=== PATIENT | female | born 1945 | race Caucasian/White ===

== ENCOUNTER 2019-11-16 17:36 | Inpatient (IN) | payer MEDICARE, SELFPAY ==
--- NOTE | ~2019-11-16 | CT_ITS ---
EXAMINATION: CT brain wo con DATE: 11/16/2019 19:22 INDICATION: Confusion TECHNIQUE: Computed tomography (CT) of the head was performed without intravenous contrast. The mA wa s adjusted according to patient size. Iterative reconstruction technique was employed. Exam dose: 60 5.33 mGy-cm total exam DLP. COMPARISON: None FINDINGS: Prominent bilateral vertebral and prominent carotid siphon and supraclinoid internal caroti d artery calcifications. There is nonspecific diminished attenuation of the cerebral white matter, likely due to chronic small vessel ischemic changes. Minimal bilateral basal ganglia calcification. No intracranial mass lesion or hemorrhage or cerebrovascular accident. No midline shift or mass effec t. No subdural or epidural hematoma. There is age-consistent mild to moderate cerebral and cerebellar atrophy. No fracture or bone destruction of the cranial vault. Bilateral hyperostosis frontalis interna, not l ikely of clinical significance. Mastoid air cells are normally developed and aerated. Middle and inner ear apparatus appear unremarka ble. The included paranasal sinuses appear normal. IMPRESSION: Cerebral atherosclerosis and chronic small vessel ischemic changes of the cerebral white matter No acute intracranial finding Reviewed, dictated and finalized at [facility]. Reviewed, dictated and finalized at [facility].
--- NOTE | ~2019-11-16 | XR_ITS ---
XR foot RT min 3V DATE: 11/16/2019 19:30 INDICATION: Osteomyelitis TECHNIQUE: 4 views of right foot COMPARISON: None FINDINGS: There is soft tissue swelling of the foot, particularly along the dorsum of the forefoot, w ith subcutaneous emphysema. The findings are consistent with cellulitis. No periosteal reaction or bone destruction is evident to suggest osteomyelitis. 3. Phase radionuclide bone scan would be more sensitive for detection of early osteomyelitis than julien in radiographs. There is prominent osteoarthritis at the first metatarsophalangeal joint. There is prominent plantar calcaneal and minimal posterior calcaneal enthesopathy. IMPRESSION: Soft tissue swelling and subcutaneous emphysema consistent with cellulitis Osteoarthritic change at the first metatarsophalangeal joint Calcaneal enthesopathy Reviewed, dictated and finalized at [facility]. IMPRESSION: Soft tissue swelling and subcutaneous emphysema consistent with memo lulitis Osteoarthritic change at the first metatarsophalangeal joint Calcaneal enthesopathy
--- NOTE | ~2019-11-16 | MR_ITS ---
EXAMINATION: MR foot RT wo/w con DATE: 11/17/2019 10:52 INDICATION: Osteomyelitis TECHNIQUE: Magnetic resonance imaging (MRI) of the right fore/mid foot was performed without and with 18 mL Multihance intravenous contrast. Sequences included axial T1-weighted FSE, axial T2-weighted F S FSE, coronal T1-weighted FSE, coronal T2-weighted FS FSE, sagittal T1-weighted FSE and sagittal T2- weighted FS FSE. Precontrast axial T1-weighted FS FSE and post contrast axial and coronal T1-weighted FS FSE were also obtained. COMPARISON: Radiographs dated 11/16/2019 FINDINGS: Bone alignment is normal. No fracture. Normal T1 marrow fat signal throughout with no evident osteomy elitis. Mild to moderate polyarticular osteoarthritis at the mid and forefoot most prominent at the f irst metatarsophalangeal, naviculocuneiform and second and third tarsal metatarsal joints with associ ated subarticular edema and/or cystic changes. No no other regions of abnormal marrow edema or enhanc ement although evaluation at portions of the phalanges is limited by failure of fat saturation in thi s region. There is extensive subcutaneous edema and non mass-like enhancement throughout the soft tissues the f ore and midfoot. There are few small foci of absent signal in the subcutaneous fat over the dorsum of the forefoot corresponding to subcutaneous emphysema seen on prior radiographs. There are regions of absent enhancement in the surrounding soft tissues which is concerning for necrotic/infarcted tissue . This extends around the heads of the 3rd-5th metatarsals is contiguous with an additional large reg ion of absent soft tissue enhancement plantar to the heads and distal diaphyses of the 2nd-5th metata rsals. This lies deep to a large ulceration located plantar to the heads of the fourth and fifth meta tarsals. The region of absent soft tissue enhancement at the plantar forefoot measures approximately 6 cm medial to lateral, 4 cm proximal to distal and 2 cm in thickness. The region in the dorsal soft tissues also measures 6 cm medial to lateral, 4 cm proximal to distal and proximal 1-1.5 cm in thickn ess. The flexor and extensor tendons to the toes lie along the deep margins of the regions of necrosi s and appear to remain grossly intact on the coronal T2-weighted images. Physiologic amount of fluid in the joint spaces. IMPRESSION: 1. Severe cellulitis which appears to originate at a deep ulceration plantar to the fourth and fifth metatarsals with 6 x 4 x 2 cm region of necrotic soft tissue at the plantar aspect of the forefoot an d extending around the heads of the second-fifth metatarsals into the soft tissues of the dorsum of t he forefoot and measures 6 x 4 x 1-1.5 cm with associated subcutaneous emphysema. No evidence of asso ciated osteomyelitis. 2. Mild to moderate polyarticular osteoarthritis. Reviewed, dictated and finalized at location [facility]. IMPRESSION: 1. Severe cellulitis which appears to originate at a deep ulceration plantar to the fourth and fifth metatarsals with 6 x 4 x 2 cm region of necrotic soft tis ghada at the plantar aspect of the forefoot and extending around the heads of the second-fifth metatarsals into the soft tissues of the dorsum of the forefoot a nd measures 6 x 4 x 1-1.5 cm with associated subcutaneous emphysema. No evidenc e of associated osteomyelitis. 2. Mild to moderate polyarticular osteoarthritis.
--- NOTE | ~2019-11-16 | MR_ITS ---
EXAMINATION: MR brain/brain stem wo/w con DATE: 11/17/2019 10:52 INDICATION: Confusion, possible CVA TECHNIQUE: Magnetic resonance imaging (MRI) of the brain and brainstem was performed without intraven ous contrast. Sequences included sagittal and axial T1-weighted SE, axial diffusion-weighted FS EPI A SSET, axial T2*-weighted GRE, axial T2-weighted FLAIR Propeller, and axial T2-weighted Propeller. Pos tcontrast axial and coronal T1-weighted SE was obtained. Apparent diffusion coefficient (ADC) maps we re created. COMPARISON: None CONTRAST: Multihance, 18 cc FINDINGS: There are no areas of restricted diffusion to suggest acute infarction. There is no acute h emorrhage seen on the T2*, a hemosiderin sensitive sequence. There is mild prominence of the sulci an d ventricles related to cerebral atrophy. There are no extra-axial collections. Flow voids are seen in the cerebral arteries on the T2-weighted sequences consistent with their expected patency. Visuali zed orbits and soft tissues are unremarkable. There are no areas of abnormal enhancement on the post contrast images. IMPRESSION: 1. No acute intracranial process. 2. Age related findings. Reviewed, dictated and finalized at location [facility].
--- NOTE | ~2019-11-16 | XR_ITS ---
EXAMINATION: XR lumbar spine 2-3V DATE: 11/18/2019 16:14 INDICATION: Low back pain after fall TECHNIQUE: Anteroposterior and lateral views of the lumbar spine, and cone-down lateral view of the l umbosacral junction were obtained. COMPARISON: None. FINDINGS: There is an age-indeterminate compression fracture of the L1 vertebral body with 40% loss o f anterior vertebral body height. Vertebral body alignment is normal. There is mild loss of intervert ebral disc space height at L5-S1. Small degenerative osteophytes project from the anterior endplates of multiple vertebral bodies. There is moderate lower lumbar facet osteoarthritis. IMPRESSION: 1. Age-indeterminate compression fracture of the L1 vertebral body. Reviewed, dictated and finalized at location [facility].
--- NOTE | ~2019-11-16 | US_ITS ---
EXAMINATION: US art doppler w press LE BI DATE: 11/18/2019 11:22 INDICATION: Necrotic wound at the right foot TECHNIQUE: Segmental pressures and plethysmographic and Doppler waveforms of the brachial and lower e xtremity arteries were obtained. COMPARISON: None. FINDINGS: Right and left brachial artery pressures of 172 mm Hg and 168 mm Hg, respectively, are concordant (no rmal difference <= 30 mmHg). The right and left high-thigh pressure indices are unable to be obtained due to inability to occlude the vessels at the bilateral thighs. The right ankle-brachial index (AMOS) is 0.97 (normal >= 0.9-1). The right great toe-brachial index (T BI) is unable to be obtained due to bandaging material about the right foot (normal >= 0.6-0.8). The right lower extremity segmental pressure gradients are normal (normal gradients <= 20-30 mmHg between adjacent levels on the same leg or the same levels on the two legs). Arterial waveforms are biphasic with brisk systolic upstrokes throughout. The left AMOS is 0.99. The left TBI is 0.76. The left lower extremity segmental pressure gradients are increased between the left [id number] popliteal artery and the left posterior tibial artery. Art erial waveforms are biphasic with brisk systolic upstrokes throughout. IMPRESSION: 1. Normal AMOS's bilaterally. No significant arterial occlusive disease. Reviewed, dictated and finalized at location [facility].
[2019-11-16 17:47] VITALS: BP 181/65; PULSE 84; RESP 18; TEMP 36.3; O2SAT 99
--- NOTE | 2019-11-16 17:50 | ED.AMS ---
HPI - Altered Mental Status General Chief Complaint: Altered Mental Status Stated Complaint: ams Time Seen by Provider: 11/16/19 17:49 Source: patient and family Mode of arrival: EMS Limitations: no limitations History of Present Illness HPI narrative: A 74 y/o female presents to the ED, via EMS, with c/o AMS. According to family, the patient started to have slurred speech and confusion this morning. According to the patient, she slipped and fell out of bed on 11/11/19, but was not evaluated at the hospital at that time. She reports dark urine, but denies JONES, N/V, fever, chills, back pain, CP, ABD pain, hip pain, and foot pain in the ED. The patient has a visual right foot wound with necrotic tissue and reports right foot redness and swelling. The patient and her family are poor historians and are unsure when the foot wound started. She last saw a physician 6 years ago. complaint: altered mental status Onset (ago): hour(s) (Today) Timing confirmed by: family member Consistency of symptoms: constant Associated symptoms: other (Right foot swelling, right foot redness, dark urine, slurred speech, confusion) Related Data Home Medications Medication Instructions Recorded Confirmed No Home Medications 11/16/19 11/16/19 Allergies Allergy/AdvReac Type Severity Reaction Status Date / Time No Known Allergies Allergy Verified 11/16/19 17:46 Review of Systems Review of Systems: All systems reviewed & are unremarkable except as noted in HPI and below Constitutional: Constitutional: Denies chills and Denies fever(s) Cardiovascular: Cardiovascular: Denies chest pain Gastrointestinal: Gastrointestinal: Denies abdominal pain, Denies nausea and Denies vomiting Genitourinary: Genitourinary: Reports other (Dark urine) Musculoskeletal: Musculoskeletal: Denies back pain and Denies arthralgias (Hip, foot) Integumentary/Breasts: Skin/Breast: Reports swelling (Right foot) and Reports erythema (Right foot) Neurologic: Reports confusion, Denies headache(s) and Reports other (AMS, slurred speech) [facility] Past Medical History Medical History (Updated 11/16/19 @ 22:18 by Suki Monae MD) Medical history unknown Surgical History Surgical History (Updated 11/16/19 @ 18:42 by Edith Melton) Surgical history unknown Social History Social History (Updated 11/16/19 @ 18:42 by Edith Melton) Smoking status: Unknown if ever smoked Gender identity (if verbalized by the patient): Female Exam Narrative: Exam Narrative: General appearance: Well-developed, well-nourished Skin: Normal color, right foot showed extensive erythema, dorsal ulcers, plantar open dark skin without discharge. Poor sensation Head: Normocephalic, nontraumatic Eyes: Clear conjunctiva ENT: Oropharynx normal, ears normal, nose normal Neck: Supple, nontender Chest and respiratory: Airway patent, no respiratory distress, no accessory muscle use Heart: Regular rate/rhythm Abdomen: Soft, nontender, no organomegaly, quiet bowel sounds Vascular: Normal peripheral pulses, normal capillary refill. Musculoskeletal: Normal range of motion, nontender back Neurologic: Alert and oriented ?3, [employer] is normal as tested, no gross motor deficit Course Course Emergency Course: Stable Consultations Consultation #1: Dr. [place] Date: 11/16/19 Time: 22:18 Vital Signs Vital signs: Vital Signs Temperature 36.3 C L 11/16/19 17:47 Pulse Rate 84 11/16/19 17:47 Respiratory Rate 18 11/16/19 17:47 Blood Pressure 181/65 H 11/16/19 17:47 Pulse Oximetry 99 11/16/19 17:47 Temperature 36.3 C L 11/16/19 17:47 Pulse Rate 77 11/16/19 20:30 Respiratory Rate 21 H 11/16/19 20:30 Bloo
--- NOTE | 2019-11-16 17:54 | ECG_ITS ---
Measurements Intervals [place] Rate: 78 P: 63 AL: 140 QRS: -13 QRSD: 134 T: -17 QT: 393 QTc: 449 Interpretive Statements SINUS RHYTHM RIGHT BUNDLE BRANCH BLOCK BASELINE ARTIFACT- I, III, V6 ABNORMAL ECG Electronically Signed On 11-17-2019 9:30:49 CDT by Percy Hagen D.O.
[2019-11-16] MEDS: SODIUM CHLORIDE 0.9% IV 1,000 ML 999 ML IV CONT (18:20)
[2019-11-16 18:26] LABS: Hematocrit 38.5 % (37.0-47.0); Hemoglobin 12.4 g/dL (12.0-15.0); Mean Corpuscular HGB Conc 32.2 g/dl (32-36); Mean Corpuscular Hemoglobin 27.5 pg (26-34); Mean Corpuscular Volume 85.4 fl (80-100); Mean Platelet Volume 9.8 fl (7.4-10.4); Platelet Count Result 372 k/mm3 (150-375); Red Blood Count 4.51 M/mm3 (4.2-5.4); Red Cell Distribution Width 14.3 % (11.5-14.5); White Blood Count 20.3 K/mm3 (4.5-10.0)
[2019-11-16 18:36] LABS: INR 1.1; Partial Thromboplastin Time 29.5 SECONDS (22.3-36.8); Prothrombin Time 13.9 Seconds (11.1-14.7)
[2019-11-16 18:40] LABS: Lactic Acid Reflex 1.4 mmol/L (0.7-2.1)
[2019-11-16 18:50] LABS: Add Urine Microscopic? YES; Appearance Urine Cloudy (Clear); Bacteria Urine 2+ /hpf; Bilirubin Urine Negative (Negative); Blood Urine 1+ (Negative); Color Urine Yellow (Yellow); Glucose Urine UA 3+ mg/dL (Negative); Ketones Urine Trace mg/dL (Negative); Leukocyte Esterase Ur 3+ LEU/UL (Negative); Nitrate Urine Positive (Negative); Protein Urine 2+ mg/dL (Negative); RBC Urine 21-50 /hpf (0-2); Specific Grav Ur 1.023 (1.001-1.035); Squamous Epithelial Cell Urine Rare /hpf (Few); Urobilinogen Urine Negative mg/dL (<2.0); WBC Urine >75 /hpf
[2019-11-16 18:54] LABS: Alanine Aminotransferase 22 U/L (4-35); Alkaline Phosphatase 194 U/L (38-126); Aspartate Amino Transferase 18 U/L (14-36); Band Neutrophils Percent 11 % (0-6); Bilirubin,Total 0.6 mg/dL (0.2-1.3); Blood Urea Nitrogen 41 mg/dL (7-17); Calcium 9.4 mg/dL (8.4-10.2); Carbon Dioxide 29 mmol/L (22-30); Chloride 97 mmol/L (98-107); Eosinophils Percent Manual 2 % (0-4); Estimated Glomerular Filt Rate > 60; Glucose 320 mg/dL (65-105); Lymphocytes Absolute Manual 2.23 K/mm3 (1.1-4.5); Monocytes Absolute Manual 1.21 K/mm3 (0.1-0.90); Monocytes Percent Manual 6 % (3-9); Neutrophils Absolute Manual 16.44 K/mm3 (1.7-7.2); Neutrophils Percent Manual 70 % (46-73); Platelet Estimate Adequate (Adequate); Potassium 4.6 mmol/L (3.4-5.0); Sodium 133 mmol/L (137-145); Total Cells Counted 100
[2019-11-16 19:02] LABS: CRP 25.8 mg/dL (<1.0)
--- NOTE | 2019-11-16 19:21 | PC.NURSE ---
pt down to ct
[2019-11-16 20:30] VITALS: BP 191/71; PULSE 77; RESP 21; O2SAT 98
[2019-11-16 22:08] VITALS: TEMP 36.4
[2019-11-16 22:20] VITALS: BP 197/90; PULSE 85; RESP 18; O2SAT 100
--- NOTE | 2019-11-16 22:36 | PM.IMHP ---
H&P: HPI History of Present Illness Chief complaint: ams Narrative: This is a 74-year-old female who presented to the hospital today with acute confusion and altered mental status. The patient is known to live with her son who brought her to the hospital today concerned that she is more confused than normal. He reports that she suffered a fall this past Monday and was found on the ground face first. At that time he wanted to bring her to the hospital although she refused. He also reports that she has not regularly seen any healthcare providers in about 6 years. He notice that she has become more confused over the past day and half. She has been complaining of right foot pain and has been taking Aleve 3 or 4 times a day for the past week. Her son believes he she may have injured her foot when she fell this past Monday. The patient also complains of painful urination. She denies any fever, chills, chest pain, palpitations, abdominal pain, nausea, vomiting, diarrhea, or rectal bleeding. Patient was evaluated emergency room this evening and found to have elevated blood glucose of 320 mg/dL. The patient is not known to be diabetic but she also does not follow-up with any healthcare providers. Urinalysis was abnormal with positive nitrate, +3 leukocyte esterase, greater than 75 white blood cells, and 21-50 red blood cells. X-ray of her right foot did not demonstrate any osteomyelitis. General surgery has been consulted to evaluate the patient's right diabetic foot for possible debridement. Significant complaints at this time. Review of Systems Review of Systems: All systems reviewed & are unremarkable except as noted in HPI and below PMFSH Past Medical History Medical History Medical history unknown Surgical History Surgical History History of section, classical Surgical history unknown Family History Family History Mother Diabetes mellitus Cerebrovascular accident Father Congestive heart failure (CHF) Father No problems noted. Son Hypertension Social History Social History Smoking status: Never smoker Alcohol intake: never Substance use: never Substance use type: does not use Gender identity (if verbalized by the patient): Female Spiritual care concerns: No Agree to blood products: Yes Meds Home Medications and Allergies Home Medications Medication Instructions Recorded Confirmed Type No Home Medications 11/16/19 11/16/19 History Allergies Allergy/AdvReac Type Severity Reaction Status Date / Time No Known Allergies Allergy Verified 11/16/19 17:46 Vital Signs Vital Signs - 24 hr 11/16/19 17:47 11/16/19 20:30 11/16/19 22:08 Temperature 36.3 C L 36.4 C L Pulse Rate 84 77 Respiratory Rate 18 21 H Blood Pressure 181/65 H 191/71 H Pulse Oximetry 99 98 Exam Const: General: cooperative, no acute distress, alert, awake and ill appearing chronically Nutritional Appearance: obese morbidly obese Orientation/consciousness: oriented to person and confusion HENMT: Head: normal to inspection General nose exam: Normal external nose present Face and sinus: normal facial exam Mouth: Yes Normal oral and palatal mucosa present and Yes oropharynx normal Eyes: Pupils: Equal, round and reactive pupils present EOM: EOMs intact bilaterally Neck: Neck: supple and no JVD Thyroid: thyroid normal Lymphatic: lymphadenopathy not noted Resp: Effort & Inspection: normal respiratory effort Auscultation: clear to auscultation bilaterally Cardio: Rate: regular rate Rhythm: regular rhythm Heart sounds: no murmurs GI: Inspection: normal to inspection Auscultation: normal bowel sounds Skin: Other: Cellulitis of right foot with edema, purplish discoloration,
[2019-11-16] MEDS: ASPIRIN 325 MG TABLET PO (22:41)
[2019-11-16 23:00] VITALS: BP 198/65; PULSE 78; RESP 19; TEMP 36.4; O2SAT 99
[2019-11-16 23:23] VITALS: BMI 39.3
[2019-11-16 23:24] VITALS: BP 144/88; PULSE 79; RESP 20; TEMP 36.1; O2SAT 96
[2019-11-16] MEDS: SODIUM CHLORIDE 0.9% IV 1,000 ML 150 ML IV CONT (23:26)
[2019-11-17] VITALS (10 sets, daily range): BP systolic 142–152; BP diastolic 45–88; PULSE 64–80; RESP 18–20; TEMP 36–36.6; O2SAT 96–100
[2019-11-17 01:16] LABS: Glucose Point of Care 321 (65-105)
[2019-11-17] MEDS: ACETAMINOPHEN 325 MG TABLET 650 MG PO ×2 (01:42→10:56)
[2019-11-17] MEDS: TOLNAFTATE 1% POWDER 45 GM BTL 1 APPLIC TOPICAL ×3 (01:46→21:37)
[2019-11-17 05:31] LABS: Basophils Percent Auto 0.1 % (0.2-1.2); Eosinophils Absolute Auto 0.2 K/mm3 (0-0.3); Eosinophils Percent Auto 0.9 % (0-4.4); Hematocrit 35.4 % (37.0-47.0); Hemoglobin 11.3 g/dL (12.0-15.0); Immature Granulocyte Absolute 0.86 K/mm3 (0.00-0.031); Immature Granulocyte Percent A 5.2 % (0-0.5); Lymphocytes Absolute Auto 1.13 K/mm3 (0.9-3.2); Lymphocytes Percent Auto 6.8 % (18.3-44.2); Mean Corpuscular HGB Conc 31.9 g/dl (32-36); Mean Corpuscular Hemoglobin 27.3 pg (26-34); Mean Corpuscular Volume 85.5 fl (80-100); Mean Platelet Volume 10.1 fl (7.4-10.4); Monocytes Absolute Auto 0.6 K/mm3 (0.1-0.6); Monocytes Percent Auto 3.5 % (2.6-8.5); Neutrophils Absolute Auto 13.9 K/mm3 (1.3-6.7); Neutrophils Percent Auto 83.5 % (45.5-73.1); Platelet Count Result 315 k/mm3 (150-375); Red Blood Count 4.14 M/mm3 (4.2-5.4); Red Cell Distribution Width 14.3 % (11.5-14.5); White Blood Count 16.6 K/mm3 (4.5-10.0)
[2019-11-17 05:42] LABS: Blood Urea Nitrogen 35 mg/dL (7-17); Calcium 8.2 mg/dL (8.4-10.2); Carbon Dioxide 20 mmol/L (22-30); Chloride 103 mmol/L (98-107); Estimated CRCL calculation 68 ml/min; Estimated Glomerular Filt Rate > 60; Glucose 295 mg/dL (65-105); Potassium 4.3 mmol/L (3.4-5.0); Sodium 130 mmol/L (137-145)
[2019-11-17 05:51] LABS: Hemoglobin A1C 12.5 % (<5.7)
[2019-11-17] MEDS: SODIUM CHLORIDE 0.9% IV 1,000 ML 150 ML IV CONT ×2 (06:30→16:16)
[2019-11-17] MEDS: INSULIN ASPART (*BKC) 100 UNITS/ML SUB-Q ×3 (07:29→17:19)
[2019-11-17] MEDS: ENOXAPARIN 40 MG/0.4 ML SYRINGE SUB-Q (07:31)
[2019-11-17] MEDS: ASPIRIN 81 MG CHEWABLE TABLET PO (07:31)
--- NOTE | 2019-11-17 08:33 | PM.IMPN ---
Progress Note: A&P Assessment and Plan (1) Acute encephalopathy: Code(s): G93.40 - Encephalopathy, unspecified Status: Acute Assessment and Plan: Probably on the basis of metabolic encephalopathy with the septic picture and dehydration. Cultures have been obtained and she is on antibiotics (2) Uncontrolled hypertension: Code(s): I10 - Essential (primary) hypertension Status: Acute Assessment and Plan: With diabetes will institute FORREST-inhibitor with lisinopril 10 daily (3) New onset type 2 diabetes mellitus: Code(s): E11.9 - Type 2 diabetes mellitus without complications Status: Acute Assessment and Plan: A1c is 12.5. Will start Lantus 20 daily and continue sliding scale for now (4) Sepsis: Code(s): A41.9 - Sepsis, unspecified organism Status: Acute Assessment and Plan: As evidence by tachypnea and leukocytosis. Cultured and placed on antibiotics foot and urine likely source is (5) Diabetic foot: Code(s): E11.8 - Type 2 diabetes mellitus with unspecified complications Status: Acute Assessment and Plan: Wound care and surgery to evaluate. Good distal pulse and foot is warm. Will check MRI to make sure there is no osteo Continue vancomycin and Zosyn (6) Urinary tract infection: Qualifiers: Hematuria presence: without hematuria Urinary tract infection type: site unspecified Qualified Code(s): N39.0 - Urinary tract infection, site not specified Code(s): N39.0 - Urinary tract infection, site not specified Status: Acute Assessment and Plan: Cultures have been obtained and placed on Zosyn (7) Dehydration: Code(s): E86.0 - Dehydration Status: Acute Assessment and Plan: Poor p.o. intake last few days with pre renal azotemia. Monitor electrolytes and continue hydration (8) DVT prophylaxis: Code(s): Z29.9 - Encounter for prophylactic measures, unspecified Status: Acute Assessment and Plan: Lovenox Subjective Date/time seen: 11/17/19 08:33 Interval history: Date of visit 11/16Lena gabriel is a 74-year-old with newly diagnosed type 2 diabetes and hypertension who presented to the emergency room with altered mental status infected right foot in UTI. She is slightly dehydrated and has received IV fluids and antibiotics and is feeling much better this a.m.. Slept better and has no specific complaints. As per history of present illness she has not sought medical attention probably for upwards of 6 years. Exam Narrative: Exam Narrative: Blood pressure is 142/54 pulse 64 saturating 97% on room air afebrile Pupils equal reactive to light sclera anicteric Lungs clear CV regular rate rhythm Abdomen is soft nontender no masses obese Extremities without edema dorsalis pedis 2+ left ,1 to 2+ right, right foot there is abrasion on the dorsum and area of necrosis on the plantar surface laterally about 2-3 cm in diameter and some dark discoloration last 2 toes which may be all hematoma. Some erythema around that area also Neuro at this point she is alert she is oriented there is x3 in no focal deficit Integument no other rashes or skin breakdown other than the foot Objective Data Vital Signs Vital Signs: Vital Signs - 24 hr 11/16/19 17:47 11/16/19 20:30 11/16/19 22:08 Temperature 36.3 C L 36.4 C L Pulse Rate 84 77 Respiratory Rate 18 21 H Blood Pressure 181/65 H 191/71 H Pulse Oximetry 99 98 11/16/19 22:20 11/16/19 23:00 11/16/19 23:24 Temperature 36.4 C L 36.1 C L Pulse Rate 85 78 79 Respiratory Rate 18 19 20 Blood Pressure 197/90 H 198/65 H 144/88 H Pulse Oximetry 100 99 96 11/17/19 00:00 11/17/19 04:00 Temperature 36.1 C L 36.4 C Pulse Rate 80 64 Respiratory Rate 20 20 Blood Pressure 144/88 H 142/54 H Pulse Oximetry 96 97 Intake/Output Intake/Output: Intake & Output 11/14/19 11/15/19 11/16/19 11/17/19 23:59 23:59 23:59 23:59 Intake
[2019-11-17 08:48] LABS: Vitamin B12 > 1000.0 pg/mL (239-931)
[2019-11-17 08:49] LABS: Folic Acid 7.4 ng/mL (2.76->20)
--- NOTE | 2019-11-17 08:51 | PC.NURSE ---
Patient to MRI per stretcher. IV saline locked.
[2019-11-17 10:06] LABS: Glucose Point of Care 269 (65-105)
[2019-11-17] MEDS: INSULIN GLARGINE (*BKC) 100 UNITS/ML 20 UNITS SUB-Q (10:57)
[2019-11-17 11:28] LABS: Glucose Point of Care 253 (65-105)
[2019-11-17] MEDS: lisinopriL 10 MG TABLET PO (12:15)
[2019-11-17 12:38] LABS: Glucose Point of Care 258 (65-105)
[2019-11-17 17:34] LABS: Glucose Point of Care 275 (65-105)
--- NOTE | 2019-11-17 18:25 | CONS_ITS ---
DATE OF CONSULTATION: 11/16/2019 HISTORY OF PRESENT ILLNESS: A 74 years old right-handed female who has been admitted to [facility] through the emergency room for the complaints of change in the mental status with confusion. The patient reportedly lives with her son who brought her to the hospital as the patient appeared somewhat more confused. She suffered a fall last Monday and was found to be on the ground face first. At that time, he wanted to bring her to the hospital, although patient refused. She has not seen any physician regularly for the last 6 years. She became more confused over the past [id number]-half and has also complained of pain in the right foot, has been taking Aleve 3 or 4 times a day for the last 1 week. In addition, she complained of difficulties in urination. She was found to have a blood sugar of 320 in the emergency room, though she is not known to be diabetic. UA was abnormal with 3+ leukocyte, positive nitrate, greater than 75 white blood cells and 21-50 red blood cells. On x-ray of the right foot, she was found to have no fracture, no osteomyelitis. In the past, she has undergone significant . Her mother used to be diabetic, had stroke. Father used to have congestive heart failure. She herself is not a smoker, not a drinker. Home medications were recorded as none. ALLERGIES: NONE. PHYSICAL EXAMINATION: GENERAL: Revealed her to be awake, alert, cooperative, somewhat chronically ill appearing, morbidly obese. HEENT: Head normocephalic with no cranial bruit. Ear, nose, throat examination normal. NECK: Supple with no cervical bruit. No thyromegaly. No lymphadenopathy. HEART: Regular. LUNGS: Clear. ABDOMEN: Soft. NEUROLOGICAL: She is awake, alert. Pupils round, regular. Lim of vision full. Extraocular full. Face symmetrical. Tongue midline. Motor examination revealed her to have no focal motor deficit. Reflexes sluggish. Plantars downgoing. DIAGNOSTIC STUDIES: Evaluation up until now revealed CBC with leukocytosis, WBC 20.3, hemoglobin 12.4, platelet count 378, normal basic metabolic panel except sodium borderline that is 133 and BUN of 41. In addition, glucose of 320. Hepatic enzymes normal. Alkaline phos of 194 with albumin 3.0. UA with 2+ protein, 3+ glucose. Initial CT scan of the head revealed only small-vessel ischemic changes. X-ray of the right ankle revealed soft tissue swelling and subcutaneous emphysema consistent with cellulitis. No evidence of broken bone, though she was noted to have calcaneal enthesopathy. PLAN: Plan at this stage is to obtain the MRI of the brain as well. In addition, ultrasound of the carotid and further recommendations will be made accordingly. At this particular time, she is receiving no medication. We will start her on 1 baby aspirin for the time being until everything is obtained. BERTA BARROS M.D. ENTRY LEVEL AUTOMOTIVE TECHNICIAN ENTRY LEVEL AUTOMOTIVE TECHNICIAN D I MT: [place]
--- NOTE | 2019-11-17 19:05 | PM.CNGS ---
Assessment and Plan Assessment and plan (1) Diabetic foot: Onset Date: Unknown Code(s): E11.8 - Type 2 diabetes mellitus with unspecified complications Status: Acute Assessment and Plan: This appears to have been present for some time. Patient has a black eschar proximally 4 x 2 cm in size underneath her 4th metatarsal area right foot. (Plantar surface) I debrided a soft area on the top of her right foot overlying the 3rd 4th and 5th metatarsals. She has definite diabetic neuropathy because she did not complain at all during debridement of significant tissue. Will order noninvasive vascular arterial studies to check the inflow to her right leg. I suspect that she may have significantly compromised blood flow to this right foot. Will ask wound care nurses to begin seen the patient on Monday. Most likely will also need to ask Orthopedics to see the patient as I suspect that the MR will identify possible osteomyelitis in the area of the 3rd 4th or 5th digits Right foot. (2) Uncontrolled hypertension: Onset Date: Unknown Code(s): I10 - Essential (primary) hypertension Status: Acute Assessment and Plan: Started on medication for this however has not seen a physician for over 6 years therefore much of the damage may have been done. (3) New onset type 2 diabetes mellitus: Onset Date: Unknown Code(s): E11.9 - Type 2 diabetes mellitus without complications Status: Acute Assessment and Plan: Insulin started and education of the patient started. She has not seen a physician for more than 6 years. (4) Sepsis: Onset Date: Unknown Code(s): A41.9 - Sepsis, unspecified organism Status: Acute Assessment and Plan: Most likely secondary to diabetic foot infection on the right. Culture taken at the time of debridement should be the most accurate this was done in evening of 11/17/2019. (5) Urinary tract infection: Onset Date: Unknown Qualifiers: Hematuria presence: without hematuria Urinary tract infection type: site unspecified Qualified Code(s): N39.0 - Urinary tract infection, site not specified Code(s): N39.0 - Urinary tract infection, site not specified Status: Acute Assessment and Plan: cultures pending at this time. History of Present Illness Consult details Consult date: 11/17/19 Reason for consult: other ( diabetic right foot infection) Requesting physician: Charles Gracia MD Narrative: This is a 74-year-old female who presented to the hospital yesterday with acute confusion and altered mental status. The patient is known to live with her son who brought her to the hospital concerned that she was more confused than normal. He reports that she suffered a fall this past Monday and was found on the ground face first. At that time he wanted to bring her to the hospital but she refused. He also reports that she has not regularly seen any healthcare providers in about 6 years. He noticed that she has become more confused over the past day and half. She has been complaining of right foot pain and has been taking Aleve 3 or 4 times a day for the past week. Her son believes he she may have injured her foot when she fell this past Monday. The patient also complains of painful urination. She denies any fever, chills, chest pain, palpitations, or abdominal pain. Patient was evaluated emergency room last evening and found to have elevated blood glucose of 320 mg/dL. The patient is not known to be diabetic but she also does not follow-up with any healthcare providers. Urinalysis was abnormal with positive nitrate, +3 leukocyte esterase, greater than 75 white blood cells, and 21-50 red blood cells. X-ray of her right foot did not demonstrate any osteomyelitis, however there were changes in the soft tissue suggestive of a celullitis. Review of Systems Constitutional: Constitutional: Reports no add
[2019-11-17] MEDS: TRAMADOL HCL 50 MG TABLET PO (19:22)
--- NOTE | 2019-11-17 21:34 | PM.PROC ---
Procedure Note - Detailed Date of procedure: 11/17/19 Pre-op diagnosis: ams Diabetic right infection Post-op diagnosis: same Procedure performed: Excisional debridement of necrotic skin and soft tissue dorsum right foot Description of procedure: After obtaining verbal consent carefully prepped the top of the patient's right foot with Betadine. The 4 x 3 cm area overlying her 3rd 4th 5th metatarsal was carefully incised. On incising the leathery white skin there was immediate flow of yellowish cloudy fluid. Culture swab was taken and sent for Gram stain and C&S. Following this leathery skin and underlying soft tissue including subcutaneous fat down to tendon was excised. Patient did not complain of any pain whatsoever. There was minimal bleeding along the edges. This was stopped with pressure. Patient tolerated the procedure well. Dressing was applied with unfolded 4 x 4 gauze placed in the wound between the spaces of the 4th and 5th 3rd 4th and 2nd 3rd toes. This was then wrapped with a Kerlix gauze. Anesthesia: none Surgeon: Jabari Multani MD Radiology Transcriptionist: Floor nurse Mirna Estimated blood loss (mL): 2 Drains: No Packing: No Pathology: none sent Complications: No immediate complications Condition: stable Disposition: floor Findings: Necrotic skin with underlying whitish necrotic tissue extending down between apparent tendons. Minimal bleeding for the dissection done.
[2019-11-17 21:50] LABS: Glucose Point of Care 263 (65-105)
[2019-11-18] VITALS (11 sets, daily range): BP systolic 118–158; BP diastolic 40–72; PULSE 53–82; RESP 16–22; TEMP 36.1–36.6; O2SAT 93–98; BMI 39.3
--- NOTE | 2019-11-18 | ECHO_ITS ---
Patient Info Name: Tana Hutchins Age: 74 years : 1945 Gender: Female Ht: 60 in Wt: 201 lbs BSA: 2.02 m2 HR: 77 bpm BP: 149 / 752 mmHg Heart Rhythm: Sinus Rhythm Technical Quality: Good Exam Date: 11/18/2019 3:06 PM Exam Location: [facility] Pulmonary Patient Status: Inpatient Admit Date: 11/16/2019 Staff Ordering Physician: Yuri Gant MD Casting Tester: Jesus Dave, RASHID, RT Attending Provider: Charles Gracia MD Referring Physician: Alfreda CARUSO; Exam Type: CA echo dop color flow w con Study Info Indications I10 - Essential (primary) hypertension Complete two-dimensional, color flow and Doppler transthoracic echocardiogram is performed with contrast to opacify the left ventrical and to improve the deliniation of the left ventrical endocarial boarders. Summary 1. There is mild concentric increased left ventricular wall thickness. 2. Left ventricular systolic function is normal, estimated at 60-65%. 3. The left ventricular diastolic function is grade I diastolic dysfunction. 4. Left atrial chamber dimension is moderately enlarged. 5. No significant valvular disease. Left Ventricle Left ventricular chamber dimension is normal. Left ventricular systolic function is normal, estimated at 60-65%. There is mild concentric increased left ventricular wall thickness. The left ventricular diastolic function is grade I diastolic dysfunction. Right Ventricle Right ventricular chamber dimension is normal. Left Atria Left atrial chamber dimension is moderately enlarged. Right Atria Right atrial chamber dimension is normal. Aortic Valve The aortic valve is normal. Pulmonic Valve The pulmonic valve is not well visualized. Mitral Valve The mitral valve has normal leaflets. Tricuspid Valve The tricuspid valve leaflets are normal. There is trace tricuspid valve regurgitation. Pericardium/Pleural The pericardium appears normal. Aorta The aortic root size at the sinus of Valsalva is normal. Left Ventricular Outflow Tract Name Value Normal LVOT 2D LVOT Diameter 2.01 cm LVOT Doppler LVOT Peak Gradient 5 mmHg LVOT Mean Gradient 2 mmHg LVOT VTI 23.80 cm LVOT VTI/AV VTI Ratio 0.78 LVOT Stroke Volume 75.76 ml LVOT CO 6.15 l/min LVOT CI 3.05 L/min/m2 Pulmonic Valve Name Value Normal PV Doppler PV Peak Gradient 4 mmHg Mitral Valve Name Value Normal MV Doppler MV Dece
[2019-11-18] MEDS: SODIUM CHLORIDE 0.9% IV 1,000 ML 150 ML IV CONT ×3 (02:13→20:27)
[2019-11-18 05:29] LABS: Basophils Percent Auto 0.2 % (0.2-1.2); Eosinophils Absolute Auto 0.3 K/mm3 (0-0.3); Eosinophils Percent Auto 1.7 % (0-4.4); Hematocrit 36.1 % (37.0-47.0); Hemoglobin 11.6 g/dL (12.0-15.0); Immature Granulocyte Absolute 1.19 K/mm3 (0.00-0.031); Immature Granulocyte Percent A 7.6 % (0-0.5); Lymphocytes Absolute Auto 1.43 K/mm3 (0.9-3.2); Lymphocytes Percent Auto 9.2 % (18.3-44.2); Mean Corpuscular HGB Conc 32.1 g/dl (32-36); Mean Corpuscular Hemoglobin 27.4 pg (26-34); Mean Corpuscular Volume 85.1 fl (80-100); Mean Platelet Volume 9.5 fl (7.4-10.4); Monocytes Absolute Auto 0.6 K/mm3 (0.1-0.6); Monocytes Percent Auto 3.7 % (2.6-8.5); Neutrophils Absolute Auto 12.1 K/mm3 (1.3-6.7); Neutrophils Percent Auto 77.6 % (45.5-73.1); Platelet Count Result 362 k/mm3 (150-375); Red Blood Count 4.24 M/mm3 (4.2-5.4); Red Cell Distribution Width 14.4 % (11.5-14.5); White Blood Count 15.6 K/mm3 (4.5-10.0)
[2019-11-18 05:31] LABS: Blood Urea Nitrogen 32 mg/dL (7-17); Calcium 7.9 mg/dL (8.4-10.2); Carbon Dioxide 26 mmol/L (22-30); Chloride 104 mmol/L (98-107); Estimated CRCL calculation 53 ml/min; Estimated Glomerular Filt Rate > 60; Glucose 215 mg/dL (65-105); Sodium 132 mmol/L (137-145)
[2019-11-18] MEDS: TRAMADOL HCL 50 MG TABLET PO ×2 (06:38→16:35)
[2019-11-18] MEDS: TOLNAFTATE 1% POWDER 45 GM BTL 1 APPLIC TOPICAL ×2 (09:36→20:27)
[2019-11-18] MEDS: ENOXAPARIN 40 MG/0.4 ML SYRINGE SUB-Q (09:36)
[2019-11-18] MEDS: lisinopriL 10 MG TABLET PO (09:36)
[2019-11-18] MEDS: ASPIRIN 81 MG CHEWABLE TABLET PO (09:36)
[2019-11-18] MEDS: INSULIN GLARGINE (*BKC) 100 UNITS/ML 30 UNITS SUB-Q (09:40)
[2019-11-18 09:58] LABS: Glucose Point of Care 192 (65-105)
--- NOTE | 2019-11-18 11:37 | PC.NURSE ---
Voicemail left with inclusion special educator in regards to order for consult. Patient newly diagnosed Type 2 diabetic with A1C of 12.5.
[2019-11-18] MEDS: SOD HYPOCHLORITE 1/4 STRENGTH 473 ML 1 APPLIC TOPICAL ×2 (13:50→20:27)
[2019-11-18 14:02] LABS: Glucose Point of Care 197 (65-105)
--- NOTE | 2019-11-18 14:36 | PM.IMPN ---
Progress Note: A&P Assessment and Plan (1) Acute encephalopathy: Code(s): G93.40 - Encephalopathy, unspecified Status: Acute Assessment and Plan: Probably on the basis of metabolic encephalopathy with the septic picture and dehydration. Cultures have been obtained and she is on antibiotics Resolved (2) Uncontrolled hypertension: Onset Date: Unknown Code(s): I10 - Essential (primary) hypertension Status: Acute Assessment and Plan: With diabetes instituted FORREST-inhibitor with lisinopril 10 daily and bp much better today (3) New onset type 2 diabetes mellitus: Onset Date: Unknown Code(s): E11.9 - Type 2 diabetes mellitus without complications Status: Acute Assessment and Plan: A1c is 12.5. Will start Lantus 20 daily and increased to 30 today with fbs still > 200 ,and continue sliding scale for now (4) Sepsis: Onset Date: Unknown Code(s): A41.9 - Sepsis, unspecified organism Status: Acute Assessment and Plan: As evidence by tachypnea and leukocytosis. Cultured and placed on antibiotics for foot and urine likely source cultures still pending, WBC down to 15K (5) Diabetic foot: Onset Date: Unknown Code(s): E11.8 - Type 2 diabetes mellitus with unspecified complications Status: Acute Assessment and Plan: Wound care and surgery have evaluated and debrided. Good distal pulse and foot is warm and arteriolar dopplars today are normal MRI no osteo seen Continue vancomycin and Zosyn (6) Urinary tract infection: Onset Date: Unknown Qualifiers: Hematuria presence: without hematuria Urinary tract infection type: site unspecified Qualified Code(s): N39.0 - Urinary tract infection, site not specified Code(s): N39.0 - Urinary tract infection, site not specified Status: Acute Assessment and Plan: Cultures have been obtained and placed on Zosyn (7) Dehydration: Code(s): E86.0 - Dehydration Status: Acute Assessment and Plan: Poor p.o. intake last few days with pre renal azotemia. Monitor electrolytes and continue hydration, bun slowly falling (8) DVT prophylaxis: Code(s): Z29.9 - Encounter for prophylactic measures, unspecified Status: Acute Assessment and Plan: Lovenox (9) Back pain: Code(s): M54.9 - Dorsalgia, unspecified Status: Acute Assessment and Plan: check LS spine xray with her hx of fall Subjective Date/time seen: 11/18/19 14:36 Interval history: Date of visit 11/17. Tana Hutchins is a 74-year-old with newly diagnosed type 2 diabetes and hypertension who presented to the emergency room with altered mental status infected right foot and UTI. She was slightly dehydrated and received IV fluids and antibiotics and is feeling much better again this a.m.. Slept better and has no specific complaints other than back pain since she fell. As per history of present illness she has not sought medical attention probably for upwards of 6 years. Surgery debrided her foot 11/16 and removed necrotic tissue downt to tendons Exam Narrative: Exam Narrative: Blood pressure is 138/40 pulse 66 saturating 97% on room air afebrile Pupils equal reactive to light sclera anicteric Lungs clear CV regular rate rhythm Abdomen is soft nontender no masses obese Extremities without edema dorsalis pedis 2+ left ,1 to 2+ right, Bandaged per wound care and surgery and not removed today. Neuro at this point she is alert she is oriented there is x3 in no focal deficit Integument no other rashes or skin breakdown other than the foot Objective Data Vital Signs Vital Signs: Vital Signs - 24 hr 11/17/19 16:00 11/17/19 18:00 11/17/19 20:00 Temperature 36.6 C Pulse Rate 67 73 68 Respiratory Rate 18 Blood Pressure 145/47 H Pulse Oximetry 97 11/17/19 21:41 11/18/19 00:00 11/18/19 02:00 Temperature 36.0 C L 36.1 C L Pulse Rat
[2019-11-18] MEDS: INSULIN ASPART (*BKC) 100 UNITS/ML SUB-Q (17:54)
[2019-11-18 17:55] LABS: Glucose Point of Care 229 (65-105)
--- NOTE | 2019-11-18 18:50 | PM.PNGS ---
Progress Note: A&P Assessment and Plan (1) Diabetic foot: Onset Date: Unknown Code(s): E11.8 - Type 2 diabetes mellitus with unspecified complications Status: Acute Assessment and Plan: Necrotic diabetic right foot ulcer. S/p excisional debridement by Dr. Multani on 11/17/19 with wound cultures. AMOS's and MRI ordered for today. MRI showed severe cellulitis which appears to originate at a deep ulceration plantar to the fourth and fifth metatarsals with 6 x 4 x 2 cm region of necrotic soft tissue at the plantar aspect of the forefoot and extending around the heads of the second-fifth metatarsals into the soft tissues of the dorsum of the forefoot and measures 6 x 4 x 1-1.5 cm with associated subcutaneous emphysema. No evidence of associated osteomyelitis. AMOS's were normal. Wound care nurses evaluated the patient today. Continue local wound care with Dakin's solution dressing changes. Discussed plan of care with Dr. Multani and will consult Orthopedics to evaluate the patient for more extensive surgical intervetion. (2) Uncontrolled hypertension: Onset Date: Unknown Code(s): I10 - Essential (primary) hypertension Status: Acute (3) New onset type 2 diabetes mellitus: Onset Date: Unknown Code(s): E11.9 - Type 2 diabetes mellitus without complications Status: Acute Assessment and Plan: Hgb A1C 12.5. Hospitalist managing and patient now on Lantus. Blood glucose improving but still in the 200's today. (4) Sepsis: Onset Date: Unknown Code(s): A41.9 - Sepsis, unspecified organism Status: Acute Assessment and Plan: Criteria met on admission. Most likely secondary to diabetic foot infection on the right. Other possible source is urine. Blood cultures pending. Continue IV antibiotics - Zosyn/Vanc. WBC trending down. Culture taken at the time of debridement. Awaiting results. (5) Urinary tract infection: Onset Date: Unknown Qualifiers: Hematuria presence: without hematuria Urinary tract infection type: site unspecified Qualified Code(s): N39.0 - Urinary tract infection, site not specified Code(s): N39.0 - Urinary tract infection, site not specified Status: Acute Additional Plan Discussed patient's case and plan of care with Dr. Multani. Subjective Subjective Date/Time Seen: 11/18/19 14:50 Patient reports: no new complaints Interval history: Patient reports no new complaints today. Denies pain in her right leg/foot. Review of Systems Review of Systems: All systems reviewed & are unremarkable except as noted in HPI and below Exam Const: General: no acute distress, alert and awake Orientation/consciousness: oriented to person, oriented to place and oriented to time Skin: Wounds: wounds noted (Planter surface of Rt. foot (black dry eschar beneath Rt. 4th metatarsal) Neuro: General: no focal motor deficits Extrem: Other: Right foot: Ulcer on the plantar aspect of the right foot extending from the 3rd to 5th metatarsal that appears to be a black dry eschar with surrounding skin changes extending past the ulcer that appear dark purple. There is also a small intact vesicle with surrounding erythema medial to the ulcer that overlies about the 2nd metatarsal. 3rd, 4th, and 5th toes have ischemic changes and appear dark purple with the superficial skin peeling - minimal decreased dull sensation in these toes. On the dorsum aspect of the right foot there is another ulcer of the midfoot extending from the 3rd to 5th metatarsal with a yellow necrotic moist wound bed that seems to extend with tunneling laterally and medially. When compressing the foot on each side of this ulcer, there is purulent drainage that is visibly expressible. surrounding skin of the midfoot does appear erythematous and edematous. No pain or sensation when assessing the ulcer on either the plantar or dorsal aspect. No significant crepitus noted. Strong DP pulse a
[2019-11-18 20:42] LABS: Glucose Point of Care 176 (65-105)
[2019-11-19] VITALS (8 sets, daily range): BP systolic 133–173; BP diastolic 53–70; PULSE 64–78; RESP 16–20; TEMP 36.1–36.8; O2SAT 94–97
[2019-11-19] MEDS: SODIUM CHLORIDE 0.9% IV 1,000 ML 150 ML IV CONT (03:19)
[2019-11-19] MEDS: TRAMADOL HCL 50 MG TABLET PO ×3 (05:06→18:08)
[2019-11-19 05:09] LABS: Hematocrit 37.7 % (37.0-47.0); Hemoglobin 11.9 g/dL (12.0-15.0); Mean Corpuscular HGB Conc 31.6 g/dl (32-36); Mean Corpuscular Hemoglobin 27.2 pg (26-34); Mean Corpuscular Volume 86.1 fl (80-100); Mean Platelet Volume 9.4 fl (7.4-10.4); Platelet Count Result 347 k/mm3 (150-375); Red Blood Count 4.38 M/mm3 (4.2-5.4); Red Cell Distribution Width 14.6 % (11.5-14.5); White Blood Count 17.1 K/mm3 (4.5-10.0)
[2019-11-19 05:24] LABS: Blood Urea Nitrogen 25 mg/dL (7-17); Carbon Dioxide 25 mmol/L (22-30); Chloride 107 mmol/L (98-107); Estimated CRCL calculation 53 ml/min; Estimated Glomerular Filt Rate > 60; Glucose 103 mg/dL (65-105); Potassium 3.8 mmol/L (3.4-5.0); Sodium 133 mmol/L (137-145)
[2019-11-19 06:08] LABS: Vancomycin Trough 14.2 ug/mL (10.0-20.0)
[2019-11-19 06:57] LABS: Band Neutrophils Percent 8 % (0-6); Eosinophils Absolute Manual 0.51 K/mm3 (0.02-0.5); Eosinophils Percent Manual 3 % (0-4); Lymphocytes Absolute Manual 2.39 K/mm3 (1.1-4.5); Monocytes Absolute Manual 0.51 K/mm3 (0.1-0.90); Monocytes Percent Manual 3 % (3-9); Neutrophils Absolute Manual 13.68 K/mm3 (1.7-7.2); Neutrophils Percent Manual 72 % (46-73); Platelet Estimate Adequate (Adequate); Total Cells Counted 100
[2019-11-19] MEDS: lisinopriL 10 MG TABLET PO (08:35)
[2019-11-19] MEDS: ASPIRIN 81 MG CHEWABLE TABLET PO (08:35)
[2019-11-19] MEDS: ENOXAPARIN 40 MG/0.4 ML SYRINGE SUB-Q (08:35)
[2019-11-19] MEDS: TOLNAFTATE 1% POWDER 45 GM BTL 1 APPLIC TOPICAL ×2 (08:36→20:15)
[2019-11-19] MEDS: SOD HYPOCHLORITE 1/4 STRENGTH 473 ML 1 APPLIC TOPICAL ×2 (08:36→20:15)
--- NOTE | 2019-11-19 09:08 | WPDNEUROPN ---
Progress Note: A&P Assessment and Plan (1) Back pain: Code(s): M54.9 - Dorsalgia, unspecified Status: Acute (2) Dehydration: Code(s): E86.0 - Dehydration Status: Acute (3) DVT prophylaxis: Code(s): Z29.9 - Encounter for prophylactic measures, unspecified Status: Acute (4) Acute encephalopathy: Code(s): G93.40 - Encephalopathy, unspecified Status: Acute (5) Uncontrolled hypertension: Onset Date: Unknown Code(s): I10 - Essential (primary) hypertension Status: Acute (6) New onset type 2 diabetes mellitus: Onset Date: Unknown Code(s): E11.9 - Type 2 diabetes mellitus without complications Status: Acute (7) Sepsis: Onset Date: Unknown Code(s): A41.9 - Sepsis, unspecified organism Status: Acute (8) Acute CVA (cerebrovascular accident): Code(s): I63.9 - Cerebral infarction, unspecified Status: Acute (9) Diabetic foot: Onset Date: Unknown Code(s): E11.8 - Type 2 diabetes mellitus with unspecified complications Status: Acute (10) Leukocytosis: Qualifiers: Leukocytosis type: unspecified Qualified Code(s): D72.829 - Elevated white blood cell count, unspecified Code(s): D72.829 - Elevated white blood cell count, unspecified Status: Acute (11) Urinary tract infection: Onset Date: Unknown Qualifiers: Hematuria presence: without hematuria Urinary tract infection type: site unspecified Qualified Code(s): N39.0 - Urinary tract infection, site not specified Code(s): N39.0 - Urinary tract infection, site not specified Status: Acute Additional Plan c/o LBP with compressio fracture of L1 will need LB support Review of Systems Review of Systems: All systems reviewed & are unremarkable except as noted in HPI and below Exam Const: General: cooperative, no acute distress, alert and awake Nutritional Appearance: average body habitus Eyes: General: appearance normal, both eyes and all related structures Alignment and Position: alignment normal Eyelids: eyelids normal Conjunctivae: conjunctivae normal Sclera: sclerae normal Cornea: corneas normal Pupils: Equal, round and reactive pupils present Neck: Neck: full ROM Resp: Effort & Inspection: normal respiratory effort and able to speak in complete sentences Auscultation: clear to auscultation bilaterally Cardio: Rate: regular rate Rhythm: regular rhythm GI: Auscultation: normal bowel sounds Skin: General skin exam: no rashes or lesions noted Neuro: General: patient oriented x3, moves all extremities and CN's II-XI intact bilaterally Cognition (Neuro): normal cognition Speech: normal speech Motor exam (neuro): 5/5 motor strength present throughout Deep tendon reflexes (DTR's): Right triceps reflex intensity grade: 1+, Left triceps reflex intensity grade: 1+, Rt Biceps (C5, C6): 1+, Left biceps reflex intensity grade: 1+, Right brachioradialis reflex intensity grade: 1+, Left brachioradialis reflex intensity grade: 1+, Right patellar reflex intensity grade: 1+, Left patellar reflex intensity grade: 1+, Right ankle reflex intensity grade: 0 and Left ankle reflex intensity grade: 0 Psych: Appearance: grossly normal Objective Data Vital Signs Vital Signs: Vital Signs - 24 hr 11/18/19 10:00 11/18/19 12:00 11/18/19 14:00 Temperature 36.1 C L 36.6 C Pulse Rate 66 71 65 Respiratory Rate 16 16 Blood Pressure 138/40 L 149/72 H Pulse Oximetry 94 97 11/18/19 16:00 11/18/19 18:00 11/18/19 20:00 Temperature 36.1 C L 36.1 C L Pulse Rate 82 72 67 Respiratory Rate 16 22 H Blood Pressure 118/42 L 156/60 H Pulse Oximetry 93 98 11/18/19 20:49 11/19/19 00:00 11/19/19 04:00 Temperature 36.1 C L 36.2 C L Pulse Rate 67 64 77 Respiratory Rate 22 H 20 20 Blood Pressure 133/70 167/57 H Pulse Oximetry 98 97 96 Intake/Output Intake/Output: Intake & Output
[2019-11-19] MEDS: INSULIN GLARGINE (*BKC) 100 UNITS/ML 30 UNITS SUB-Q (09:14)
[2019-11-19 09:41] LABS: Glucose Point of Care 129 (65-105)
--- NOTE | 2019-11-19 10:56 | PCOTNOTE ---
OT Evaluation attempted this AM. Pt had just finished physical therapy and gotten back in bed. patient requesting OT come back at later time.
--- NOTE | 2019-11-19 11:19 | PM.IMPN ---
Progress Note: A&P Assessment and Plan (1) Acute encephalopathy: Code(s): G93.40 - Encephalopathy, unspecified Status: Acute Assessment and Plan: Probable metabolic encephalopathy due to UTI, sepsis, and dehydration. Resolved (2) Uncontrolled hypertension: Onset Date: Unknown Code(s): I10 - Essential (primary) hypertension Status: Acute Assessment and Plan: Lisinopril 10mg daily 11/18 BP 152/53 (3) New onset type 2 diabetes mellitus: Onset Date: Unknown Code(s): E11.9 - Type 2 diabetes mellitus without complications Status: Acute Assessment and Plan: A1c is 12.5. Lantus 30 daily with SSI 11/18 FBS 129 11/18 added metformin (4) Sepsis: Onset Date: Unknown Code(s): A41.9 - Sepsis, unspecified organism Status: Acute Assessment and Plan: Supported by tachypnea and leukocytosis and source of infection (uti) (5) Diabetic foot: Onset Date: Unknown Code(s): E11.8 - Type 2 diabetes mellitus with unspecified complications Status: Acute Assessment and Plan: Wound care and surgery have evaluated and debrided. Good distal pulse and foot is warm and arteriolar dopplars today are normal MRI no osteo seen Continue vancomycin and Zosyn (6) Urinary tract infection: Onset Date: Unknown Qualifiers: Hematuria presence: without hematuria Urinary tract infection type: site unspecified Qualified Code(s): N39.0 - Urinary tract infection, site not specified Code(s): N39.0 - Urinary tract infection, site not specified Status: Acute Assessment and Plan: Continue Zosyn, pending c/s (7) Dehydration: Code(s): E86.0 - Dehydration Status: Acute Assessment and Plan: Poor p.o. intake last few days with pre renal azotemia. Monitor electrolytes and continue hydration, bun slowly falling (8) DVT prophylaxis: Code(s): Z29.9 - Encounter for prophylactic measures, unspecified Status: Acute Assessment and Plan: Lovenox (9) Back pain: Code(s): M54.9 - Dorsalgia, unspecified Status: Acute Assessment and Plan: L1 compression fx of indeterminate age PT/OT Analgesics prn DEXA screening recommended as outpatient Subjective Date/time seen: 11/19/19 11:19 Interval history: Tana Hutchins is a 74-year-old with newly diagnosed type 2 diabetes and hypertension who presented to the emergency room with altered mental status infected right foot and UTI. She was slightly dehydrated and received IV fluids and antibiotics. Surgery debrided her foot 11/16 and removed necrotic tissue down to tendons Review of Systems Review of Systems: All systems reviewed & are unremarkable except as noted in HPI and below Exam Narrative: Exam Narrative: Pupils equal reactive to light, sclerea nonicteric Neck no JVD Lungs clear CV regular rate rhythm Abdomen is soft nontender no masses obese Extremities without edema dorsalis pedis 2+ left ,1 to 2+ right, Bandaged per wound care and surgery and not removed today. Neuro at this point she is alert she is oriented there is x3 in no focal deficit Objective Data Vital Signs Vital Signs: Vital Signs - 24 hr 11/18/19 12:00 11/18/19 14:00 11/18/19 16:00 Temperature 97.9 F Pulse Rate 71 65 82 Respiratory Rate 16 Blood Pressure 149/72 H Pulse Oximetry 97 11/18/19 18:00 11/18/19 20:00 11/18/19 20:49 Temperature 97.0 F L 97 F L Pulse Rate 72 67 67 Respiratory Rate 16 22 H 22 H Blood Pressure 118/42 L 156/60 H Pulse Oximetry 93 98 98 11/19/19 00:00 11/19/19 04:00 11/19/19 08:00 Temperature 97 F L 97.2 F L Pulse Rate 64 77 67 Respiratory Rate 20 20 Blood Pressure 133/70 167/57 H Pulse Oximetry 97 96 11/19/19 10:00 Temperature 97.9 F Pulse Rate 69 Respiratory Rate 18 Blood Pressure 152/53 H Pulse Oximetry 97 Intake/Output Intake/Output: Intake & Output 11/02
[2019-11-19] MEDS: metFORMIN HCL XR 500 MG TAB.SR.24H PO (12:05)
[2019-11-19 12:34] LABS: Glucose Point of Care 103 (65-105)
--- NOTE | 2019-11-19 13:56 | PM.CNOR ---
Assessment and Plan Assessment and plan (1) Gangrene of toe of right foot: Code(s): I96 - Gangrene, not elsewhere classified Status: Acute Assessment and Plan: 74-year-old woman with newly diagnosed diabetes which is uncontrolled with right foot abscess leading to dorsal eschar of the forefoot as well as necrosis of the 3rd, 4, 5 toes. Bruising and softening of the soft tissue plantar forefoot with a through and through soft tissue infection. Unable to salvage the lesser toes which are gangrene. Unable to salvage the hallux and 2nd toe due to the wound extent on the dorsal and plantar foot. High likelihood of needing foot amputation. Discussed with patient. She is going to discuss with her family, at this point requires transmetatarsal amputation to try and control infection and stabilize the foot. Would then need treatment to try and effect wound closure. Patient has declined a transtibial amputation at this time but understands risk that this may be needed in the future. Plan to proceed with urgent to the operating room for open transmetatarsal amputation right foot with debridement. Discussed nonoperative and operative treatment options with the patient. Risks and benefits of each as well as alternatives were reviewed. All of the patient's questions were answered. The risks of surgery reviewed including but not limited to: Neurovascular damage, wound complication, infection, blood clot, pulmonary embolus, stroke, myocardial infarction, and anesthetic risks up to and including . Continued pain and possible dysfunction were explained. Specific risks of the procedure including later recurrence of deformity. No guarantees were offered. If complications occur, the patient understands the need for further treatment, possible further surgery. Patient verbalizes understanding and wishes to proceed. PLAN: Right foot transmetatarsal amputation (2) Diabetic ulcer of foot associated with diabetes mellitus due to underlying condition, with necrosis of muscle: Code(s): E08.621 - Diabetes mellitus due to underlying condition with foot ulcer; L97.503 - Non-pressure chronic ulcer of other part of unspecified foot with necrosis of muscle Status: Acute (3) Foot abscess, right: Code(s): L02.611 - Cutaneous abscess of right foot Status: Acute History of Present Illness HPI Consult date: 11/19/19 Requesting physician: Jabari Multani MD Consult reason: other ( right foot infection) Chief complaint: ams Review of Systems Review of Systems: Narrative: 74-year-old woman with newly diagnosed uncontrolled diabetes, poor historian, states that at some point she fell at home injuring her back and her right foot. Four days ago noticed increased swelling and an eschar over the top of the right foot. Presented to the emergency room and was admitted with a right foot infection as well as lumbar compression fracture of indeterminate age. Debridement done at the bedside of the right foot. Has had increasing necrosis of the lesser toes. I have been consulted to evaluate the right foot. Patient has decreased feeling in both feet. She has not had any recent medical treatment but was found to have elevated blood sugars and hemoglobin A1c of 12.5. Constitutional: Constitutional: Reports chills and Reports weakness ( Bilateral lower extremities) Eyes: Eyes: Denies blurry vision ENT: Denies nasal discharge Cardiovascular: Cardiovascular: Denies chest pain, Reports leg edema and Denies lightheadedness Respiratory: Respiratory: Denies cough and Reports dyspnea on exertion Gastrointestinal: Gastrointestinal: Denies abdominal pain Genitourinary: Genitourinary: Reports nocturia ( pain with urination) Musculoskeletal: Musculoskeletal: Reports as per HPI and Reports back pain ( low back) Integumentary/Breasts: Skin/Breast: Denies unusual bruising Neurologic: Reports numbness ( both feet) Psychiatric: Psychiatr
[2019-11-19] MEDS: SODIUM CHLORIDE 0.9% IV 1,000 ML 90 ML IV CONT (16:35)
[2019-11-19 16:47] LABS: Glucose Point of Care 75 (65-105)
[2019-11-19] MEDS: DEXTROSE 5%/0.9% SOD CHL 1,000 ML 90 ML IV CONT (17:18)
[2019-11-19 18:06] LABS: Glucose Point of Care 74 (65-105)
--- NOTE | 2019-11-19 19:52 | PM.PNGS ---
Progress Note: A&P Assessment and Plan (1) Diabetic foot: Onset Date: Unknown Code(s): E11.8 - Type 2 diabetes mellitus with unspecified complications Status: Acute Assessment and Plan: Necrotic diabetic right foot ulcer with necrotic 3rd, 4th, and 5th toes. S/p excisional debridement by Dr. Multani on 11/17/19 with wound cultures (preliminary results showing growth of Group B streptococcus). MRI showed severe cellulitis which appears to originate at a deep ulceration plantar to the fourth and fifth metatarsals with 6 x 4 x 2 cm region of necrotic soft tissue at the plantar aspect of the forefoot and extending around the heads of the second-fifth metatarsals into the soft tissues of the dorsum of the forefoot and measures 6 x 4 x 1-1.5 cm with associated subcutaneous emphysema. No evidence of associated osteomyelitis. AMOS's were normal. Currently doing Dakin's dressing changes for local wound care. Orthopedic consultation noted and appreciated. Planning for patient to proceed with open transmetatarsal amputation and debridement of the right foot. (2) Uncontrolled hypertension: Onset Date: Unknown Code(s): I10 - Essential (primary) hypertension Status: Acute (3) New onset type 2 diabetes mellitus: Onset Date: Unknown Code(s): E11.9 - Type 2 diabetes mellitus without complications Status: Acute Assessment and Plan: Hgb A1C 12.5. Hospitalist managing and patient now on Lantus. (4) Sepsis: Onset Date: Unknown Code(s): A41.9 - Sepsis, unspecified organism Status: Acute Assessment and Plan: Criteria met on admission. Most likely secondary to diabetic foot infection on the right. Other possible source is urine. Blood cultures NGTD. Continue IV antibiotics - Zosyn/Vanc. WBC 17,000 today. (5) Urinary tract infection: Onset Date: Unknown Qualifiers: Hematuria presence: without hematuria Urinary tract infection type: site unspecified Qualified Code(s): N39.0 - Urinary tract infection, site not specified Code(s): N39.0 - Urinary tract infection, site not specified Status: Acute Additional Plan Discussed patient's case and plan of care with Dr. Multani. Subjective Subjective Date/Time Seen: 11/19/19 14:27 Patient reports: no new complaints Interval history: Patient seen and examined with no family at the bedside. No specific complaints today. Review of Systems Review of Systems: All systems reviewed & are unremarkable except as noted in HPI and below Exam Const: General: cooperative, no acute distress, alert and awake Extrem: Other: Right foot: Dressing in place, clean/dry/intact, and changed just before my evaluation. Able to visualize the toes with the 3rd, 4th, and 5th toes still appearing black/necrotic with superficial skin peeling. No sensation of the toes. Eschar with surrounding bruising and softening of skin on the plantar aspect of the foot appears unchanged. Strong DP pulse and weak but palpable PT pulse. Able to wiggle toes. Psych: Mental Status: mental status grossly normal Speech and movement: Normal speech and movement present Attitude: cooperative Insight: Good insight present (Psych) Objective Data Vital Signs Vital Signs: Vital Signs - 24 hr 11/18/19 20:00 11/18/19 20:49 11/19/19 00:00 Temperature 36.1 C L 36.1 C L Pulse Rate 67 67 64 Respiratory Rate 22 H 22 H 20 Blood Pressure 156/60 H 133/70 Pulse Oximetry 98 98 97 11/19/19 04:00 11/19/19 08:00 11/19/19 10:00 Temperature 36.2 C L 36.6 C Pulse Rate 77 67 69 Respiratory Rate 20 18 Blood Pressure 167/57 H 152/53 H Pulse Oximetry 96 97 11/19/19 14:00 11/19/19 18:00 Temperature 36.3 C L 36.8 C Pulse Rate 69 77 Respiratory Rate 16 18 Blood Pressure 173/62 H 154/61 H Pulse Oximetry 97 97 Intake/Output Intake/Output: Intake & Output 11/16/19 11/17/19 11/18/19 11/19/19 23:59 23:59 23:59 23:59 Intake Total 1050
[2019-11-19 20:08] LABS: Glucose Point of Care 101 (65-105)
[2019-11-20] VITALS (14 sets, daily range): BP systolic 124–166; BP diastolic 54–91; PULSE 71–91; RESP 16–22; TEMP 36.1–37.4; O2SAT 93–99
[2019-11-20 06:05] LABS: Glucose Point of Care 86 (65-105)
--- NOTE | 2019-11-20 07:15 | PM.IMPN ---
Progress Note: A&P Assessment and Plan (1) Diabetic foot: Onset Date: Unknown Code(s): E11.8 - Type 2 diabetes mellitus with unspecified complications Status: Acute Assessment and Plan: Wound care and surgery have evaluated and debrided. Wound culture with Gp B strep 11/19 continue vancomycin and Zosyn preop. (2) Uncontrolled hypertension: Onset Date: Unknown Code(s): I10 - Essential (primary) hypertension Status: Acute Assessment and Plan: Lisinopril 10mg daily 11/18 BP 152/53, 11/19 154/73 (3) New onset type 2 diabetes mellitus: Onset Date: Unknown Code(s): E11.9 - Type 2 diabetes mellitus without complications Status: Acute Assessment and Plan: A1c is 12.5. Lantus 30 daily with SSI 11/18 FBS 129 11/19 Metformin and Lantus on hold (4) Urinary tract infection: Onset Date: Unknown Qualifiers: Hematuria presence: without hematuria Urinary tract infection type: site unspecified Qualified Code(s): N39.0 - Urinary tract infection, site not specified Code(s): N39.0 - Urinary tract infection, site not specified Status: Acute Assessment and Plan: Culture NEGATIVE, so no UTI. (5) Dehydration: Code(s): E86.0 - Dehydration Status: Acute Assessment and Plan: Poor p.o. intake last few days with pre renal azotemia. Monitor electrolytes and continue hydration. (6) Back pain: Qualifiers: Back pain location: low back pain Chronicity: chronic Back pain laterality: unspecified Sciatica presence: unspecified whether sciatica present Qualified Code(s): M54.5 - Low back pain; G89.29 - Other chronic pain Code(s): M54.9 - Dorsalgia, unspecified Status: Acute Assessment and Plan: L1 compression fx of indeterminate age PT/OT Analgesics prn DEXA screening recommended as outpatient (7) Sepsis: Onset Date: Unknown Qualifiers: Sepsis type: sepsis due to unspecified organism Sepsis acute organ dysfunction status: with acute organ dysfunction Severe sepsis acute organ dysfunction type: encephalopathy Severe sepsis shock status: without septic shock Qualified Code(s): A41.9 - Sepsis, unspecified organism; R65.20 - Severe sepsis without septic shock; G93.40 - Encephalopathy, unspecified Code(s): A41.9 - Sepsis, unspecified organism Status: Acute Assessment and Plan: Supported by tachypnea and leukocytosis and source infection (foot) Resolved (8) Acute encephalopathy: Code(s): G93.40 - Encephalopathy, unspecified Status: Acute Assessment and Plan: Probable metabolic encephalopathy due to UTI, sepsis, and dehydration. Resolved Subjective Date/time seen: 11/20/19 07:15 Interval history: Tana Hutchins is a 74-year-old with newly diagnosed type 2 diabetes and hypertension who presented to the emergency room with altered mental status infected right foot and UTI. She was slightly dehydrated and received IV fluids and antibiotics. Surgery debrided her foot 11/16 and removed necrotic tissue down to tendons. She has agreed to transmetatarsal amputation. Review of Systems Review of Systems: All systems reviewed & are unremarkable except as noted in HPI and below Exam Narrative: Exam Narrative: Pupils equal reactive to light, sclerea nonicteric Neck no JVD Lungs clear CV regular rate rhythm Abdomen is soft nontender no masses obese Extremities without edema dorsalis pedis 2+ left ,1 to 2+ right, Bandaged per wound care and surgery and not removed today. Neuro at this point she is alert she is oriented there is x3 in no focal deficit Objective Data Vital Signs Vital Signs: Vital Signs - 24 hr 11/19/19 08:00 11/19/19 10:00 11/19/19 14:00 Temperature 97.9 F 97.4 F L Pulse Rate 67 69 69 Respiratory Rate 18 16 Blood Pressure 152/53 H 173/62 H Pulse Oximetry 97 97 11/19/19 18:00 11/19/19 20:00
[2019-11-20] MEDS: DEXTROSE 5%/0.9% SOD CHL 1,000 ML 90 ML IV CONT (09:18)
[2019-11-20] MEDS: TOLNAFTATE 1% POWDER 45 GM BTL 1 APPLIC TOPICAL ×2 (09:19→21:59)
[2019-11-20] MEDS: SOD HYPOCHLORITE 1/4 STRENGTH 473 ML 1 APPLIC TOPICAL (09:19)
[2019-11-20] MEDS: lisinopriL 10 MG TABLET PO (09:36)
--- NOTE | 2019-11-20 09:43 | PCPTNOTE ---
Patient refused treatment this session due to anticipated surgery at noon.
--- NOTE | 2019-11-20 11:38 | PC.NURSE ---
Patient to OR via bed with IV saline locked and consent signed on chart.
--- NOTE | 2019-11-20 11:39 | WPDHPUPDATE1 ---
History and Physical Update Update Date/Time: 11/20/19 11:39 History and Physical has been reviewed, including an updated exam of the patient. There are NO changes in the patient's condition. Risks, benefits, and alternatives have been discussed with the patient and family and questions answered. Patient agrees to proceed with procedure. Lengthy discussion once again this morning with the patient and her family present. Discussed the necrotic gangrene condition of the right forefoot and toes. Discussed the poor prognosis and risk of loss of life and limb without surgical treatment. Their questions were answered. Patient like to proceed with the planned treatment of right foot transmetatarsal amputation. They understand the need for further treatment and surgery to affect healing and for limb salvage.
--- NOTE | 2019-11-20 11:52 | PCOTNOTE ---
Attempted to see patient this am, however patient going off floor for surgery. Pt not seen for this reason.
[2019-11-20] MEDS: LACTATED RINGERS 1,000 ML 30 ML IV CONT (11:55)
--- NOTE | 2019-11-20 11:57 | WPDANESEPPF ---
Anes - Initial Pre Proc Eval Procedure: Operation Date: 11/20/19 12:00 Proposed Procedures p Right Foot Transmetatarsal Amputation - Rajinder Martinez MD Date/Time: 11/20/19 11:57 Surgeon: Charles Gracia MD Pre Op Diagnosis: ams Patient Data Age: 74 Gender: F Height: 5 ft Weight: 91.4 kg Last Vital Signs Temp 36.6 C 11/20/19 10:03 Pulse 71 11/20/19 10:03 Resp 18 11/20/19 10:03 BP 150/90 H 11/20/19 10:03 Pulse Ox 94 11/20/19 10:03 Allergies Allergy/AdvReac Type Severity Reaction Status Date / Time No Known Allergies Allergy Verified 11/16/19 17:46 Home Medications Medication Instructions Recorded Confirmed Type No Home Medications 11/16/19 11/16/19 History Laboratory Tests 11/19/19 11/19/19 11/19/19 12:31 16:39 17:56 POC Capillary Glucose 103 mg/dl mg/dl 75 mg/dl mg/dl 74 mg/dl mg/dl (65-105) (65-105) (65-105) 11/19/19 11/20/19 20:05 06:02 POC Capillary Glucose 101 mg/dl mg/dl 86 mg/dl mg/dl (65-105) (65-105) Patient hx anesthesia problems: none Family hx anesthesia problems: none PMFSH Past Medical History Medical History Diabetic ulcer of foot associated with diabetes mellitus due to underlying condition, with necrosis of muscle Foot abscess, right Gangrene of toe of right foot Medical history unknown Surgical History Surgical History History of section, classical Surgical history unknown Family History Family History Mother Diabetes mellitus Cerebrovascular accident Father Congestive heart failure (CHF) Father No problems noted. Son Hypertension Social History Social History Smoking status: Never smoker Alcohol intake: never Substance use: never Substance use type: does not use Gender identity (if verbalized by the patient): Female Spiritual care concerns: No Agree to blood products: Yes Anes - Eval Final PreProcedure Day of Procedure 11/20/19 11:57 Patient weight: super morbidly obese Heart: regular rate and rhythm Lungs: clear to auscultation Airway: Mallampati scale class II Neurological: alert and oriented Last oral intake: >/= 8 hours ASA classification: IV Emergent: no Anesthetic plan: proceed Anesthesia type and monitoring: general LMA and standard monitoring Informed Consent: The patient's anesthetic plan and its attendant risks and benefits were discussed with the patient/family/POA. Questions were solicited and answers provided to the satisfaction of the patient/family/POA.
[2019-11-20 12:03] LABS: Glucose Point of Care 97 (65-105)
--- NOTE | 2019-11-20 13:28 | SUR.OPER ---
EBL:[id number]
[2019-11-20 14:05] LABS: Glucose Point of Care 99 (65-105)
--- NOTE | 2019-11-20 14:30 | P.OP_ITS ---
Procedure Note - Detailed Date of procedure: 11/20/19 Pre-op diagnosis: ams Right foot gangrene, abscess Post-op diagnosis: same Procedure performed: right transmetatarsal amputation Description of procedure: Indications: 74-year-old woman with untreated diabetes developed a right foot abscess and gangrene of the lateral forefoot 3rd, 4th and 5th toes. Gangrene has progressed on the plantar and lateral aspect of the foot. There is a large open wound on the dorsum of the forefoot which is obviously infected. She presents for debridement and transmetatarsal amputation as an attempt at salvage. What was done: Patient identified in the preoperative holding. Informed consent given. Operative extremity marked. Patient received intravenous antibiotics. Patient brought to the operating room where underwent general anesthetic by anesthesia team. Positioned supine on operating room table. Time-out performed confirming the patient, site of the surgery and the plan. Right lower extremity prepped and draped usual sterile surgical fashion using a Betadine prep solution. The foot had a approximately 10 cm diameter wound over the dorsum of the 3rd 4th and 5th metatarsals with exposed tendons and infection of the fascial tissue. The 3rd 4th and 5th toes were necrotic and the plantar soft tissue from the base of these toes extending approximately 5 cm was necrotic. On elliptical incision was marked out proximal to the dorsal wound and the plantar necrosis. Skin was incised with a 10 blade knife and subcutaneous tissue was dissected with electrocautery. Bleeding points were coagulated. Base of the metatarsals were then exposed and retractors were placed. Sagittal saw used to transect the 1st through 5th metatarsals. Metatarsals brought out of the wound and infected and necrotic soft tissue dissected in left with the metatarsals until the entire forefoot with all 5 toes was removed. This was passed off as specimen. Any necrotic or purulent material was sharply removed with 15 blade knife and rongeur. Tendon ends were removed sharply. Wound was then thoroughly irrigated With antibiotic solution. The medial skin flap which was left for possible later closure was loosely appr oximated with 2 O Vicryl interrupted suture. The wound was packed with Betadine soaked gauze followed by sterile gauze. Patient was then awoke from anesthesia, extubated and taken to the recovery room in stable condition. All sponge needle and instrument counts correct at the end of the case. Anesthesia: GETA Surgeon: Rajinder Martinez MD Neon Glass Blower: assistant front end manager Estimated blood loss (mL): 50 Drains: No Packing: Yes ( Betadine-soaked gauze) Pathology: yes ( transmetatarsal amputation specimen) Complications: No immediate complications Condition: stable Disposition: PACU
--- NOTE | 2019-11-20 14:49 | PC.NURSE ---
Returned from OR per bed.
[2019-11-20] MEDS: TRAMADOL HCL 50 MG TABLET PO (15:00)
[2019-11-20] MEDS: DOCUSATE SODIUM 100 MG CAPSULE PO (16:21)
[2019-11-20 18:25] LABS: Glucose Point of Care 126 (65-105)
[2019-11-21] VITALS (7 sets, daily range): BP systolic 117–157; BP diastolic 41–64; PULSE 72–81; RESP 18–20; TEMP 36.1–37.7; O2SAT 97–99; BMI 39.3
[2019-11-21 00:50] LABS: Glucose Point of Care 182 (65-105)
[2019-11-21 05:58] LABS: Estimated CRCL calculation 47 ml/min; Estimated Glomerular Filt Rate > 60
[2019-11-21 07:38] LABS: Hematocrit 34.3 % (37.0-47.0); Hemoglobin 10.8 g/dL (12.0-15.0); Mean Corpuscular HGB Conc 31.5 g/dl (32-36); Mean Corpuscular Hemoglobin 27.3 pg (26-34); Mean Corpuscular Volume 86.8 fl (80-100); Mean Platelet Volume 9.5 fl (7.4-10.4); Platelet Count Result 273 k/mm3 (150-375); Red Blood Count 3.95 M/mm3 (4.2-5.4); Red Cell Distribution Width 14.5 % (11.5-14.5); White Blood Count 14.7 K/mm3 (4.5-10.0)
[2019-11-21 07:42] LABS: Blood Urea Nitrogen 16 mg/dL (7-17); Calcium 7.6 mg/dL (8.4-10.2); Carbon Dioxide 24 mmol/L (22-30); Chloride 104 mmol/L (98-107); Estimated CRCL calculation 53 ml/min; Estimated Glomerular Filt Rate > 60; Glucose 200 mg/dL (65-105); Potassium 3.7 mmol/L (3.4-5.0); Sodium 130 mmol/L (137-145)
--- NOTE | 2019-11-21 08:39 | PM.IMPN ---
Progress Note: A&P Assessment and Plan (1) Diabetic foot: Onset Date: Unknown Code(s): E11.8 - Type 2 diabetes mellitus with unspecified complications Status: Acute Assessment and Plan: Wound care and surgery have evaluated and debrided. Wound culture with Gp B strep 11/20 continue vancomycin and Zosyn post op day 1, antibioitc day 5 (2) Uncontrolled hypertension: Onset Date: Unknown Code(s): I10 - Essential (primary) hypertension Status: Acute Assessment and Plan: Lisinopril 10mg daily 11/18 BP 152/53, 11/19 154/73, 11/20 142/50 (3) New onset type 2 diabetes mellitus: Onset Date: Unknown Code(s): E11.9 - Type 2 diabetes mellitus without complications Status: Acute Assessment and Plan: A1c is 12.5. Lantus 30 daily with SSI 11/18 FBS 129 11/19 Metformin and Lantus on hold 11/20 FBS 200, resumed metformin (4) Urinary tract infection: Onset Date: Unknown Qualifiers: Hematuria presence: without hematuria Urinary tract infection type: site unspecified Qualified Code(s): N39.0 - Urinary tract infection, site not specified Code(s): N39.0 - Urinary tract infection, site not specified Status: Acute Assessment and Plan: Culture NEGATIVE, so no UTI. (5) Dehydration: Code(s): E86.0 - Dehydration Status: Acute Assessment and Plan: Appetite improved. Continue ivf (6) Back pain: Qualifiers: Back pain location: low back pain Chronicity: chronic Back pain laterality: unspecified Sciatica presence: unspecified whether sciatica present Qualified Code(s): M54.5 - Low back pain; G89.29 - Other chronic pain Code(s): M54.9 - Dorsalgia, unspecified Status: Acute Assessment and Plan: L1 compression fx of indeterminate age PT/OT Analgesics prn DEXA screening recommended as outpatient (7) Sepsis: Onset Date: Unknown Qualifiers: Sepsis type: sepsis due to unspecified organism Sepsis acute organ dysfunction status: with acute organ dysfunction Severe sepsis acute organ dysfunction type: encephalopathy Severe sepsis shock status: without septic shock Qualified Code(s): A41.9 - Sepsis, unspecified organism; R65.20 - Severe sepsis without septic shock; G93.40 - Encephalopathy, unspecified Code(s): A41.9 - Sepsis, unspecified organism Status: Acute Assessment and Plan: Supported by tachypnea and leukocytosis and source infection (foot) Resolved (8) Acute encephalopathy: Code(s): G93.40 - Encephalopathy, unspecified Status: Acute Assessment and Plan: Probable metabolic encephalopathy due to UTI, sepsis, and dehydration. Resolved Subjective Date/time seen: 11/21/19 08:39 Interval history: Tolerating diet. Better spirits. Only mild post op pain RLE. Review of Systems Review of Systems: All systems reviewed & are unremarkable except as noted in HPI and below Exam Narrative: Exam Narrative: Pupils equal reactive to light, sclerea nonicteric Neck no JVD Lungs clear CV regular rate rhythm Abdomen is soft nontender no masses obese Extremities without edema. right foot stump bandaged Neuro at this point she is alert she is oriented there is x3 in no focal deficit Objective Data Vital Signs Vital Signs: Vital Signs - 24 hr 11/20/19 10:03 11/20/19 11:47 11/20/19 13:38 Temperature 97.9 F 99.3 F 97.8 F Pulse Rate 71 72 91 Respiratory Rate 18 20 22 H Blood Pressure 150/90 H 154/73 H 150/61 H Pulse Oximetry 94 97 98 11/20/19 13:50 11/20/19 14:05 11/20/19 14:20 Temperature Pulse Rate 89 90 87 Respiratory Rate 19 20 20 Blood Pressure 124/68 161/81 H 161/91 H Pulse Oximetry 99 94 94 11/20/19 14:35 11/20/19 14:55 11/20/19 15:10 Temperature 97.5 F L 96.9 F L Pulse Rate 89 84 83 Respiratory Rate 20 18 16 Blood Pressure 166/80 H 141/61 H 158/74 H Pulse Oximetry 95 95 93 11/20/19 15:40
[2019-11-21 09:04] LABS: Glucose Point of Care 186 (65-105)
[2019-11-21] MEDS: DOCUSATE SODIUM 100 MG CAPSULE PO ×2 (09:06→17:11)
[2019-11-21] MEDS: lisinopriL 10 MG TABLET PO (09:08)
[2019-11-21] MEDS: ASPIRIN 81 MG CHEWABLE TABLET PO (09:09)
[2019-11-21] MEDS: TOLNAFTATE 1% POWDER 45 GM BTL 1 APPLIC TOPICAL ×2 (09:09→20:08)
[2019-11-21] MEDS: metFORMIN HCL XR 500 MG TAB.SR.24H PO ×2 (09:46→17:11)
[2019-11-21] MEDS: ENOXAPARIN 40 MG/0.4 ML SYRINGE SUB-Q (09:46)
--- NOTE | 2019-11-21 09:54 | WPDANESPN ---
Anes - Prog Note Post-Op Date/Time: 11/21/19 09:54 Cardiovascular status: normal Respiratory status: normal Airway patency: baseline Mental status: baseline Post-Op hydration status: normal Vital Signs: Last Vital Signs Temp 36.1 C L 11/21/19 05:00 Pulse 73 11/21/19 05:00 Resp 20 11/21/19 05:00 BP 155/61 H 11/21/19 05:00 Pulse Ox 99 11/21/19 05:00 I/O: Intake & Output 11/20/19 11/21/19 11/21/19 23:59 07:59 15:59 Intake Total 1476 874 50 Balance 1476 874 50 Laboratory Tests 11/21/19 05:32 11/21/19 05:32 11/20/19 11/20/19 11/20/19 12:01 14:03 17:47 WBC RBC Hgb Hct MCV MCH MCHC RDW Plt Count MPV Sodium Potassium Chloride Carbon Dioxide BUN Creatinine Estim Creat Clear Calc Estimated GFR Glucose POC Capillary Glucose 97 99 126 H Calcium 11/21/19 11/21/19 11/21/19 00:46 05:30 05:32 WBC RBC Hgb Hct MCV MCH MCHC RDW Plt Count MPV Sodium 130 L Potassium 3.7 Chloride 104 Carbon Dioxide 24 BUN 16 Creatinine 0.80 0.90 Estim Creat Clear Calc 53 47 Estimated GFR > 60 > 60 Glucose 200 H POC Capillary Glucose 182 H Calcium 7.6 L 11/21/19 11/21/19 05:32 09:01 WBC 14.7 H RBC 3.95 L Hgb 10.8 L Hct 34.3 L MCV 86.8 MCH 27.3 MCHC 31.5 L RDW 14.5 Plt Count 273 MPV 9.5 Sodium Potassium Chloride Carbon Dioxide BUN Creatinine Estim Creat Clear Calc Estimated GFR Glucose POC Capillary Glucose 186 H Calcium Microbiology 11/17/19 17:47 Foot Right Wound Culture - Final Group B Streptococcus isolated Post-procedural complaints: none Patient Feedback: Patient satisfied with anesthetic care.
--- NOTE | 2019-11-21 10:57 | PM.PNORT ---
Progress Note: A&P Assessment and Plan (1) Gangrene of toe of right foot: Code(s): I96 - Gangrene, not elsewhere classified Status: Acute Assessment and Plan: postoperative day 1. Right transmetatarsal amputation. Dressing changed today. Wound appears clean and viable. Start in still wound VAC for open wound management with hopeful plan of salvage of the foot and closure of the open wound. Discussed with family chance for continued problems and need for below-knee amputation. They verbalized understanding. Continue with IV antibiotics. Plan for wound VAC to the right foot for the next week. Subjective Subjective Date/Time Seen: 11/21/19 10:57 Patient awake and alert. Pain controlled. Reviewed operative findings from yesterday. Exam Const: General: No confusion Orientation/consciousness: patient oriented x3 and No confusion HENMT: Head: normal to inspection, normocephalic and atraumatic Eyes: Conjunctivae: conjunctivae normal Sclera: sclerae normal Neck: Neck: supple and nontender Chest: Chest palpation & inspection: normal inspection of the chest Resp: Effort & Inspection: normal respiratory effort and no audible wheezes Cardio: Rate: regular rate Rhythm: regular rhythm : General: Yes deferred Skin: Rashes: other ( Excoriation over the abdomen and bilateral groin) Neuro: General: patient oriented x3 and No confusion Extrem: General: capillary refill normal Right upper extremity: normal to inspection Left upper extremity: normal to inspection Right lower extremity: hip/thigh, knee, ankle and foot Left lower extremity: normal to inspection, hip/thigh, knee, ankle and foot Other: Right lower extremity: hip/thigh Details: no tenderness, knee Details: normal ROM; no tenderness and no swelling, ankle Details: swelling ( moderate) Details: laterally and medially and abnormal ROM ( ankle dorsiflexion -10 degrees, plantar flexion 30?, inversion 15?, eversion 5?) Details: pain with active ROM; no tenderness and no ecchymosis and foot Details: abnormal to inspection- Transmetatarsal amputation wound clean and. Medial skin flap appears viable. No active drainage. Left lower extremity: normal to inspection, hip/thigh Details: normal to inspection, knee Details: normal to inspection, ankle Details: normal to inspection and normal ROM ( Active flexion and extension intact); no tenderness and no swelling and foot Details: vascular exam Details: dorsalis pedis pulse present and normal capillary refill, tendon exam active flexion normal and active flexion abnormal, motor-sensory exam light-touch abnormal in all toes and pin-prick abnormal in all toes and other ( absent [place] [facility] monofilament sensation midfoot distal); no tenderness Psych: Affect: normal affect Objective Data Vital Signs Vital Signs: Vital Signs - 24 hr 11/20/19 11:47 11/20/19 13:38 11/20/19 13:50 Temperature 99.3 F 97.8 F Pulse Rate 72 91 89 Respiratory Rate 20 22 H 19 Blood Pressure 154/73 H 150/61 H 124/68 Pulse Oximetry 97 98 99 11/20/19 14:05 11/20/19 14:20 11/20/19 14:35 Temperature Pulse Rate 90 87 89 Respiratory Rate 20 20 20 Blood Pressure 161/81 H 161/91 H 166/80 H Pulse Oximetry 94 94 95 11/20/19 14:55 11/20/19 15:10 11/20/19 15:40 Temperature 97.5 F L 96.9 F L 97.4 F L Pulse Rate 84 83 82 Respiratory Rate 18 16 18 Blood Pressure 141/61 H 158/74 H 150/75 H Pulse Oximetry 95 93 95 11/20/19 17:00 11/20/19 21:00 11/21/19 01:00 Temperature 97.3 F L 97 F L 97 F L Pulse Rate 76 77 72 Respiratory Rate 18 20 20 Blood Pressure 153/64 H 146/73 H 136/58 L Pulse Oximetry 93 98 98 11/21/19 05:00 Temperature 97 F L Pulse Rate 73 Respiratory Rate 20 Blood Pressure 155/61 H Pulse Oximetry 99 Intake/Output Intake/Output: Intake & Output 11/18/19 11/19/19 11/20/19 11/21/19 23:59 23:59 23:59 23:59 Intake Total 3880 3630 3176 924 Output Total 1150 200 Balance 2730 3430 3176 923
--- NOTE | 2019-11-21 11:22 | PCOTNOTE ---
Pt getting wound vac placed. Unable to see patient today for OT evaluation per wound nurses and family. Will start OT services tomorrow.
--- NOTE | 2019-11-21 11:26 | PCPTNOTE ---
Attempted PT reeval. Son refused therapy, states Dr Martinez wants therapy to start tomorrow due to wound Vac. Rubina five piece expansion maker hand placing wound Vac and agreed w/ son. Will try again tomorrow.
[2019-11-21 13:19] LABS: Glucose Point of Care 197 (65-105)
--- NOTE | 2019-11-21 15:15 | PCDIET ---
Nutrition Follow-Up Complete: Food and Nutrition Knowledge Deficit as related to new dx of DM as evidenced by no prior diet education. Adequate Intake of at least 75% of meals/supplement Goal:Goal not met. Continue with current goal. Pt current nutrition is DBCC + Ensure (pt family prefers over glucerna). Nutrition recommendation: Agree at this time due to limited PO intake Last recorded weight is 91.4 kg (need new wt) Bowel Motility: 11/19 BM Labs Reviewed:A1c 12.5, Glucose 197 Meds Noted:Lantus, metformin, tramadol Additional Notes: Seeing pt tody for f/u and DBCC edu. Pt average intake over last five meals is 20%. Pt appetite seems to be improving today and she got biscuits and gravy this morning. Drinking an Enlive today, which she prefers over Glucerna. Ensure Enlive provides 350kcal, 20g of protein, and 26 essential vitamins and minerals per serving. Agree with Enlive until pt intake improves to 50% or greater of meals. Edu on DBCC diet provided today. Pt lives with son and she does cooking and shopping still. She likes pasta but cannot chew a lot of meat. She does like eggs, cheese, peanut butter, tuna. I encouraged protein at all meals with veggies. She likes carrots, lettuce, green beans, tomatoes. She states other veggies bother GERD. Veggies encouraged at all meals. We reviewed where carbs come from and how when eat alone or in abundance, how they spike blood sugar. Pt encouraged to limit to 45g or 3 fist sizes at one sitting. Pt used to drink real soda. I encouraged diet soda, crystal light, or water. She does not like tea. Handouts and contact info provided. Pt encouraged to f/u at [facility] center when home and feeling better. RD will monitor every 5 days.
[2019-11-21] MEDS: INSULIN ASPART (*BKC) 100 UNITS/ML SUB-Q (18:09)
[2019-11-21 18:17] LABS: Glucose Point of Care 239 (65-105)
[2019-11-21 21:27] LABS: Glucose Point of Care 192 (65-105)
[2019-11-22 02:00] VITALS: BP 150/54; PULSE 78; RESP 18; TEMP 36.6; O2SAT 97
[2019-11-22 05:45] VITALS: BP 160/58; PULSE 84; RESP 18; TEMP 36.5; O2SAT 96
[2019-11-22 05:53] LABS: Vancomycin Trough 23.7 ug/mL (10.0-20.0)
[2019-11-22] MEDS: lisinopriL 10 MG TABLET PO (08:25)
[2019-11-22] MEDS: metFORMIN HCL XR 500 MG TAB.SR.24H PO ×2 (08:25→16:21)
[2019-11-22] MEDS: ASPIRIN 81 MG CHEWABLE TABLET PO (08:25)
[2019-11-22] MEDS: DOCUSATE SODIUM 100 MG CAPSULE PO ×2 (08:26→16:21)
[2019-11-22] MEDS: ENOXAPARIN 40 MG/0.4 ML SYRINGE SUB-Q (08:28)
--- NOTE | 2019-11-22 09:11 | PM.IMPN ---
Progress Note: A&P Assessment and Plan (1) Diabetic foot: Onset Date: Unknown Code(s): E11.8 - Type 2 diabetes mellitus with unspecified complications Status: Acute Assessment and Plan: Wound care and surgery have evaluated and debrided. Wound culture with Gp B strep 11/21 continue vancomycin and Zosyn post op day 2, antibioitc day 6 (2) Uncontrolled hypertension: Onset Date: Unknown Code(s): I10 - Essential (primary) hypertension Status: Acute Assessment and Plan: Lisinopril 10mg daily 11/18 BP 152/53, 11/19 154/73, 11/20 142/50, 11/21 140/60 (3) New onset type 2 diabetes mellitus: Onset Date: Unknown Code(s): E11.9 - Type 2 diabetes mellitus without complications Status: Acute Assessment and Plan: A1c is 12.5. Lantus 30 daily with SSI 11/18 FBS 129 11/19 Metformin and Lantus on hold 11/20 FBS 200, resumed metformin 11/21 FBS 117 (4) Urinary tract infection: Onset Date: Unknown Qualifiers: Hematuria presence: without hematuria Urinary tract infection type: site unspecified Qualified Code(s): N39.0 - Urinary tract infection, site not specified Code(s): N39.0 - Urinary tract infection, site not specified Status: Acute Assessment and Plan: Culture NEGATIVE, so no UTI. (5) Dehydration: Code(s): E86.0 - Dehydration Status: Acute Assessment and Plan: Appetite improved. Continue ivf (6) Back pain: Qualifiers: Back pain location: low back pain Chronicity: chronic Back pain laterality: unspecified Sciatica presence: unspecified whether sciatica present Qualified Code(s): M54.5 - Low back pain; G89.29 - Other chronic pain Code(s): M54.9 - Dorsalgia, unspecified Status: Acute Assessment and Plan: L1 compression fx of indeterminate age PT/OT Analgesics prn DEXA screening recommended as outpatient (7) Sepsis: Onset Date: Unknown Qualifiers: Sepsis type: sepsis due to unspecified organism Sepsis acute organ dysfunction status: with acute organ dysfunction Severe sepsis acute organ dysfunction type: encephalopathy Severe sepsis shock status: without septic shock Qualified Code(s): A41.9 - Sepsis, unspecified organism; R65.20 - Severe sepsis without septic shock; G93.40 - Encephalopathy, unspecified Code(s): A41.9 - Sepsis, unspecified organism Status: Acute Assessment and Plan: Supported by tachypnea and leukocytosis and source infection (foot) Resolved (8) Acute encephalopathy: Code(s): G93.40 - Encephalopathy, unspecified Status: Acute Assessment and Plan: Probable metabolic encephalopathy due to UTI, sepsis, and dehydration. Resolved Subjective Date/time seen: 11/22/19 09:11 Interval history: Tolerating diet and activity. Mild RLE pain. Wound vac in place Review of Systems Review of Systems: All systems reviewed & are unremarkable except as noted in HPI and below Exam Narrative: Exam Narrative: Pupils equal reactive to light, sclerea nonicteric Neck no JVD Lungs clear CV regular rate rhythm Abdomen is soft nontender no masses obese Extremities without edema. right foot stump bandaged Neuro at this point she is alert she is oriented there is x3 in no focal deficit Objective Data Vital Signs Vital Signs: Vital Signs - 24 hr 11/21/19 10:00 11/21/19 14:00 11/21/19 18:00 Temperature 97.1 F L 97.5 F L 97.1 F L Pulse Rate 81 81 76 Respiratory Rate 18 20 18 Blood Pressure 142/50 H 154/64 H 157/52 H Pulse Oximetry 98 98 97 11/21/19 20:00 11/21/19 22:00 11/22/19 02:00 Temperature 99.9 F H 97.8 F Pulse Rate 76 76 78 Respiratory Rate 18 20 18 Blood Pressure 117/41 L 150/54 H Pulse Oximetry 97 99 97 11/22/19 05:45 Temperature 97.7 F Pulse Rate 84 Respiratory Rate 18 Blood Pressure 160/58 H Pulse Oximetry 96 Intake/Output Intake/Output: Intake & Output 03
[2019-11-22 09:36] LABS: Glucose Point of Care 117 (65-105)
[2019-11-22 10:00] VITALS: BP 140/60; PULSE 81; RESP 12; TEMP 36.4; O2SAT 99
--- NOTE | 2019-11-22 10:07 | PM.PNORT ---
Progress Note: A&P Assessment and Plan (1) Gangrene of toe of right foot: Code(s): I96 - Gangrene, not elsewhere classified Status: Acute Assessment and Plan: Postoperative day 2. Status post right transmetatarsal amputation. Wound VAC in place. White count improved. Continue nonweightbearing right foot. Plan for wound VAC with dressing change on November 24. Subjective Subjective Date/Time Seen: 11/22/19 10:07 patient up in chair. Complains of pain everywhere. No increase in pain right foot. Exam Const: General: No confusion Orientation/consciousness: patient oriented x3 and No confusion HENMT: Head: normal to inspection, normocephalic and atraumatic Eyes: Conjunctivae: conjunctivae normal Sclera: sclerae normal Neck: Neck: supple and nontender Chest: Chest palpation & inspection: normal inspection of the chest Resp: Effort & Inspection: normal respiratory effort and no audible wheezes Cardio: Rate: regular rate Rhythm: regular rhythm : General: Yes deferred Skin: Rashes: other ( Excoriation over the abdomen and bilateral groin) Neuro: General: patient oriented x3 and No confusion Extrem: General: capillary refill normal Right upper extremity: normal to inspection Left upper extremity: normal to inspection Right lower extremity: hip/thigh, knee, ankle and foot Left lower extremity: normal to inspection, hip/thigh, knee, ankle and foot Other: Right lower extremity: hip/thigh Details: no tenderness, knee Details: normal ROM; no tenderness and no swelling, ankle Details: swelling ( moderate) Details: laterally and medially and abnormal ROM ( ankle dorsiflexion -10 degrees, plantar flexion 30?, inversion 15?, eversion 5?) Details: pain with active ROM; no tenderness and no ecchymosis and foot Details: abnormal to inspection- Transmetatarsal amputation wound clean. Medial skin flap appears viable. Wound VAC dressing in place with good seal. Mild swelling through the foot. Psych: Affect: normal affect Objective Data Vital Signs Vital Signs: Vital Signs - 24 hr 11/21/19 14:00 11/21/19 18:00 11/21/19 20:00 Temperature 97.5 F L 97.1 F L Pulse Rate 81 76 76 Respiratory Rate 20 18 18 Blood Pressure 154/64 H 157/52 H Pulse Oximetry 98 97 97 11/21/19 22:00 11/22/19 02:00 11/22/19 05:45 Temperature 99.9 F H 97.8 F 97.7 F Pulse Rate 76 78 84 Respiratory Rate 20 18 18 Blood Pressure 117/41 L 150/54 H 160/58 H Pulse Oximetry 99 97 96 Intake/Output Intake/Output: Intake & Output 11/19/19 11/20/19 11/21/19 11/22/19 23:59 23:59 23:59 23:59 Intake Total 3630 3176 2023 350 Output Total 200 100 Balance 3430 3176 1924 350 Meds/Results Medications: Active Medications Generic Name Dose Route Start Last Admin Trade Name Freq PRN Reason Stop Dose Admin Acetaminophen 650 mg 11/16/19 22:49 11/17/19 10:56 Tylenol Tablet PO 650 mg Q4H PRN Administration Mild Pain (1-3) or Fever Aspirin 81 mg 11/17/19 08:00 11/22/19 08:25 Aspirin Chewable PO 81 mg DAILY@0800 YISSEL Administration Dextrose 12.5 gm 11/16/19 22:49 Dextrose 50% Syringe IV PUSH PRN PRN Hypoglycemia Protocol Docusate Sodium 100 mg 11/20/19 17:00 11/22/19 08:26 Colace Capsule PO 100 mg BID YISSEL Administration Enoxaparin Sodium 40 mg 11/17/19 09:00 11/22/19 08:28 Lovenox SUB-Q 40 mg DAILY YISSEL Administration Glucagon 1 mg 11/16/19 22:49 Glucagon For Inj IM PRN PRN Hypoglycemia Protocol Glucose 15 gm 11/16/19 22:49 Glutose 15 PO PRN PRN Hypoglycemia Protocol Piperacillin/Tazobactam/Dextrose 3.375 gm in 50 mls @ 100 mls/hr 11/17/19 04:00 11/22/19 03:45 Zosyn 3.375 Gm/D5w 50ml Pm IVPB Infused Q6H YISSEL Infusion Dextrose 1,000 mls @ 100 mls/hr 11/16/19 22:49 Dextrose 5% 1,000 Ml IVPB PRN PRN Hypoglycemia Protocol Vancomycin HCl 1,500 mg in 500 mls @ 333.333 mls/h
[2019-11-22 13:52] LABS: Glucose Point of Care 160 (65-105)
[2019-11-22 14:00] VITALS: BP 150/59; PULSE 81; RESP 16; TEMP 36.4; O2SAT 97
[2019-11-22] MEDS: TOLNAFTATE 1% POWDER 45 GM BTL 1 APPLIC TOPICAL ×2 (16:19→21:42)
--- NOTE | 2019-11-22 16:28 | PCCDE ---
f/up: met with pt and son (lives with a different son). Pt continues on 500mg Metformin OD (last dose of Lantus was 11/18) and BG today is 117-160mg/dl. Reviewed sx of hypo and hyperglycemia. Discussed low risk of hypo on Metformin only but encouraged to not skip meals, eat 3 meals/day spaced no more than 4-5 hours apart. Reviewed when and what to snack on; referred to snack list in DM book. Advised Metformin is available on $[address] [facility] since pt does not have rx plan. Reviewed SMBG with pt's meter (provided yesterday); pt continued to have problems today getting sticking finger and inserting test strip. This appears to be r/t weakness, swollen fingers and not having her glasses on. Son assures pt that he and brother will help prn. Reviewed coverage and how to get test strips. Explained A1c results and importance of medical f/up and finding PCP. Pt and son v/u. Will follow
[2019-11-22 18:00] VITALS: BP 154/65; PULSE 76; RESP 16; TEMP 36.7; O2SAT 98
[2019-11-22 18:15] LABS: Glucose Point of Care 167 (65-105)
[2019-11-22 22:00] VITALS: BP 128/85; PULSE 76; RESP 26; TEMP 36.2; O2SAT 100
[2019-11-22 22:07] LABS: Glucose Point of Care 161 (65-105)
[2019-11-23] VITALS (7 sets, daily range): BP systolic 146–178; BP diastolic 50–70; PULSE 71–97; RESP 16–22; TEMP 36–36.4; O2SAT 94–100
[2019-11-23] MEDS: lisinopriL 10 MG TABLET PO (08:42)
[2019-11-23] MEDS: ENOXAPARIN 40 MG/0.4 ML SYRINGE SUB-Q (08:42)
[2019-11-23] MEDS: ASPIRIN 81 MG CHEWABLE TABLET PO (08:42)
[2019-11-23] MEDS: DOCUSATE SODIUM 100 MG CAPSULE PO ×2 (08:42→17:39)
[2019-11-23] MEDS: TOLNAFTATE 1% POWDER 45 GM BTL 1 APPLIC TOPICAL ×2 (08:43→20:30)
[2019-11-23 09:04] LABS: Hematocrit 34.6 % (37.0-47.0); Hemoglobin 10.8 g/dL (12.0-15.0); Mean Corpuscular HGB Conc 31.2 g/dl (32-36); Mean Corpuscular Hemoglobin 27.1 pg (26-34); Mean Corpuscular Volume 86.9 fl (80-100); Mean Platelet Volume 9.6 fl (7.4-10.4); Platelet Count Result 267 k/mm3 (150-375); Red Blood Count 3.98 M/mm3 (4.2-5.4); Red Cell Distribution Width 14.6 % (11.5-14.5); White Blood Count 13.8 K/mm3 (4.5-10.0)
[2019-11-23 09:08] LABS: Blood Urea Nitrogen 24 mg/dL (7-17); Calcium 8.2 mg/dL (8.4-10.2); Carbon Dioxide 27 mmol/L (22-30); Chloride 104 mmol/L (98-107); Estimated CRCL calculation 31 ml/min; Estimated Glomerular Filt Rate 37; Glucose 130 mg/dL (65-105); Sodium 131 mmol/L (137-145)
[2019-11-23] MEDS: metFORMIN HCL XR 500 MG TAB.SR.24H PO (09:37)
[2019-11-23 09:46] LABS: Glucose Point of Care 115 (65-105)
[2019-11-23 09:46] LABS: Glucose Point of Care 126 (65-105)
[2019-11-23 09:49] LABS: CRP 13.8 mg/dL (<1.0)
--- NOTE | 2019-11-23 10:08 | PC.NURSE ---
patient refuses to apply gel pads to foot
[2019-11-23] MEDS: SODIUM CHLORIDE 0.9% IV 500 ML 100 ML IV CONT (11:05)
[2019-11-23 12:27] LABS: Glucose Point of Care 163 (65-105)
--- NOTE | 2019-11-23 12:30 | PM.IMPN ---
Progress Note: A&P Assessment and Plan (1) Diabetic foot: Onset Date: Unknown Code(s): E11.8 - Type 2 diabetes mellitus with unspecified complications Status: Acute Assessment and Plan: Wound care and surgery have evaluated and debrided. Wound culture with Gp B strep 11/22 continue vancomycin and Zosyn post op day 3, antibioitc day 7 Plan to continue IV antibiotics at 7 days, then discharge on PO Augmentin for additional 2 weeks (low suspicion for MRSA or resistant gm neg) (2) Uncontrolled hypertension: Onset Date: Unknown Code(s): I10 - Essential (primary) hypertension Status: Acute Assessment and Plan: Lisinopril 10mg daily 11/18 BP 152/53, 11/19 154/73, 11/20 142/50, 11/21 140/60, 11/22 153/65 (3) New onset type 2 diabetes mellitus: Onset Date: Unknown Code(s): E11.9 - Type 2 diabetes mellitus without complications Status: Acute Assessment and Plan: A1c is 12.5. Lantus 30 daily with SSI 11/18 FBS 129 11/19 Metformin and Lantus on hold 11/20 FBS 200, resumed metformin 11/21 FBS 117 11/22 FBS 115, but with creatinine increased held metformin. IV saline. Repeat creatinine 11/22 PM. (Reduced PO intake vs drug vs both). (4) Urinary tract infection: Onset Date: Unknown Qualifiers: Hematuria presence: without hematuria Urinary tract infection type: site unspecified Qualified Code(s): N39.0 - Urinary tract infection, site not specified Code(s): N39.0 - Urinary tract infection, site not specified Status: Acute Assessment and Plan: Culture NEGATIVE, so no UTI. (5) Dehydration: Code(s): E86.0 - Dehydration Status: Acute Assessment and Plan: Appetite improved. Continue ivf (6) Back pain: Qualifiers: Back pain location: low back pain Chronicity: chronic Back pain laterality: unspecified Sciatica presence: unspecified whether sciatica present Qualified Code(s): M54.5 - Low back pain; G89.29 - Other chronic pain Code(s): M54.9 - Dorsalgia, unspecified Status: Acute Assessment and Plan: L1 compression fx of indeterminate age PT/OT Analgesics prn DEXA screening recommended as outpatient (7) Sepsis: Onset Date: Unknown Qualifiers: Sepsis type: sepsis due to unspecified organism Sepsis acute organ dysfunction status: with acute organ dysfunction Severe sepsis acute organ dysfunction type: encephalopathy Severe sepsis shock status: without septic shock Qualified Code(s): A41.9 - Sepsis, unspecified organism; R65.20 - Severe sepsis without septic shock; G93.40 - Encephalopathy, unspecified Code(s): A41.9 - Sepsis, unspecified organism Status: Acute Assessment and Plan: Supported by tachypnea and leukocytosis and source infection (foot) Resolved (8) Acute encephalopathy: Code(s): G93.40 - Encephalopathy, unspecified Status: Acute Assessment and Plan: Probable metabolic encephalopathy due to UTI, sepsis, and dehydration. Resolved (9) PATRIC (acute kidney injury): Code(s): N17.9 - Acute kidney failure, unspecified Status: Acute Assessment and Plan: Poor intake vs drug vs both 11/22 Hold metformin and hold lisinopril if not improving 11/22 PM IV saline F/u creatinine 11/22 PM Consider D/c vancomycin as this is day 7. Subjective Date/time seen: 11/23/19 12:30 Interval history: Tolerating diet and activity. Mild RLE pain. Wound vac in place 11/22 eating better. Review of Systems Review of Systems: All systems reviewed & are unremarkable except as noted in HPI and below Exam Narrative: Exam Narrative: Pupils equal reactive to light, sclerea nonicteric Neck no JVD Lungs clear CV regular rate rhythm Abdomen is soft nontender no masses obese Extremities without edema. right foot stump with fading erythema proximal to surgical wound Neuro at this point she is alert she is oriented there
[2019-11-23 16:54] LABS: Blood Urea Nitrogen 27 mg/dL (7-17); Carbon Dioxide 24 mmol/L (22-30); Chloride 102 mmol/L (98-107); Estimated CRCL calculation 33 ml/min; Estimated Glomerular Filt Rate 40; Glucose 151 mg/dL (65-105); Potassium 4.2 mmol/L (3.4-5.0); Sodium 131 mmol/L (137-145)
[2019-11-23 18:09] LABS: Glucose Point of Care 135 (65-105)
[2019-11-23] MEDS: AMLODIPINE BESYLATE 5 MG TABLET PO (20:29)
[2019-11-23 20:44] LABS: Glucose Point of Care 151 (65-105)
[2019-11-24 02:00] VITALS: BP 151/57; PULSE 72; RESP 20; TEMP 36.2; O2SAT 96
[2019-11-24 05:32] LABS: Hematocrit 32.1 % (37.0-47.0); Hemoglobin 10.1 g/dL (12.0-15.0); Mean Corpuscular HGB Conc 31.5 g/dl (32-36); Mean Corpuscular Hemoglobin 27.4 pg (26-34); Mean Platelet Volume 9.5 fl (7.4-10.4); Platelet Count Result 263 k/mm3 (150-375); Red Blood Count 3.69 M/mm3 (4.2-5.4); Red Cell Distribution Width 14.6 % (11.5-14.5); White Blood Count 12.9 K/mm3 (4.5-10.0)
[2019-11-24 05:55] VITALS: BP 147/55; PULSE 73; RESP 18; TEMP 35.7; O2SAT 96
[2019-11-24 06:23] LABS: Alanine Aminotransferase 11 U/L (4-35); Albumin Level 2.3 g/dL (3.5-5.1); Bilirubin,Total 0.2 mg/dL (0.2-1.3); Blood Urea Nitrogen 25 mg/dL (7-17); Carbon Dioxide 25 mmol/L (22-30); Chloride 104 mmol/L (98-107); Estimated CRCL calculation 33 ml/min; Estimated Glomerular Filt Rate 40; Potassium 4.3 mmol/L (3.4-5.0)
[2019-11-24 07:49] LABS: Alkaline Phosphatase 146 U/L (38-126); Aspartate Amino Transferase 18 U/L (14-36); Glucose 103 mg/dL (65-105)
[2019-11-24 08:01] LABS: Sodium 131 mmol/L (137-145)
[2019-11-24] MEDS: ASPIRIN 81 MG CHEWABLE TABLET PO (08:41)
[2019-11-24] MEDS: DOCUSATE SODIUM 100 MG CAPSULE PO (08:41)
[2019-11-24] MEDS: ENOXAPARIN 40 MG/0.4 ML SYRINGE SUB-Q (08:41)
[2019-11-24] MEDS: TOLNAFTATE 1% POWDER 45 GM BTL 1 APPLIC TOPICAL ×2 (08:43→21:20)
[2019-11-24 09:39] LABS: CRP 11.8 mg/dL (<1.0)
[2019-11-24 09:59] LABS: Glucose Point of Care 86 (65-105)
[2019-11-24 10:00] VITALS: BP 163/70; PULSE 73; RESP 16; TEMP 36.6; O2SAT 98
--- NOTE | 2019-11-24 11:14 | PM.IMPN ---
Progress Note: A&P Assessment and Plan (1) Diabetic foot: Onset Date: Unknown Code(s): E11.8 - Type 2 diabetes mellitus with unspecified complications Status: Acute Assessment and Plan: Wound care and surgery have evaluated and debrided. Wound culture with Gp B strep 11/23 continue vancomycin and Zosyn post op day 3, antibioitc day 7 Plan to continue IV antibiotics at least 7 days, then discharge on PO Augmentin + Septra for an additional 2 weeks (though low suspicion for MRSA or resistant gm neg) (2) Uncontrolled hypertension: Onset Date: Unknown Code(s): I10 - Essential (primary) hypertension Status: Acute Assessment and Plan: Lisinopril 10mg daily 11/18 BP 152/53, 11/19 154/73, 11/20 142/50, 11/21 140/60, 11/22 153/65, 11/23 147/55 (3) New onset type 2 diabetes mellitus: Onset Date: Unknown Code(s): E11.9 - Type 2 diabetes mellitus without complications Status: Acute Assessment and Plan: A1c is 12.5. Lantus 30 daily with SSI 11/18 FBS 129 11/19 Metformin and Lantus on hold 11/20 FBS 200, resumed metformin 11/21 FBS 117 11/22 FBS 115, but with creatinine increased held metformin. IV saline. Repeat creatinine 11/22 PM. (Reduced PO intake vs drug vs both). 11/23 FBS 86, Continue SSI (4) Dehydration: Code(s): E86.0 - Dehydration Status: Acute Assessment and Plan: Appetite improved. Resolved (5) Back pain: Qualifiers: Back pain location: low back pain Chronicity: chronic Back pain laterality: unspecified Sciatica presence: unspecified whether sciatica present Qualified Code(s): M54.5 - Low back pain; G89.29 - Other chronic pain Code(s): M54.9 - Dorsalgia, unspecified Status: Acute Assessment and Plan: L1 compression fx of indeterminate age PT/OT Analgesics prn DEXA screening recommended as outpatient (6) Sepsis: Onset Date: Unknown Qualifiers: Sepsis type: sepsis due to unspecified organism Sepsis acute organ dysfunction status: with acute organ dysfunction Severe sepsis acute organ dysfunction type: encephalopathy Severe sepsis shock status: without septic shock Qualified Code(s): A41.9 - Sepsis, unspecified organism; R65.20 - Severe sepsis without septic shock; G93.40 - Encephalopathy, unspecified Code(s): A41.9 - Sepsis, unspecified organism Status: Acute Assessment and Plan: Supported by tachypnea and leukocytosis and source infection (foot) Resolved (7) Acute encephalopathy: Code(s): G93.40 - Encephalopathy, unspecified Status: Acute Assessment and Plan: Probable metabolic encephalopathy due to UTI, sepsis, and dehydration. Resolved (8) PATRIC (acute kidney injury): Code(s): N17.9 - Acute kidney failure, unspecified Status: Acute Assessment and Plan: Poor intake vs drug vs both 11/22 Hold metformin and hold lisinopril if not improving 11/22 PM IV saline 11/22 11/22 Vancomycin stopped at day 7 11/23 creatinine 1.3 Continue to monitor. Subjective Date/time seen: 11/24/19 11:14 Interval history: Tolerating diet and activity. Mild RLE pain. Wound vac in place 11/23 c/o increased pain left foot after transferring to chair. Toelrating diet. Denied cp, sob, edema, gi/gu issues, bleeding. Review of Systems Review of Systems: All systems reviewed & are unremarkable except as noted in HPI and below Exam Narrative: Exam Narrative: Pupils equal reactive to light, sclerea nonicteric Neck no JVD Lungs clear CV regular rate rhythm Abdomen is soft nontender no masses obese Extremities without edema. right foot stump with fading erythema proximal to surgical wound Neuro at this point she is alert she is oriented there is x3 in no focal deficit Objective Data Vital Signs Vital Signs: Vital Signs - 24 hr 11/23/19 12:18 11/23/19 14:00 11/23/19 18:00 Temperature 97.3 F L 97.0 F L Pulse Rate 76 76 Respiratory
[2019-11-24 13:00] LABS: Glucose Point of Care 145 (65-105)
[2019-11-24 14:00] VITALS: BP 130/63; PULSE 70; RESP 16; TEMP 36.7; O2SAT 98
[2019-11-24] MEDS: AMLODIPINE BESYLATE 5 MG TABLET PO (17:41)
[2019-11-24 18:00] VITALS: BP 148/50; PULSE 75; RESP 16; TEMP 36.5; O2SAT 99
[2019-11-24 22:00] VITALS: BP 183/62; PULSE 71; RESP 20; TEMP 36.3; O2SAT 97
[2019-11-25 02:00] VITALS: BP 153/81; PULSE 75; RESP 16; TEMP 36.6; O2SAT 96
[2019-11-25 03:48] LABS: Glucose Point of Care 160 (65-105)
[2019-11-25 03:48] LABS: Glucose Point of Care 140 (65-105)
[2019-11-25 06:00] VITALS: BP 168/88; PULSE 73; RESP 20; TEMP 36.6; O2SAT 97
[2019-11-25 07:06] LABS: Hematocrit 34.7 % (37.0-47.0); Hemoglobin 11.2 g/dL (12.0-15.0); Mean Corpuscular HGB Conc 32.3 g/dl (32-36); Mean Corpuscular Hemoglobin 27.7 pg (26-34); Mean Corpuscular Volume 85.9 fl (80-100); Mean Platelet Volume 8.9 fl (7.4-10.4); Platelet Count Result 307 k/mm3 (150-375); Red Blood Count 4.04 M/mm3 (4.2-5.4); Red Cell Distribution Width 14.6 % (11.5-14.5); White Blood Count 10.2 K/mm3 (4.5-10.0)
[2019-11-25 07:18] LABS: Alanine Aminotransferase 12 U/L (4-35); Albumin Level 2.5 g/dL (3.5-5.1); Alkaline Phosphatase 159 U/L (38-126); Aspartate Amino Transferase 20 U/L (14-36); Bilirubin,Total 0.3 mg/dL (0.2-1.3); Blood Urea Nitrogen 22 mg/dL (7-17); CRP 8.1 mg/dL (<1.0); Calcium 8.2 mg/dL (8.4-10.2); Carbon Dioxide 27 mmol/L (22-30); Chloride 103 mmol/L (98-107); Estimated CRCL calculation 36 ml/min; Estimated Glomerular Filt Rate 44; Glucose 107 mg/dL (65-105); Potassium 4.6 mmol/L (3.4-5.0); Sodium 133 mmol/L (137-145)
[2019-11-25 07:52] VITALS: PULSE 73; RESP 20; O2SAT 97
[2019-11-25 08:31] LABS: Glucose Point of Care 98 (65-105)
[2019-11-25] MEDS: ENOXAPARIN 40 MG/0.4 ML SYRINGE SUB-Q (09:07)
[2019-11-25] MEDS: TOLNAFTATE 1% POWDER 45 GM BTL 1 APPLIC TOPICAL ×2 (09:07→21:22)
[2019-11-25] MEDS: ASPIRIN 81 MG CHEWABLE TABLET PO (09:07)
[2019-11-25 10:00] VITALS: BP 148/51; PULSE 76; RESP 16; TEMP 36.4; O2SAT 99
--- NOTE | 2019-11-25 10:48 | PM.PNORT ---
Progress Note: A&P Assessment and Plan (1) Gangrene of toe of right foot: Code(s): I96 - Gangrene, not elsewhere classified Status: Acute Assessment and Plan: Postoperative day 5. Right open transmetatarsal amputation. Wound VAC with instill solution removed today. Wound appears clean and dry and is starting to granulate. Plan to switch to regular wound VAC today. Continue to follow for granulation. Plan for return to the operating room in 2 days for debridement and possible closure. Discussed with patient. Continue PT/ OT in the interim. Subjective Subjective Date/Time Seen: 11/25/19 10:48 Patient states overall feels a little bit better. Up in chair, alert and oriented Exam Const: General: No confusion Orientation/consciousness: patient oriented x3 and No confusion HENMT: Head: normal to inspection, normocephalic and atraumatic Eyes: Conjunctivae: conjunctivae normal Sclera: sclerae normal Neck: Neck: supple and nontender Chest: Chest palpation & inspection: normal inspection of the chest Resp: Effort & Inspection: normal respiratory effort and no audible wheezes Cardio: Rate: regular rate Rhythm: regular rhythm : General: Yes deferred Skin: Rashes: other ( Excoriation over the abdomen and bilateral groin) Neuro: General: patient oriented x3 and No confusion Extrem: General: capillary refill normal Right upper extremity: normal to inspection Left upper extremity: normal to inspection Right lower extremity: hip/thigh, knee, ankle and foot Left lower extremity: normal to inspection, hip/thigh, knee, ankle and foot Other: Right lower extremity: hip/thigh Details: no tenderness, knee Details: normal ROM; no tenderness and no swelling, ankle Details: swelling ( moderate) Details: laterally and medially and abnormal ROM ( ankle dorsiflexion -10 degrees, plantar flexion 30?, inversion 15?, eversion 5?) Details: pain with active ROM; no tenderness and no ecchymosis and foot Details: abnormal to inspection- Transmetatarsal amputation wound clean. Medial skin flap appears viable. Wound VAC dressing removed. Mild swelling through the foot. Wound granulating well. No drainage or purulence. Erythema over the foot much improved. Psych: Affect: normal affect Objective Data Vital Signs Vital Signs: Vital Signs - 24 hr 11/24/19 14:00 11/24/19 18:00 11/24/19 22:00 Temperature 98.1 F 97.7 F 97.4 F L Pulse Rate 70 75 71 Respiratory Rate 16 16 20 Blood Pressure 130/63 148/50 H 183/62 H Pulse Oximetry 98 99 97 11/25/19 02:00 11/25/19 06:00 11/25/19 07:52 Temperature 97.8 F 97.8 F Pulse Rate 75 73 73 Respiratory Rate 16 20 20 Blood Pressure 153/81 H 168/88 H Pulse Oximetry 96 97 97 11/25/19 10:00 Temperature 97.5 F L Pulse Rate 76 Respiratory Rate 16 Blood Pressure 148/51 H Pulse Oximetry 99 Intake/Output Intake/Output: Intake & Output 11/22/19 11/23/19 11/24/19 11/25/19 23:59 23:59 23:59 23:59 Intake Total 1330 2230 1160 270 Output Total 75 Balance 1255 2230 1160 270 Meds/Results Medications: Active Medications Generic Name Dose Route Start Last Admin Trade Name Freq PRN Reason Stop Dose Admin Acetaminophen 650 mg 11/16/19 22:49 11/17/19 10:56 Tylenol Tablet PO 650 mg Q4H PRN Administration Mild Pain (1-3) or Fever Amlodipine Besylate 5 mg 11/23/19 18:30 11/24/19 17:41 Norvasc PO 5 mg QPM YISSEL Administration Aspirin 81 mg 11/17/19 08:00 11/25/19 09:07 Aspirin Chewable PO 81 mg DAILY@0800 YISSEL Administration Dextrose 12.5 gm 11/16/19 22:49 Dextrose 50% Syringe IV PUSH PRN PRN Hypoglycemia Protocol Enoxaparin Sodium 40 mg 11/17/19 09:00 11/25/19 09:07 Lovenox SUB-Q 40 mg DAILY YISSEL Administration Glucagon 1 mg 11/16/19 22:49 Glucagon For Inj IM PRN PRN Hypoglycemia Protocol Glucose 15 gm 11/16/19 22:49 Glutose 15 PO PRN PRN Hypoglycemia
[2019-11-25 12:55] LABS: Glucose Point of Care 129 (65-105)
[2019-11-25 14:00] VITALS: BP 115/43; PULSE 73; RESP 16; TEMP 36.4; O2SAT 97
--- NOTE | 2019-11-25 15:42 | PM.IMPN ---
Progress Note: A&P Assessment and Plan (1) Diabetic foot: Onset Date: Unknown Code(s): E11.8 - Type 2 diabetes mellitus with unspecified complications Status: Acute Assessment and Plan: Wound care and surgery have evaluated and debrided. Wound culture with Gp B strep 11/24 continue vancomycin and Zosyn post op day 4 (transmetatarsal amputation), antibioitc day 8. Plan to continue IV antibiotics while inpatient, then discharge on PO Augmentin + Septra for an additional 2 weeks (though low suspicion for MRSA or resistantant gm neg) 11/24 WBC 10.2 and CRP 8.1 (down from 25.8) (2) PATRIC (acute kidney injury): Code(s): N17.9 - Acute kidney failure, unspecified Status: Acute Assessment and Plan: Poor intake vs drug vs both 11/22 Hold metformin and hold lisinopril if not improving 11/22 PM IV saline 11/22 11/22 Vancomycin stopped at day 7 11/23 creatinine 1.3 11/24 creatinine 1.2 Continue to monitor. (3) Uncontrolled hypertension: Onset Date: Unknown Code(s): I10 - Essential (primary) hypertension Status: Acute Assessment and Plan: Lisinopril 10mg daily 11/18 BP 152/53, 11/19 154/73, 11/20 142/50, 11/21 140/60, 11/22 153/65, 11/23 147/55, 11/24 115/43 (4) New onset type 2 diabetes mellitus: Onset Date: Unknown Code(s): E11.9 - Type 2 diabetes mellitus without complications Status: Acute Assessment and Plan: A1c is 12.5. Lantus 30 daily with SSI 11/18 FBS 129 11/19 Metformin and Lantus on hold 11/20 FBS 200, resumed metformin 11/21 FBS 117 11/22 FBS 115, but with creatinine increased held metformin. IV saline. Repeat creatinine 11/22 PM. (Reduced PO intake vs drug vs both). 11/23 FBS 86, Continue SSI 11/24 FBS 98, continue SSI (5) Dehydration: Code(s): E86.0 - Dehydration Status: Acute Assessment and Plan: Appetite improved. Resolved (6) Back pain: Qualifiers: Back pain location: low back pain Chronicity: chronic Back pain laterality: unspecified Sciatica presence: unspecified whether sciatica present Qualified Code(s): M54.5 - Low back pain; G89.29 - Other chronic pain Code(s): M54.9 - Dorsalgia, unspecified Status: Acute Assessment and Plan: L1 compression fx of indeterminate age PT/OT Analgesics prn DEXA screening recommended as outpatient (7) Sepsis: Onset Date: Unknown Qualifiers: Sepsis type: sepsis due to unspecified organism Sepsis acute organ dysfunction status: with acute organ dysfunction Severe sepsis acute organ dysfunction type: encephalopathy Severe sepsis shock status: without septic shock Qualified Code(s): A41.9 - Sepsis, unspecified organism; R65.20 - Severe sepsis without septic shock; G93.40 - Encephalopathy, unspecified Code(s): A41.9 - Sepsis, unspecified organism Status: Acute Assessment and Plan: Supported by tachypnea and leukocytosis and source infection (foot) Resolved (8) Acute encephalopathy: Code(s): G93.40 - Encephalopathy, unspecified Status: Acute Assessment and Plan: Probable metabolic encephalopathy due to UTI, sepsis, and dehydration. Resolved Subjective Date/time seen: 11/25/19 15:42 Interval history: Tolerating diet and activity. Mild RLE pain. Wound vac in place 11/24 Tolerating diet. Pain adequately controlled. Denied cp, sob, edema, gi/gu issues, bleeding. Review of Systems Review of Systems: All systems reviewed & are unremarkable except as noted in HPI and below Exam Narrative: Exam Narrative: Pupils equal reactive to light, sclerea nonicteric Neck no JVD Lungs clear CV regular rate rhythm Abdomen is soft nontender no masses obese Extremities without edema. right foot stump with fading erythema proximal to surgical wound Neuro at this point she is alert she is oriented there is x3 in no focal deficit Objective Data Vital Signs Vital Signs: Vital Signs - 24 hr 0
[2019-11-25] MEDS: AMLODIPINE BESYLATE 5 MG TABLET PO (16:31)
[2019-11-25 16:33] LABS: Glucose Point of Care 127 (65-105)
[2019-11-25 22:00] VITALS: BP 145/69; PULSE 77; RESP 16; TEMP 36.1; O2SAT 96
[2019-11-26 04:06] LABS: Glucose Point of Care 213 (65-105)
[2019-11-26 05:34] LABS: Hematocrit 31.9 % (37.0-47.0); Hemoglobin 10.2 g/dL (12.0-15.0); Mean Corpuscular Hemoglobin 27.6 pg (26-34); Mean Corpuscular Volume 86.2 fl (80-100); Mean Platelet Volume 9.1 fl (7.4-10.4); Platelet Count Result 342 k/mm3 (150-375); Red Cell Distribution Width 14.6 % (11.5-14.5); White Blood Count 9.7 K/mm3 (4.5-10.0)
[2019-11-26 05:37] LABS: Alanine Aminotransferase 13 U/L (4-35); Albumin Level 2.4 g/dL (3.5-5.1); Alkaline Phosphatase 157 U/L (38-126); Aspartate Amino Transferase 20 U/L (14-36); Bilirubin,Total 0.2 mg/dL (0.2-1.3); Blood Urea Nitrogen 22 mg/dL (7-17); Calcium 8.3 mg/dL (8.4-10.2); Carbon Dioxide 26 mmol/L (22-30); Chloride 103 mmol/L (98-107); Estimated CRCL calculation 36 ml/min; Estimated Glomerular Filt Rate 44; Glucose 134 mg/dL (65-105); Potassium 4.3 mmol/L (3.4-5.0); Sodium 132 mmol/L (137-145)
[2019-11-26 06:00] VITALS: BP 156/62; PULSE 73; RESP 16; TEMP 36.1; O2SAT 97
[2019-11-26] MEDS: ENOXAPARIN 40 MG/0.4 ML SYRINGE SUB-Q (08:15)
[2019-11-26] MEDS: ASPIRIN 81 MG CHEWABLE TABLET PO (08:15)
[2019-11-26] MEDS: TOLNAFTATE 1% POWDER 45 GM BTL 1 APPLIC TOPICAL ×2 (08:18→20:43)
[2019-11-26 08:49] LABS: Glucose Point of Care 121 (65-105)
--- NOTE | 2019-11-26 11:31 | PM.IMPN ---
Progress Note: A&P Assessment and Plan (1) Diabetic foot: Onset Date: Unknown Code(s): E11.8 - Type 2 diabetes mellitus with unspecified complications Status: Acute Assessment and Plan: Wound care and surgery have evaluated and debrided. Wound culture with Gp B strep 11/24 continue vancomycin and Zosyn post op day 5 (transmetatarsal amputation), antibioitc day 9. Plan to continue IV antibiotics while inpatient, then discharge on PO for an additional 2 weeks (though low suspicion for MRSA or resistantant gm neg) repeat wbc am 11/26 (2) PATRIC (acute kidney injury): Code(s): N17.9 - Acute kidney failure, unspecified Status: Acute Assessment and Plan: Poor intake vs drug vs both 11/22 hold lisinopril if not improving 11/22 PM IV saline 11/22 11/22 Vancomycin stopped at day 7 11/23 creatinine 1.3 11/24 creatinine 1.2 and again today 11/25 Continue to monitor. (3) Uncontrolled hypertension: Onset Date: Unknown Code(s): I10 - Essential (primary) hypertension Status: Acute Assessment and Plan: Lisinopril 10mg dailyon hold and getting amlodipine 5 qd 11/18 BP 152/53, 11/19 154/73, 11/20 142/50, 11/21 140/60, 11/22 153/65, 11/23 147/55, 11/24 115/43 11/25 as above 152/62 (4) New onset type 2 diabetes mellitus: Onset Date: Unknown Code(s): E11.9 - Type 2 diabetes mellitus without complications Status: Acute Assessment and Plan: A1c is 12.5. Lantus 30 daily with SSI 11/18 FBS 129 11/19 Metformin and Lantus on hold 11/20 FBS 200, resumed metformin 11/21 FBS 117 11/22 FBS 115, but with creatinine increased held metformin. IV saline. Repeat creatinine 11/22 PM. (Reduced PO intake vs drug vs both). 11/23 FBS 86, Continue SSI 11/24 FBS 98, continue SSI 11/25 BS still good with FBS 139. restart metformin with SS , of lantus now (5) Dehydration: Code(s): E86.0 - Dehydration Status: Acute Assessment and Plan: Appetite improved. Resolved (6) Back pain: Qualifiers: Back pain location: low back pain Chronicity: chronic Back pain laterality: unspecified Sciatica presence: unspecified whether sciatica present Qualified Code(s): M54.5 - Low back pain; G89.29 - Other chronic pain Code(s): M54.9 - Dorsalgia, unspecified Status: Acute Assessment and Plan: L1 compression fx of indeterminate age PT/OT Analgesics prn DEXA screening recommended as outpatient (7) Sepsis: Onset Date: Unknown Qualifiers: Sepsis type: sepsis due to unspecified organism Sepsis acute organ dysfunction status: with acute organ dysfunction Severe sepsis acute organ dysfunction type: encephalopathy Severe sepsis shock status: without septic shock Qualified Code(s): A41.9 - Sepsis, unspecified organism; R65.20 - Severe sepsis without septic shock; G93.40 - Encephalopathy, unspecified Code(s): A41.9 - Sepsis, unspecified organism Status: Acute Assessment and Plan: Supported by tachypnea and leukocytosis and source infection (foot) Resolved (8) Acute encephalopathy: Code(s): G93.40 - Encephalopathy, unspecified Status: Acute Assessment and Plan: Probable metabolic encephalopathy due to, sepsis, and dehydration. Resolved Subjective Date/time seen: 11/26/19 11:31 Interval history: Date of visit 11/25. Tana Hutchins is a 74-year-old with newly diagnosed type 2 diabetes and hypertension who presented to the emergency room with altered mental status infected right foot and UTI. She was slightly dehydrated and received IV fluids . doing better Strep B cultured from wound , Transmetaral amp 11/19 and wound vac 11/24 Exam Narrative: Exam Narrative: Pupils equal reactive to light, sclerea nonicteric Neck no JVD Lungs clear CV regular rate rhythm Abdomen is soft nontender no masses obese Extremities without edema. right foot stump with fading erythema proximal to surgical wound Neuro
--- NOTE | 2019-11-26 11:54 | PM.PNORT ---
Progress Note: A&P Assessment and Plan (1) Gangrene of toe of right foot: Code(s): I96 - Gangrene, not elsewhere classified Status: Acute Assessment and Plan: postoperative day 6. Right foot transmetatarsal amputation. Wound appears to be granulating and healing well. Discussed operative and non operative treatment options with the patient. Recommend proceed with debridement of amputation stump and possible closure. Patient in agreement. Discussed nonoperative and operative treatment options with the patient. Risks and benefits of each as well as alternatives were reviewed. All of the patient's questions were answered. The risks of surgery reviewed including but not limited to: Neurovascular damage, wound complication, infection, blood clot, pulmonary embolus, stroke, myocardial infarction, and anesthetic risks up to and including . Continued pain and possible dysfunction were explained. Specific risks of the procedure including later recurrence of deformity. No guarantees were offered. If complications occur, the patient understands the need for further treatment, possible further surgery. Patient verbalizes understanding and wishes to proceed. PLAN: Right foot debridement and possible closure (2) Diabetic ulcer of foot associated with diabetes mellitus due to underlying condition, with necrosis of muscle: Code(s): E08.621 - Diabetes mellitus due to underlying condition with foot ulcer; L97.503 - Non-pressure chronic ulcer of other part of unspecified foot with necrosis of muscle Status: Acute Subjective Subjective Date/Time Seen: 11/26/19 11:54 Patient with no new complaints. Wound VAC changed yesterday. Exam Const: General: No confusion Orientation/consciousness: patient oriented x3 and No confusion HENMT: Head: normal to inspection, normocephalic and atraumatic Eyes: Conjunctivae: conjunctivae normal Sclera: sclerae normal Neck: Neck: supple and nontender Chest: Chest palpation & inspection: normal inspection of the chest Resp: Effort & Inspection: normal respiratory effort and no audible wheezes Cardio: Rate: regular rate Rhythm: regular rhythm : General: Yes deferred Skin: Rashes: other ( Excoriation over the abdomen and bilateral groin) Neuro: General: patient oriented x3 and No confusion Extrem: General: capillary refill normal Right upper extremity: normal to inspection Left upper extremity: normal to inspection Right lower extremity: hip/thigh, knee, ankle and foot Left lower extremity: normal to inspection, hip/thigh, knee, ankle and foot Other: Right lower extremity: hip/thigh Details: no tenderness, knee Details: normal ROM; no tenderness and no swelling, ankle Details: swelling ( moderate) Details: laterally and medially and abnormal ROM ( ankle dorsiflexion -10 degrees, plantar flexion 30?, inversion 15?, eversion 5?) Details: pain with active ROM; no tenderness and no ecchymosis and foot Details: abnormal to inspection- Transmetatarsal amputation wound clean. Medial skin flap appears viable. Wound VAC dressing In place. Mild swelling through the foot. Wound granulating well. No drainage or purulence. Erythema over the foot much improved. Psych: Affect: normal affect Objective Data Vital Signs Vital Signs: Vital Signs - 24 hr 11/25/19 14:00 11/25/19 22:00 11/26/19 06:00 Temperature 97.6 F 96.9 F L 97.0 F L Pulse Rate 73 77 73 Respiratory Rate 16 16 16 Blood Pressure 115/43 L 145/69 H 156/62 H Pulse Oximetry 97 96 97 Intake/Output Intake/Output: Intake & Output 11/23/19 11/24/19 11/25/19 11/26/19 23:59 23:59 23:59 23:59 Intake Total 2230 1160 1130 440 Balance 2230 1160 1130 440 Meds/Results Medications: Active Medications Generic Name Dose Route Start Last Admin Trade Name Freq PRN Reason Stop Dose Admin Acetaminophen 650 mg 11/16/19 22:49 11/17/19 10:56 Tylenol Tablet PO 650 mg Q4H PRN Administration
[2019-11-26 13:18] LABS: Glucose Point of Care 127 (65-105)
--- NOTE | 2019-11-26 13:25 | PCNFU ---
Nutrition Follow-Up Complete: Food and Nutrition Knowledge Deficit as related to new dx of DM as evidenced by no prior diet education. Adequate Intake of at least 75% of meals/supplement Goal:Progressing towards goal. Pt current nutrition is Diabetic Consistent carb. Nutrition recommendation: Agree Last recorded weight is 91.4 kg. Bowel Motility:+BM 11/25 Labs Reviewed: Glu 125,BUN 22,Cr 1.2,Na 132 Meds Noted: Lovonox,Ultram Additional Notes: Patient was waiting for lunch tray. She states to eating fair about 50-75% of meals. She is also receiving Ensure Enlive providing an additional 350 kcals and 20 gms protein, encouraged diet supplements due to right foot transmetatarsal amputation. Plans for Right foot debridement and closure tomorrow. Monitoring: RD will monitor every 5 days.
[2019-11-26 14:00] VITALS: BP 128/52; PULSE 69; RESP 20; TEMP 36.1; O2SAT 97
--- NOTE | 2019-11-26 17:35 | PC.NURSE ---
Called pharmacy and requested 1700 metformin be sent to floor for administration.
[2019-11-26] MEDS: AMLODIPINE BESYLATE 5 MG TABLET PO (17:39)
[2019-11-26] MEDS: metFORMIN HCL XR 500 MG TAB.SR.24H PO (18:04)
[2019-11-26 18:20] LABS: Glucose Point of Care 138 (65-105)
[2019-11-26 20:19] LABS: Glucose Point of Care 175 (65-105)
[2019-11-26 22:00] VITALS: BP 156/58; PULSE 72; RESP 20; TEMP 35.9; O2SAT 100
[2019-11-27] VITALS (14 sets, daily range): BP systolic 105–163; BP diastolic 50–70; PULSE 71–93; RESP 14–20; TEMP 36.2–36.6; O2SAT 91–100
[2019-11-27 06:16] LABS: Blood Urea Nitrogen 25 mg/dL (7-17); Calcium 8.3 mg/dL (8.4-10.2); Carbon Dioxide 27 mmol/L (22-30); Chloride 103 mmol/L (98-107); Estimated CRCL calculation 39 ml/min; Estimated Glomerular Filt Rate 48; Glucose 126 mg/dL (65-105); Potassium 4.6 mmol/L (3.4-5.0); Sodium 134 mmol/L (137-145)
[2019-11-27 09:07] LABS: Glucose Point of Care 103 (65-105)
--- NOTE | 2019-11-27 09:30 | PC.NURSE ---
To OR per bed, IV intact.
--- NOTE | 2019-11-27 09:41 | WPDANESEPPF ---
Anes - Initial Pre Proc Eval Procedure: Operation Date: 11/20/19 12:00 Proposed Procedures p Right Foot Transmetatarsal Amputation - Rajinder Martinez MD Operation Date: 11/27/19 10:30 Proposed Procedures p Right Foot Debridement, Possible Closure - Rajinder Martinez MD Date/Time: 11/27/19 09:41 Surgeon: Charles Gracia MD Pre Op Diagnosis: ams Patient Data Age: 74 Gender: F Height: 5 ft Weight: 91.4 kg Last Vital Signs Temp 36.2 C L 11/27/19 05:55 Pulse 79 11/27/19 05:55 Resp 20 11/27/19 05:55 BP 163/62 H 11/27/19 05:55 Pulse Ox 98 11/27/19 05:55 Allergies Allergy/AdvReac Type Severity Reaction Status Date / Time No Known Allergies Allergy Verified 11/16/19 17:46 Home Medications Medication Instructions Recorded Confirmed Type No Home Medications 11/16/19 11/16/19 History Laboratory Tests 11/26/19 11/26/19 11/26/19 13:06 18:15 20:16 Sodium Potassium Chloride Carbon Dioxide BUN Creatinine Estim Creat Clear Calc Estimated GFR Glucose POC Capillary Glucose 127 mg/dl H mg/dl 138 mg/dl H mg/dl 175 mg/dl H mg/dl (65-105) (65-105) (65-105) Calcium 11/27/19 11/27/19 05:18 09:04 Sodium 134 mmol/L L mmol/L (137-145) Potassium 4.6 mmol/L mmol/L (3.4-5.0) Chloride 103 mmol/L mmol/L (98-107) Carbon Dioxide 27 mmol/L mmol/L (22-30) BUN 25 mg/dL H mg/dL (7-17) Creatinine 1.10 mg/dL H mg/dL (0.7-1.0) Estim Creat Clear Calc 39 ml/min ml/min Estimated GFR 48 L (59 - ) Glucose 126 mg/dL H mg/dL (65-105) POC Capillary Glucose 103 mg/dl mg/dl (65-105) Calcium 8.3 mg/dL L mg/dL (8.4-10.2) Patient hx anesthesia problems: none Family hx anesthesia problems: none [facility] Past Medical History Medical History Diabetic ulcer of foot associated with diabetes mellitus due to underlying condition, with necrosis of muscle Foot abscess, right Gangrene of toe of right foot Medical history unknown Surgical History Surgical History History of section, classical Surgical history unknown Family History Family History Mother Diabetes mellitus Cerebrovascular accident Father Congestive heart failure (CHF) Father No problems noted. Son Hypertension Social History Social History Smoking status: Never smoker Alcohol intake: never Substance use: never Substance use type: does not use Gender identity (if verbalized by the patient): Female Spiritual care concerns: No Agree to blood products: Yes Anes - Eval Final PreProcedure Day of Procedure 11/27/19 09:41 Patient weight: morbidly obese Heart: regular rate and rhythm Lungs: decreased breath sounds Airway: Mallampati scale class II Neurological: other (alert) Last oral intake: >/= 8 hours ASA classification: IV Emergent: no Anesthetic plan: proceed Anesthesia type and monitoring: general LMA and standard monitoring Informed Consent: The patient's anesthetic plan and its attendant risks and benefits were discussed with the patient/family/POA. Questions were solicited and answers provided to the satisfaction of the patient/family/POA.
[2019-11-27] MEDS: LACTATED RINGERS 1,000 ML 30 ML IV CONT (09:45)
--- NOTE | 2019-11-27 10:05 | PM.IMPN ---
Progress Note: A&P Assessment and Plan (1) Diabetic foot: Onset Date: Unknown Code(s): E11.8 - Type 2 diabetes mellitus with unspecified complications Status: Acute Assessment and Plan: Wound care and surgery have evaluated and debrided. Wound culture with Gp B strep post op day 6 (transmetatarsal amputation), antibioitc day 10. Vanc stopped 11/22 after 7 days when creatinine started to rise Plan to continue IV antibiotics while inpatient, then discharge on PO for an additional 2 weeks (though low suspicion for MRSA or resistantant gm neg) repeat wbc today 11/26 normal 9.7 (2) PATRIC (acute kidney injury): Code(s): N17.9 - Acute kidney failure, unspecified Status: Acute Assessment and Plan: Poor intake vs drug vs both 11/22 held lisinopril and restarted today 11/26 IV saline 11/22 11/22 Vancomycin stopped at day 7 11/23 creatinine 1.3 11/24 creatinine 1.2 and again today 11/25 11/26 1.1 (3) Uncontrolled hypertension: Onset Date: Unknown Code(s): I10 - Essential (primary) hypertension Status: Acute Assessment and Plan: Lisinopril 10mg daily restarted today and getting amlodipine 5 qd 11/18 BP 152/53, 11/19 154/73, 11/20 142/50, 11/21 140/60, 11/22 153/65, 11/23 147/55, 11/24 115/43 11/25 as above 152/62 11/26 146/78 (4) New onset type 2 diabetes mellitus: Onset Date: Unknown Code(s): E11.9 - Type 2 diabetes mellitus without complications Status: Acute Assessment and Plan: A1c is 12.5. Lantus 30 daily with SSI 11/18 FBS 129 11/19 Metformin and Lantus on hold 11/20 FBS 200, resumed metformin 11/21 FBS 117 11/22 FBS 115, but with creatinine increased held metformin. IV saline. Repeat creatinine 11/22 PM. (Reduced PO intake vs drug vs both). 11/23 FBS 86, Continue SSI 11/24 FBS 98, continue SSI 11/25 BS still good with FBS 139. restart metformin with SS , off lantus now 11/26 /FBS 126 (5) Dehydration: Code(s): E86.0 - Dehydration Status: Acute Assessment and Plan: Appetite improved. Resolved (6) Back pain: Qualifiers: Back pain location: low back pain Chronicity: chronic Back pain laterality: unspecified Sciatica presence: unspecified whether sciatica present Qualified Code(s): M54.5 - Low back pain; G89.29 - Other chronic pain Code(s): M54.9 - Dorsalgia, unspecified Status: Acute Assessment and Plan: L1 compression fx of indeterminate age PT/OT Analgesics prn DEXA screening recommended as outpatient check vit D (7) Sepsis: Onset Date: Unknown Qualifiers: Sepsis type: sepsis due to unspecified organism Sepsis acute organ dysfunction status: with acute organ dysfunction Severe sepsis acute organ dysfunction type: encephalopathy Severe sepsis shock status: without septic shock Qualified Code(s): A41.9 - Sepsis, unspecified organism; R65.20 - Severe sepsis without septic shock; G93.40 - Encephalopathy, unspecified Code(s): A41.9 - Sepsis, unspecified organism Status: Acute Assessment and Plan: Supported by tachypnea and leukocytosis and source infection (foot) Resolved (8) Acute encephalopathy: Code(s): G93.40 - Encephalopathy, unspecified Status: Acute Assessment and Plan: Probable metabolic encephalopathy due to, sepsis, and dehydration. Resolved Subjective Date/time seen: 11/27/19 10:05 Interval history: Date of visit 11/26. Tana Hutchins is a 74-year-old with newly diagnosed type 2 diabetes and hypertension who presented to the emergency room with altered mental status infected right foot and UTI. She was slightly dehydrated and received IV fluids . doing better. Strep B cultured from wound , Transmetaral amp 11/19 and wound vac 11/24, to OR today for debridement and probable closure Exam Narrative: Exam Narrative: Blood pressure 146/68 pulse 72 afebrile Pupils equal reactive to light, sclerea nonicteric Neck no JVD Denise
--- NOTE | 2019-11-27 10:30 | WPDHPUPDATE1 ---
History and Physical Update Update Date/Time: 11/27/19 10:30 History and Physical has been reviewed, including an updated exam of the patient. There are NO changes in the patient's condition. Risks, benefits, and alternatives have been discussed and questions answered. Patient agrees to proceed with procedure.
[2019-11-27 12:21] LABS: Glucose Point of Care 105 (65-105)
--- NOTE | 2019-11-27 13:40 | PC.NURSE ---
Returned from OR per bed.
[2019-11-27] MEDS: TOLNAFTATE 1% POWDER 45 GM BTL 1 APPLIC TOPICAL ×2 (14:19→21:00)
[2019-11-27] MEDS: ENOXAPARIN 40 MG/0.4 ML SYRINGE SUB-Q (14:19)
[2019-11-27] MEDS: ASPIRIN 81 MG CHEWABLE TABLET PO (14:19)
--- NOTE | 2019-11-27 14:22 | P.OP_ITS ---
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 Description of procedure: Indications: Patient is a 74-year-old woman who presented with right foot gangrene and infected abscess. She underwent open transmetatarsal amputation of the right foot 1 week ago. She has been treated in the interim with intravenous antibiotics and wound VAC. She presents now for further debridement and possible closure. What was done: Patient identified in the preoperative holding. Informed consent given. Operative extremity marked. Patient received intravenous antibiotics. Patient brought to the operating room where underwent general anesthetic by anesthesia team. Positioned supine on operating room table. Time-out performed confirming the patient, site of the surgery and the plan. Right foot prepped and draped usual sterile surgical fashion using a Betadine prep solution. The open amputation site was approximately 10 cm in length. There was some mild infected appearing tissue and devitalized tissue over the dorsal medial and lateral aspects as well as the portion of the wound. There is also some exposed portion of metatarsal bone. Fifteen blade knife and rongeur were used to sharply debride the nonviable tissue which was excised and passed off. The exposed bone ends were removed with a rongeur. Good healthy viable tissue was left in place. Wound was thoroughly irrigated with antibiotic solution. Intermediate closure in layers was then performed of the distal aspect using 2 Vicryl interrupted suture for deep tissue and 2 0 nylon interrupted suture for the skin edge. Incisional length was approximately 10 cm. Sterile dressing then applied. Patient awoke from anesthesia, extubated and taken to the recovery room in stable condition. All sponge, needle and instrument counts correct at the end of the case. Implants: None Anesthesia: GETA Surgeon: Rajinder Martinez MD Batch Or Continuous Still Operator: 1st fitter's assistant Estimated blood loss (mL): 10 Tourniquet time (min): 0 Drains: No Packing: No Pathology: none sent Complications: No immediate complications Condition: stable Disposition: PACU
[2019-11-27 17:09] LABS: Glucose Point of Care 144 (65-105)
[2019-11-27] MEDS: metFORMIN HCL XR 500 MG TAB.SR.24H PO (17:12)
[2019-11-27] MEDS: AMLODIPINE BESYLATE 5 MG TABLET PO (17:12)
[2019-11-27 21:49] LABS: Glucose Point of Care 184 (65-105)
[2019-11-28 05:15] VITALS: BP 144/49; PULSE 90; RESP 16; TEMP 36.6; O2SAT 92
[2019-11-28 06:02] LABS: Blood Urea Nitrogen 19 mg/dL (7-17); Carbon Dioxide 27 mmol/L (22-30); Chloride 103 mmol/L (98-107); Estimated CRCL calculation 47 ml/min; Estimated Glomerular Filt Rate > 60; Glucose 116 mg/dL (65-105); Potassium 4.4 mmol/L (3.4-5.0); Sodium 133 mmol/L (137-145)
[2019-11-28 06:43] LABS: Vitamin D 25 Hydroxy < 12.8 ng/mL
[2019-11-28 08:00] LABS: Glucose Point of Care 104 (65-105)
[2019-11-28] MEDS: metFORMIN HCL XR 500 MG TAB.SR.24H PO ×2 (09:31→17:41)
[2019-11-28] MEDS: lisinopriL 10 MG TABLET PO (09:31)
[2019-11-28] MEDS: ENOXAPARIN 40 MG/0.4 ML SYRINGE SUB-Q (09:31)
[2019-11-28] MEDS: ASPIRIN 81 MG CHEWABLE TABLET PO (09:31)
[2019-11-28] MEDS: TOLNAFTATE 1% POWDER 45 GM BTL 1 APPLIC TOPICAL ×2 (09:33→20:27)
--- NOTE | 2019-11-28 09:47 | PM.IMPN ---
Progress Note: A&P Assessment and Plan (1) Diabetic foot: Onset Date: Unknown Code(s): E11.8 - Type 2 diabetes mellitus with unspecified complications Status: Acute Assessment and Plan: Wound care and surgery have evaluated and debrided. Wound culture with Gp B strep post op day 7 (transmetatarsal amputation) POD#1 (debridement and closure), antibioitc day 11. Vanc stopped 11/22 after 7 days when creatinine started to rise Plan to continue IV antibiotics while inpatient, then discharge on PO for an additional 2 weeks (though low suspicion for MRSA or resistantant gm neg) repeat wbc today 11/26 normal 9.7 (2) PATRIC (acute kidney injury): Code(s): N17.9 - Acute kidney failure, unspecified Status: Acute Assessment and Plan: Poor intake vs drug vs both 11/22 held lisinopril and restarted today 11/26 IV saline 11/22 11/22 Vancomycin stopped at day 7 11/23 creatinine 1.3 11/24 creatinine 1.2 and again today 11/25 11/27 0.9 (3) Uncontrolled hypertension: Onset Date: Unknown Code(s): I10 - Essential (primary) hypertension Status: Acute Assessment and Plan: Lisinopril 10mg daily restarted 11/26 and getting amlodipine 5 qd 11/18 BP 152/53, 11/19 154/73, 11/20 142/50, 11/21 140/60, 11/22 153/65, 11/23 147/55, 11/24 115/43 11/25 as above 152/62 11/27 144/50 (4) New onset type 2 diabetes mellitus: Onset Date: Unknown Code(s): E11.9 - Type 2 diabetes mellitus without complications Status: Acute Assessment and Plan: A1c is 12.5. Lantus 30 daily with SSI 11/18 FBS 129 11/19 Metformin and Lantus on hold 11/20 FBS 200, resumed metformin 11/21 FBS 117 11/22 FBS 115, but with creatinine increased held metformin. IV saline. Repeat creatinine 11/22 PM. (Reduced PO intake vs drug vs both). 11/23 FBS 86, Continue SSI 11/24 FBS 98, continue SSI 11/25 BS still good with FBS 139. restart metformin with SS ,( off lantus now) 11/27 /FBS 116 (5) Dehydration: Code(s): E86.0 - Dehydration Status: Acute Assessment and Plan: Appetite improved. Resolved (6) Back pain: Qualifiers: Back pain location: low back pain Chronicity: chronic Back pain laterality: unspecified Sciatica presence: unspecified whether sciatica present Qualified Code(s): M54.5 - Low back pain; G89.29 - Other chronic pain Code(s): M54.9 - Dorsalgia, unspecified Status: Acute Assessment and Plan: L1 compression fx of indeterminate age PT/OT Analgesics prn DEXA screening recommended as outpatient vit D low at 12.5 so supplement (7) Sepsis: Onset Date: Unknown Qualifiers: Sepsis type: sepsis due to unspecified organism Sepsis acute organ dysfunction status: with acute organ dysfunction Severe sepsis acute organ dysfunction type: encephalopathy Severe sepsis shock status: without septic shock Qualified Code(s): A41.9 - Sepsis, unspecified organism; R65.20 - Severe sepsis without septic shock; G93.40 - Encephalopathy, unspecified Code(s): A41.9 - Sepsis, unspecified organism Status: Acute Assessment and Plan: Supported by tachypnea and leukocytosis and source infection (foot) Resolved (8) Acute encephalopathy: Code(s): G93.40 - Encephalopathy, unspecified Status: Acute Assessment and Plan: Probable metabolic encephalopathy due to, sepsis, and dehydration. Resolved Subjective Date/time seen: 11/28/19 09:47 Interval history: Date of visit 11/27. Tana Hutchins is a 74-year-old with newly diagnosed type 2 diabetes and hypertension who presented to the emergency room with altered mental status infected right foot and UTI. She was slightly dehydrated and received IV fluids . doing better. Strep B cultured from wound , Transmetaral amp 11/19 and wound vac 11/24, to OR 11/26 for debridement and closure Exam Narrative: Exam Narrative: Blood pressure 144/50 pulse 90 afebrile Pupils equal reactive
[2019-11-28 11:36] LABS: Glucose Point of Care 178 (65-105)
[2019-11-28] MEDS: ERGOCALCIFEROL 50,000 UNIT CAPSULE 50000 UNITS PO (11:36)
[2019-11-28 14:00] VITALS: BP 146/72; PULSE 74; RESP 16; TEMP 36.8; O2SAT 97
--- NOTE | 2019-11-28 14:33 | PCOTNOTE ---
OT Re-assess attempted this date, however patient refusing at this time due to fatigue and having just gotten back in bed. Patient agreeable to OT at later time.
--- NOTE | 2019-11-28 14:43 | PCPTNOTE ---
PT Re-evaluation attempted this date, however, patient refusing at this time stating she just got back into bed and is fatigued. Pt agreeable to therapy at a later date.
[2019-11-28 16:20] LABS: Glucose Point of Care 198 (65-105)
[2019-11-28] MEDS: AMLODIPINE BESYLATE 5 MG TABLET PO (17:41)
[2019-11-28] MEDS: TRAMADOL HCL 50 MG TABLET PO (17:41)
[2019-11-28 20:00] VITALS: PULSE 81; RESP 20; O2SAT 94
[2019-11-28 20:57] LABS: Glucose Point of Care 193 (65-105)
[2019-11-28 21:11] VITALS: BP 157/77; PULSE 81; RESP 20; TEMP 36.3; O2SAT 94
[2019-11-29 02:00] VITALS: BP 178/61; PULSE 83; RESP 16; TEMP 36.2; O2SAT 94
[2019-11-29] MEDS: TRAMADOL HCL 50 MG TABLET PO (02:32)
[2019-11-29 05:40] VITALS: BP 145/53; PULSE 74; RESP 16; TEMP 36.1; O2SAT 98
[2019-11-29 07:43] LABS: Glucose Point of Care 129 (65-105)
[2019-11-29] MEDS: ENOXAPARIN 40 MG/0.4 ML SYRINGE SUB-Q (08:45)
[2019-11-29] MEDS: lisinopriL 10 MG TABLET PO (08:45)
[2019-11-29] MEDS: ASPIRIN 81 MG CHEWABLE TABLET PO (08:45)
[2019-11-29] MEDS: metFORMIN HCL XR 500 MG TAB.SR.24H PO (08:45)
[2019-11-29] MEDS: TOLNAFTATE 1% POWDER 45 GM BTL 1 APPLIC TOPICAL (08:52)
--- NOTE | 2019-11-29 09:59 | PM.PNORT ---
Progress Note: A&P Assessment and Plan (1) Gangrene of toe of right foot: Code(s): I96 - Gangrene, not elsewhere classified Status: Acute Assessment and Plan: Postoperative day 2. Right transmetatarsal amputation wound closure. Wound VAC in place. Continue nonweightbearing. Continue IV antibiotics. Plan for wound VAC for 7 to 10 days. Subjective Subjective Date/Time Seen: 11/29/19 09:59 Patient states feels little bit tired but otherwise doing well. Exam Const: General: No confusion Orientation/consciousness: patient oriented x3 and No confusion HENMT: Head: normal to inspection, normocephalic and atraumatic Eyes: Conjunctivae: conjunctivae normal Sclera: sclerae normal Neck: Neck: supple and nontender Chest: Chest palpation & inspection: normal inspection of the chest Resp: Effort & Inspection: normal respiratory effort and no audible wheezes Cardio: Rate: regular rate Rhythm: regular rhythm : General: Yes deferred Skin: Rashes: other ( Excoriation over the abdomen and bilateral groin) Neuro: General: patient oriented x3 and No confusion Extrem: General: capillary refill normal Right upper extremity: normal to inspection Left upper extremity: normal to inspection Right lower extremity: hip/thigh, knee, ankle and foot Left lower extremity: normal to inspection, hip/thigh, knee, ankle and foot Other: Right lower extremity: hip/thigh Details: no tenderness, knee Details: normal ROM; no tenderness and no swelling, ankle Details: swelling ( moderate) Details: laterally and medially and abnormal ROM ( ankle dorsiflexion -10 degrees, plantar flexion 30?, inversion 15?, eversion 5?) Details: pain with active ROM; no tenderness and no ecchymosis and foot Details: abnormal to inspection- Transmetatarsal amputation wound clean. Medial skin flap appears viable. Wound VAC dressing In place. Mild swelling through the foot improved. Erythema over the foot much improved. Psych: Affect: normal affect Objective Data Vital Signs Vital Signs: Vital Signs - 24 hr 11/28/19 14:00 11/28/19 20:00 11/28/19 21:11 Temperature 98.3 F 97.3 F L Pulse Rate 74 81 81 Respiratory Rate 16 20 20 Blood Pressure 146/72 H 157/77 H Pulse Oximetry 97 94 94 11/29/19 02:00 11/29/19 05:40 Temperature 97.2 F L 97.0 F L Pulse Rate 83 74 Respiratory Rate 16 16 Blood Pressure 178/61 H 145/53 H Pulse Oximetry 94 98 Intake/Output Intake/Output: Intake & Output 11/26/19 11/27/19 11/28/19 11/29/19 23:59 23:59 23:59 23:59 Intake Total 304 346 4186 100 Output Total 850 1250 550 Balance 900 -30 1067 -450 Meds/Results Medications: Active Medications Generic Name Dose Route Start Last Admin Trade Name Freq PRN Reason Stop Dose Admin Acetaminophen 650 mg 11/16/19 22:49 11/17/19 10:56 Tylenol Tablet PO 650 mg Q4H PRN Administration Mild Pain (1-3) or Fever Amlodipine Besylate 5 mg 11/23/19 18:30 11/28/19 17:41 Norvasc PO 5 mg QPM YISSEL Administration Aspirin 81 mg 11/17/19 08:00 11/29/19 08:45 Aspirin Chewable PO 81 mg DAILY@0800 YISSEL Administration Dextrose 12.5 gm 11/16/19 22:49 Dextrose 50% Syringe IV PUSH PRN PRN Hypoglycemia Protocol Enoxaparin Sodium 40 mg 11/17/19 09:00 11/29/19 08:45 Lovenox SUB-Q 40 mg DAILY YISSEL Administration Glucagon 1 mg 11/16/19 22:49 Glucagon For Inj IM PRN PRN Hypoglycemia Protocol Glucose 15 gm 11/16/19 22:49 Glutose 15 PO PRN PRN Hypoglycemia Protocol Dextrose 1,000 mls @ 100 mls/hr 11/16/19 22:49 Dextrose 5% 1,000 Ml IVPB PRN PRN Hypoglycemia Protocol Insulin Aspart 3 - 6 units 11/17/19 08:00 11/29/19 07:39 Novolog SUB-Q Not Given TIDWM YISSEL Protocol Lisinopril 10 mg 11/17/19 09:00 11/29/19 08:45 Prinivil PO 10 mg DAILY YISSEL Administration Magnesium Hydroxide 30 ml 11/20/19 14:41 Milk Of M
[2019-11-29 10:00] VITALS: BP 130/48; PULSE 80; RESP 15; TEMP 36; O2SAT 94
[2019-11-29 10:40] VITALS: TEMP 37.6
--- NOTE | 2019-11-29 11:33 | PCNFU ---
Nutrition Follow-Up Complete: Food and Nutrition Knowledge Deficit as related to new dx of DM as evidenced by no prior diet education. Adequate Intake of at least 75% of meals/supplement Goal:progressing towards goal. Pt current nutrition is DBCC. Nutrition recommendation: Agree Last recorded weight is 91.4 kg. Bowel Motility:+BM 11/27 Labs Reviewed:Na 133,BUN 19,Glu 116 Meds Noted:Ultram,Lovenox Additional Notes: Patient to have wound vac on right foot for 7-10 days. Patient is eating greater than 75% of meals current diabetic diet. She has been educated on current diet order. Monitoring: RD will monitor every 5 days.
[2019-11-29] MEDS: INSULIN ASPART (*BKC) 100 UNITS/ML SUB-Q (11:46)
[2019-11-29 14:00] VITALS: BP 131/42; PULSE 84; RESP 18; TEMP 36.6; O2SAT 94
[2019-11-29 20:38] LABS: Glucose Point of Care 204 (65-105)
--- NOTE | 2019-11-30 13:48 | PM.DS ---
DS: Diagnosis Admitting Diagnosis Admitting Diagnosis: Encephalopathy, unspecified Discharge Diagnosis (1) Diabetic foot: Onset Date: Unknown Code(s): E11.8 - Type 2 diabetes mellitus with unspecified complications Status: Acute Assessment and Plan: Wound care and surgery have evaluated and debrided. Wound culture with Gp B strep post op day 8 (transmetatarsal amputation) POD#2 (debridement and closure), antibioitc day 11., Vanc stopped 11/22 after 7 days when creatinine started to rise Plan to continue IV antibiotics zosyn for full 14 days, then discharge on PO Augmentin for an additional 2 weeks wbc normal and follow on TRC (2) PATRIC (acute kidney injury): Code(s): N17.9 - Acute kidney failure, unspecified Status: Acute Assessment and Plan: Poor intake vs drug vs both 11/22 held lisinopril and restarted today 11/26 IV saline 11/22 11/22 Vancomycin stopped at day 7 11/23 creatinine 1.3 11/24 creatinine 1.2 and again today 11/25 11/27 0.9 11/28 1.0 the day of discharge (3) Uncontrolled hypertension: Onset Date: Unknown Code(s): I10 - Essential (primary) hypertension Status: Acute Assessment and Plan: Lisinopril 10mg daily restarted 11/26 and getting amlodipine 5 qd 11/18 BP 152/53, 11/19 154/73, 11/20 142/50, 11/21 140/60, 11/22 153/65, 11/23 147/55, 11/24 115/43 11/25 as above 152/62 11/27 144/50 11/28 130/42 the day of discharge (4) New onset type 2 diabetes mellitus: Onset Date: Unknown Code(s): E11.9 - Type 2 diabetes mellitus without complications Status: Acute Assessment and Plan: A1c is 12.5. Lantus 30 daily with SSI 11/18 FBS 129 11/19 Metformin and Lantus on hold 11/20 FBS 200, resumed metformin 11/21 FBS 117 11/22 FBS 115, but with creatinine increased held metformin. IV saline. Repeat creatinine 11/22 PM. (Reduced PO intake vs drug vs both). 11/23 FBS 86, Continue SSI 11/24 FBS 98, continue SSI 11/25 BS still good with FBS 139. restart metformin with SS ,( off lantus now) 11/27 /FBS 116 11/28 FBS 126 day of d/c with metformin and SS (5) Dehydration: Code(s): E86.0 - Dehydration Status: Acute Assessment and Plan: Appetite improved. Resolved (6) Back pain: Qualifiers: Back pain location: low back pain Chronicity: chronic Back pain laterality: unspecified Sciatica presence: unspecified whether sciatica present Qualified Code(s): M54.5 - Low back pain; G89.29 - Other chronic pain Code(s): M54.9 - Dorsalgia, unspecified Status: Acute Assessment and Plan: L1 compression fx of indeterminate age PT/OT Analgesics prn DEXA screening recommended as outpatient vit D low at 12.5 so supplement (7) Sepsis: Onset Date: Unknown Qualifiers: Sepsis type: sepsis due to unspecified organism Sepsis acute organ dysfunction status: with acute organ dysfunction Severe sepsis acute organ dysfunction type: encephalopathy Severe sepsis shock status: without septic shock Qualified Code(s): A41.9 - Sepsis, unspecified organism; R65.20 - Severe sepsis without septic shock; G93.40 - Encephalopathy, unspecified Code(s): A41.9 - Sepsis, unspecified organism Status: Acute Assessment and Plan: Supported by tachypnea and leukocytosis and source infection (foot) Resolved (8) Acute encephalopathy: Code(s): G93.40 - Encephalopathy, unspecified Status: Acute Assessment and Plan: Probable metabolic encephalopathy due to, sepsis, and dehydration. Resolved DS: Summary Hospital Course Hospital Course: 74-year-old white female admitted with altered mental status, sepsis, new onset diabetes and hypertension. Found to have an infected foot and eventually underwent trans metatarsal amputation. Wound grew strep b. she persists will receive full 2 weeks course of IV Zosyn followed by 2 weeks of oral Augmentin. A1c was 12.5 but with control of infection, proper
== END 2019-11-29 16:35 | DRG 853 ==
LOC: ANHED 22:23 → ANH2MED 11-17 15:08
PROVIDERS: Internal Medicine; Orthopaedic Surgery; Admitting Provider Family Medicine; Emergency Provider Emergency Medicine; Visit Provider Internal Medicine
PROC: 0Y6M0Z9 Detachment at Right Foot, Partial 1st Ray, Open Approach (ICD-10-PCS; CPT 28805; principal; 2019-11-20 12:00)
PROC: 0QBN0ZZ Excision of Right Metatarsal, Open Approach (ICD-10-PCS; principal; 2019-11-27 10:30)
DX: A41.9 Sepsis, unspecified organism (principal); G93.41 Metabolic encephalopathy; I96 Gangrene, not elsewhere classified; L02.611 Cutaneous abscess of right foot; L03.115 Cellulitis of right lower limb; N17.9 Acute kidney failure, unspecified; R65.20 Severe sepsis without septic shock; E11.621 Type 2 diabetes mellitus with foot ulcer; L97.503 Non-pressure chronic ulcer of other part of unspecified foot with necrosis of muscle; G89.29 Other chronic pain; M54.5 Low back pain; I10 Essential (primary) hypertension; E11.42 Type 2 diabetes mellitus with diabetic polyneuropathy; E86.0 Dehydration; D72.829 Elevated white blood cell count, unspecified; E66.01 Morbid (severe) obesity due to excess calories; Z68.39 Body mass index [BMI] 39.0-39.9, adult; B95.1 Streptococcus, group B, as the cause of diseases classified elsewhere
CPT/HCPCS: 36415; 51701; 70450; 70553; 72100; 73630; 73720; 80048; 80053; 80202; 81001; 82306; 82565; 82607; 82746; 83036; 83605; 84443; 85025; 85027; 85610; 85730; 86140; 87040; 87070; 87077; 87086; 87088; 87205; 88305; 88307; 88311; 93005; 93923; 96361; 96365; 97110; 97116; 97161; 97165; 97168; 97530; 97535; 99285; A9270; A9577; C8929; J1650; J1815; J2405; J2543; J2704; J3010; J3370; J7030; J7040; J7042; J7120; Q9957

== ENCOUNTER 2019-11-29 16:31 | IRF | payer MEDICARE, SELFPAY ==
[2019-11-29 16:30] VITALS: BP 149/56; PULSE 84; RESP 20; TEMP 37.2; O2SAT 97; BMI 42.5
--- NOTE | 2019-11-29 16:58 | ADMGEN ---
This patient, Tana Hutchins, was admitted to [facility] Room 226-02. Patient/family oriented to hospital policies and general routines including ID bracelet, bed and alarms, visiting hours, pain management, procedures, bathroom and other care routines, personal items, smoking policy, room service/diet, and visiting hours. Valuables list has been completed. Information on how to activate the Rapid Response Team has been discussed. Patient/Family are encouraged to report perceived risks to care and to ask questions if they do not understand what they are told or what they should do.
[2019-11-29 17:43] LABS: Glucose Point of Care 238 (65-105)
[2019-11-29] MEDS: AMLODIPINE BESYLATE 5 MG TABLET PO (18:30)
[2019-11-29 20:24] LABS: Glucose Point of Care 286 (65-105)
[2019-11-29] MEDS: TOLNAFTATE 1% POWDER 45 GM BTL 1 APPLIC TOPICAL (20:29)
[2019-11-29 22:00] VITALS: BP 144/54; PULSE 85; RESP 18; TEMP 37.2; O2SAT 94
[2019-11-30 05:50] LABS: Blood Urea Nitrogen 23 mg/dL (7-17); Calcium 8.4 mg/dL (8.4-10.2); Carbon Dioxide 31 mmol/L (22-30); Chloride 101 mmol/L (98-107); Estimated CRCL calculation 45 ml/min; Estimated Glomerular Filt Rate 54; Glucose 170 mg/dL (65-105); Potassium 4.8 mmol/L (3.4-5.0); Sodium 133 mmol/L (137-145)
[2019-11-30 05:51] LABS: Basophils Percent Auto 0.4 % (0.2-1.2); Eosinophils Absolute Auto 0.2 K/mm3 (0-0.3); Eosinophils Percent Auto 2.1 % (0-4.4); Hematocrit 31.1 % (37.0-47.0); Hemoglobin 9.8 g/dL (12.0-15.0); Immature Granulocyte Absolute 0.07 K/mm3 (0.00-0.031); Immature Granulocyte Percent A 0.7 % (0-0.5); Lymphocytes Absolute Auto 1.51 K/mm3 (0.9-3.2); Lymphocytes Percent Auto 14.7 % (18.3-44.2); Mean Corpuscular HGB Conc 31.5 g/dl (32-36); Mean Corpuscular Hemoglobin 27.2 pg (26-34); Mean Corpuscular Volume 86.4 fl (80-100); Mean Platelet Volume 8.8 fl (7.4-10.4); Monocytes Absolute Auto 0.6 K/mm3 (0.1-0.6); Monocytes Percent Auto 5.7 % (2.6-8.5); Neutrophils Absolute Auto 7.8 K/mm3 (1.3-6.7); Neutrophils Percent Auto 76.4 % (45.5-73.1); Platelet Count Result 440 k/mm3 (150-375); Red Cell Distribution Width 15.1 % (11.5-14.5); White Blood Count 10.3 K/mm3 (4.5-10.0)
[2019-11-30 06:00] VITALS: BP 162/81; PULSE 95; RESP 18; TEMP 37.3; O2SAT 94
[2019-11-30 07:00] LABS: Glucose Point of Care 180 (65-105)
[2019-11-30] MEDS: metFORMIN HCL 500 MG TABLET PO ×2 (08:31→17:19)
[2019-11-30] MEDS: ENOXAPARIN 40 MG/0.4 ML SYRINGE SUB-Q (08:31)
[2019-11-30] MEDS: ASPIRIN 81 MG CHEWABLE TABLET PO (08:31)
[2019-11-30] MEDS: TOLNAFTATE 1% POWDER 45 GM BTL 1 APPLIC TOPICAL ×2 (08:32→22:09)
[2019-11-30] MEDS: lisinopriL 10 MG TABLET PO (08:32)
[2019-11-30 11:47] LABS: Glucose Point of Care 303 (65-105)
[2019-11-30] MEDS: LOPERAMIDE HCL 2 MG CAPSULE PO (12:01)
[2019-11-30] MEDS: INSULIN ASPART (*BKC) 100 UNITS/ML SUB-Q ×2 (12:02→17:20)
[2019-11-30 14:00] VITALS: BP 153/65; PULSE 84; RESP 18; TEMP 37; O2SAT 98
--- NOTE | 2019-11-30 16:49 | REHAB_ITS ---
DATE OF SERVICE: 11/29/2019 A 74-year-old right-handed female has been admitted to [facility] Rehab floor with the primary rehab impairment category of amputation/other and an etiological diagnosis of gangrene of the right foot for which she has undergone right transmetatarsal amputation. The patient was seen [id number] at 12 on 11/30/2019. HISTORY OF THE PRESENT ILLNESS: A 74-year-old right-handed female presented to [facility] on 11/16/2019 with acute confusion and change in the mental status. As per the son who lives with her, she was found on the floor after a fall on 11/11/2019. She refused to go to the hospital subsequent to fall, has not been seen by the health care provider for almost 6 years. Her son reported that she has been complaining of right foot pain since her fall on Monday and has been taking Aleve 3 or 4 times a day. She also complained of painful urination in the emergency room. Her blood glucose was 320, though she was not known to be diabetic. UA was positive for the nitrite with 3+ leukocyte esterase and greater than 75 wbc's and 21 to 50 red blood cells. It was noted that the patient was also dehydrated. X-rays of her right foot did not demonstrate any osteomyelitis; however, it reveals soft tissue swelling and subcutaneous emphysema consistent with cellulitis and calcaneal enthesopathy. The patient was placed on IV antibiotics in the emergency room for cellulitis. She was treated for the urinary tract infection. Neurology Team was consulted. She had CT and MRI, which were both negative. She was placed on daily aspirin. General Surgery was consulted and Dr. Multani performed an excisional debridement of necrotic skin and soft tissue dorsum of the right foot on 11/17/2019 to try to control infection and stabilize the foot. Preliminary results revealed growth of group B Streptococcus isolation. Orthopedic Surgical Service was consulted and Dr. Martinez reported that the gangrene had progressed on the plantar and lateral aspect of the right foot, and there was a large open wound on the dorsum of the forefoot, which was infected. On 11/20/2019, Dr. Martinez performed open transmetatarsal amputation and debridement of right foot in an attempt at salvaging the right lower extremity. Wound VAC was placed to the right foot. She was again taken to OR on 11/27/[address] Martinez performed further debridement and wound closure. She was currently postop #7 day for the transmetatarsal amputation, postop day #2 for the debridement and closure. She does have a wound VAC in place, plan for approximately 7 to 10 days. She completed a 7-day course of IV vancomycin on 11/23/2019. Plan was to discharge her to [facility] on IV Zosyn for additional 7 days and then transition to oral antibiotic, but she will require close management of multiple new medications for newly diagnosed type 2 diabetes and hypertension. She continued to have lower back pain for which x-rays were done, which revealed indeterminate compression fracture of L1 vertebral body. She will require the lumbar brace for support. She was discharged to [facility] on aspirin and Lovenox for DVT prophylaxis and DEXA screening was recommended as an outpatient. The patient has not traveled outside the [place] or had contact with someone who was ill that has traveled outside the [place] in the past 21 days. She has not traveled to an area of [place] that is experiencing known transmission of the coronavirus and has not had any close personal contact with someone who has. The patient does not have a fever. The patient is not experiencing lower respiratory illness symptoms. Therapy was initiated at the Acute Care Facility. The patient was transferred to the rehab on 11/29/2019. SURGERY OR FALLS: The patient has had major surgery as mentioned above in the last 100 days pr
[2019-11-30 16:55] LABS: Glucose Point of Care 258 (65-105)
[2019-11-30] MEDS: AMLODIPINE BESYLATE 5 MG TABLET PO (18:01)
[2019-11-30 22:00] VITALS: BP 146/58; PULSE 85; RESP 18; TEMP 37.2; O2SAT 96
[2019-11-30 22:27] LABS: Glucose Point of Care 284 (65-105)
[2019-12-01 06:00] VITALS: BP 147/61; PULSE 74; RESP 18; TEMP 36.9; O2SAT 96
[2019-12-01 07:05] LABS: Glucose Point of Care 175 (65-105)
[2019-12-01 08:00] VITALS: PULSE 74; RESP 18; O2SAT 96
[2019-12-01] MEDS: metFORMIN HCL 500 MG TABLET PO ×2 (08:32→17:42)
[2019-12-01] MEDS: ASPIRIN 81 MG CHEWABLE TABLET PO (08:32)
[2019-12-01] MEDS: ENOXAPARIN 40 MG/0.4 ML SYRINGE SUB-Q (08:32)
[2019-12-01] MEDS: lisinopriL 10 MG TABLET PO (08:33)
[2019-12-01] MEDS: TOLNAFTATE 1% POWDER 45 GM BTL 1 APPLIC TOPICAL ×2 (08:33→21:00)
[2019-12-01] MEDS: LOPERAMIDE HCL 2 MG CAPSULE PO (08:45)
[2019-12-01 11:49] LABS: Glucose Point of Care 280 (65-105)
[2019-12-01] MEDS: INSULIN ASPART (*BKC) 100 UNITS/ML SUB-Q ×2 (12:34→17:43)
[2019-12-01 14:00] VITALS: BP 144/62; PULSE 80; RESP 16; TEMP 36.9; O2SAT 96
[2019-12-01 17:07] LABS: Glucose Point of Care 267 (65-105)
[2019-12-01] MEDS: AMLODIPINE BESYLATE 5 MG TABLET PO (17:41)
--- NOTE | 2019-12-01 18:49 | PC.NURSE ---
wound vac intact to right foot. patient tolerating well.
[2019-12-01 20:49] LABS: Glucose Point of Care 287 (65-105)
[2019-12-01 22:00] VITALS: BP 142/58; PULSE 82; RESP 19; TEMP 36.6; O2SAT 93
[2019-12-02 05:49] LABS: Glucose Point of Care 237 (65-105)
[2019-12-02 06:00] VITALS: BP 147/64; PULSE 77; RESP 18; TEMP 36.4; O2SAT 95
[2019-12-02] MEDS: INSULIN ASPART (*BKC) 100 UNITS/ML SUB-Q ×3 (07:24→17:41)
[2019-12-02] MEDS: ENOXAPARIN 40 MG/0.4 ML SYRINGE SUB-Q (08:56)
[2019-12-02] MEDS: metFORMIN HCL 500 MG TABLET PO ×2 (08:56→17:42)
[2019-12-02] MEDS: ASPIRIN 81 MG CHEWABLE TABLET PO (08:57)
[2019-12-02] MEDS: lisinopriL 10 MG TABLET PO (08:57)
[2019-12-02] MEDS: TOLNAFTATE 1% POWDER 45 GM BTL 1 APPLIC TOPICAL ×2 (08:57→20:54)
--- NOTE | 2019-12-02 09:39 | WPDNEURORHBP ---
Subjective Date/time seen: S/P right transmetatarsal amputation for [id number]/20 with chronic back pain secondary toL1 compression Fracture 09:39 Review of Systems Review of Systems: All systems reviewed & are unremarkable except as noted in HPI and below Functional Status Transfers Ability Ability to Transfer In/Out of Chair: Moderate Assistance X 2 Exam Const: General: cooperative, comfortable, no acute distress, alert and awake Nutritional Appearance: average body habitus Orientation/consciousness: oriented to person and patient oriented x3 HENMT: Head: normal to inspection and normocephalic Ears: hearing grossly normal bilaterally General nose exam: Normal external nose present and No nasal discharge present Face and sinus: normal facial exam Mouth: Yes Normal oral and palatal mucosa present and Yes tongue normal Throat: uvula midline Eyes: General: appearance normal, both eyes and all related structures Visual [place]: normal visual [place] by confrontation Alignment and Position: alignment normal Periorbital: periorbital findings normal Eyelids: eyelids normal Conjunctivae: conjunctivae normal Sclera: sclerae normal Cornea: corneas normal Pupils: Equal, round and reactive pupils present EOM: EOMs intact bilaterally Direct Ophthalmoscopy: normal light reflex Neck: Neck: normal visual inspection, full ROM and no lymphadenopathy Carotids: normal carotid upstroke Lymphatic: no lymphadenopathy noted Resp: Effort & Inspection: normal respiratory effort and able to speak in complete sentences Auscultation: clear to auscultation bilaterally Cardio: Rate: regular rate GI: Auscultation: normal bowel sounds Skin: General skin exam: no rashes or lesions noted (right foot clean) Neuro: General: patient oriented x3, moves all extremities and CN's II-XI intact bilaterally Cranial nerves: Yes Equal, round and reactive pupils present, Yes Bilaterally intact EOM present, Yes Nystagmus not present, Yes Normal facial strength present, Yes Midline tongue present, Yes Symmetric palate elevation present, Yes Ability to bilaterally rotate head present and Yes Ability to bilaterally elevate shoulders present Cognition (Neuro): normal cognition Speech: normal speech Gait exam (Neuro): Unable to assess gait Motor exam (neuro): Normal motor muscle tone present throughout Sensory Exam: Sensory deficit (Neuro) Deep tendon reflexes (DTR's): Right triceps reflex intensity grade: 1+, Left triceps reflex intensity grade: 1+, Rt Biceps (C5, C6): 1+, Left biceps reflex intensity grade: 1+, Right brachioradialis reflex intensity grade: 1+, Left brachioradialis reflex intensity grade: 1+, Right patellar reflex intensity grade: 1+, Left patellar reflex intensity grade: 1+, Right ankle reflex intensity grade: 0 and Left ankle reflex intensity grade: 0 Plantar Reflex Responses: downgoing: left Coordination: [id number] test normal Psych: Appearance: grossly normal Objective Data Vital Signs Vital Signs: Vital Signs - 24 hr 12/01/19 14:00 12/01/19 22:00 12/02/19 06:00 Temperature 36.9 C 36.6 C 36.4 C Pulse Rate 80 82 77 Respiratory Rate 16 19 18 Blood Pressure 144/62 H 142/58 H 147/64 H Pulse Oximetry 96 93 95 Intake/Output Intake/Output: Intake & Output 11/29/19 11/30/19 12/01/19 12/02/19 23:59 23:59 23:59 23:59 Intake Total 290 1020 1030 520 Balance 290 1020 1030 520 Meds/Results Medications: Active Medications Generic Name Dose Route Start Last Admin Trade Name Freq PRN Reason Stop Dose Admin Acetaminophen 650 mg 11/29/19 17:11 Tylenol Tablet PO Q4H PRN Mild Pain (1-3) Or Fever Amlodipine Besylate 5 mg 11/29/19 18:00 12/01/19 17:41 Norvasc PO 5 mg QPM YISSEL Administration Amoxicillin/Clavulanate Potassium 1 tablet 12/04/19 09:00 Augmentin 875-125 Mg Tab PO 12/17/19 21:01 Q12H YISSEL Aspirin 81 mg 11/30/19 08:00 12/02/19 08:57 Aspirin Chewable PO 81 mg DAILY@0800
[2019-12-02 11:48] LABS: Glucose Point of Care 288 (65-105)
[2019-12-02] MEDS: LOPERAMIDE HCL 2 MG CAPSULE PO (11:57)
[2019-12-02 13:20] VITALS: BMI 42.5
[2019-12-02 14:00] VITALS: BP 164/57; PULSE 76; RESP 20; TEMP 37.2; O2SAT 100
--- NOTE | 2019-12-02 14:27 | RPD ---
INDIVIDUALIZED PLAN OF CARE FOR Tana Hutchins Brief Synthesis of Pre-Admission Screen, Post-Admission Evaluation and Therapy Evaluations: The patient presents to rehab with gangrene right foot s/p right transmetatarsal amputation. Comorbidities include acute kidney injury, back pain, uncontrolled hypertension, sepsis, new onset diabetes mellitus with diabetic neuropathy, leukocytosis, UTI with hematuria, acute encephalopathy, right LE cellulitis, age-indeterminate compression fracture of the L1 vertebral body, grade I diastolic dysfunction.The patient requires physician services for medical oversight, management of post-op complications in the setting of present comorbidities, management of new diabetes mellitus diagnosis, and pain management. Post-op complications have included post-op pain, hyperglycemia, acute kidney injury, hypertension, hypotensive episodes, hypernatremia, leukocytosis, and cognitive delay. The patient requires nursing services for anticoagulation therapy, diabetes training, DVT prophylactics, IV administration, infection protection, medication management and education, pressure relief, and wound care. Deficits include:ADLs, Balance, Endurance, Mobility, Pain Management, ROM, Safety, Strength,Transfers Process Eng/Case Management for: Discharge Planning and Patient/Family Counseling Physical Therapy: 5 days per week for 90 minutes. Treatments may include: Therapeutic Exercise, Gait Training, Neuromuscular Re-education, Transfer Training, Community Reintegration, Bed Mobility, Patient/Family Education, Wheelchair Mobility Group Therapy/Concurrent Therapy Rationales: -Improve attention span during functional activities in a distracted environment. -Enhance problem solving and/or adequate judgment skills during functional activities in a distracted environment. -Promote increased safety awareness in a distracted environment to reduce fall risk with functional tasks, transfers, and ambulation to allow a more safe, self-sufficient return to the home environment. -Improve dynamic balance skills to promote safety and independence with functional activities in a distracted environment for maximum gain. Occupational Therapy: 5 days per week for 90 minutes. Treatments may include: Therapeutic Exercise, Therapeutic Activity, Cognitive Training, Self-Care Transfer Training, Community Reintegration, Home Management, Patient/Family Education, Wheelchair Mobility Training, Energy Conservation Training Group Therapy/Concurrent Therapy Rationales: -Allow therapist to observe and teach generalization and carry-over of skills learned in individual therapy. -Enhance problem solving and sequencing skills during therapeutic activities in a distracted environment. -Promote increased safety awareness in a realistic setting to reduce fall risk with functional tasks due to visual and verbal distractions. -Increase functional level with ADLs, ADL transfers and use of adaptive equipment through therapeutic activities with others while promoting safety to allow a more safe, self-sufficient return home. Medical Prognosis: Good Anticipated Length of Stay: 12 days Rehab Goals: Eating Goal: 06-Independent Oral Hygiene Goal: 06-Independent Toileting Hygiene Goal: 05-Setup or Clean Up Assistance Shower/Bathe Self Goal: 05-Setup or Clean Up Assistance Upper Body Dressing Goal: 06-Independent Lower Body Dressing Goal: 05-Setup or Clean Up Assistance Putting On/Taking Off Footwear Goal: 05-Setup or Clean Up Assistance Rolling Left and Right Goal: 06-Independent Sit to Lying Goal: 06-Independent Lying to Sitting on Side of Bed Goal: 06-Independent Sit to Stand Goal: 05-Setup or Clean Up Assistance Chair/Aaf-nw-Gknca Transfer Goal: 05-Setup or Clean Up Assistance Toilet Transfer Goal: 05-Setup or Clean Up Assistance Car Transfer Goal: 04-Supervision or Touching Assistance Walk 10' Goal: 06-Independent Walk 50' with Two Turns Goal: 04-Supervision or Touching As
[2019-12-02 16:59] LABS: Glucose Point of Care 213 (65-105)
[2019-12-02] MEDS: AMLODIPINE BESYLATE 5 MG TABLET PO (17:42)
[2019-12-02 21:23] LABS: Glucose Point of Care 267 (65-105)
[2019-12-02 22:00] VITALS: BP 150/74; PULSE 85; RESP 22; TEMP 36.1; O2SAT 95
[2019-12-03 06:00] VITALS: BP 165/74; PULSE 82; RESP 20; TEMP 36.4; O2SAT 92
[2019-12-03 06:56] LABS: Glucose Point of Care 150 (65-105)
[2019-12-03] MEDS: ENOXAPARIN 40 MG/0.4 ML SYRINGE SUB-Q (08:18)
[2019-12-03] MEDS: GLIMEPIRIDE 1 MG TABLET PO (08:19)
[2019-12-03] MEDS: metFORMIN HCL 500 MG TABLET PO ×2 (08:19→17:02)
[2019-12-03] MEDS: ASPIRIN 81 MG CHEWABLE TABLET PO (08:19)
[2019-12-03] MEDS: lisinopriL 10 MG TABLET PO (08:19)
[2019-12-03] MEDS: TOLNAFTATE 1% POWDER 45 GM BTL 1 APPLIC TOPICAL ×2 (08:30→20:15)
[2019-12-03 11:57] LABS: Glucose Point of Care 130 (65-105)
--- NOTE | 2019-12-03 12:05 | WPDNEURORHBP ---
Subjective Date/time seen: 12/03/19 12:05 Interval history: this 74-year-old woman who has been really sedentary at home on came to the acute care hospitalization when she was found gangrene of the right for which trans metatarsal amputation was performed now she has a wound VAC. The therapist in the nursing mentioned that the patient is feeling weak all or particularly the lower extremities more so than the upper extremities and more over he has been having stool incontinence and has overall buttock area for which the wound care nurse has seen the patient has recommended using the Diflucan to protect and prevent fungal skin infection The patient denies any headache nausea vomiting chest pain shortness of breath fever chills sore throat Review of Systems Review of Systems: All systems reviewed & are unremarkable except as noted in HPI and below Functional Status Transfers Ability Ability to Transfer In/Out of Chair: Moderate Assistance X 1 Exam Const: General: comfortable and no acute distress HENMT: General nose exam: Normal nares present Mouth: Yes moist mucous membranes Eyes: General: appearance normal, both eyes and all related structures Neck: Neck: supple and no JVD Resp: Effort & Inspection: normal respiratory effort Auscultation: clear to auscultation bilaterally Cardio: Rate: regular rate Rhythm: regular rhythm GI: GI Palp: Yes Soft to palpation Auscultation: normal bowel sounds Skin: General skin exam: normal color and no rashes or lesions noted Other: patient has macerated skin at the buttock area and possibility of the fungal infection superimposed for which she is being given anti focal powder and I will add oral Diflucan Neuro: Other: patient is awake alert will oriented times place present speech language function normal cranial option are all Gorad examination is limited because of generalized weakness lower extremities more so than the upper extremities with decreased sensation in the lower extremities more so than the upper extremities which is roughly about the same as it was couple of days ago Extrem: General: normal to inspection Psych: Mental Status: mental status grossly normal Objective Data Vital Signs Vital Signs: Vital Signs - 24 hr 12/02/19 14:00 12/02/19 22:00 12/03/19 06:00 Temperature 37.2 C 36.1 C L 36.4 C Pulse Rate 76 85 82 Respiratory Rate 20 22 H 20 Blood Pressure 164/57 H 150/74 H 165/74 H Pulse Oximetry 100 95 92 Intake/Output Intake/Output: Intake & Output 11/30/19 12/01/19 12/02/19 12/03/19 23:59 23:59 23:59 23:59 Intake Total 1020 1030 1810 340 Balance 1020 1030 1810 340 Meds/Results Medications: Active Medications Generic Name Dose Route Start Last Admin Trade Name Freq PRN Reason Stop Dose Admin Acetaminophen 650 mg 11/29/19 17:11 Tylenol Tablet PO Q4H PRN Mild Pain (1-3) Or Fever Amlodipine Besylate 5 mg 11/29/19 18:00 12/02/19 17:42 Norvasc PO 5 mg QPM YISSEL Administration Amoxicillin/Clavulanate Potassium 1 tablet 12/04/19 09:00 Augmentin 875-125 Mg Tab PO 12/17/19 21:01 Q12H [facility] Aspirin 81 mg 11/30/19 08:00 12/03/19 08:19 Aspirin Chewable PO 81 mg DAILY@0800 [facility] Administration Dextrose 12.5 gm 11/29/19 17:11 Dextrose 50% Syringe IV PUSH PRN PRN Hypoglycemia Diphenoxylate HCl/Atropine 1 tablet 12/03/19 08:17 12/03/19 08:30 Lomotil Tab 2.5 Mg PO 1 tablet PRN PRN Administration Diarrhea Enoxaparin Sodium 40 mg 11/30/19 09:00 12/03/19 08:18 Lovenox SUB-Q 40 mg DAILY YISSEL Administration Fluconazole 100 mg 12/03/19 09:00 Diflucan Tablet PO QAM [facility] Glimepiride 1 mg 12/03/19 08:00 12/03/19 08:19 Amaryl PO 1 mg DAILY@0800 [facility] Administration Glucagon 1 mg 11/29/19 17:11 Glucagon For Inj IM PRN PRN Hypoglycemia Glucose 15 gm 11/29/19 17:11 Glutose 15 PO PRN PRN Hypoglycemia Piperacillin/Tazob
[2019-12-03] MEDS: FLUCONAZOLE 100 MG TABLET PO (12:26)
[2019-12-03 13:30] VITALS: BMI 10.0
[2019-12-03 14:00] VITALS: BP 153/69; PULSE 77; RESP 20; TEMP 36.3; O2SAT 97
[2019-12-03 16:44] LABS: Glucose Point of Care 174 (65-105)
[2019-12-03] MEDS: AMLODIPINE BESYLATE 5 MG TABLET PO (17:02)
[2019-12-03 20:53] LABS: Glucose Point of Care 216 (65-105)
[2019-12-03 22:00] VITALS: BP 144/96; PULSE 82; RESP 18; TEMP 36.7; O2SAT 95
[2019-12-04 06:00] VITALS: BP 147/59; PULSE 80; RESP 18; TEMP 36.8; O2SAT 96
[2019-12-04 07:06] LABS: Glucose Point of Care 120 (65-105)
[2019-12-04 08:00] VITALS: PULSE 80; RESP 18; O2SAT 96
[2019-12-04] MEDS: GLIMEPIRIDE 1 MG TABLET PO (08:55)
[2019-12-04] MEDS: metFORMIN HCL 500 MG TABLET PO ×2 (08:55→17:29)
[2019-12-04] MEDS: AMOXICILLIN/CLAVULANATE K 875-125 MG TAB 1 TABLET PO ×2 (08:55→20:46)
[2019-12-04] MEDS: FLUCONAZOLE 100 MG TABLET PO (08:55)
[2019-12-04] MEDS: ENOXAPARIN 40 MG/0.4 ML SYRINGE SUB-Q (08:55)
[2019-12-04] MEDS: lisinopriL 10 MG TABLET PO (08:56)
[2019-12-04] MEDS: ASPIRIN 81 MG CHEWABLE TABLET PO (08:56)
[2019-12-04] MEDS: TOLNAFTATE 1% POWDER 45 GM BTL 1 APPLIC TOPICAL (08:56)
[2019-12-04 11:51] LABS: Glucose Point of Care 116 (65-105)
--- NOTE | 2019-12-04 13:08 | PM.PNORT ---
Progress Note: A&P Assessment and Plan (1) Gangrene of toe of right foot: Code(s): I96 - Gangrene, not elsewhere classified Status: Acute Assessment and Plan: Postoperative day 7. Right transmetatarsal amputation wound closure. Wound VAC in place. Continue with wound VAC due to central opening of incision as well as undermining. Continue nonweightbearing. Continue IV antibiotics. Plan for wound VAC for next 7 to 10 days. Subjective Subjective Date/Time Seen: 12/04/19 13:08 Patient seen and examined in [facility]. No new complaints from patient. Exam Const: General: No confusion Orientation/consciousness: patient oriented x3 and No confusion HENMT: Head: normal to inspection, normocephalic and atraumatic Eyes: Conjunctivae: conjunctivae normal Sclera: sclerae normal Neck: Neck: supple and nontender Chest: Chest palpation & inspection: normal inspection of the chest Resp: Effort & Inspection: normal respiratory effort and no audible wheezes Cardio: Rate: regular rate Rhythm: regular rhythm : General: Yes deferred Skin: Rashes: other ( Excoriation over the abdomen and bilateral groin) Neuro: General: patient oriented x3 and No confusion Extrem: General: capillary refill normal Right upper extremity: normal to inspection Left upper extremity: normal to inspection Right lower extremity: hip/thigh, knee, ankle and foot Left lower extremity: normal to inspection, hip/thigh, knee, ankle and foot Other: Right lower extremity: hip/thigh Details: no tenderness, knee Details: normal ROM; no tenderness and no swelling, ankle Details: swelling ( moderate) Details: laterally and medially and abnormal ROM ( ankle dorsiflexion -10 degrees, plantar flexion 30?, inversion 15?, eversion 5?) Details: pain with active ROM; no tenderness and no ecchymosis and foot Details: abnormal to inspection- Transmetatarsal amputation wound clean. Medial skin flap appears viable. Wound VAC dressing changed. medial and lateral aspects of incision intact and healing well. Central portion with approximately 2 cm opening which probes toward the medial aspect approximately 3 cm. Mild serous drainage. Mild swelling through the foot improved. Erythema over the foot much improved. Psych: Affect: normal affect Objective Data Vital Signs Vital Signs: Vital Signs - 24 hr 12/03/19 14:00 12/03/19 22:00 12/04/19 06:00 Temperature 97.3 F L 98.0 F 98.2 F Pulse Rate 77 82 80 Respiratory Rate 20 18 18 Blood Pressure 153/69 H 144/96 H 147/59 H Pulse Oximetry 97 95 96 12/04/19 08:00 Temperature Pulse Rate 80 Respiratory Rate 18 Blood Pressure Pulse Oximetry 96 Intake/Output Intake/Output: Intake & Output 12/01/19 12/02/19 12/03/19 12/04/19 23:59 23:59 23:59 23:59 Intake Total 1030 1810 920 480 Balance 1030 1810 920 480 Meds/Results Medications: Active Medications Generic Name Dose Route Start Last Admin Trade Name Freq PRN Reason Stop Dose Admin Acetaminophen 650 mg 11/29/19 17:11 Tylenol Tablet PO Q4H PRN Mild Pain (1-3) Or Fever Amlodipine Besylate 5 mg 11/29/19 18:00 12/03/19 17:02 Norvasc PO 5 mg QPM YISSEL Administration Amoxicillin/Clavulanate Potassium 1 tablet 12/04/19 09:00 12/04/19 08:55 Augmentin 875-125 Mg Tab PO 12/17/19 21:01 1 tablet Q12H [facility] Administration Aspirin 81 mg 11/30/19 08:00 12/04/19 08:56 Aspirin Chewable PO 81 mg DAILY@0800 [facility] Administration Dextrose 12.5 gm 11/29/19 17:11 Dextrose 50% Syringe IV PUSH PRN PRN Hypoglycemia Diphenoxylate HCl/Atropine 1 tablet 12/03/19 08:17 12/03/19 12:27 Lomotil Tab 2.5 Mg PO 1 tablet PRN PRN Administration Diarrhea Enoxaparin Sodium 40 mg 11/30/19 09:00 12/04/19 08:55 Lovenox SUB-Q 40 mg DAILY YISSEL Administration Fluconazole 100 mg 12/03/19 09:00 12/04/19 08:55 Diflucan Tablet PO 100 mg QAM [facility]ISSEL Administration Glimepiride 1 mg 0
[2019-12-04 14:00] VITALS: BP 130/52; PULSE 76; RESP 18; TEMP 36.8; O2SAT 97
--- NOTE | 2019-12-04 14:44 | WPDNEURORHBP ---
Subjective Date/time seen: 12/04/19 14:44 Interval history: this 74-year-old woman is here post trans metatarsal amputation for which she is being followed by the orthopedic physician who performed the surgery she has a wound VAC and functioning well she probably will need the wound VAC for the next 7 to 10 days of per his note patient denies any fever chills headache nausea vomiting sore throat she is tolerating the antibiotics quite well and tolerating the therapy as well however she is not moving much and she needs to be motivated and counseled on repeated a question by this examiner Review of Systems Review of Systems: All systems reviewed & are unremarkable except as noted in HPI and below Functional Status Transfers Ability Ability to Transfer In/Out of Chair: Moderate Assistance X 1 Exam Const: General: comfortable and no acute distress HENMT: General nose exam: Normal nares present Mouth: Yes moist mucous membranes Eyes: General: appearance normal, both eyes and all related structures Neck: Neck: supple and no JVD Resp: Effort & Inspection: normal respiratory effort Auscultation: clear to auscultation bilaterally Cardio: Rate: regular rate Rhythm: regular rhythm GI: GI Palp: Yes Soft to palpation Auscultation: normal bowel sounds Skin: General skin exam: normal color and no rashes or lesions noted Neuro: Other: patient is awake alert and well oriented time place and person has normal speech insurance and normal cranial examination generalized weakness of both upper lower extremities lower extremities more so than the upper extremities complicated by the transmetatarsal amputation nonweightbearing interested status and also wound VAC Extrem: Other: wound VAC is in place at the metatarsal/ transmitter sulcal abduction site the wound has been examined by the orthopedic physician and well- documented Psych: Mental Status: mental status grossly normal Objective Data Vital Signs Vital Signs: Vital Signs - 24 hr 12/03/19 22:00 12/04/19 06:00 12/04/19 08:00 Temperature 36.7 C 36.8 C Pulse Rate 82 80 80 Respiratory Rate 18 18 18 Blood Pressure 144/96 H 147/59 H Pulse Oximetry 95 96 96 12/04/19 14:00 Temperature 36.8 C Pulse Rate 76 Respiratory Rate 18 Blood Pressure 130/52 L Pulse Oximetry 97 Intake/Output Intake/Output: Intake & Output 12/01/19 12/02/19 12/03/19 12/04/19 23:59 23:59 23:59 23:59 Intake Total 1030 1810 920 720 Balance 1030 1810 920 720 Meds/Results Medications: Active Medications Generic Name Dose Route Start Last Admin Trade Name Freq PRN Reason Stop Dose Admin Acetaminophen 650 mg 11/29/19 17:11 Tylenol Tablet PO Q4H PRN Mild Pain (1-3) Or Fever Amlodipine Besylate 5 mg 11/29/19 18:00 12/03/19 17:02 Norvasc PO 5 mg QPM YISSEL Administration Amoxicillin/Clavulanate Potassium 1 tablet 12/04/19 09:00 12/04/19 08:55 Augmentin 875-125 Mg Tab PO 12/17/19 21:01 1 tablet Q12H [facility] Administration Aspirin 81 mg 11/30/19 08:00 12/04/19 08:56 Aspirin Chewable PO 81 mg DAILY@0800 [facility] Administration Dextrose 12.5 gm 11/29/19 17:11 Dextrose 50% Syringe IV PUSH PRN PRN Hypoglycemia Diphenoxylate HCl/Atropine 1 tablet 12/03/19 08:17 12/03/19 12:27 Lomotil Tab 2.5 Mg PO 1 tablet PRN PRN Administration Diarrhea Enoxaparin Sodium 40 mg 11/30/19 09:00 12/04/19 08:55 Lovenox SUB-Q 40 mg DAILY YISSEL Administration Fluconazole 100 mg 12/03/19 09:00 12/04/19 08:55 Diflucan Tablet PO 100 mg QAM [facility]SEL Administration Glimepiride 1 mg 12/03/19 08:00 12/04/19 08:55 Amaryl PO 1 mg DAILY@0800 [facility] Administration Glucagon 1 mg 11/29/19 17:11 Glucagon For Inj IM PRN PRN Hypoglycemia Glucose 15 gm 11/29/19 17:11 Glutose 15 PO PRN PRN Hypoglycemia Insulin Aspart 3 - 6 units 11/30/19 08:00 12/04/19 08:56 Novolog SUB-Q Not Given TIDWM
[2019-12-04 16:53] LABS: Glucose Point of Care 79 (65-105)
[2019-12-04] MEDS: AMLODIPINE BESYLATE 5 MG TABLET PO (17:28)
[2019-12-04 21:58] LABS: Glucose Point of Care 100 (65-105)
[2019-12-04 22:00] VITALS: BP 132/72; PULSE 77; RESP 20; TEMP 36.7; O2SAT 95
[2019-12-05] MEDS: TOLNAFTATE 1% POWDER 45 GM BTL 1 APPLIC TOPICAL ×3 (00:57→20:37)
[2019-12-05 06:00] VITALS: BP 155/57; PULSE 73; RESP 20; TEMP 36.6; O2SAT 96
[2019-12-05 07:23] LABS: Glucose Point of Care 68 (65-105)
[2019-12-05] MEDS: ENOXAPARIN 40 MG/0.4 ML SYRINGE SUB-Q (09:03)
[2019-12-05] MEDS: metFORMIN HCL 500 MG TABLET PO ×2 (09:04→17:17)
[2019-12-05] MEDS: lisinopriL 10 MG TABLET PO (09:04)
[2019-12-05] MEDS: AMOXICILLIN/CLAVULANATE K 875-125 MG TAB 1 TABLET PO ×2 (09:05→20:37)
[2019-12-05] MEDS: FLUCONAZOLE 100 MG TABLET PO (09:05)
[2019-12-05] MEDS: GLIMEPIRIDE 1 MG TABLET PO (09:05)
[2019-12-05] MEDS: ASPIRIN 81 MG CHEWABLE TABLET PO (09:05)
[2019-12-05] MEDS: ACETAMINOPHEN 325 MG TABLET 650 MG PO (11:48)
[2019-12-05 12:02] LABS: Glucose Point of Care 77 (65-105)
[2019-12-05 14:00] VITALS: BP 136/50; PULSE 78; RESP 18; TEMP 36.7; O2SAT 97
--- NOTE | 2019-12-05 15:45 | WPDNEURORHBP ---
Subjective Date/time seen: 12/05/19 15:45 Interval history: this 74-year-old woman is here after having had a transmetatarsal amputation of her right foot has a wound VAC which is functioning well she denies any fever chills sore throat nausea vomiting she has been sedentary at home and has difficult time ambulating here not only because of the weight-bearing status which is nonweightbearing of the right lower extremity med also generalized deconditioning and weakness otherwise in the bed she is able to move her legs up and down and does fairly well likewise the distal musculature also seems to be fairly decent and intact Review of Systems Review of Systems: All systems reviewed & are unremarkable except as noted in HPI and below Functional Status Transfers Ability Ability to Transfer In/Out of Chair: Moderate Assistance X 1 Exam Const: General: comfortable and no acute distress HENMT: General nose exam: Normal nares present Mouth: Yes moist mucous membranes Eyes: General: appearance normal, both eyes and all related structures Neck: Neck: supple and no JVD Resp: Effort & Inspection: normal respiratory effort Auscultation: clear to auscultation bilaterally Cardio: Rate: regular rate Rhythm: regular rhythm GI: GI Palp: Yes Soft to palpation Auscultation: normal bowel sounds Skin: General skin exam: normal color and no rashes or lesions noted Neuro: Other: patient's mental status is normal cranial examination normal upper extremity strength is 4.5/5 lower extremity strength is 4- over 5 she is clearly because she shunt and needs lot of encouragement to do better which she seems like receptive to it Extrem: Other: the wound VAC is functioning well after having had the transmetatarsal amputation of the right foot Psych: Mental Status: mental status grossly normal Objective Data Vital Signs Vital Signs: Vital Signs - 24 hr 12/04/19 22:00 12/05/19 06:00 12/05/19 14:00 Temperature 36.7 C 36.6 C 36.7 C Pulse Rate 77 73 78 Respiratory Rate 20 20 18 Blood Pressure 132/72 155/57 H 136/50 L Pulse Oximetry 95 96 97 Intake/Output Intake/Output: Intake & Output 12/02/19 12/03/19 12/04/19 12/05/19 23:59 23:59 23:59 23:59 Intake Total 1810 920 840 720 Balance 1810 920 840 720 Meds/Results Medications: Active Medications Generic Name Dose Route Start Last Admin Trade Name Freq PRN Reason Stop Dose Admin Acetaminophen 650 mg 11/29/19 17:11 12/05/19 11:48 Tylenol Tablet PO 650 mg Q4H PRN Administration Mild Pain (1-3) Or Fever Amlodipine Besylate 5 mg 11/29/19 18:00 12/04/19 17:28 Norvasc PO 5 mg QPM YISSEL Administration Amoxicillin/Clavulanate Potassium 1 tablet 12/04/19 09:00 12/05/19 09:05 Augmentin 875-125 Mg Tab PO 12/17/19 21:01 1 tablet Q12H [facility] Administration Aspirin 81 mg 11/30/19 08:00 12/05/19 09:05 Aspirin Chewable PO 81 mg DAILY@0800 [facility] Administration Dextrose 12.5 gm 11/29/19 17:11 Dextrose 50% Syringe IV PUSH PRN PRN Hypoglycemia Diphenoxylate HCl/Atropine 1 tablet 12/03/19 08:17 12/05/19 02:41 Lomotil Tab 2.5 Mg PO 1 tablet PRN PRN Administration Diarrhea Enoxaparin Sodium 40 mg 11/30/19 09:00 12/05/19 09:03 Lovenox SUB-Q 40 mg DAILY [facility] Administration Fluconazole 100 mg 12/03/19 09:00 12/05/19 09:05 Diflucan Tablet PO 100 mg QAM YISSEL Administration Glimepiride 1 mg 12/03/19 08:00 12/05/19 09:05 Amaryl PO 1 mg DAILY@0800 [facility] Administration Glucagon 1 mg 11/29/19 17:11 Glucagon For Inj IM PRN PRN Hypoglycemia Glucose 15 gm 11/29/19 17:11 Glutose 15 PO PRN PRN Hypoglycemia Insulin Aspart 3 - 6 units 11/30/19 08:00 12/05/19 12:01 Novolog SUB-Q Not Given TIDWM [facility] Protocol Lisinopril 10 mg 11/30/19 09:00 12/05/19 09:04 Prinivil PO 10 mg DAILY YISSEL Administration Loperamide HCl 2 mg 11/30/19 09:09 12/01
[2019-12-05 16:43] LABS: Glucose Point of Care 63 (65-105)
[2019-12-05 17:11] VITALS: PULSE 78; RESP 18
[2019-12-05] MEDS: AMLODIPINE BESYLATE 5 MG TABLET PO (17:16)
[2019-12-05 21:07] LABS: Glucose Point of Care 65 (65-105)
[2019-12-05 22:00] VITALS: BP 140/51; PULSE 77; RESP 18; TEMP 37.1; O2SAT 96
[2019-12-06 05:48] LABS: Glucose Point of Care 67 (65-105)
[2019-12-06 06:00] VITALS: BP 148/61; PULSE 77; RESP 18; TEMP 36.7; O2SAT 95
[2019-12-06] MEDS: metFORMIN HCL 500 MG TABLET PO ×2 (08:47→16:40)
[2019-12-06] MEDS: FLUCONAZOLE 100 MG TABLET PO (08:47)
[2019-12-06] MEDS: ENOXAPARIN 40 MG/0.4 ML SYRINGE SUB-Q (08:47)
[2019-12-06] MEDS: AMOXICILLIN/CLAVULANATE K 875-125 MG TAB 1 TABLET PO ×2 (08:47→20:19)
[2019-12-06] MEDS: lisinopriL 10 MG TABLET PO (08:47)
[2019-12-06] MEDS: ASPIRIN 81 MG CHEWABLE TABLET PO (08:47)
[2019-12-06] MEDS: TOLNAFTATE 1% POWDER 45 GM BTL 1 APPLIC TOPICAL ×2 (08:48→20:19)
--- NOTE | 2019-12-06 10:09 | PC.NURSE ---
pt am glypizide held due to decreased glucose. pt did not want to take metformin and glypizide as well. updated.
--- NOTE | 2019-12-06 10:33 | PM.PNORT ---
Progress Note: A&P Assessment and Plan (1) Gangrene of toe of right foot: Code(s): I96 - Gangrene, not elsewhere classified Status: Acute Assessment and Plan: Postoperative day 9 Right transmetatarsal amputation wound closure. Wound VAC in place. Dressing changed today. Continue with wound VAC due to central opening of incision as well as undermining. Continue nonweightbearing. Continue IV antibiotics. Nutritional supplement for improved wound healing. Plan for wound VAC Change on December 08. May consider discontinuing if no drainage. Subjective Subjective Date/Time Seen: 12/06/19 10:33 patient tired from therapy but otherwise no new complaints. Exam Const: General: No confusion Orientation/consciousness: patient oriented x3 and No confusion HENMT: Head: normal to inspection, normocephalic and atraumatic Eyes: Conjunctivae: conjunctivae normal Sclera: sclerae normal Neck: Neck: supple and nontender Chest: Chest palpation & inspection: normal inspection of the chest Resp: Effort & Inspection: normal respiratory effort and no audible wheezes Cardio: Rate: regular rate Rhythm: regular rhythm : General: Yes deferred Skin: Rashes: other ( Excoriation over the abdomen and bilateral groin) Neuro: General: patient oriented x3 and No confusion Extrem: General: capillary refill normal Right upper extremity: normal to inspection Left upper extremity: normal to inspection Right lower extremity: hip/thigh, knee, ankle and foot Left lower extremity: normal to inspection, hip/thigh, knee, ankle and foot Other: Right lower extremity: hip/thigh Details: no tenderness, knee Details: normal ROM; no tenderness and no swelling, ankle Details: swelling ( moderate) Details: laterally and medially and abnormal ROM ( ankle dorsiflexion -10 degrees, plantar flexion 30?, inversion 15?, eversion 5?) Details: pain with active ROM; no tenderness and no ecchymosis and foot Details: abnormal to inspection- Transmetatarsal amputation wound clean. Medial skin flap appears viable. Wound VAC dressing changed. medial and lateral aspects of incision intact and healing well. Central portion with approximately 1.5cm X 5mm opening which probes toward the medial aspect approximately 4.5 cm. Surgical incision measures 11.5 cm in length. NO drainage. Mild swelling through the foot improved. Erythema over the foot much improved. Psych: Affect: normal affect Objective Data Vital Signs Vital Signs: Vital Signs - 24 hr 12/05/19 14:00 12/05/19 17:11 12/05/19 22:00 Temperature 98.1 F 98.7 F Pulse Rate 78 78 77 Respiratory Rate 18 18 18 Blood Pressure 136/50 L 140/51 L Pulse Oximetry 97 96 12/06/19 06:00 Temperature 98.1 F Pulse Rate 77 Respiratory Rate 18 Blood Pressure 148/61 H Pulse Oximetry 95 Intake/Output Intake/Output: Intake & Output 12/03/19 12/04/19 12/05/19 12/06/19 23:59 23:59 23:59 23:59 Intake Total 920 840 960 600 Balance 920 840 960 600 Meds/Results Medications: Active Medications Generic Name Dose Route Start Last Admin Trade Name Freq PRN Reason Stop Dose Admin Acetaminophen 650 mg 11/29/19 17:11 12/05/19 11:48 Tylenol Tablet PO 650 mg Q4H PRN Administration Mild Pain (1-3) Or Fever Amlodipine Besylate 5 mg 11/29/19 18:00 12/05/19 17:16 Norvasc PO 5 mg QPM [facility]IS[facility] Administration Amoxicillin/Clavulanate Potassium 1 tablet 12/04/19 09:00 12/06/19 08:47 Augmentin 875-125 Mg Tab PO 12/17/19 21:01 1 tablet Q12H [facility]IS[facility] Administration Aspirin 81 mg 11/30/19 08:00 12/06/19 08:47 Aspirin Chewable PO 81 mg DAILY@0800 [facility] Administration Dextrose 12.5 gm 11/29/19 17:11 Dextrose 50% Syringe IV PUSH PRN PRN Hypoglycemia Diphenoxylate HCl/Atropine 1 tablet 12/03/19 08:17 12/06/19 07:20 Lomotil Tab 2.5 Mg PO 1 tablet PRN PRN Administration Diarrhea Enoxaparin Sodium 40 mg 11/30/19 09:00 12/06/19 08:47
[2019-12-06 11:53] LABS: Glucose Point of Care 71 (65-105)
--- NOTE | 2019-12-06 12:23 | PCDIET ---
Nutrition Follow-Up Complete: Nutrition Diagnosis: Increased protein needs related to wound healing as evidenced by right transmetatarsal amputation. Nutrition Goal: Patient to consume 75% of meals/supplements. Goal in progress. Patient only consumed ~50% of recorded meals since last review, but does take Glucerna Shake and Adrian BID. Last recorded weight is 98.9 kg. Recommend obtaining new weight. Bowel Motility: +BM on 12/05/19. Labs Reviewed: Glu (67) Meds Noted: Augmentin, Amaryl, Novolog, Glucophage Additional Notes: Right foot with wound vac. Wound nurse following. Recommend continuing present diet/supplements. Will continue to monitor with same goal. Nutrition Monitoring and Evaluation: Follow up in 5 days.
--- NOTE | 2019-12-06 12:50 | WPDNEURORHBP ---
Subjective Date/time seen: 12/06/19 12:50 Interval history: this 74-year-old woman is here after having had trans metatarsal amputation of the right foot has a wound VAC and which is functioning well she is afebrile seeing antibiotic and doing relatively better in the therapy she is nonweightbearing in the right lower extremity which hampers her to do much of course being overweight also does not help but she slowly improving denies any fever chills sore throat chest pain shortness of breath abdominal pain nausea vomiting Review of Systems Review of Systems: All systems reviewed & are unremarkable except as noted in HPI and below Functional Status Transfers Ability Ability to Transfer In/Out of Chair: Moderate Assistance X 1 Exam Const: General: comfortable and no acute distress HENMT: General nose exam: Normal nares present Mouth: Yes moist mucous membranes Eyes: General: appearance normal, both eyes and all related structures Neck: Neck: supple and no JVD Resp: Effort & Inspection: normal respiratory effort Auscultation: clear to auscultation bilaterally Cardio: Rate: regular rate Rhythm: regular rhythm GI: GI Palp: Yes Soft to palpation Auscultation: normal bowel sounds Skin: General skin exam: normal color and no rashes or lesions noted Neuro: Other: patient's mental status examination is normal cranial exam shows normal upper extremity strength is 4.45 lower extremity strength is 4- over 5 she is doing better in the therapy however limited because of the nonweightbearing status of the right lower extremity Extrem: Other: the site after having had trans metatarsal amputation has a wound VAC and is functioning well Psych: Mental Status: mental status grossly normal Objective Data Vital Signs Vital Signs: Vital Signs - 24 hr 12/05/19 14:00 12/05/19 17:11 12/05/19 22:00 Temperature 36.7 C 37.1 C Pulse Rate 78 78 77 Respiratory Rate 18 18 18 Blood Pressure 136/50 L 140/51 L Pulse Oximetry 97 96 12/06/19 06:00 Temperature 36.7 C Pulse Rate 77 Respiratory Rate 18 Blood Pressure 148/61 H Pulse Oximetry 95 Intake/Output Intake/Output: Intake & Output 12/03/19 12/04/19 12/05/19 12/06/19 23:59 23:59 23:59 23:59 Intake Total 920 840 960 600 Balance 920 840 960 600 Meds/Results Medications: Active Medications Generic Name Dose Route Start Last Admin Trade Name Freq PRN Reason Stop Dose Admin Acetaminophen 650 mg 11/29/19 17:11 12/05/19 11:48 Tylenol Tablet PO 650 mg Q4H PRN Administration Mild Pain (1-3) Or Fever Amlodipine Besylate 5 mg 11/29/19 18:00 12/05/19 17:16 Norvasc PO 5 mg QPM YISSEL Administration Amoxicillin/Clavulanate Potassium 1 tablet 12/04/19 09:00 12/06/19 08:47 Augmentin 875-125 Mg Tab PO 12/17/19 21:01 1 tablet Q12H [facility]SISEL Administration Aspirin 81 mg 11/30/19 08:00 12/06/19 08:47 Aspirin Chewable PO 81 mg DAILY@0800 [facility] Administration Dextrose 12.5 gm 11/29/19 17:11 Dextrose 50% Syringe IV PUSH PRN PRN Hypoglycemia Diphenoxylate HCl/Atropine 1 tablet 12/03/19 08:17 12/06/19 07:20 Lomotil Tab 2.5 Mg PO 1 tablet PRN PRN Administration Diarrhea Enoxaparin Sodium 40 mg 11/30/19 09:00 12/06/19 08:47 Lovenox SUB-Q 40 mg DAILY [facility] Administration Fluconazole 100 mg 12/03/19 09:00 12/06/19 08:47 Diflucan Tablet PO 100 mg QAM [facility] Administration Glimepiride 0.5 mg 12/07/19 08:00 Amaryl PO DAILY@0800 [facility] Glucagon 1 mg 11/29/19 17:11 Glucagon For Inj IM PRN PRN Hypoglycemia Glucose 15 gm 11/29/19 17:11 Glutose 15 PO PRN PRN Hypoglycemia Insulin Aspart 3 - 6 units 11/30/19 08:00 12/06/19 11:45 Novolog SUB-Q Not Given TIDWM [facility] Protocol Lisinopril 10 mg 11/30/19 09:00 12/06/19 08:47 Prinivil PO 10 mg DAILY [facility] Administration Loperamide HCl 2 mg 11/30/19 09:09 12/02/19 11:57 Loperamide
[2019-12-06 14:00] VITALS: BP 119/52; PULSE 76; RESP 18; TEMP 36.3; O2SAT 99
[2019-12-06 16:56] LABS: Glucose Point of Care 80 (65-105)
[2019-12-06] MEDS: AMLODIPINE BESYLATE 5 MG TABLET PO (17:04)
[2019-12-06 20:30] LABS: Glucose Point of Care 103 (65-105)
[2019-12-06 22:00] VITALS: BP 149/54; PULSE 84; RESP 20; TEMP 37.1; O2SAT 97
[2019-12-07] MEDS: PSYLLIUM SUGAR FREE POWDER PACKET 1 PACKET PO (00:42)
[2019-12-07 04:41] LABS: Basophils Absolute Auto 0.1 K/mm3 (0.0-0.1); Eosinophils Absolute Auto 0.5 K/mm3 (0-0.3); Eosinophils Percent Auto 7.8 % (0-4.4); Hematocrit 30.4 % (37.0-47.0); Hemoglobin 9.3 g/dL (12.0-15.0); Immature Granulocyte Absolute 0.06 K/mm3 (0.00-0.031); Lymphocytes Absolute Auto 1.48 K/mm3 (0.9-3.2); Lymphocytes Percent Auto 24.4 % (18.3-44.2); Mean Corpuscular HGB Conc 30.6 g/dl (32-36); Mean Corpuscular Volume 88.4 fl (80-100); Mean Platelet Volume 8.6 fl (7.4-10.4); Monocytes Absolute Auto 0.5 K/mm3 (0.1-0.6); Monocytes Percent Auto 7.4 % (2.6-8.5); Neutrophils Absolute Auto 3.5 K/mm3 (1.3-6.7); Neutrophils Percent Auto 58.4 % (45.5-73.1); Platelet Count Result 445 k/mm3 (150-375); Red Blood Count 3.44 M/mm3 (4.2-5.4); Red Cell Distribution Width 15.5 % (11.5-14.5); White Blood Count 6.1 K/mm3 (4.5-10.0)
[2019-12-07 05:34] LABS: Blood Urea Nitrogen 39 mg/dL (7-17); Calcium 8.7 mg/dL (8.4-10.2); Carbon Dioxide 28 mmol/L (22-30); Chloride 104 mmol/L (98-107); Estimated CRCL calculation 41 ml/min; Estimated Glomerular Filt Rate 48; Glucose 83 mg/dL (65-105); Potassium 4.2 mmol/L (3.4-5.0); Sodium 135 mmol/L (137-145)
[2019-12-07 05:52] LABS: Glucose Point of Care 74 (65-105)
[2019-12-07 06:00] VITALS: BP 149/66; PULSE 80; RESP 18; TEMP 36.5; O2SAT 94
[2019-12-07] MEDS: metFORMIN HCL 500 MG TABLET PO ×2 (09:15→17:00)
[2019-12-07] MEDS: lisinopriL 10 MG TABLET PO (09:15)
[2019-12-07] MEDS: AMOXICILLIN/CLAVULANATE K 875-125 MG TAB 1 TABLET PO ×2 (09:16→20:28)
[2019-12-07] MEDS: FLUCONAZOLE 100 MG TABLET PO (09:16)
[2019-12-07] MEDS: ASPIRIN 81 MG CHEWABLE TABLET PO (09:16)
[2019-12-07] MEDS: ENOXAPARIN 40 MG/0.4 ML SYRINGE SUB-Q (09:17)
[2019-12-07] MEDS: TOLNAFTATE 1% POWDER 45 GM BTL 1 APPLIC TOPICAL ×2 (10:02→20:28)
[2019-12-07 12:11] LABS: Glucose Point of Care 77 (65-105)
[2019-12-07 13:00] VITALS: PULSE 80; RESP 18; O2SAT 94
[2019-12-07 14:42] VITALS: BP 131/54; PULSE 70; RESP 16; TEMP 37.1; O2SAT 95
[2019-12-07 16:56] LABS: Glucose Point of Care 78 (65-105)
[2019-12-07] MEDS: AMLODIPINE BESYLATE 5 MG TABLET PO (17:01)
[2019-12-07 22:00] VITALS: BP 147/56; PULSE 79; RESP 19; TEMP 36.6; O2SAT 96
[2019-12-07 22:09] LABS: Glucose Point of Care 89 (65-105)
[2019-12-08 06:00] VITALS: BP 148/56; PULSE 75; RESP 19; TEMP 36.2; O2SAT 94
[2019-12-08 06:34] LABS: Glucose Point of Care 64 (65-105)
[2019-12-08] MEDS: lisinopriL 10 MG TABLET PO (08:33)
[2019-12-08] MEDS: metFORMIN HCL 500 MG TABLET PO ×2 (08:33→16:38)
[2019-12-08] MEDS: ENOXAPARIN 40 MG/0.4 ML SYRINGE SUB-Q (08:33)
[2019-12-08] MEDS: AMOXICILLIN/CLAVULANATE K 875-125 MG TAB 1 TABLET PO ×2 (08:34→20:36)
[2019-12-08] MEDS: FLUCONAZOLE 100 MG TABLET PO (08:34)
[2019-12-08] MEDS: ASPIRIN 81 MG CHEWABLE TABLET PO (08:34)
[2019-12-08] MEDS: TOLNAFTATE 1% POWDER 45 GM BTL 1 APPLIC TOPICAL ×2 (08:37→20:37)
[2019-12-08 09:00] VITALS: PULSE 76; RESP 18; O2SAT 94
[2019-12-08 11:51] LABS: Glucose Point of Care 63 (65-105)
[2019-12-08 14:00] VITALS: BP 138/50; PULSE 70; RESP 20; TEMP 35.9; O2SAT 100
[2019-12-08] MEDS: ACETAMINOPHEN 325 MG TABLET 650 MG PO (14:37)
--- NOTE | 2019-12-08 16:47 | WPDNEURORHBP ---
Subjective Date/time seen: 12/08/19 16:47 Interval history: this 74-year-old woman is on the rehab after having had trans metatarsal limitation of the right foot she is doing better in therapy denies any clinical symptoms of infection particular no fever chills sore throat cough abdominal pain diarrhea vomiting is she is improving in therapy the wound VAC is intact and functioning well Review of Systems Review of Systems: All systems reviewed & are unremarkable except as noted in HPI and below Functional Status Transfers Ability Ability to Transfer In/Out of Chair: Moderate Assistance X 1 Exam Const: General: comfortable and no acute distress HENMT: General nose exam: Normal nares present Mouth: Yes moist mucous membranes Eyes: General: appearance normal, both eyes and all related structures Neck: Neck: supple and no JVD Resp: Effort & Inspection: normal respiratory effort Auscultation: clear to auscultation bilaterally Cardio: Rate: regular rate Rhythm: regular rhythm GI: GI Palp: Yes Soft to palpation Auscultation: normal bowel sounds Skin: General skin exam: normal color and no rashes or lesions noted Neuro: Other: patient's mental status examination is normal cranial exam shows normal strength in the lower extremities more so than the upper extremities slowly improving she can't engage in therapy and doing better Extrem: Other: the patient's right foot is in wound VAC and also she is nonweightbearing on that for Psych: Mental Status: mental status grossly normal Objective Data Vital Signs Vital Signs: Vital Signs - 24 hr 12/07/19 22:00 12/08/19 06:00 12/08/19 09:00 Temperature 36.6 C 36.2 C L Pulse Rate 79 75 76 Respiratory Rate 19 19 18 Blood Pressure 147/56 H 148/56 H Pulse Oximetry 96 94 94 12/08/19 14:00 Temperature 35.9 C L Pulse Rate 70 Respiratory Rate 20 Blood Pressure 138/50 L Pulse Oximetry 100 Intake/Output Intake/Output: Intake & Output 12/05/19 12/06/19 12/07/19 12/08/19 23:59 23:59 23:59 23:59 Intake Total 960 1440 720 960 Balance 960 1440 720 960 Meds/Results Medications: Active Medications Generic Name Dose Route Start Last Admin Trade Name Freq PRN Reason Stop Dose Admin Acetaminophen 650 mg 11/29/19 17:11 12/08/19 14:37 Tylenol Tablet PO 650 mg Q4H PRN Administration Mild Pain (1-3) Or Fever Amlodipine Besylate 5 mg 11/29/19 18:00 12/07/19 17:01 Norvasc PO 5 mg QPM [facility]IS[facility] Administration Amoxicillin/Clavulanate Potassium 1 tablet 12/04/19 09:00 12/08/19 08:34 Augmentin 875-125 Mg Tab PO 12/17/19 21:01 1 tablet Q12H [facility] Administration Aspirin 81 mg 11/30/19 08:00 12/08/19 08:34 Aspirin Chewable PO 81 mg DAILY@0800 [facility] Administration Dextrose 12.5 gm 11/29/19 17:11 Dextrose 50% Syringe IV PUSH PRN PRN Hypoglycemia Diphenoxylate HCl/Atropine 1 tablet 12/03/19 08:17 12/08/19 10:08 Lomotil Tab 2.5 Mg PO 1 tablet PRN PRN Administration Diarrhea Enoxaparin Sodium 40 mg 11/30/19 09:00 12/08/19 08:33 Lovenox SUB-Q 40 mg DAILY [facility] Administration Fluconazole 100 mg 12/03/19 09:00 12/08/19 08:34 Diflucan Tablet PO 100 mg QAM [facility] Administration Glimepiride 0.5 mg 12/07/19 08:00 12/08/19 08:34 Amaryl PO 0.5 mg DAILY@0800 [facility] Administration Glucagon 1 mg 11/29/19 17:11 Glucagon For Inj IM PRN PRN Hypoglycemia Glucose 15 gm 11/29/19 17:11 Glutose 15 PO PRN PRN Hypoglycemia Insulin Aspart 3 - 6 units 11/30/19 08:00 12/08/19 16:39 Novolog SUB-Q Not Given TIDWM [facility] Protocol Lisinopril 10 mg 11/30/19 09:00 12/08/19 08:33 Prinivil PO 10 mg DAILY [facility] Administration Loperamide HCl 2 mg 11/30/19 09:09 12/02/19 11:57 Loperamide Hcl PO 2 mg PRN PRN Administration Diarrhea Magnesium Hydroxide 30 ml 11/29/19 17:11 Milk Of Magnesia PO BID PRN Constipation Me
[2019-12-08 16:49] LABS: Glucose Point of Care 71 (65-105)
[2019-12-08 17:44] VITALS: TEMP 35.9
[2019-12-08] MEDS: AMLODIPINE BESYLATE 5 MG TABLET PO (17:56)
[2019-12-08 20:29] LABS: Glucose Point of Care 73 (65-105)
--- NOTE | 2019-12-08 20:43 | PC.NURSE ---
blood glucose 73 at hs-snack given shon crackers, milk and pudding. patient ate all of snack.
[2019-12-08 21:18] VITALS: BP 151/56; PULSE 77; RESP 22; TEMP 36.1; O2SAT 97
[2019-12-09 05:52] LABS: Glucose Point of Care 54 (65-105)
[2019-12-09 05:53] LABS: Glucose Point of Care 64 (65-105)
--- NOTE | 2019-12-09 05:56 | PC.NURSE ---
blood sugar this am -patient wanted shon crackers and milk.
[2019-12-09 06:00] VITALS: BP 135/59; PULSE 75; RESP 16; TEMP 36.1; O2SAT 97
[2019-12-09 06:34] LABS: Glucose Point of Care 98 (65-105)
[2019-12-09] MEDS: ENOXAPARIN 40 MG/0.4 ML SYRINGE SUB-Q (08:35)
[2019-12-09] MEDS: ASPIRIN 81 MG CHEWABLE TABLET PO (08:36)
[2019-12-09] MEDS: ACETAMINOPHEN 325 MG TABLET 650 MG PO ×3 (08:36→17:21)
[2019-12-09] MEDS: AMOXICILLIN/CLAVULANATE K 875-125 MG TAB 1 TABLET PO ×2 (08:36→20:50)
[2019-12-09] MEDS: FLUCONAZOLE 100 MG TABLET PO (08:36)
[2019-12-09] MEDS: lisinopriL 10 MG TABLET PO (08:36)
[2019-12-09] MEDS: metFORMIN HCL 500 MG TABLET PO (08:36)
[2019-12-09] MEDS: TOLNAFTATE 1% POWDER 45 GM BTL 1 APPLIC TOPICAL ×2 (08:37→20:50)
--- NOTE | 2019-12-09 11:52 | PC.NURSE ---
spoke with Dr Nath regarding patient having a constant stream of urine. wound care looked at patient's buttock area which is improving . pt has been having low blood sugars. glypizide was discontinued at this time as well as sliding scale insulin. will continue to monitor.
--- NOTE | 2019-12-09 12:05 | WPDNEURORHBP ---
Subjective Date/time seen: 12/09/19 12:05 Interval history: this 74-year-old woman is here after having had transmetatarsal amputation of the right foot has been nonweightbearing and has been difficult for her to adjust to it along with relatively some low sugars for which the glipizide has been discontinued however although she has been asymptomatic otherwise without any fever chills sore throat or headache nausea abdominal vomiting but she has been incontinent periodically and have consulted the urologist who will be probably seeing her on December 10, 2019 Review of Systems Review of Systems: All systems reviewed & are unremarkable except as noted in HPI and below Functional Status Transfers Ability Ability to Transfer In/Out of Chair: Moderate Assistance X 1 Exam Const: General: comfortable and no acute distress HENMT: General nose exam: Normal nares present Mouth: Yes moist mucous membranes Eyes: General: appearance normal, both eyes and all related structures Neck: Neck: supple and no JVD Resp: Effort & Inspection: normal respiratory effort Auscultation: clear to auscultation bilaterally Cardio: Rate: regular rate Rhythm: regular rhythm GI: GI Palp: Yes Soft to palpation Auscultation: normal bowel sounds Urinary Catheter: Urinary Catheter: patent and draining Skin: General skin exam: normal color and no rashes or lesions noted Other: patient does have some maceration around the buttock because of the most likely urinary incontinence for which we have put a Rueda catheter in and is draining fairly well Neuro: Other: patient's mental status is normal cranial exam is normal upper extremity strength is 4.45 lower extremity strength is 4- over 5 her reflexes are diminished in the lower extremities I have reviewed the notes of the orthopedic physician there following Extrem: Other: the site of the metatarsal amputation is relatively clean is being dressed regularly no significant drainage is noted she is on p.o. antibiotics Psych: Mental Status: mental status grossly normal Objective Data Vital Signs Vital Signs: Vital Signs - 24 hr 12/09/19 14:00 12/09/19 22:00 12/10/19 06:00 Temperature 36.7 C 36.4 C 36.2 C L Pulse Rate 76 81 72 Respiratory Rate 18 19 19 Blood Pressure 142/56 H 120/96 H 144/61 H Pulse Oximetry 98 97 95 Intake/Output Intake/Output: Intake & Output 12/07/19 12/08/19 12/09/19 12/10/19 23:59 23:59 23:59 23:59 Intake Total 720 1200 840 720 Output Total 1400 1200 Balance 720 0202 -936 -727 Meds/Results Medications: Active Medications Generic Name Dose Route Start Last Admin Trade Name Freq PRN Reason Stop Dose Admin Acetaminophen 650 mg 11/29/19 17:11 12/10/19 08:13 Tylenol Tablet PO 650 mg Q4H PRN Administration Mild Pain (1-3) Or Fever Amlodipine Besylate 5 mg 11/29/19 18:00 12/09/19 17:22 Norvasc PO 5 mg QPM [facility] Administration Amoxicillin/Clavulanate Potassium 1 tablet 12/04/19 09:00 12/10/19 08:13 Augmentin 875-125 Mg Tab PO 12/17/19 21:01 1 tablet Q12H [facility] Administration Aspirin 81 mg 11/30/19 08:00 12/10/19 08:13 Aspirin Chewable PO 81 mg DAILY@0800 [facility] Administration Dextrose 12.5 gm 11/29/19 17:11 Dextrose 50% Syringe IV PUSH PRN PRN Hypoglycemia Diphenoxylate HCl/Atropine 1 tablet 12/03/19 08:17 12/10/19 04:22 Lomotil Tab 2.5 Mg PO 1 tablet PRN PRN Administration Diarrhea Enoxaparin Sodium 40 mg 11/30/19 09:00 12/10/19 08:13 Lovenox SUB-Q 40 mg DAILY [facility] Administration Fluconazole 100 mg 12/03/19 09:00 12/10/19 08:13 Diflucan Tablet PO 100 mg QAM [facility] Administration Glucagon 1 mg 11/29/19 17:11 Glucagon For Inj IM PRN PRN Hypoglycemia Glucose 15 gm 11/29/19 17:11 Glutose 15 PO PRN PRN Hypoglycemia Lisinopril 10 mg 11/30/19 09:00 12/10/19 08:13 Prinivil PO 10 mg DAILY [facility] Administration Loperamide HCl 2
[2019-12-09 14:00] VITALS: BP 142/56; PULSE 76; RESP 18; TEMP 36.7; O2SAT 98
--- NOTE | 2019-12-09 14:06 | PM.PNORT ---
Progress Note: A&P Assessment and Plan (1) Gangrene of toe of right foot: Code(s): I96 - Gangrene, not elsewhere classified Status: Acute Assessment and Plan: Postoperative day 12 Right transmetatarsal amputation wound closure. Postoperative day 19 right transmetatarsal amputation. Wound VAC in place. Dressing changed today. discontinue wound VAC and start daily gauze dressing changes with silver rope. Continue nonweightbearing. Continue IV antibiotics. Nutritional supplement for improved wound healing. Subjective Subjective Date/Time Seen: 12/09/19 14:06 Patient more alert. States feeling better. Exam Const: General: No confusion Orientation/consciousness: patient oriented x3 and No confusion HENMT: Head: normal to inspection, normocephalic and atraumatic Eyes: Conjunctivae: conjunctivae normal Sclera: sclerae normal Neck: Neck: supple and nontender Chest: Chest palpation & inspection: normal inspection of the chest Resp: Effort & Inspection: normal respiratory effort and no audible wheezes Cardio: Rate: regular rate Rhythm: regular rhythm : General: Yes deferred Skin: Rashes: other ( Excoriation over the abdomen and bilateral groin) Neuro: General: patient oriented x3 and No confusion Extrem: General: capillary refill normal Right upper extremity: normal to inspection Left upper extremity: normal to inspection Right lower extremity: hip/thigh, knee, ankle and foot Left lower extremity: normal to inspection, hip/thigh, knee, ankle and foot Other: Right foot transmetatarsal amputation with wound VAC dressing. Dressing removed. Incision clean and dry. Medial 40% of the incision well-healed. Central opening with wound VAC foam in place 1.5 cm by 3 mm with 4 cm tunneling. More lateral aspect with 2 cm tunneling. No active drainage. No erythema. Psych: Affect: normal affect Objective Data Vital Signs Vital Signs: Vital Signs - 24 hr 12/08/19 17:44 12/08/19 21:18 12/09/19 06:00 Temperature 96.6 F L 96.9 F L 97 F L Pulse Rate 77 75 Respiratory Rate 22 H 16 Blood Pressure 151/56 H 135/59 L Pulse Oximetry 97 97 Intake/Output Intake/Output: Intake & Output 12/06/19 12/07/19 12/08/19 12/09/19 23:59 23:59 23:59 23:59 Intake Total 6323 044 0442 840 Balance 8761 924 1130 840 Meds/Results Medications: Active Medications Generic Name Dose Route Start Last Admin Trade Name Taras PRN Reason Stop Dose Admin Acetaminophen 650 mg 11/29/19 17:11 12/09/19 13:37 Tylenol Tablet PO 650 mg Q4H PRN Administration Mild Pain (1-3) Or Fever Amlodipine Besylate 5 mg 11/29/19 18:00 12/08/19 17:56 Norvasc PO 5 mg QPM [facility] Administration Amoxicillin/Clavulanate Potassium 1 tablet 12/04/19 09:00 12/09/19 08:36 Augmentin 875-125 Mg Tab PO 12/17/19 21:01 1 tablet Q12H [facility] Administration Aspirin 81 mg 11/30/19 08:00 12/09/19 08:36 Aspirin Chewable PO 81 mg DAILY@0800 [facility] Administration Dextrose 12.5 gm 11/29/19 17:11 Dextrose 50% Syringe IV PUSH PRN PRN Hypoglycemia Diphenoxylate HCl/Atropine 1 tablet 12/03/19 08:17 12/08/19 20:34 Lomotil Tab 2.5 Mg PO 1 tablet PRN PRN Administration Diarrhea Enoxaparin Sodium 40 mg 11/30/19 09:00 12/09/19 08:35 Lovenox SUB-Q 40 mg DAILY [facility] Administration Fluconazole 100 mg 12/03/19 09:00 12/09/19 08:36 Diflucan Tablet PO 100 mg QAM [facility] Administration Glucagon 1 mg 11/29/19 17:11 Glucagon For Inj IM PRN PRN Hypoglycemia Glucose 15 gm 11/29/19 17:11 Glutose 15 PO PRN PRN Hypoglycemia Lisinopril 10 mg 11/30/19 09:00 12/09/19 08:36 Prinivil PO 10 mg DAILY [facility] Administration Loperamide HCl 2 mg 11/30/19 09:09 12/02/19 11:57 Loperamide Hcl PO 2 mg PRN PRN Administration Diarrhea Magnesium Hydroxide 30 ml 11/29/19 17:11 Milk Of Magnesia PO BID PRN Cons
[2019-12-09 16:29] LABS: Glucose Point of Care 86 (65-105)
--- NOTE | 2019-12-09 17:00 | PC.NURSE ---
pt blood glucose 86. pt did not want to take metformin and stated she wasn't hungry. she stated she was not going to eat. md updated. will continue to monitor.
--- NOTE | 2019-12-09 17:10 | PC.NURSE ---
Updated Dr Nath regarding patient's urine return of 1400 mL s/p mendez catheter placement. Dr Nath requested urology consult for urinary retention. will continue to monitor.
[2019-12-09] MEDS: AMLODIPINE BESYLATE 5 MG TABLET PO (17:22)
[2019-12-09 20:50] LABS: Glucose Point of Care 126 (65-105)
[2019-12-09 22:00] VITALS: BP 120/96; PULSE 81; RESP 19; TEMP 36.4; O2SAT 97
[2019-12-10] MEDS: ACETAMINOPHEN 325 MG TABLET 650 MG PO ×4 (04:19→16:59)
[2019-12-10 06:00] VITALS: BP 144/61; PULSE 72; RESP 19; TEMP 36.2; O2SAT 95
[2019-12-10 06:08] LABS: Glucose Point of Care 70 (65-105)
[2019-12-10] MEDS: metFORMIN HCL 500 MG TABLET PO (08:12)
[2019-12-10] MEDS: AMOXICILLIN/CLAVULANATE K 875-125 MG TAB 1 TABLET PO ×2 (08:13→20:00)
[2019-12-10] MEDS: lisinopriL 10 MG TABLET PO (08:13)
[2019-12-10] MEDS: ASPIRIN 81 MG CHEWABLE TABLET PO (08:13)
[2019-12-10] MEDS: TOLNAFTATE 1% POWDER 45 GM BTL 1 APPLIC TOPICAL ×2 (08:13→21:56)
[2019-12-10] MEDS: FLUCONAZOLE 100 MG TABLET PO (08:13)
[2019-12-10] MEDS: ENOXAPARIN 40 MG/0.4 ML SYRINGE SUB-Q (08:13)
--- NOTE | 2019-12-10 08:14 | PC.NURSE ---
pt refused metamucil. states she doesn't want that. md aware.
[2019-12-10] MEDS: SACCHAROMYCES BOULARDII 250 MG CAPSULE PO ×3 (10:14→17:00)
--- NOTE | 2019-12-10 10:50 | WPDURCON ---
Assessment and Plan Assessment and plan (1) Urinary retention: Code(s): R33.9 - Retention of urine, unspecified Status: Acute Assessment and Plan: urinary retention. Etiology unclear but maybe multifactorial with her immobility as well as atonic bladder. Continue with Rueda for 1 week's time. May remove Rueda in 1 week and check postvoid residual. If unable to void residual greater than 350 cc would require either learning intermittent catheterization versus indwelling Rueda. She would then require an outpatient visit and scheduling of urodynamics. Urology Consult Note HPI Date Seen: 12/10/19 Time Seen: 10:50 Requesting Physician: Mckay Arzola MD Primary Care Provider: UNKNOWN,DOCTOR Consult Narrative Reason for consult: Urinary retention Narrative: Tana Hutchins is a 74 year old female with history of hypertension hypercholesterolemia type 2 diabetes who was admitted to the rehab facility after having a transmetatarsal wound closure after amputation approximately 12 days ago. I was notified by the nurse that she was not incontinent of urine. A Rueda catheter was placed in approximately 1400 cc were obtained. I was told that the patient was not uncomfortable prior to placement of the Rueda. Patient states that she had nocturia times 3-4 prior to this as well as frequency every 2-3 hours. She did have some mild incontinence. Review of Systems Review of Systems: All systems reviewed & are unremarkable except as noted in HPI and below Constitutional: Constitutional: Reports weakness PMFSH Past Medical History Medical History Diabetic ulcer of foot associated with diabetes mellitus due to underlying condition, with necrosis of muscle Foot abscess, right Gangrene of toe of right foot Medical history unknown Surgical History Surgical History History of section, classical Surgical history unknown Family History Family History Mother Diabetes mellitus Cerebrovascular accident Father Congestive heart failure (CHF) Father No problems noted. Son Hypertension Social History Social History Smoking status: Never smoker Second hand tobacco smoke exposure: No Alcohol intake: never Substance use: never Substance use type: does not use Gender identity (if verbalized by the patient): Female Spiritual care concerns: No Agree to blood products: Yes Meds Home Medications and Allergies Home Medications Medication Instructions Recorded Confirmed Type acetaminophen [Mapap 650 mg PO Q4H PRN #30 tablet 11/29/19 11/29/19 Rx (acetaminophen)] amlodipine [Norvasc] 5 mg PO QPM #30 tablet 11/29/19 11/29/19 Rx amoxicillin-pot clavulanate 1 tablet PO Q12H #28 tablet 11/29/19 11/29/19 Rx [Augmentin] aspirin [Children's Aspirin] 81 mg PO DAILY@0800 #30 tablet 11/29/19 11/29/19 Rx dextrose 50 % in water (D50W) 12.5 g IVPUSH PRN PRN 30 Days ml 11/29/19 11/29/19 Rx dextrose [Glutose-15] 15 g PO PRN PRN 30 Days gm 11/29/19 11/29/19 Rx enoxaparin [Lovenox] 40 mg SUBCUT DAILY #30 ml 11/29/19 11/29/19 Rx glucagon (human recombinant) 1 mg IM PRN PRN 30 Days each 11/29/19 11/29/19 Rx [GlucaGen Diagnostic Kit] insulin aspart U-100 [Novolog 3 - 6 units SUBCUT TIDWM 30 Days 11/29/19 11/29/19 Rx U-100 Insulin aspart] ml lisinopril 10 mg PO DAILY #30 tablet 11/29/19 11/29/19 Rx magnesium hydroxide [Milk of 30 ml PO BID PRN 30 Days ml 11/29/19 11/29/19 Rx Magnesia] metformin [Glucophage XR] 500 mg PO BID 30 Days #60 tablet 11/29/19 11/29/19 Rx ondansetron HCl (PF) 4 mg IVPUSH Q4H PRN 30 Days ml 11/29/19 11/29/19 Rx oxycodone-acetaminophen 2 tablet PO Q4H PRN 10 Days tablet 11/29/19 11/29/19 Rx icpmrxzcfblw-[id number]-onekku 3.375 g
--- NOTE | 2019-12-10 11:32 | PM.PNORT ---
Progress Note: A&P Assessment and Plan (1) Gangrene of toe of right foot: Code(s): I96 - Gangrene, not elsewhere classified Status: Acute Assessment and Plan: Postoperative day 13 Right transmetatarsal amputation wound closure. Postoperative day 20 right transmetatarsal amputation. Dressing in place. daily gauze dressing changes with silver rope. Continue PO antibiotics. Nutritional supplement for improved wound healing. discussed with physical therapy. Patient unable to continue with nonweightbearing due to upper extremity weakness and deconditioning. Discussed problems with weight-bearing and wound healing for the right foot. Difficult situation with no clear solution. Will attempt partial weight-bearing on the right heel only with use of fracture boot for protective weight-bearing. Therapy to attempt with restrictions. If not able to adhere to partial weight only will return to nonweightbearing. Subjective Subjective Date/Time Seen: 12/10/19 11:32 Exam Const: General: No confusion Orientation/consciousness: patient oriented x3 and No confusion HENMT: Head: normal to inspection, normocephalic and atraumatic Eyes: Conjunctivae: conjunctivae normal Sclera: sclerae normal Neck: Neck: supple and nontender Chest: Chest palpation & inspection: normal inspection of the chest Resp: Effort & Inspection: normal respiratory effort and no audible wheezes Cardio: Rate: regular rate Rhythm: regular rhythm : General: Yes deferred Skin: Rashes: other ( Excoriation over the abdomen and bilateral groin) Neuro: General: patient oriented x3 and No confusion Extrem: General: capillary refill normal Right upper extremity: normal to inspection Left upper extremity: normal to inspection Right lower extremity: hip/thigh, knee, ankle and foot Left lower extremity: normal to inspection, hip/thigh, knee, ankle and foot Other: Right foot transmetatarsal amputation with dressing. Incision clean and dry. Medial 40% of the incision well-healed. Central opening with wound VAC foam in place 1.5 cm by 3 mm with 4 cm tunneling. More lateral aspect with 2 cm tunneling. No active drainage. No erythema. Psych: Affect: normal affect Objective Data Vital Signs Vital Signs: Vital Signs - 24 hr 12/09/19 14:00 12/09/19 22:00 12/10/19 06:00 Temperature 98.0 F 97.6 F 97.2 F L Pulse Rate 76 81 72 Respiratory Rate 18 19 19 Blood Pressure 142/56 H 120/96 H 144/61 H Pulse Oximetry 98 97 95 Intake/Output Intake/Output: Intake & Output 12/07/19 12/08/19 12/09/19 12/10/19 23:59 23:59 23:59 23:59 Intake Total 720 1200 840 720 Output Total 1400 1200 Balance 720 1200 560 480 Meds/Results Medications: Active Medications Generic Name Dose Route Start Last Admin Trade Name Freq PRN Reason Stop Dose Admin Acetaminophen 650 mg 11/29/19 17:11 12/10/19 08:13 Tylenol Tablet PO 650 mg Q4H PRN Administration Mild Pain (1-3) Or Fever Amlodipine Besylate 5 mg 11/29/19 18:00 12/09/19 17:22 Norvasc PO 5 mg QPM YISSEL Administration Amoxicillin/Clavulanate Potassium 1 tablet 12/04/19 09:00 12/10/19 08:13 Augmentin 875-125 Mg Tab PO 12/17/19 21:01 1 tablet Q12H YISSEL Administration Aspirin 81 mg 11/30/19 08:00 12/10/19 08:13 Aspirin Chewable PO 81 mg DAILY@0800 YISSEL Administration Dextrose 12.5 gm 11/29/19 17:11 Dextrose 50% Syringe IV PUSH PRN PRN Hypoglycemia Diphenoxylate HCl/Atropine 1 tablet 12/03/19 08:17 12/10/19 04:22 Lomotil Tab 2.5 Mg PO 1 tablet PRN PRN Administration Diarrhea Enoxaparin Sodium 40 mg 11/30/19 09:00 12/10/19 08:13 Lovenox SUB-Q 40 mg DAILY YISSEL Administration Fluconazole 100 mg 12/03/19 09:00 12/10/19 08:13 Diflucan Tablet PO 100 mg QAM YISSEL Administration Glucagon 1 mg 11/29/19 17:11 Glucagon For Inj IM PRN PRN Hypoglycemia Glucose 15 gm 11/29/19 17:11 Glu
--- NOTE | 2019-12-10 12:58 | WPDNEURORHBP ---
Subjective Date/time seen: 12/10/19 12:58 Interval history: this 74-year-old woman is here after having had transmetatarsal amputation of the right foot the wound VAC has been removed couple of days ago she is being dressed daily has been seen by the orthopedic physician they are contemplating to later have some weight-bearing after having the protective shoe on her heel see heart is going the therapy hoping that will help improve over overall situation as she is not really able to do the things with the nonweightbearing status of the right lower extremity Patient overall is stable without any fever chills sore throat headache nausea and vomiting chest pain shortness of breath Review of Systems Review of Systems: All systems reviewed & are unremarkable except as noted in HPI and below Functional Status Transfers Ability Ability to Transfer In/Out of Chair: Moderate Assistance X 1 Exam Const: General: comfortable and no acute distress HENMT: General nose exam: Normal nares present Mouth: Yes moist mucous membranes Eyes: General: appearance normal, both eyes and all related structures Neck: Neck: supple and no JVD Resp: Effort & Inspection: normal respiratory effort Auscultation: clear to auscultation bilaterally Cardio: Rate: regular rate Rhythm: regular rhythm GI: GI Palp: Yes Soft to palpation Auscultation: normal bowel sounds Skin: General skin exam: normal color and no rashes or lesions noted Neuro: Other: patient's mental status exam normal cranial exam is normal upper extremity strength is fairly decent close to 5/5 lower extremity stents remains 4- over 5 including proximal and distal with depressed reflexes and also some sensory deficit most likely component of peripheral neuropathy Extrem: Other: the right foot is in the dressing after having had the dressing changed Psych: Mental Status: mental status grossly normal Objective Data Vital Signs Vital Signs: Vital Signs - 24 hr 12/09/19 14:00 12/09/19 22:00 12/10/19 06:00 Temperature 36.7 C 36.4 C 36.2 C L Pulse Rate 76 81 72 Respiratory Rate 18 19 19 Blood Pressure 142/56 H 120/96 H 144/61 H Pulse Oximetry 98 97 95 Intake/Output Intake/Output: Intake & Output 12/07/19 12/08/19 12/09/19 12/10/19 23:59 23:59 23:59 23:59 Intake Total 720 1200 840 720 Output Total 1400 1200 Balance 720 1200 -560 -480 Meds/Results Medications: Active Medications Generic Name Dose Route Start Last Admin Trade Name Freq PRN Reason Stop Dose Admin Acetaminophen 650 mg 11/29/19 17:11 12/10/19 12:14 Tylenol Tablet PO 650 mg Q4H PRN Administration Mild Pain (1-3) Or Fever Amlodipine Besylate 5 mg 11/29/19 18:00 12/09/19 17:22 Norvasc PO 5 mg QPM YISSEL Administration Amoxicillin/Clavulanate Potassium 1 tablet 12/04/19 09:00 12/10/19 08:13 Augmentin 875-125 Mg Tab PO 12/17/19 21:01 1 tablet Q12H YISSEL Administration Aspirin 81 mg 11/30/19 08:00 12/10/19 08:13 Aspirin Chewable PO 81 mg DAILY@0800 YISSEL Administration Dextrose 12.5 gm 11/29/19 17:11 Dextrose 50% Syringe IV PUSH PRN PRN Hypoglycemia Diphenoxylate HCl/Atropine 1 tablet 12/03/19 08:17 12/10/19 04:22 Lomotil Tab 2.5 Mg PO 1 tablet PRN PRN Administration Diarrhea Enoxaparin Sodium 40 mg 11/30/19 09:00 12/10/19 08:13 Lovenox SUB-Q 40 mg DAILY YISSEL Administration Fluconazole 100 mg 12/03/19 09:00 12/10/19 08:13 Diflucan Tablet PO 100 mg QAM YISSEL Administration Glucagon 1 mg 11/29/19 17:11 Glucagon For Inj IM PRN PRN Hypoglycemia Glucose 15 gm 11/29/19 17:11 Glutose 15 PO PRN PRN Hypoglycemia Lisinopril 10 mg 11/30/19 09:00 12/10/19 08:13 Prinivil PO 10 mg DAILY YISSEL Administration Loperamide HCl 2 mg 11/30/19 09:09 12/02/19 11:57 Loperamide Hcl PO 2 mg PRN PRN Administration Diarrhea Magnesium Hydroxide 30 ml 11/29/19 17:11
[2019-12-10 14:00] VITALS: BP 138/58; PULSE 80; RESP 18; TEMP 36.6; O2SAT 98
--- NOTE | 2019-12-10 14:22 | PCDIET ---
Nutrition Follow-Up Complete: Nutrition Diagnosis: Increased protein needs related to wound healing as evidenced by right transmetatarsal amputation. Nutrition Goal: Patient to consume 75% of meals/supplements. Goal met. Patient consumed average of 74% of recorded meals from 12/07/19 but is taking supplements daily. Receiving diabetic diet with 2 gram sodium restriction + Glucerna and Adrian supplements. Recommend continuing current diet/supplements. Last recorded weight is 98.9 kg. Recommend obtaining new weight. Bowel Motility: +BM on 12/08/19. Labs Reviewed: Glu (70) Meds Noted: Augmentin, Diflucan, Glucophage, Florastor Additional Notes: Right foot with wound vac s/p transmetatarsal amputation. Maceration to buttock, back, groin and coccyx areas. Will continue to monitor with same goal. Nutrition Monitoring and Evaluation: Follow up in 5 days.
[2019-12-10] MEDS: AMLODIPINE BESYLATE 5 MG TABLET PO (17:00)
[2019-12-10 17:24] LABS: Add Urine Microscopic? YES; Amorphous Sediment Urine Few; Appearance Urine Cloudy (Clear); Bacteria Urine Trace /hpf; Bilirubin Urine Negative (Negative); Blood Urine Negative (Negative); Color Urine Yellow (Yellow); Glucose Urine UA Negative (Negative); Ketones Urine Negative (Negative); Leukocyte Esterase Ur 3+ LEU/UL (Negative); Mucus Urine Rare /lpf; Nitrate Urine Negative (Negative); Protein Urine 1+ mg/dL (Negative); RBC Urine 21-50 /hpf (0-2); Specific Grav Ur 1.015 (1.001-1.035); Squamous Epithelial Cell Urine Many /hpf (Few); Urobilinogen Urine Negative mg/dL (<2.0); WBC Clumps Urine Present /HPF; WBC Urine >75 /hpf
[2019-12-10 20:00] VITALS: PULSE 80; RESP 18; O2SAT 98
[2019-12-10 22:00] VITALS: BP 119/56; PULSE 76; RESP 18; TEMP 36.5; O2SAT 97
[2019-12-11 05:51] VITALS: BP 147/53; PULSE 71; RESP 16; TEMP 36.2; O2SAT 100
[2019-12-11 06:57] LABS: Glucose Point of Care 73 (65-105)
[2019-12-11 08:34] LABS: Glucose Point of Care 71 (65-105)
[2019-12-11] MEDS: metFORMIN HCL 500 MG TABLET PO (08:50)
[2019-12-11] MEDS: ENOXAPARIN 40 MG/0.4 ML SYRINGE SUB-Q (08:50)
[2019-12-11] MEDS: ASPIRIN 81 MG CHEWABLE TABLET PO (08:51)
[2019-12-11] MEDS: FLUCONAZOLE 100 MG TABLET PO (08:51)
[2019-12-11] MEDS: lisinopriL 10 MG TABLET PO (08:51)
[2019-12-11] MEDS: AMOXICILLIN/CLAVULANATE K 875-125 MG TAB 1 TABLET PO ×2 (08:51→20:37)
[2019-12-11] MEDS: TOLNAFTATE 1% POWDER 45 GM BTL 1 APPLIC TOPICAL ×2 (08:54→20:37)
[2019-12-11] MEDS: SACCHAROMYCES BOULARDII 250 MG CAPSULE PO ×3 (08:54→17:17)
--- NOTE | 2019-12-11 10:59 | PCPTNOTE ---
Tana Hutchins was evaluated for a standard walker on 12/11/2019 by this physical therapist. The standard walker will resolve the patient's mobility limitations and will be used for ADL's within the home. The patient can safely use the standard walker for transfers in order to maintain current lower extremity weight-bearing restrictions. ?The standard walker will resolve the patient?s mobility deficits. Leti Villafuerte, PT, DPT
--- NOTE | 2019-12-11 13:17 | PCPTNOTE ---
Danette Moody PTA completed an inpatient rehab wheelchair evaluation on Tana Hutchins on 12/11/2019. The patient is unable to safely and independently ambulate household distances due to their current impairments. Their diagnosis is Metatarsal Amputation and their impairments include decreased strength, decreased endurance, decreased range of motion, decreased balance, lower extremity weakness, and weight bearing status. Tana's weight bearing status is Partial weight-bearing on the Right Lower Extremity heel. The patient demonstrates significant functional mobility limitations that impair their ability to participate in mobility-related activities of daily living (MRADLs), including toileting, feeding, dressing, grooming, and bathing in the customary locations in the home. These limitations cannot be sufficiently resolved by the use of an appropriately fitted cane or walker. It is recommended that the patient utilize a wheelchair for functional mobility within the home in order to facilitate optimal safety, independence and participation in all MRADL's and adequately access their home environment on a regular basis. The patient's home provides adequate access between rooms, maneuvering space, and surfaces to accommodate the recommended wheelchair. The use of a wheelchair for functional mobility is strongly recommended and the patient is receptive to using the wheelchair. The use of this wheelchair will significantly improve the patient's ability to participate in MRADLS and the patient will use it on a regular basis in the home. This will facilitate optimal safety, independence, and participation. The patient has demonstrated sufficient physical and mental capabilities needed to safely propel a manual wheelchair that is provided in the home during a typical day. Recommended Wheelchair Frame: standard Recommended Wheelchair Size: 18x20 -Patient required a 20 inch width wheelchair due to patient's anatomical hip width. Recommended Wheelchair Cushion:air cushion Wheelchair Leg Recommendations: bilateral elevating swing leg rests - Elevating legrests are recommended because the patient has significant edema of the lower extremities that requires an elevating legrest. -Anti-tippers are recommended due to patient demonstrating increased risk for falls. They would benefit from anti-tippers with added safety and stabilization. - Adjustable arm height is recommended because the patient requires an arm height that is different than that which is available using non-adjustable arms. The patient spends at least 2 hours per day in the wheelchair. Danette Moody PTA _4/8/2020 Evaluating Therapist Date I agree with and certify that the above recommendation is medically necessary. Referring Physician Date I agree with and certify that the above recommendation is medically necessary. Referring Physician Date
[2019-12-11] MEDS: TRAMADOL HCL 50 MG TABLET PO (13:38)
--- NOTE | 2019-12-11 13:45 | PCPTNOTE ---
Tana Hutchins was evaluated for a standard walker on 12/11/2019 by this physical therapist special education teaching assistant. The standard walker will resolve patient's mobility limitations and will be used for ADL's within the home. The patient can safely use the standard walker. ?The standard walker will resolve the patient?s mobility deficits, including PWB on right lower extremity heel, decreased strength, and decreased endurance for transfers.
--- NOTE | 2019-12-11 13:54 | WPDNEURORHBP ---
Subjective Date/time seen: 12/11/19 13:54 Interval history: this 74-year-old woman is here postop transmetatarsal amputation of the right foot now she has a productive boot as per the orthopedic physician and has been allowed to bear weight on her right heel and she did better with that and walked to a certain distance which is big improvement because of the weight limitations which have been relatively East with the boot on The patient denies any fever chills sore throat on her bottom is getting better Review of Systems Review of Systems: All systems reviewed & are unremarkable except as noted in HPI and below Functional Status Ambulation Ability Ability to Ambulate 10 Feet: Minimum Assistance X 1 Ambulation Assistive Devices: Walker, Standard Transfers Ability Ability to Transfer In/Out of Chair: Moderate Assistance X 1 Exam Const: General: comfortable and no acute distress HENMT: General nose exam: Normal nares present Mouth: Yes moist mucous membranes Eyes: General: appearance normal, both eyes and all related structures Neck: Neck: supple and no JVD Resp: Effort & Inspection: normal respiratory effort Auscultation: clear to auscultation bilaterally Cardio: Rate: regular rate Rhythm: regular rhythm GI: GI Palp: Yes Soft to palpation Auscultation: normal bowel sounds Skin: General skin exam: normal color and no rashes or lesions noted Other: the a maceration around her buttock area is getting better and I think the Rueda catheter has helped Neuro: Other: patient is remains awake and alert with normal speech and lung function normal cranial exam dickey with decreased strength in the lower extremities however with the limitation of the weight-bearing East on her right foot she is doing better in the rehab Extrem: General: normal to inspection Other: patient's wound from the right metatarsal amputation as per the attending personnel is better Psych: Mental Status: mental status grossly normal Objective Data Vital Signs Vital Signs: Vital Signs - 24 hr 12/10/19 14:00 12/10/19 20:00 12/10/19 22:00 Temperature 36.6 C 36.5 C Pulse Rate 80 80 76 Respiratory Rate 18 18 18 Blood Pressure 138/58 L 119/56 L Pulse Oximetry 98 98 97 12/11/19 05:51 Temperature 36.2 C L Pulse Rate 71 Respiratory Rate 16 Blood Pressure 147/53 H Pulse Oximetry 100 Intake/Output Intake/Output: Intake & Output 12/08/19 12/09/19 12/10/19 12/11/19 23:59 23:59 23:59 23:59 Intake Total 1190 645 7609 660 Output Total 1400 2400 950 Balance 7354 -008 -290 -098 Meds/Results Medications: Active Medications Generic Name Dose Route Start Last Admin Trade Name Freq PRN Reason Stop Dose Admin Acetaminophen 650 mg 11/29/19 17:11 12/10/19 16:59 Tylenol Tablet PO 650 mg Q4H PRN Administration Mild Pain (1-3) Or Fever Amlodipine Besylate 5 mg 11/29/19 18:00 12/10/19 17:00 Norvasc PO 5 mg QPM YISSLE Administration Amoxicillin/Clavulanate Potassium 1 tablet 12/04/19 09:00 12/11/19 08:51 Augmentin 875-125 Mg Tab PO 12/17/19 21:01 1 tablet Q12H YISSEL Administration Aspirin 81 mg 11/30/19 08:00 12/11/19 08:51 Aspirin Chewable PO 81 mg DAILY@0800 YISSEL Administration Dextrose 12.5 gm 11/29/19 17:11 Dextrose 50% Syringe IV PUSH PRN PRN Hypoglycemia Diphenoxylate HCl/Atropine 1 tablet 12/03/19 08:17 12/10/19 04:22 Lomotil Tab 2.5 Mg PO 1 tablet PRN PRN Administration Diarrhea Enoxaparin Sodium 40 mg 11/30/19 09:00 12/11/19 08:50 Lovenox SUB-Q 40 mg DAILY YISSEL Administration Glucagon 1 mg 11/29/19 17:11 Glucagon For Inj IM PRN PRN Hypoglycemia Glucose 15 gm 11/29/19 17:11 Glutose 15 PO PRN PRN Hypoglycemia Lisinopril 10 mg 11/30/19 09:00 12/11/19 08:51 Prinivil PO 10 mg DAILY YISSEL Administration Loperamide HCl 2 mg 11/30/19 09:09 12/02/19 11:57 Loperamide Hcl PO 2 mg PRN PRN Admin
[2019-12-11 14:00] VITALS: BP 140/58; PULSE 80; RESP 18; TEMP 36.6; O2SAT 97
[2019-12-11 16:00] VITALS: PULSE 80; RESP 18
[2019-12-11] MEDS: ACETAMINOPHEN 325 MG TABLET 650 MG PO (17:17)
[2019-12-11] MEDS: AMLODIPINE BESYLATE 5 MG TABLET PO (17:18)
[2019-12-11 21:32] LABS: Glucose Point of Care 88 (65-105)
[2019-12-11 22:00] VITALS: BP 132/57; PULSE 75; RESP 19; TEMP 36.3; O2SAT 97
[2019-12-12] MEDS: ACETAMINOPHEN 325 MG TABLET 650 MG PO ×3 (03:41→17:22)
[2019-12-12 06:00] VITALS: BP 137/57; PULSE 76; RESP 19; TEMP 36.3; O2SAT 97
[2019-12-12 06:27] LABS: Glucose Point of Care 76 (65-105)
[2019-12-12] MEDS: ASPIRIN 81 MG CHEWABLE TABLET PO (08:49)
[2019-12-12] MEDS: lisinopriL 10 MG TABLET PO (08:49)
[2019-12-12] MEDS: AMOXICILLIN/CLAVULANATE K 875-125 MG TAB 1 TABLET PO ×2 (08:49→20:31)
[2019-12-12] MEDS: ENOXAPARIN 40 MG/0.4 ML SYRINGE SUB-Q (08:49)
[2019-12-12] MEDS: metFORMIN HCL 500 MG TABLET PO (08:49)
[2019-12-12] MEDS: TOLNAFTATE 1% POWDER 45 GM BTL 1 APPLIC TOPICAL ×2 (08:49→20:32)
[2019-12-12] MEDS: SACCHAROMYCES BOULARDII 250 MG CAPSULE PO ×3 (08:49→17:21)
[2019-12-12] MEDS: TRAMADOL HCL 50 MG TABLET PO (08:50)
--- NOTE | 2019-12-12 12:11 | WPDNEURORHBP ---
Subjective Date/time seen: 12/12/19 12:11 Interval history: this is a 74-year-old overweight woman who is here postop amputation of the right foot transmetatarsal along with the other medical issues including the maceration of the bottom has urinary retention also has Rueda catheter on the good thing is that the urine culture was sent although initial urinalysis showed possibility of UTI but the culture is negative she already oz on Augmentin for her wound for another several days patient denies any headache nausea vomiting fevers chills or sore throat however not willing to extended care facility which she really needs it for which she was counseled in detail Review of Systems Review of Systems: All systems reviewed & are unremarkable except as noted in HPI and below Functional Status Ambulation Ability Ability to Ambulate 10 Feet: Minimum Assistance X 1 Ambulation Assistive Devices: Walker, Standard Transfers Ability Ability to Transfer In/Out of Chair: Moderate Assistance X 1 Exam Const: General: comfortable and no acute distress HENMT: General nose exam: Normal nares present Mouth: Yes moist mucous membranes Eyes: General: appearance normal, both eyes and all related structures Neck: Neck: supple and no JVD Resp: Effort & Inspection: normal respiratory effort Auscultation: clear to auscultation bilaterally Cardio: Rate: regular rate Rhythm: regular rhythm GI: GI Palp: Yes Soft to palpation Auscultation: normal bowel sounds Skin: General skin exam: normal color and no rashes or lesions noted Neuro: Other: patient remains awake alert with normal speech and language function normal cranial exam dickey much improved upper extremity strength less so improved of the lower extremity strength which is most likely related to underlying neuropathy and also the transmetatarsal right foot amputation at the weight-bearing status Extrem: Other: the patient right foot is in the protective boot and well dressed no significant drainage Psych: Mental Status: mental status grossly normal Objective Data Vital Signs Vital Signs: Vital Signs - 24 hr 12/11/19 14:00 12/11/19 16:00 12/11/19 22:00 Temperature 36.6 C 36.3 C L Pulse Rate 80 80 75 Respiratory Rate 18 18 19 Blood Pressure 140/58 L 132/57 L Pulse Oximetry 97 97 12/12/19 06:00 Temperature 36.3 C L Pulse Rate 76 Respiratory Rate 19 Blood Pressure 137/57 L Pulse Oximetry 97 Intake/Output Intake/Output: Intake & Output 12/09/19 12/10/19 12/11/19 12/12/19 23:59 23:59 23:59 23:59 Intake Total 840 1750 1450 360 Output Total 1400 2400 1550 1000 Balance -560 -650 -100 -640 Meds/Results Medications: Active Medications Generic Name Dose Route Start Last Admin Trade Name Freq PRN Reason Stop Dose Admin Acetaminophen 650 mg 11/29/19 17:11 12/12/19 03:41 Tylenol Tablet PO 650 mg Q4H PRN Administration Mild Pain (1-3) Or Fever Amlodipine Besylate 5 mg 11/29/19 18:00 12/11/19 17:18 Norvasc PO 5 mg QPM YISSEL Administration Amoxicillin/Clavulanate Potassium 1 tablet 12/04/19 09:00 12/12/19 08:49 Augmentin 875-125 Mg Tab PO 12/17/19 21:01 1 tablet Q12H YISSEL Administration Aspirin 81 mg 11/30/19 08:00 12/12/19 08:49 Aspirin Chewable PO 81 mg DAILY@0800 YISSEL Administration Dextrose 12.5 gm 11/29/19 17:11 Dextrose 50% Syringe IV PUSH PRN PRN Hypoglycemia Diphenoxylate HCl/Atropine 1 tablet 12/03/19 08:17 12/10/19 04:22 Lomotil Tab 2.5 Mg PO 1 tablet PRN PRN Administration Diarrhea Enoxaparin Sodium 40 mg 11/30/19 09:00 12/12/19 08:49 Lovenox SUB-Q 40 mg DAILY YISSEL Administration Glucagon 1 mg 11/29/19 17:11 Glucagon For Inj IM PRN PRN Hypoglycemia Glucose 15 gm 11/29/19 17:11 Glutose 15 PO PRN PRN Hypoglycemia Lisinopril 10 mg 11/30/19 09:00 12/12/19 08:49 Prinivil PO 10 mg DAILY YISSEL Administration Loperamide HCl
[2019-12-12 14:00] VITALS: BP 139/50; PULSE 84; RESP 20; TEMP 36.3; O2SAT 97
[2019-12-12] MEDS: AMLODIPINE BESYLATE 5 MG TABLET PO (17:22)
[2019-12-12 21:03] LABS: Glucose Point of Care 104 (65-105)
[2019-12-12 21:57] VITALS: BP 142/51; PULSE 83; RESP 18; TEMP 36.7; O2SAT 100
[2019-12-13] MEDS: ACETAMINOPHEN 325 MG TABLET 650 MG PO ×3 (05:10→16:51)
[2019-12-13 05:18] LABS: Glucose Point of Care 78 (65-105)
[2019-12-13 06:00] VITALS: BP 140/67; PULSE 77; RESP 18; TEMP 36.7; O2SAT 96
[2019-12-13] MEDS: ASPIRIN 81 MG CHEWABLE TABLET PO (09:06)
[2019-12-13] MEDS: AMOXICILLIN/CLAVULANATE K 875-125 MG TAB 1 TABLET PO (09:06)
[2019-12-13] MEDS: SACCHAROMYCES BOULARDII 250 MG CAPSULE PO ×3 (09:06→16:51)
[2019-12-13] MEDS: TRAMADOL HCL 50 MG TABLET PO (09:06)
[2019-12-13] MEDS: ENOXAPARIN 40 MG/0.4 ML SYRINGE SUB-Q (09:06)
[2019-12-13] MEDS: lisinopriL 10 MG TABLET PO (09:07)
[2019-12-13] MEDS: TOLNAFTATE 1% POWDER 45 GM BTL 1 APPLIC TOPICAL (09:07)
[2019-12-13] MEDS: metFORMIN HCL 500 MG TABLET PO (09:07)
--- NOTE | 2019-12-13 10:52 | PCDIET ---
Nutrition Follow-Up Complete: Nutrition Diagnosis: Increased protein needs related to wound healing as evidenced by right transmetatarsal amputation. Nutrition Goal: Patient to consume 75% of meals/supplements. Goal in progress. Patient consumed an average of 64% of recorded meals since last review, but is taking Glucerna daily and Adrian BID. Last recorded weight is 90.1 kg which is decreased. -I/O noted. Bowel Motility: Last documented BM on 12/11/19. Labs Reviewed: Glu (78) Meds Noted: Augmentin, Glucophage, Florastor Additional Notes: Maceration to buttock and right foot surgical site; would, therefore, continue current supplements. Will continue to monitor with same goals. Nutrition Monitoring and Evaluation: Follow up in 5 days.
--- NOTE | 2019-12-13 12:02 | PM.PNORT ---
Progress Note: A&P Assessment and Plan (1) Gangrene of toe of right foot: Code(s): I96 - Gangrene, not elsewhere classified Status: Acute Assessment and Plan: Postoperative day 17 Right transmetatarsal amputation wound closure. Postoperative day 24 right transmetatarsal amputation. Dressing in place. daily gauze dressing changes with silver rope. Continue PO antibiotics. increased wound dehiscence and necrosis secondary to increased pressure with partial weight-bearing status. We will return to nonweightbearing status to attempt better wound healing. Nutritional supplement for improved wound healing. Discussed with physical therapy. Discussed problems with weight-bearing and wound healing for the right foot. Difficult situation with no clear solution. Therapy to attempt with restrictions. Will return to nonweightbearing. Plans for transfer to long term. Continue with daily dressing changes and oral antibiotics. At this point is far enough out that she can stop the DVT prophylaxis. Continue with nonweightbearing. Follow-up in wound clinic once she is discharged from long term. Subjective Subjective Date/Time Seen: Patient seen in the rehab center December 13, 2019 10:30 a.m. patient with no new complaints. They have been doing weight-bearing with the fracture boot. Exam Const: General: No confusion Orientation/consciousness: patient oriented x3 and No confusion HENMT: Head: normal to inspection, normocephalic and atraumatic Eyes: Conjunctivae: conjunctivae normal Sclera: sclerae normal Neck: Neck: supple and nontender Chest: Chest palpation & inspection: normal inspection of the chest Resp: Effort & Inspection: normal respiratory effort and no audible wheezes Cardio: Rate: regular rate Rhythm: regular rhythm : General: Yes deferred Skin: Rashes: other ( Excoriation over the abdomen and bilateral groin) Neuro: General: patient oriented x3 and No confusion Extrem: General: capillary refill normal Right upper extremity: normal to inspection Left upper extremity: normal to inspection Right lower extremity: hip/thigh, knee, ankle and foot Left lower extremity: normal to inspection, hip/thigh, knee, ankle and foot Other: Right foot transmetatarsal amputation dressing Changed. Incision with partial necrosis mainly on the lateral aspect as well as serous drainage.. Medial 40% of the incision well-healed. Central opening And lateral 4 cm by 3 mm with 5 cm tunneling. More lateral aspect with 2 cm tunneling. Active drainage. No erythema. Psych: Affect: normal affect Objective Data Vital Signs Vital Signs: Vital Signs - 24 hr 12/12/19 14:00 12/12/19 21:57 12/13/19 06:00 Temperature 97.4 F L 98.0 F 98.1 F Pulse Rate 84 83 77 Respiratory Rate 20 18 18 Blood Pressure 139/50 L 142/51 H 140/67 Pulse Oximetry 97 100 96 Intake/Output Intake/Output: Intake & Output 12/10/19 12/11/19 12/12/19 12/13/19 23:59 23:59 23:59 23:59 Intake Total 1750 1450 960 720 Output Total 2400 1550 1000 1050 Balance -650 -100 -40 -330 Meds/Results Medications: Active Medications Generic Name Dose Route Start Last Admin Trade Name Freq PRN Reason Stop Dose Admin Acetaminophen 650 mg 11/29/19 17:11 12/13/19 05:10 Tylenol Tablet PO 650 mg Q4H PRN Administration Mild Pain (1-3) Or Fever Amlodipine Besylate 5 mg 11/29/19 18:00 12/12/19 17:22 Norvasc PO 5 mg QPM YISSEL Administration Amoxicillin/Clavulanate Potassium 1 tablet 12/04/19 09:00 12/13/19 09:06 Augmentin 875-125 Mg Tab PO 12/17/19 21:01 1 tablet Q12H YISSEL Administration Aspirin 81 mg 11/30/19 08:00 12/13/19 09:06 Aspirin Chewable PO 81 mg DAILY@0800 YISSEL Administration Dextrose 12.5 gm 11/29/19 17:11 Dextrose 50% Syringe IV PUSH PRN PRN Hypoglycemia Diphenoxylate HCl/Atropine 1 tablet 12/03/19 08:17 12/10/19 04:22 Lomotil Tab 2.5 Mg PO 1 tablet PRN PRN Adm
--- NOTE | 2019-12-13 12:51 | WPDNEURORHBP ---
Subjective Date/time seen: 12/13/19 12:51 Interval history: this 74-year-old woman has been here with the wound after having had transmetatarsal resection of right foot which has been made to be nonweightbearing again as per orthopedic physician she has had 26 days of Lovenox think that can be discontinued prior to her to be transferred to the [facility] facility Review of Systems Review of Systems: All systems reviewed & are unremarkable except as noted in HPI and below Functional Status Ambulation Ability Ability to Ambulate 10 Feet: Minimum Assistance X 1 Ambulation Assistive Devices: Walker, Standard Transfers Ability Ability to Transfer In/Out of Chair: Moderate Assistance X 1 Exam Const: General: comfortable and no acute distress HENMT: General nose exam: Normal nares present Mouth: Yes moist mucous membranes Eyes: General: appearance normal, both eyes and all related structures Neck: Neck: supple and no JVD Resp: Effort & Inspection: normal respiratory effort Auscultation: clear to auscultation bilaterally Cardio: Rate: regular rate Rhythm: regular rhythm GI: GI Palp: Yes Soft to palpation Auscultation: normal bowel sounds Urinary Catheter: Urinary Catheter: patent and draining Skin: General skin exam: normal color and no rashes or lesions noted Other: the buttocks maceration is improve Neuro: Other: patient has normal mental status examination normal cranial examination good symmetrical strength in upper extremities however still lower extremity weakness which of course is better but is limited because of the nonweightbearing stander of the right lower Extrem: Other: the wound has been checked by the orthopedic physician please refer to his note dressing has been changed the boot is on the protecting 1 Psych: Mental Status: mental status grossly normal Objective Data Vital Signs Vital Signs: Vital Signs - 24 hr 12/12/19 14:00 12/12/19 21:57 12/13/19 06:00 Temperature 36.3 C L 36.7 C 36.7 C Pulse Rate 84 83 77 Respiratory Rate 20 18 18 Blood Pressure 139/50 L 142/51 H 140/67 Pulse Oximetry 97 100 96 Intake/Output Intake/Output: Intake & Output 12/10/19 12/11/19 12/12/19 12/13/19 23:59 23:59 23:59 23:59 Intake Total 1750 1450 960 720 Output Total 2400 1550 1000 1050 Balance -650 -100 -40 -330 Meds/Results Medications: Active Medications Generic Name Dose Route Start Last Admin Trade Name Lokiq PRN Reason Stop Dose Admin Acetaminophen 650 mg 11/29/19 17:11 12/13/19 12:36 Tylenol Tablet PO 650 mg Q4H PRN Administration Mild Pain (1-3) Or Fever Amlodipine Besylate 5 mg 11/29/19 18:00 12/12/19 17:22 Norvasc PO 5 mg QPM YISSEL Administration Amoxicillin/Clavulanate Potassium 1 tablet 12/04/19 09:00 12/13/19 09:06 Augmentin 875-125 Mg Tab PO 12/17/19 21:01 1 tablet Q12H YISSEL Administration Aspirin 81 mg 11/30/19 08:00 12/13/19 09:06 Aspirin Chewable PO 81 mg DAILY@0800 [facility] Administration Dextrose 12.5 gm 11/29/19 17:11 Dextrose 50% Syringe IV PUSH PRN PRN Hypoglycemia Diphenoxylate HCl/Atropine 1 tablet 12/03/19 08:17 12/10/19 04:22 Lomotil Tab 2.5 Mg PO 1 tablet PRN PRN Administration Diarrhea Enoxaparin Sodium 40 mg 11/30/19 09:00 12/13/19 09:06 Lovenox SUB-Q 40 mg DAILY [facility] Administration Glucagon 1 mg 11/29/19 17:11 Glucagon For Inj IM PRN PRN Hypoglycemia Glucose 15 gm 11/29/19 17:11 Glutose 15 PO PRN PRN Hypoglycemia Lisinopril 10 mg 11/30/19 09:00 12/13/19 09:07 Prinivil PO 10 mg DAILY [facility] Administration Loperamide HCl 2 mg 11/30/19 09:09 12/02/19 11:57 Loperamide Hcl PO 2 mg PRN PRN Administration Diarrhea Magnesium Hydroxide 30 ml 11/29/19 17:11 Milk Of Magnesia PO BID PRN Constipation Metformin HCl 500 mg 12/11/19 08:00 12/13/19 09:07 Glucophage PO 500 mg DAILY@0800 [facility] Adm
[2019-12-13 14:00] VITALS: BP 122/57; PULSE 80; RESP 18; TEMP 37.1; O2SAT 97
[2019-12-13] MEDS: AMLODIPINE BESYLATE 5 MG TABLET PO (16:59)
--- NOTE | 2019-12-18 14:20 | DS_ITS ---
DATE OF DISCHARGE: 12/13/2019 DISCHARGE REHABILITATION DIAGNOSIS: Primary rehab impairment category of amputation/other and etiological diagnosis of gangrene of the right foot with right transmetatarsal amputation. DISCHARGE ACTIVE COMORBID CONDITIONS: Compression fracture of the L1 vertebral body with chronic back pain. REASON FOR ADMISSION: This 74-year-old right-handed female presented to the hospital on 11/16/2019 with acute confusion and change in the mental status. Reportedly, she was found on the floor after a fall on 11/11/2019. She refused to go to the hospital and she had not been seen by the healthcare provider for almost 6 years. She was complaining of right foot pain and was taking Aleve several times a day in addition to the difficulties in urination. On evaluation in the ER, she was found to have blood sugar of 320. Abnormal UA with nitrite, 3+ leukocyte esterase, 75 WBCs, and 21 to 50 RBCs. Additionally, she was dehydrated. X-ray of the right foot demonstrated osteomyelitis with soft tissue swelling and subcutaneous emphysema along with calcaneal enthesopathy. She was started on IV antibiotics for the diagnosis of cellulitis and osteomyelitis and along with that, she was placed on aspirin with negative CT and MRI of the head. She underwent debridement of necrotic skin and soft tissue of the right foot by Dr. Multani. Cultures were positive for group B Streptococcus. Orthopedics Service that is Dr. Martinez diagnosed the gangrene with the large open wound on the dorsum of the forefoot. On 11/20/2019, she underwent open transmetatarsal amputation and debridement to salvage the right lower extremity with placement of wound VAC. She completed 7-day course of IV vancomycin and was discharged to [facility] on IV Zosyn for the continuation of the additional 7 days of antibiotics and rehab. For complaint of lower back pain, she was documented to have L1 fracture for which she was given lumbar brace for support. She had no travel outside the [place] had no contact with someone who was ill, or travel outside the [place] in the past 21 days and she was not having any symptoms of respiratory illness. REHAB EVALUATION: Initial evaluation revealed her to have independence in eating, required setup for the oral hygiene. She refused evaluation of toileting. She required partial assistance for bathing and setup for upper body dressing. She was dependent for lower body dressing, footwear; required supervision for rolling in bed. Refused sit to lying. Required supervision for lying to sitting; dependent for sit to stand, chair transfer, and she refused toilet transfer. She was unable to car transfer, walking 10 feet on uneven surfaces. She was unable to walk 50 feet with 2 turns, take curb or steps, 4 steps. She was unable to pickup object and she required partial assistance for wheelchair even for 50 feet. ANTICIPATED REHAB GOALS: At the time of admission were to make her independent in eating and oral hygiene, toileting and bathing setup, upper body dressing independent; lower body dressing, and footwear setup; rolling in bed, sit to lying, lying to sitting independent; sit to stand, chair transfer, toilet transfer all setup. Car transfer supervision, 10 feet walking independent, 50 feet walking with 2 turns partial assistance. Supervision for walking 10 feet on uneven surfaces, partial assistance for curb or step, 4 steps, 12 steps, or picking up object. She still required supervision for car transfer, and she was dependent for walking 150 feet. She required supervision of wheelchair 50 and 150 feet and she will be requiring 150 feet and 50 feet supervision. LEVEL OF FUNCTION AT THE TIME OF DISCHARGE: She required only setup eating and oral hygiene, partial assistance for toileting and bathing; setup for upper body feroz
== END 2019-12-13 17:53 | DRG 561 ==
PROVIDERS: Admitting Provider Psychiatry & Neurology Neurology; Visit Provider Psychiatry & Neurology Neurology
DX: Z47.81 Encounter for orthopedic aftercare following surgical amputation (principal); Z89.431 Acquired absence of right foot; S32.010D Wedge compression fracture of first lumbar vertebra, subsequent encounter for fracture with routine healing; E11.51 Type 2 diabetes mellitus with diabetic peripheral angiopathy without gangrene; E11.42 Type 2 diabetes mellitus with diabetic polyneuropathy; G89.29 Other chronic pain; I11.9 Hypertensive heart disease without heart failure; M77.51 Other enthesopathy of right foot and ankle; L98.9 Disorder of the skin and subcutaneous tissue, unspecified; R31.9 Hematuria, unspecified; R33.9 Retention of urine, unspecified; Z79.84 Long term (current) use of oral hypoglycemic drugs
CPT/HCPCS: 36415; 80048; 81001; 85025; 87086; 97110; 97116; 97161; 97165; 97530; 97535; 97542; A9270; J1650; J1815; J2543

== ENCOUNTER 2020-01-08 16:03 | Inpatient (IN) | payer MEDICARE, SELFPAY ==
--- NOTE | 2019-11-16 17:46 | ECG_ITS ---
SINUS RHYTHM RIGHT BUNDLE BRANCH BLOCK BASELINE ARTIFACT- I, III, V6 ABNORMAL ECG Electronically Signed On 11-17-2019 9:30:49 CDT by Percy Hagen D.O. NO PREVIOUS ECG AVAILABLE FOR COMPARISON [facility]
[2020-01-08] VITALS (9 sets, daily range): BP systolic 109–163; BP diastolic 53–113; PULSE 97–109; RESP 18–28; TEMP 36.8–37.9; O2SAT 94–97; BMI 28.5
--- NOTE | ~2020-01-08 | XR_ITS ---
EXAMINATION: XR chest 1V portable EXAM DATE: 01/08/2020 16:54 INDICATION: Transient alteration of awareness. TECHNIQUE: Portable AP frontal chest x-ray was obtained. There is no prior study for comparison. FINDINGS: Left basilar linear opacities most consistent with subsegmental atelectasis. Left upper lob e granuloma. There are no pleural effusions. The cardiomediastinal silhouette is within normal ledesma its. There is no pneumothorax suspected. There are bony degenerative changes. IMPRESSION: Linear left basilar opacities most likely subsegmental atelectasis. Reviewed, dictated and finalized at location A.
--- NOTE | ~2020-01-08 | CT_ITS ---
EXAMINATION: CT brain wo con DATE: 01/09/2020 11:44 INDICATION: Metabolic encephalopathy. Altered mental status. Hyperkalemia. TECHNIQUE: Computed tomography (CT) of the head was performed without intravenous contrast. The dose- length product was 832.33 mGy-cm. The mA was adjusted according to patient size. Iterative reconstruc tion technique was employed. COMPARISON: CT dated 11/16/2019 FINDINGS: Generalized atrophy. There are scattered mild periventricular and subcortical white matter changes, most likely related to small vessel ischemic disease (microangiopathy). No ventriculomegaly or midline shift. Basilar cisterns are patent. Paranasal sinuses and mastoids are pneumatized. There is intracranial atherosclerosis. IMPRESSION: 1. No acute intracranial abnormality. 2: Chronic age-related findings. Reviewed, dictated and finalized at location A.
--- NOTE | ~2020-01-08 | US_ITS ---
EXAMINATION: US venous doppler LE EXAM DATE: 01/13/2020 15:23 INDICATION: Bilateral leg pain. TECHNIQUE: Multiple grayscale, color flow and Doppler images of the lower extremity deep venous syste ms bilaterally were obtained and reviewed. There is no prior study for comparison. FINDINGS: RIGHT SIDE Common femoral: -------- Normal. Profunda femoral: ------- Normal. Femoral: Normal. Popliteal: Normal. Posterior tibial: --------- Normal. Peroneal: Normal. Gastrocnemius: Not visualized. Soleus: Not visualized. Greater saphenous: ----- Normal. Lesser saphenous: ------ Not visualized. LEFT SIDE Common femoral: --------Thrombosed. Profunda femoral: ------- Normal. Femoral: Thrombosed. Popliteal: Thrombosed. Posterior tibial: ---------Thrombosed. Peroneal: Thrombosed. Gastrocnemius: Not visualized. Soleus: Not visualized. Greater saphenous: ----- Normal. Lesser saphenous: ------ Not visualized. IMPRESSION: 1. Extensive left lower extremity DVT. I discussed DVT with Nicolasa Echevarria PA-C at 01/13/2020 15:26 CDT. Reviewed, dictated and finalized at location A.
--- NOTE | ~2020-01-08 | XR_ITS ---
EXAMINATION: XR foot RT min 3V DATE: 01/14/2020 14:23 INDICATION: Right foot infection. TECHNIQUE: 4 views of right foot were obtained. COMPARISON: Right foot radiographs 11/16/2019 FINDINGS: There are changes of transmetatarsal amputation of the right foot. There are erosions of th e stump of fifth metatarsal. There is an ulcer distal to this bone. There is mild midfoot osteoarthri tis. There is an enthesophyte at the plantar aspect of calcaneal tuberosity. IMPRESSION: 1. Erosions of the end of stump of fifth metatarsal, consistent with osteomyelitis. Reviewed, dictated and finalized at location A. IMPRESSION: 1. Erosions of the end of stump of fifth metatarsal, consistent with osteomyeli tis.
--- NOTE | ~2020-01-08 | CT_ITS ---
EXAMINATION: CT abdomen pelvis wo con DATE: 01/11/2020 12:41 INDICATION: Abdominal pain. Urinary tract infection. TECHNIQUE: Computed tomography (CT) of the abdomen and pelvis was performed without intravenous contr ast. Automated exposure control and iterative reconstruction technique were employed. Exam dose: 131 3.93 mGy-cm total exam DLP. COMPARISON: None. FINDINGS: There is discoid atelectasis of the lingula and middle lobe and atelectasis since consolida tion to a greater extent in the lower lobes. There are mild bilateral pleural effusions. There is cardiomegaly. Coronary artery and thoracic aortic atherosclerosis. There is a large sliding hiatal hernia. No hepatic, splenic, pancreatic, and adrenal or renal space-occupying mass lesion is evident on this limited noncontrast examination. The gallbladder appears moderately distended. No bile duct or pancreatic duct dilatation. There is atherosclerotic calcification of the abdominal aorta and branches but no abdominal aortic an eurysm. No intraperitoneal or retroperitoneal or pelvic mass lesion or adenopathy or ascites. There is fecal impaction in the rectosigmoid area. Diverticulosis of the left colon; no CT evidence o f diverticulitis. Normal appendix. Some uterine calcified fibroids are noted. There is a Rueda catheter and air within the relatively ev acuated urinary bladder. Occasional small sites of subcutaneous emphysema are noted in the anterior abdominal wall. Prominent diffuse osteopenia. There is a prominent burst fracture deformity and suggestion of possible lysis at L1. Diffuse idiopathic skeletal hyperostosis of the thoracic spine. Osteoarthritis at the hip joints. IMPRESSION: Cardiomegaly, mild bilateral pleural effusions Bilateral lower lung infiltrate and/atelectasis Large sliding hiatal hernia Rectosigmoid fecal impaction Diverticulosis of the left colon Prominent burst fracture deformity and possible ostial lysis at L1 Reviewed, dictated and finalized at Location A. Reviewed, dictated and finalized at location A.
--- NOTE | ~2020-01-08 | XR_ITS ---
EXAMINATION: XR abdomen obstructive series DATE: 01/14/2020 14:23 INDICATION: Abdominal pain. Fecal impaction. TECHNIQUE: Upright and supine views of the abdomen were obtained. COMPARISON: CT abdomen and pelvis 01/11/2020 FINDINGS: There are no dilated loops of bowel. There is a paucity of stool in the colon. No free intr aperitoneal gas. There is mild atelectasis at the lung bases. IMPRESSION: 1. Normal bowel gas pattern. Reviewed, dictated and finalized at location A.
[2020-01-08 16:57] LABS: Basophils Percent Auto 0.5 % (0.2-1.2); Eosinophils Percent Auto 0.1 % (0-4.4); Hematocrit 35.5 % (37.0-47.0); Hemoglobin 11.1 g/dL (12.0-15.0); Immature Granulocyte Absolute 0.03 K/mm3 (0.00-0.031); Immature Granulocyte Percent A 0.4 % (0-0.5); Lymphocytes Absolute Auto 0.47 K/mm3 (0.9-3.2); Lymphocytes Percent Auto 5.7 % (18.3-44.2); Mean Corpuscular HGB Conc 31.3 g/dl (32-36); Mean Corpuscular Hemoglobin 28.7 pg (26-34); Mean Corpuscular Volume 91.7 fl (80-100); Mean Platelet Volume 10.5 fl (7.4-10.4); Monocytes Absolute Auto 0.3 K/mm3 (0.1-0.6); Neutrophils Absolute Auto 7.5 K/mm3 (1.3-6.7); Neutrophils Percent Auto 90.3 % (45.5-73.1); Platelet Count Result 256 k/mm3 (150-375); Red Blood Count 3.87 M/mm3 (4.2-5.4); Red Cell Distribution Width 17.3 % (11.5-14.5); White Blood Count 8.3 K/mm3 (4.5-10.0)
[2020-01-08 17:04] LABS: Add Urine Microscopic? YES; Appearance Urine Cloudy (Clear); Bacteria Urine 1+ /hpf; Bilirubin Urine Negative (Negative); Blood Urine Negative (Negative); Color Urine Yellow (Yellow); Glucose Urine UA Negative (Negative); Ketones Urine 1+ mg/dL (Negative); Leukocyte Esterase Ur 3+ LEU/UL (Negative); Mucus Urine Rare /lpf; Nitrate Urine Positive (Negative); Protein Urine 1+ mg/dL (Negative); Specific Grav Ur 1.021 (1.001-1.035); Squamous Epithelial Cell Urine Many /hpf (Few); Urobilinogen Urine Negative mg/dL (<2.0); WBC Urine >75 /hpf
[2020-01-08 17:07] LABS: Lactic Acid Reflex 1.2 mmol/L (0.7-2.1)
[2020-01-08] MEDS: SODIUM CHLORIDE 0.9% IV 1,000 ML 999 ML IV CONT ×2 (17:26→17:51)
[2020-01-08 17:35] LABS: Alanine Aminotransferase 17 U/L (4-35); Albumin Level 3.9 g/dL (3.5-5.1); Alkaline Phosphatase 142 U/L (38-126); Aspartate Amino Transferase 35 U/L (14-36); Bilirubin,Total 0.5 mg/dL (0.2-1.3); Blood Urea Nitrogen 40 mg/dL (7-17); Calcium 10.5 mg/dL (8.4-10.2); Carbon Dioxide 21 mmol/L (22-30); Chloride 104 mmol/L (98-107); Estimated Glomerular Filt Rate 44; Glucose 144 mg/dL (65-105); Potassium 5.6 mmol/L (3.4-5.0); Sodium 137 mmol/L (137-145)
--- NOTE | 2020-01-08 17:45 | ED.AMS ---
HPI - Altered Mental Status General Chief Complaint: Altered Mental Status Stated Complaint: AMS Time Seen by Provider: 01/08/20 16:14 History of Present Illness HPI narrative: Patient is a 74-year-old female who presents to the ER from home with altered mental status. Patient was admitted 2 months ago for necrotic foot as well as a stroke. She ended up having a midfoot amputation and stayed in the [facility]. She was then [facility]. Apparently she is recently been discharged from the penitentiary. Patient has an indwelling Rueda catheter that is very cloudy in appearance. She is awake alert and oriented 1-2. Patient has had decline over last couple days according to EMS. No family present at this time. Related Data Allergies Allergy/AdvReac Type Severity Reaction Status Date / Time No Known Allergies Allergy Verified 01/08/20 16:16 Review of Systems Review of Systems: ROS unobtainable: Yes unobtainable due to medical condition PMFSH Social History Social History Smoking status: Never smoker Second hand tobacco smoke exposure: No Alcohol intake: never Substance use: never Substance use type: does not use Gender identity (if verbalized by the patient): Female Spiritual care concerns: No Agree to blood products: Yes Exam Narrative: Exam Narrative: GENERAL: Chronically ill-appearing, well-nourished, and in no acute distress. HEAD: Normocephalic, atraumatic. EYES: PERRL and EOMI. ENT: Dry mucous membranes. CHEST: Clear to auscultation. No respiratory distress. HEART: Tachycardic and regular normal peripheral pulses. ABDOMEN: Soft, nontender, nondistended. EXTREMITIES: Normal range of motion. No edema. Right foot wrapped had amputation site. SKIN: Warm, dry, poor skin turgor. NEURO: Alert and oriented x2. P Course Course Emergency Course: Admit to the hospitalist service. Ceftriaxone ordered for UTI. IV fluid ordered to help start decreasing potassium. Vital Signs Vital signs: Vital Signs Temperature 99.1 F 01/08/20 16:02 Pulse Rate 103 H 01/08/20 16:02 Respiratory Rate 24 H 01/08/20 16:02 Blood Pressure 163/58 H 01/08/20 16:02 Pulse Oximetry 97 01/08/20 16:02 Temperature 99.1 F 01/08/20 16:02 Pulse Rate 103 H 01/08/20 16:02 Respiratory Rate 24 H 01/08/20 16:02 Blood Pressure 163/58 H 01/08/20 16:02 Pulse Oximetry 97 01/08/20 16:02 MDM - Altered Mental Status Lab Data Result diagrams: 01/08/20 16:41 01/08/20 17:14 Labs: Lab Results 01/08/20 01/08/20 01/08/20 Range/Units 16:41 16:41 16:42 WBC 8.3 (4.5-10.0) K/mm3 RBC 3.87 L (4.2-5.4) M/mm3 Hgb 11.1 L (12.0-15.0) g/dL Hct 35.5 L (37.0-47.0) % MCV 91.7 (80-100) fl MCH 28.7 (26-34) pg MCHC 31.3 L (32-36) g/dl RDW 17.3 H (11.5-14.5) % Plt Count 256 (150-375) k/mm3 MPV 10.5 H (7.4-10.4) fl Immature Gran % (Auto) 0.4 (0-0.5) % Neut % (Auto) 90.3 H (45.5-73.1) % Lymph % (Auto) 5.7 L (18.3-44.2) % Mitchell % (Auto) 3.0 (2.6-8.5) % Eos % (Auto) 0.1 (0-4.4) % Baso % (Auto) 0.5 (0.2-1.2) % Lymph # (Auto) 0.47 L (0.9-3.2) K/mm3 Mitchell # (Auto) 0.3 (0.1-0.6) K/mm3 Eos # (Auto) 0.0 (0-0.3) K/mm3 Baso # (Auto) 0.0 (0.0-0.1) K/mm3 Abs Immat Gran (auto) 0.03 (0.00-0.031) K/mm3 Absolute Neuts (auto) 7.5 H (1.3-6.7) K/mm3 Absolute Nucleated RBC 0.0 (0.0-0.012) K/mm3 Nucleated RBC % 0.0 (0.0-0.2) % Sodium (137-145) mmol/L Potassium (3.4-5.0) mmol/L Chloride (98-107) mmol/L Carbon Dioxide (22-30) mmol/L BUN (7-17) mg/dL Creatinine (0.7-1.0) mg/dL Estim Creat Clear Calc Estimated GFR (59 - ) Glucose (65-105) mg/dL Lactic Acid 1.2 (0.7-2.1) mmol/L Calcium (8.4-10.2) mg/dL Total Bilirubin (0.2-1.3) mg/dL AST (14-36) U/L ALT (4-35) U/L
[2020-01-08] MEDS: SODIUM CHLORIDE 0.9% IV 1,000 ML 125 ML IV CONT (19:59)
--- NOTE | 2020-01-08 21:00 | PC.NURSE ---
This patient, Tana Hutchins, was admitted to [facility] Surg Room 323-01 on 01/07 at 2100 by Brandon Smyth RN. Patient/family oriented to hospital policies and general routines including ID bracelet, bed and alarms, visiting hours, pain management, procedures, bathroom and other care routines, personal items, smoking policy, room service/diet, and visiting hours. Valuables list has been completed. Information on how to activate the Rapid Response Team has been discussed. Patient/Family are encouraged to report perceived risks to care and to ask questions if they do not understand what they are told or what they should do.
[2020-01-09] VITALS (20 sets, daily range): BP systolic 90–129; BP diastolic 41–53; PULSE 70–108; RESP 18–20; TEMP 36.7–39.6; O2SAT 94–96
[2020-01-09] MEDS: MORPHINE SULFATE 4 MG/ML INJ IV PUSH ×2 (01:26→10:27)
--- NOTE | 2020-01-09 01:57 | PM.IMHP ---
H&P: HPI History of Present Illness Chief complaint: Metobolic Encephalopathy, UTI, Hyperkalemia Narrative: Date and time of patient contact: 01/08/2020 at 11:30 p.m. 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 On presentation to the ER the patient was febrile with a T-max of 100.2?. Review of Systems Review of Systems: ROS unobtainable: Yes unobtainable due to medical condition and unobtainable due to mental status PMFSH Past Medical History Medical History (Updated 01/09/20 @ 02:31 by Melissa Vera DO) Compression fracture of L1 lumbar vertebra Diabetes mellitus Newly diagnosed November 2019. Hemoglobin A1c of 12.5 Diabetic ulcer of foot associated with diabetes mellitus due to underlying condition, with necrosis of muscle Right foot Diastolic dysfunction EF was 66 5%, mild concentric left ventricular hypertrophy, moderate left atrial enlargement Essential hypertension Foot abscess, right Gangrene of toe of right foot Status post forefoot amputation Urinary retention Surgical History Surgical History (Updated 01/09/20 @ 02:19 by Melissa Vera DO) History of section, classical S/P transmetatarsal amputation of foot (11/20/19) Due to gangrene right foot with initial debridement of the foot 11/17/2019 transmetatarsal amputation 11/20/2019, further debridement of amputation site 11/27/[address] Cazares Family History Family History Mother Diabetes mellitus Cerebrovascular accident Father Congestive heart failure (CHF) Father No problems noted. Son Hypertension Social History Social History (Updated 01/09/20 @ 02:10 by Melissa Vera DO) Social History: Code status: Full code Smoking status: Unknown if ever smoked Second hand tobacco smoke exposure: No Alcohol intake: unknown Substance use: unknown Substance use type: does not use Living arrangements: with family Additional living arrangements comments: The patient had been hospitalized in November. She was discharged to acute rehab in then to longterm facility. She recently returned home. Gender identity (if verbalized by the patient): Female Spiritual care concerns: No Agree to blood products: Yes Meds Home Medications and Allergies Home Medications Medication Instructions Recorded Confirmed Type amlodipine [Norvasc] 5 mg PO QPM #30 tablet 11/29/19 01/08/20 Rx lisinopril 10 mg PO DAILY #30 tablet 11/29/19 01/08/20 Rx oxycodone-acetaminophen 2 tablet PO Q4H PRN 10 Days #45 12/13/19 01/08/20 Rx tablet tramadol 50 mg PO Q6H PRN 30 Days #45 tablet 12/13/19 01/08/20 Rx metformin [Glucophage] 500 mg PO BID 01/08/20 01/08/20 History nitrofurantoin monohyd/m-cryst 100 mg PO Q12H 01/08/20 01/08/20 History nystatin [Nystop] 1 applic TOPICAL BID 01/08/20 01/08/20 History Allergies Allergy/AdvReac Type Severity Reaction Status Date / Time No Known Allergies Allergy Verified 01/08/20 16:16 Vital Signs Vital Signs - 24 hr 01/08/20 16:02 01/08/20 16:30 01/08/20 17:00 Temperature 99.1 F Pulse Rate 103 H 97 97 Respiratory Rate 24 H 28 H 28 H Blood Pressure 163/58 H 126/62 126/62 Pulse Oximetry 97 95 95 01/08/20 18:30 01/08/20 19:00 01/08/20 19:58 Temperature 100.2 F H Pulse Rate 109 H 98 Respiratory Rate 24 H 28 H Blood Pressure 147/113 H 159/53 H Pulse Oximetry 95 95 01/08/20 20:00 01/08/20 20:30 01/08/20 20:45 Temperature 100.2 F H 100.2 F H 98.2 F Pulse Rate 104 H 98 Respiratory Rate 28 H 18 Blood Pressure 122/65 109/53 L Pulse Oximetry 96 94 Exam Narrative: Exam Narrative: PHYSICAL EXAM: NOAH
[2020-01-09] MEDS: SODIUM CHLORIDE 0.9% IV 1,000 ML 125 ML IV CONT ×3 (04:08→21:16)
[2020-01-09 06:25] LABS: Hematocrit 29.5 % (37.0-47.0); Hemoglobin 9.1 g/dL (12.0-15.0); Mean Corpuscular HGB Conc 30.8 g/dl (32-36); Mean Corpuscular Hemoglobin 28.4 pg (26-34); Mean Corpuscular Volume 92.2 fl (80-100); Mean Platelet Volume 9.3 fl (7.4-10.4); Platelet Count Result 214 k/mm3 (150-375); Red Cell Distribution Width 17.2 % (11.5-14.5); White Blood Count 10.3 K/mm3 (4.5-10.0)
[2020-01-09 06:39] LABS: Blood Urea Nitrogen 37 mg/dL (7-17); Calcium 9.2 mg/dL (8.4-10.2); Carbon Dioxide 21 mmol/L (22-30); Chloride 112 mmol/L (98-107); Estimated CRCL calculation 48 ml/min; Estimated Glomerular Filt Rate 54; Glucose 124 mg/dL (65-105); Potassium 4.5 mmol/L (3.4-5.0); Sodium 138 mmol/L (137-145)
[2020-01-09 08:50] LABS: Glucose Point of Care 115 (65-105)
--- NOTE | 2020-01-09 09:17 | PC.NURSE ---
Patient noted to be calling out loudly - arrived to find patient shaking. Unable to hear blood pressure or assess tele as pattern shows much artifact from movement. Temp 102.4 ax. Call placed to Nicolasa Rogers but no answer - message left. Message left with Ania Chavez for Nicolasa to contact [place]. Staff at bedside. Cool cloths applied to forehead and to neck. Monitoring closely.
[2020-01-09] MEDS: ENOXAPARIN 40 MG/0.4 ML SYRINGE SUB-Q (09:31)
--- NOTE | 2020-01-09 09:32 | PC.NURSE ---
Nicolasa Rogers here to see patient.
--- NOTE | 2020-01-09 09:45 | PM.IMPN ---
Progress Note: A&P Assessment and Plan (1) UTI (urinary tract infection) due to urinary indwelling Rueda catheter: Qualifiers: Encounter type: initial encounter Indwelling urinary catheter type: indwelling urethral catheter Qualified Code(s): T83.511A - Infection and inflammatory reaction due to indwelling urethral catheter, initial encounter; N39.0 - Urinary tract infection, site not specified Code(s): T83.511A - Infection and inflammatory reaction due to indwelling urethral catheter, initial encounter; N39.0 - Urinary tract infection, site not specified Status: Acute Assessment and Plan: Continue IV Rocephin (day 2) with urine and blood cultures pending. Has had indwelling Rueda since November 2019 due to urinary retention. Catheter changed last evening by nursing. Recently returned home from SNF and seems navi-care has been poor. (2) Sepsis: Onset Date: Unknown Qualifiers: Sepsis acute organ dysfunction status: with acute organ dysfunction Sepsis type: sepsis due to unspecified organism Severe sepsis acute organ dysfunction type: encephalopathy Severe sepsis shock status: without septic shock Qualified Code(s): A41.9 - Sepsis, unspecified organism; R65.20 - Severe sepsis without septic shock; G93.40 - Encephalopathy, unspecified Code(s): A41.9 - Sepsis, unspecified organism Status: Acute Assessment and Plan: Evident by fever and tachycardia. Suspected source is urinary. See above. Lactic acid within normal limits. Febrile today - continue tylenol and alternate with ibuprofen as needed. Continue IV hydration. Monitor vital signs and urine output. (3) Acute metabolic encephalopathy: Code(s): G93.41 - Metabolic encephalopathy Status: Acute Assessment and Plan: [place] to be secondary to UTI and fever, but will obtain CT brain to rule out other etiology. (4) PATRIC (acute kidney injury): Code(s): N17.9 - Acute kidney failure, unspecified Status: Acute Assessment and Plan: Cr improved with IV hydration. Trend renal function and continue holding metformin and lisinopril for now. [place] to be secondary to dehydration and sepsis. (5) Acute hyperkalemia: Code(s): E87.5 - Hyperkalemia Status: Resolved Assessment and Plan: Resolved. Continue to monitor. (6) S/P transmetatarsal amputation of foot: Onset Date: 11/20/19 Qualifiers: Laterality: right Qualified Code(s): Z89.431 - Acquired absence of right foot Code(s): Z89.439 - Acquired absence of unspecified foot Status: Acute Assessment and Plan: Continue dressing changes. No evidence of acute infection. Seen by wound RN. Subjective Date/time seen: 01/09/20 09:30 Interval history: Ms. Hutchins is a 74yo F admitted for UTI and altered mental status. She is febrile at time of my encounter and intermittently shivering a bit. She wakes to verbal stimuli and touch, calls out but is not able to answer any of my questions. Review of Systems Review of Systems: ROS unobtainable: Yes unobtainable due to mental status Exam Narrative: Exam Narrative: General: Ill-appearing female resting supine in bed, intermittently shivering. Neuro: Lethargic but wakes easily to verbal stimuli, speaks but not able to answer questions or participate in full neuro exam. HEENT: Normocephalic, EOMI, oral mucosa dry. Cardiovascular: Rate is mildly tachycardic, rhythm is regular. Respiratory: Lungs clear to auscultation anteriorly and laterally. Respirations even and nonlabored. Tolerating room air. Abdomen: Soft, non-tender, non-distended, bowel sounds present. Extremities: Right forefoot amputation, dressing clean/dry/intact just changed by wound RN. LYNETTE radial pulses 2+. :
[2020-01-09] MEDS: IBUPROFEN IV 800 MG/200 ML 800 MG/200 ML BAG 400 MG IVPB ×2 (10:26→21:27)
[2020-01-09 13:27] LABS: Glucose Point of Care 126 (65-105)
[2020-01-09] MEDS: TOLNAFTATE 1% POWDER 45 GM BTL 1 APPLIC TOPICAL (16:03)
[2020-01-09 17:32] LABS: Glucose Point of Care 115 (65-105)
[2020-01-09] MEDS: SILVERGEL (ELTA) 45 ML 1 APPLIC TOPICAL (18:18)
--- NOTE | 2020-01-09 18:39 | PC.NURSE ---
1400 NOTIFIED TAVIA ALBERTO ABOUT PT'S DECREASE IN FEVER AND B/P OF 90/41. BAKARI GUTHRIE.
--- NOTE | 2020-01-09 18:44 | PC.NURSE ---
0930 NOTIFIED TAVIA OF PATIENT SHIVERING/SHAKING, YELLING OUT AND ELEVATED FEVER. SHE STATED SHE WOULD BE THERE SOON TO SEE PATIENT. BAKARI GUTHRIE.
[2020-01-09] MEDS: ACETAMINOPHEN 325 MG TABLET 650 MG PO (20:20)
[2020-01-09 22:47] LABS: Glucose Point of Care 118 (65-105)
[2020-01-10] VITALS (10 sets, daily range): BP systolic 99–146; BP diastolic 43–77; PULSE 69–110; RESP 16–20; TEMP 35.6–37.4; O2SAT 91–100; BMI 28.5
[2020-01-10 06:05] LABS: Basophils Percent Auto 0.3 % (0.2-1.2); Hematocrit 33.2 % (37.0-47.0); Hemoglobin 10.4 g/dL (12.0-15.0); Immature Granulocyte Absolute 0.06 K/mm3 (0.00-0.031); Immature Granulocyte Percent A 0.9 % (0-0.5); Lymphocytes Absolute Auto 0.31 K/mm3 (0.9-3.2); Lymphocytes Percent Auto 4.4 % (18.3-44.2); Mean Corpuscular HGB Conc 31.3 g/dl (32-36); Mean Corpuscular Hemoglobin 28.6 pg (26-34); Mean Corpuscular Volume 91.2 fl (80-100); Mean Platelet Volume 9.1 fl (7.4-10.4); Monocytes Absolute Auto 0.1 K/mm3 (0.1-0.6); Monocytes Percent Auto 1.3 % (2.6-8.5); Neutrophils Absolute Auto 6.5 K/mm3 (1.3-6.7); Neutrophils Percent Auto 93.1 % (45.5-73.1); Platelet Count Result 210 k/mm3 (150-375); Red Blood Count 3.64 M/mm3 (4.2-5.4); Red Cell Distribution Width 17.6 % (11.5-14.5)
[2020-01-10] MEDS: SODIUM CHLORIDE 0.9% IV 1,000 ML 125 ML IV CONT ×2 (06:11→14:08)
[2020-01-10 06:14] LABS: Blood Urea Nitrogen 40 mg/dL (7-17); Carbon Dioxide 23 mmol/L (22-30); Chloride 114 mmol/L (98-107); Estimated CRCL calculation 48 ml/min; Estimated Glomerular Filt Rate 54; Glucose 102 mg/dL (65-105); Magnesium 1.5 mg/dL (1.6-2.3); Phosphorus 3.2 mg/dL (2.5-4.5); Potassium 4.6 mmol/L (3.4-5.0); Sodium 141 mmol/L (137-145)
[2020-01-10] MEDS: ACETAMINOPHEN 325 MG TABLET 650 MG PO ×2 (08:35→20:31)
[2020-01-10] MEDS: ENOXAPARIN 40 MG/0.4 ML SYRINGE SUB-Q (08:35)
[2020-01-10] MEDS: TRAMADOL HCL 50 MG TABLET PO ×2 (09:48→16:56)
[2020-01-10 10:21] LABS: Glucose Point of Care 90 (65-105)
--- NOTE | 2020-01-10 10:37 | PM.IMPN ---
Progress Note: A&P Assessment and Plan (1) UTI (urinary tract infection) due to urinary indwelling Rueda catheter: Qualifiers: Encounter type: initial encounter Indwelling urinary catheter type: indwelling urethral catheter Qualified Code(s): T83.511A - Infection and inflammatory reaction due to indwelling urethral catheter, initial encounter; N39.0 - Urinary tract infection, site not specified Code(s): T83.511A - Infection and inflammatory reaction due to indwelling urethral catheter, initial encounter; N39.0 - Urinary tract infection, site not specified Status: Acute Assessment and Plan: Continue IV Rocephin (day 3). Urine culture growing E coli - awaiting sensitivities. 1 of 2 blood cultures growing Staph aureus; repeat blood cultures this AM and start vancomycin day 1. Has had indwelling Rueda since November 2019 due to urinary retention. Catheter changed on arrival by nursing. (2) Sepsis: Onset Date: Unknown Qualifiers: Sepsis acute organ dysfunction status: with acute organ dysfunction Sepsis type: sepsis due to unspecified organism Severe sepsis acute organ dysfunction type: encephalopathy Severe sepsis shock status: without septic shock Qualified Code(s): A41.9 - Sepsis, unspecified organism; R65.20 - Severe sepsis without septic shock; G93.40 - Encephalopathy, unspecified Code(s): A41.9 - Sepsis, unspecified organism Status: Acute Assessment and Plan: Evident by fever and tachycardia. Suspected source is urinary. See above. Lactic acid within normal limits. Febrile yesterday - continue Tylenol and alternate with ibuprofen as needed. Continue IV hydration. Monitor vital signs and urine output. (3) Acute metabolic encephalopathy: Code(s): G93.41 - Metabolic encephalopathy Status: Acute Assessment and Plan: Improved. She is much more awake and talking but still a little confused today, unsure of her baseline. [place] to be secondary to UTI and fever. CT brain shows no acute intracranial findings. (4) PATRIC (acute kidney injury): Code(s): N17.9 - Acute kidney failure, unspecified Status: Resolved Assessment and Plan: Cr improved with IV hydration. Trend renal function and continue holding metformin and lisinopril for now. [place] to be secondary to dehydration and sepsis. (5) S/P transmetatarsal amputation of foot: Onset Date: 11/20/19 Qualifiers: Laterality: right Qualified Code(s): Z89.431 - Acquired absence of right foot Code(s): Z89.439 - Acquired absence of unspecified foot Status: Acute Assessment and Plan: Continue dressing changes. No evidence of acute infection. Seen by wound RN. Subjective Date/time seen: 01/10/20 10:00 Interval history: Ms. Hutchins is a 74yo F admitted for UTI and altered mental status. She is much more awake and talkative compared to yesterday. She complains of pain all over and keeps repeating please bring my pain pills . On further questioning about her pain she tells me her back hurts. She denies chest pain or shortness of breath. She denies nausea or vomiting. Review of Systems Review of Systems: Narrative: Twelve systems were reviewed with pertinent positives and negatives as per HPI. Exam Narrative: Exam Narrative: General: Chronically ill-appearing female resting supine in bed. Neuro: Much more awake than yesterday and talkative, forming sentences. She knows she is in the hospital but cannot tell me which one or tell me the year. I am unsure of her baseline mentation. HEENT: Normocephalic, EOMI, oral mucosa dry. Cardiovascular: Rate and rhythm are regular. Telemetry review shows normal sinus rhythm rate 82 at time of my exam. Respiratory: Lungs clear to auscultation in all [place]. Respirations even and
[2020-01-10 12:38] LABS: Glucose Point of Care 83 (65-105)
--- NOTE | 2020-01-10 14:21 | PCOTNOTE ---
Ot evaluation attempted. Patient adamantly refusing to participate with therapy. Will attempt OT evaluation at later time.
[2020-01-10] MEDS: SILVERGEL (ELTA) 45 ML 1 APPLIC TOPICAL (15:49)
[2020-01-10] MEDS: TOLNAFTATE 1% POWDER 45 GM BTL 1 APPLIC TOPICAL (15:49)
[2020-01-10 17:54] LABS: Glucose Point of Care 90 (65-105)
[2020-01-10] MEDS: AMLODIPINE BESYLATE 5 MG TABLET PO (18:24)
[2020-01-10] MEDS: MAGNESIUM SULF 2 GM/WATER 50ML 2 GM/50 ML BAG IVPB (18:24)
[2020-01-11 02:08] LABS: Glucose Point of Care 91 (65-105)
[2020-01-11] MEDS: ACETAMINOPHEN 325 MG TABLET 650 MG PO ×3 (02:57→21:48)
[2020-01-11 03:22] VITALS: BP 144/64; PULSE 81; RESP 18; TEMP 36.5; O2SAT 96
[2020-01-11] MEDS: SODIUM CHLORIDE 0.9% IV 1,000 ML 80 ML IV CONT (04:59)
[2020-01-11 06:00] VITALS: BP 144/64; PULSE 78; RESP 18; TEMP 37.2; O2SAT 97
[2020-01-11 06:33] LABS: Blood Urea Nitrogen 27 mg/dL (7-17); Calcium 8.3 mg/dL (8.4-10.2); Carbon Dioxide 20 mmol/L (22-30); Chloride 115 mmol/L (98-107); Estimated CRCL calculation 67 ml/min; Estimated Glomerular Filt Rate > 60; Glucose 105 mg/dL (65-105); Magnesium 1.8 mg/dL (1.6-2.3); Phosphorus 2.1 mg/dL (2.5-4.5); Potassium 3.2 mmol/L (3.4-5.0); Sodium 140 mmol/L (137-145)
[2020-01-11] MEDS: ENOXAPARIN 40 MG/0.4 ML SYRINGE SUB-Q (08:42)
[2020-01-11] MEDS: POTASSIUM CHLORIDE 20 MEQ TABLET 40 MEQ PO (08:42)
[2020-01-11] MEDS: TOLNAFTATE 1% POWDER 45 GM BTL 1 APPLIC TOPICAL ×2 (08:45→18:12)
[2020-01-11] MEDS: SILVERGEL (ELTA) 45 ML 1 APPLIC TOPICAL (08:47)
--- NOTE | 2020-01-11 08:54 | PM.IMPN ---
Progress Note: A&P Assessment and Plan (1) UTI (urinary tract infection) due to urinary indwelling Rueda catheter: Qualifiers: Encounter type: initial encounter Indwelling urinary catheter type: indwelling urethral catheter Qualified Code(s): T83.511A - Infection and inflammatory reaction due to indwelling urethral catheter, initial encounter; N39.0 - Urinary tract infection, site not specified Code(s): T83.511A - Infection and inflammatory reaction due to indwelling urethral catheter, initial encounter; N39.0 - Urinary tract infection, site not specified Status: Acute Assessment and Plan: Continue IV imipenem (day 2) and vancomycin (day 2). Urine culture grew ESBL E coli. 1 of 2 blood cultures growing Staph aureus but not finalized; repeat blood cultures pending. Has had indwelling Rueda since November 2019 due to urinary retention. Catheter changed on arrival by nursing. Pointing to abdomen saying she's in pain, poor oral intake - obtain CT abdomen. (2) Sepsis: Onset Date: Unknown Qualifiers: Sepsis acute organ dysfunction status: with acute organ dysfunction Sepsis type: sepsis due to unspecified organism Severe sepsis acute organ dysfunction type: encephalopathy Severe sepsis shock status: without septic shock Qualified Code(s): A41.9 - Sepsis, unspecified organism; R65.20 - Severe sepsis without septic shock; G93.40 - Encephalopathy, unspecified Code(s): A41.9 - Sepsis, unspecified organism Status: Acute Assessment and Plan: Evident by fever and tachycardia. Suspected source is urinary. See above. Lactic acid within normal limits. Afebrile so far - continue Tylenol and alternate with ibuprofen as needed. Continue IV hydration as she has poor oral intake. Monitor vital signs and urine output. (3) Fecal impaction: Code(s): K56.41 - Fecal impaction Status: Acute Assessment and Plan: Noted on imaging today. Suppositories and bowel regimen ordered. (4) Acute metabolic encephalopathy: Code(s): G93.41 - Metabolic encephalopathy Status: Acute Assessment and Plan: Improved. She is much more awake and talking but still a little confused today, unsure of her baseline. [place] to be secondary to UTI and fever. CT brain shows no acute intracranial findings. (5) PATRIC (acute kidney injury): Code(s): N17.9 - Acute kidney failure, unspecified Status: Resolved Assessment and Plan: Cr improved with IV hydration. Trend renal function and continue holding metformin and lisinopril for now. [place] to be secondary to dehydration and sepsis. (6) S/P transmetatarsal amputation of foot: Onset Date: 11/20/19 Qualifiers: Laterality: right Qualified Code(s): Z89.431 - Acquired absence of right foot Code(s): Z89.439 - Acquired absence of unspecified foot Status: Acute Assessment and Plan: Continue dressing changes. No evidence of acute infection. Seen by wound RN. Subjective Date/time seen: 01/11/20 08:45 Interval history: Ms. Hutchins is a 74yo F admitted for UTI and altered mental status. She is much more awake and talkative compared to days prior but still a little confused - unsure of her baseline. Before coming into the room she can be heard in the hallway loudly speaking please, please, please , but she stops once I walk into the room. She complains again today of pain all over and points to her lower abdomen. She denies any chest pain, shortness of breath, nausea or vomiting. Review of Systems Review of Systems: Narrative: Twelve systems were reviewed with pertinent positives and negatives as per HPI. Exam Narrative: Exam Narrative: General: Chronically ill-appearing female resting supine in bed. Neuro: Mu
--- NOTE | 2020-01-11 08:55 | PCPTNOTE ---
Attempted to see this a.m. - pt still confused in regards to situation. She refused to get out of bed and perform any type of transfer. Will attempt again this p.m.
--- NOTE | 2020-01-11 08:56 | PCOTNOTE ---
OT evaluation attempted. Patient adamantly refusing to participate with therapy. Patient confused and beginning to get agitated. Will attempt OT evaluation at later time.
[2020-01-11 09:13] LABS: Glucose Point of Care 94 (65-105)
[2020-01-11 10:32] VITALS: BP 124/61; PULSE 80; RESP 16; TEMP 37.6; O2SAT 95
[2020-01-11] MEDS: MAGNESIUM OXIDE 400 MG TABLET PO (10:39)
[2020-01-11] MEDS: TRAMADOL HCL 50 MG TABLET PO ×2 (10:39→18:15)
[2020-01-11] MEDS: POTASSIUM PHOS/SODIUM PHOS 250 MG TABLET PO ×2 (10:39→18:12)
[2020-01-11 12:53] LABS: Glucose Point of Care 129 (65-105)
--- NOTE | 2020-01-11 13:29 | PCPTNOTE ---
After a.m. attempt - information was received that she was on the incorrect antibiotic. Since patient was not acclimated to current hospitalization, will await until tomorrow to try evaluation again.
[2020-01-11] MEDS: BISACODYL 10 MG SUPPOSITORY RECTAL (15:08)
[2020-01-11] MEDS: polyethylene glycoL 3350 17 GM POWD.PACK PO (15:08)
[2020-01-11 15:19] VITALS: BP 140/59; PULSE 73; RESP 16; TEMP 37.2; O2SAT 97
[2020-01-11 17:36] LABS: Glucose Point of Care 128 (65-105)
[2020-01-11] MEDS: AMLODIPINE BESYLATE 5 MG TABLET PO (18:12)
[2020-01-11 18:46] VITALS: BP 139/83; PULSE 81; RESP 20; TEMP 36.1; O2SAT 97
[2020-01-11 22:00] VITALS: BP 149/68; PULSE 85; RESP 18; TEMP 36.7; O2SAT 100
[2020-01-12 02:00] VITALS: BP 140/65; PULSE 70; RESP 18; TEMP 36.1; O2SAT 98
[2020-01-12 06:00] VITALS: BP 139/72; PULSE 75; RESP 18; TEMP 36.4; O2SAT 99
[2020-01-12] MEDS: ACETAMINOPHEN 325 MG TABLET 650 MG PO ×2 (06:18→13:57)
[2020-01-12 06:21] LABS: Eosinophils Percent Auto 0.2 % (0-4.4); Hematocrit 30.1 % (37.0-47.0); Hemoglobin 9.6 g/dL (12.0-15.0); Immature Granulocyte Absolute 0.04 K/mm3 (0.00-0.031); Immature Granulocyte Percent A 0.9 % (0-0.5); Lymphocytes Absolute Auto 0.71 K/mm3 (0.9-3.2); Lymphocytes Percent Auto 15.9 % (18.3-44.2); Mean Corpuscular HGB Conc 31.9 g/dl (32-36); Mean Corpuscular Hemoglobin 27.7 pg (26-34); Mean Platelet Volume 9.1 fl (7.4-10.4); Monocytes Absolute Auto 0.2 K/mm3 (0.1-0.6); Monocytes Percent Auto 5.2 % (2.6-8.5); Neutrophils Absolute Auto 3.5 K/mm3 (1.3-6.7); Neutrophils Percent Auto 77.8 % (45.5-73.1); Platelet Count Result 173 k/mm3 (150-375); Red Blood Count 3.46 M/mm3 (4.2-5.4); Red Cell Distribution Width 17.2 % (11.5-14.5); White Blood Count 4.5 K/mm3 (4.5-10.0)
[2020-01-12 07:00] LABS: Blood Urea Nitrogen 22 mg/dL (7-17); Carbon Dioxide 21 mmol/L (22-30); Estimated CRCL calculation 77 ml/min; Estimated Glomerular Filt Rate > 60; Glucose 121 mg/dL (65-105)
[2020-01-12 07:07] LABS: Calcium 8.2 mg/dL (8.4-10.2); Chloride 112 mmol/L (98-107); Magnesium 1.6 mg/dL (1.6-2.3); Potassium 3.4 mmol/L (3.4-5.0); Sodium 137 mmol/L (137-145)
[2020-01-12 08:11] LABS: Glucose Point of Care 195 (65-105)
[2020-01-12 08:48] LABS: Glucose Point of Care 108 (65-105)
[2020-01-12 08:52] LABS: Glucose Point of Care 130 (65-105)
[2020-01-12] MEDS: POTASSIUM CHLORIDE 20 MEQ TABLET 40 MEQ PO (09:29)
[2020-01-12] MEDS: MAGNESIUM OXIDE 400 MG TABLET PO (09:30)
[2020-01-12] MEDS: POTASSIUM PHOS/SODIUM PHOS 250 MG TABLET PO ×2 (09:30→17:53)
[2020-01-12] MEDS: ENOXAPARIN 40 MG/0.4 ML SYRINGE SUB-Q (09:30)
--- NOTE | 2020-01-12 09:30 | PCPTNOTE ---
Tana is refusing to get out of bed again this date. Evidently she had a lowering to the floor incident yesterday. Reviewed her exercises with her that she has done in the past. Encouraged her to continue with the exercises.
[2020-01-12] MEDS: SILVERGEL (ELTA) 45 ML 1 APPLIC TOPICAL (09:31)
[2020-01-12] MEDS: polyethylene glycoL 3350 17 GM POWD.PACK PO (09:31)
[2020-01-12] MEDS: TOLNAFTATE 1% POWDER 45 GM BTL 1 APPLIC TOPICAL ×2 (09:33→17:54)
[2020-01-12 10:00] VITALS: BP 144/62; PULSE 73; RESP 20; TEMP 36.3; O2SAT 97
--- NOTE | 2020-01-12 10:06 | PM.IMPN ---
Progress Note: A&P Assessment and Plan (1) UTI (urinary tract infection) due to urinary indwelling Rueda catheter: Qualifiers: Encounter type: initial encounter Indwelling urinary catheter type: indwelling urethral catheter Qualified Code(s): T83.511A - Infection and inflammatory reaction due to indwelling urethral catheter, initial encounter; N39.0 - Urinary tract infection, site not specified Code(s): T83.511A - Infection and inflammatory reaction due to indwelling urethral catheter, initial encounter; N39.0 - Urinary tract infection, site not specified Status: Acute Assessment and Plan: Continue IV imipenem (day 3) and vancomycin (day 3). Urine culture grew ESBL E coli. 1 of 2 blood culture bottles grew MRSA. Appreciate ID consultation for further recommendations. Has had indwelling Rueda since November 2019 due to urinary retention. Catheter changed on arrival by nursing. (2) Sepsis: Onset Date: Unknown Qualifiers: Sepsis acute organ dysfunction status: with acute organ dysfunction Sepsis type: sepsis due to unspecified organism Severe sepsis acute organ dysfunction type: encephalopathy Severe sepsis shock status: without septic shock Qualified Code(s): A41.9 - Sepsis, unspecified organism; R65.20 - Severe sepsis without septic shock; G93.40 - Encephalopathy, unspecified Code(s): A41.9 - Sepsis, unspecified organism Status: Acute Assessment and Plan: Evident by fever and tachycardia. Suspected source is urinary, blood culture positive. See above. Lactic acid within normal limits. Afebrile today. Continue gentle IV hydration as she has poor oral intake. Monitor vital signs and urine output. (3) Fecal impaction: Code(s): K56.41 - Fecal impaction Status: Resolved Assessment and Plan: Noted on imaging yesterday. Very large bowel movement yesterday after suppository. Continue bowel regimen and increase activity. (4) Acute metabolic encephalopathy: Code(s): G93.41 - Metabolic encephalopathy Status: Resolved Assessment and Plan: Resolved. [place] to be secondary to UTI and fever. CT brain shows no acute intracranial findings. (5) PATRIC (acute kidney injury): Code(s): N17.9 - Acute kidney failure, unspecified Status: Resolved Assessment and Plan: Resovled with IV hydration. Monitor renal function and continue holding metformin and lisinopril for now. [place] to be secondary to dehydration and sepsis. (6) S/P transmetatarsal amputation of foot: Onset Date: 11/20/19 Qualifiers: Laterality: right Qualified Code(s): Z89.431 - Acquired absence of right foot Code(s): Z89.439 - Acquired absence of unspecified foot Status: Acute Assessment and Plan: Continue dressing changes. No evidence of acute infection. Seen by wound RN. Subjective Date/time seen: 01/12/20 0915 Interval history: Ms. Hutchins is a 74yo F admitted for UTI and altered mental status. She is much more awake and talkative compared to arrival, certainly not as confused today. She is oriented x3 today. She is adamantly refusing therapy and tells me she will not get out of bed because she had a really rough day . She is reluctant because she had an incident yesterday where she was incontinent of stool while transferring to the bedside commode. Detailed discussion held explaining she needs to get out of bed with therapy. She denies any chest pain or shortness of breath, still not eating much but denies abdominal pain today. Review of Systems Review of Systems: Narrative: Twelve systems were reviewed with pertinent positives and negatives as per HPI. Exam Narrative: Exam Narrative: General: Chronically ill-appearing female resting sitting up in
--- NOTE | 2020-01-12 10:33 | PCOTNOTE ---
OT Eval attempted. Pt continues to refuse to get out of bed again this date. Patient confused and yelling at this time. Will attempt OT evaluation when medically appropriate.
[2020-01-12 12:07] LABS: Glucose Point of Care 151 (65-105)
[2020-01-12 14:00] VITALS: BP 146/61; PULSE 74; RESP 20; TEMP 36.2; O2SAT 100
[2020-01-12] MEDS: MAGNESIUM SULF 2 GM/WATER 50ML 2 GM/50 ML BAG IVPB (16:46)
[2020-01-12] MEDS: ONDANSETRON INJ 4 MG/2 ML VIAL IV PUSH (16:46)
[2020-01-12] MEDS: AMLODIPINE BESYLATE 5 MG TABLET PO (17:53)
[2020-01-12 18:05] LABS: Glucose Point of Care 146 (65-105)
[2020-01-12] MEDS: TRAMADOL HCL 50 MG TABLET PO (20:13)
[2020-01-12 22:00] VITALS: BP 144/63; PULSE 72; RESP 20; TEMP 36.6; O2SAT 98
[2020-01-12 22:30] LABS: Glucose Point of Care 124 (65-105)
--- NOTE | 2020-01-13 | ECHOL_ITS ---
Patient Info Name: Tana Hutchins Age: 74 years : 1945 Gender: Female Ht: 62 in Wt: 187 lbs BSA: 1.96 m2 HR: 79 bpm BP: 145 / 43 mmHg Heart Rhythm: Sinus Rhythm Technical Quality: Good Exam Date: 01/13/2020 1:36 PM Exam Location: [facility] Patient Status: Inpatient Admit Date: 01/09/2020 Staff Ordering Physician: Nicolasa Echevarria PA-C Health And Wellness Coach: Luz Marina Huddleston RDCS Attending Provider: Nicolasa Echevarria PA-C Exam Type: CA echo limited Study Info Indications - MRSA BACTEREMIA Limited two-dimensional transthoracic echocardiogram is performed. Summary 1. Left ventricular chamber dimension is normal. 2. Left ventricular systolic function is normal, estimated at 60-65%. 3. Left atrial chamber dimension is moderately enlarged. 4. Normal appearing valves, no apparent vegetations. 5. Compared to exam from 2 months ago no difference. Left Ventricle Left ventricular chamber dimension is normal. Left ventricular systolic function is normal, estimated at 60-65%. Right Ventricle Right ventricular chamber dimension is normal. Left Atria Left atrial chamber dimension is moderately enlarged. Right Atria Right atrial chamber dimension is normal. Aortic Valve The aortic valve is normal. Pulmonic Valve The pulmonic valve is not well visualized. Mitral Valve The mitral valve has normal leaflets. Tricuspid Valve The tricuspid valve leaflets are normal. Pericardium/Pleural The pericardium appears normal. Aorta The aortic root size at the sinus of Valsalva is normal. Report Signatures
--- NOTE | 2020-01-13 00:21 | CONS_ITS ---
DATE OF CONSULTATION: 01/12/2020 REQUESTING PHYSICIAN: Nurse practitioner, Nicolasa Echevarria. REASON FOR CONSULTATION: Staph aureus bacteremia. HISTORY OF PRESENT ILLNESS: This is a 74-year-old female with significant past medical history for type 2 diabetes, obesity, hypertension, history of diabetic foot infection requiring TMA, chronic indwelling catheter, presented to the emergency room with change of mental status and a temperature of up to 100.2. The patient was at the time of admission, confused, slightly improved today with still elements of confusion. She denied any shortness of breath or chest pain. Did notice that her urine had developed discoloration. No headache. No photophobia. No shortness of breath. No cough. PAST MEDICAL HISTORY: Significant for type 2 diabetes, history of diabetic foot infection requiring transmetatarsal amputation of the right foot, essential hypertension, urinary retention with chronic indwelling catheter, morbidly obese. PAST SURGICAL HISTORY: , transmetatarsal amputation of the right foot in November 2019, due to gangrene of right foot digit. FAMILY HISTORY: Positive for diabetes, cerebrovascular accident, congestive heart failure. SOCIAL HISTORY: Nonsmoker, nondrinker. ALLERGIES: NO KNOWN DRUG ALLERGIES. MEDICATIONS: At home: Amlodipine, lisinopril, oxycodone, tramadol, metformin, nitrofurantoin, and nystatin. Medication in the hospital: She is currently on imipenem and vancomycin, amlodipine, silver nitrate, polyethylene glycol, mag oxide, enoxaparin, Zofran, tramadol, hydralazine, ibuprofen, Bisacodyl. REVIEW OF SYSTEMS: Overall difficult to obtain. Patient is pleasantly confused and not able to give good history. PHYSICAL EXAMINATION: GENERAL: The patient is lying in bed, not in distress. VITAL SIGNS: Temperature is 36.2, pulse rate of 74, respiratory rate of 20, blood pressure of 146/61, saturating 100%. HEENT: Head is normocephalic, atraumatic. Pupils are equal, reactive to light. NECK: Supple. No nuchal rigidity. No photophobia. LUNGS: Good bilateral air entry. No rales, no wheeze. CARDIOVASCULAR SYSTEM: Positive S1, positive S2. No S3, no S4. No murmur. ABDOMEN: Positive bowel sounds. Nontender. No organomegaly. No mass. EXTREMITIES: No edema. Right foot transmetatarsal amputation site of the wound is clean. At the plantar surface, there is a small opening with minimal drainage, minimal surrounding erythema. Nontender to touch. GENITOURINARY: Indwelling catheter. NEUROLOGICAL: She is awake, but pleasantly confused. No photophobia. No nuchal rigidity. LABORATORY EXAMINATION: Blood cultures from January 07 and January 09 are positive for MRSA. Urine culture is showing ESBL E. coli. White count currently is 4.5, hemoglobin of 9, hematocrit is 30, platelet of 173, segmental of 77%. Admitting white count was 10.3. Sodium is 137, potassium of 3.4, chloride of 112, bicarb of 21, BUN 22, creatinine of 0.6. Hemoglobin A1c is 8. Alkaline phosphatase of 142, AST of 35, ALT of 17. Urinalysis: Nitrite was positive, leukocyte esterase greater than 75, wbc present in clumps. From an indwelling catheter, urine was cloudy. Vancomycin trough was 23. CT scan of the abdomen and pelvis, cardiomegaly with bilateral pleural effusion, bilateral lower lung infiltrate, atelectasis, large hiatal hernia, rectosigmoid fecal impaction, diverticulosis of the left colon. Chest x-ray, linear left basilar opacity, most likely subsegmental atelectasis. CT scan of the head, no acute intracranial abnormality. ASSESSMENT AND PLAN: 1. Methicillin-resistant Staphylococcus aureus bacteremia. Source of infection, soft tissue versus occult endovascular infection in the differential diagnosis. Bl
[2020-01-13] MEDS: TRAMADOL HCL 50 MG TABLET PO ×2 (04:09→10:40)
[2020-01-13 06:00] VITALS: BP 145/43; PULSE 71; RESP 20; TEMP 36.8; O2SAT 97
[2020-01-13 08:23] LABS: Blood Urea Nitrogen 18 mg/dL (7-17); Calcium 8.1 mg/dL (8.4-10.2); Carbon Dioxide 24 mmol/L (22-30); Chloride 108 mmol/L (98-107); Estimated CRCL calculation 91 ml/min; Estimated Glomerular Filt Rate > 60; Glucose 123 mg/dL (65-105); Magnesium 1.9 mg/dL (1.6-2.3); Potassium 3.3 mmol/L (3.4-5.0); Sodium 137 mmol/L (137-145)
[2020-01-13] MEDS: MAGNESIUM OXIDE 400 MG TABLET PO (08:35)
[2020-01-13] MEDS: ENOXAPARIN 40 MG/0.4 ML SYRINGE SUB-Q (08:35)
[2020-01-13] MEDS: polyethylene glycoL 3350 17 GM POWD.PACK PO (08:35)
[2020-01-13] MEDS: POTASSIUM PHOS/SODIUM PHOS 250 MG TABLET PO ×2 (08:35→16:36)
[2020-01-13] MEDS: SILVERGEL (ELTA) 45 ML 1 APPLIC TOPICAL (08:36)
[2020-01-13] MEDS: TOLNAFTATE 1% POWDER 45 GM BTL 1 APPLIC TOPICAL ×2 (08:36→16:35)
[2020-01-13 09:09] LABS: Glucose Point of Care 133 (65-105)
[2020-01-13] MEDS: ONDANSETRON INJ 4 MG/2 ML VIAL IV PUSH ×2 (09:17→17:56)
[2020-01-13] MEDS: ACETAMINOPHEN 325 MG TABLET 650 MG PO ×2 (09:18→21:17)
[2020-01-13 09:40] VITALS: BMI 10.0
--- NOTE | 2020-01-13 11:35 | PCNFU ---
Nutrition Follow-Up Complete: Inadequate Oral Intake as related to UTI as evidenced by poor po intake reported. Goal: Adequate Intake of at least 75% of meals. Limited progress towards goal. We will continue current goal. Pt current nutrition is [facility]. Nutrition recommendation: Agree Last recorded weight is 85 kg. Bowel Motility:+BM 01/11 Labs Reviewed:K 3.3,BUN 18,Cr 0.5,Glu 123 Meds Noted:Miralax,Lovenox,Zofran,Mg Oxide Additional Notes:Spoke with nursing today over telephone due to COVID 19 precautions. Patient continues to be confused but reporting more alert. Requiring some assistance with eating. Oral intake remains poor 5% of meals. We will continue to send [employer] BID providing an additional 220 kcals and 10 gms protein. Skin: Maceration-sacrum noted. Nursing will be assisting with meals, PO intake encouraged. Monitoring: Will monitor every 3 days.
[2020-01-13 12:44] LABS: Glucose Point of Care 167 (65-105)
[2020-01-13 14:00] VITALS: BP 144/45; PULSE 73; RESP 22; TEMP 36.8; O2SAT 97
--- NOTE | 2020-01-13 14:12 | PM.IMPN ---
Progress Note: A&P Assessment and Plan (1) UTI (urinary tract infection) due to urinary indwelling Rueda catheter: Qualifiers: Encounter type: initial encounter Indwelling urinary catheter type: indwelling urethral catheter Qualified Code(s): T83.511A - Infection and inflammatory reaction due to indwelling urethral catheter, initial encounter; N39.0 - Urinary tract infection, site not specified Code(s): T83.511A - Infection and inflammatory reaction due to indwelling urethral catheter, initial encounter; N39.0 - Urinary tract infection, site not specified Status: Acute Assessment and Plan: Continue IV imipenem (day 4) and vancomycin (day 4). Urine culture grew ESBL E coli. 1 of 2 blood culture bottles grew MRSA twice, 3rd set ordered by ID and are pending. Appreciate ID consultation for further recommendations. Has had indwelling Rueda since November 2019 due to urinary retention. Catheter changed on arrival by nursing. (2) MRSA bacteremia: Code(s): R78.81 - Bacteremia; B95.62 - Methicillin resistant Staphylococcus aureus infection as the cause of diseases classified elsewhere Status: Acute Assessment and Plan: Blood cultures with 1 of 2 bottle growing MRSA. Etiology unclear. Obtain echocardiogram and appreciate ID recommendations. Continue IV vancomycin (day 4 started 01/09). Repeat blood cultures pending. (3) Sepsis: Onset Date: Unknown Qualifiers: Sepsis acute organ dysfunction status: with acute organ dysfunction Sepsis type: sepsis due to unspecified organism Severe sepsis acute organ dysfunction type: encephalopathy Severe sepsis shock status: without septic shock Qualified Code(s): A41.9 - Sepsis, unspecified organism; R65.20 - Severe sepsis without septic shock; G93.40 - Encephalopathy, unspecified Code(s): A41.9 - Sepsis, unspecified organism Status: Acute Assessment and Plan: Evident by fever and tachycardia. Suspected source is urinary, blood cultures positive. See above. Lactic acid within normal limits. Afebrile today. Continue gentle IV hydration as she has poor oral intake. Monitor vital signs and urine output. (4) DVT (deep venous thrombosis): Qualifiers: DVT location: lower extremity Affected thrombotic vein of extremity: femoral Chronicity: acute Laterality: left Qualified Code(s): I82.412 - Acute embolism and thrombosis of left femoral vein Code(s): I82.409 - Acute embolism and thrombosis of unspecified deep veins of unspecified lower extremity Status: Acute Assessment and Plan: Venous dopplers this afternoon show extensive left lower extremity DVT. Change Lovenox prophylaxis to therapeutic dose. (5) Generalized weakness: Code(s): R53.1 - Weakness Status: Chronic Assessment and Plan: Patient recently stayed in [facility] following her amputation then discharged to SNF, reportedly discharged from SNF back home just prior to this admission. Decreased motivation +++, refusing therapy. Continue PT/OT. (6) Acute metabolic encephalopathy: Code(s): G93.41 - Metabolic encephalopathy Status: Resolved Assessment and Plan: Resolved. [place] to be secondary to UTI and fever. CT brain shows no acute intracranial findings. (7) S/P transmetatarsal amputation of foot: Onset Date: 11/20/19 Qualifiers: Laterality: right Qualified Code(s): Z89.431 - Acquired absence of right foot Code(s): Z89.439 - Acquired absence of unspecified foot Status: Acute Assessment and Plan: S/p right transmetatarsal amputation on 11/20/[address] Martinez due to foot ulcer with necrotic 3rd, 4th, and 5th toes - no evidence of osteomyelitis on MRI at that time. Continue dressing changes. No evidenc
[2020-01-13 14:36] LABS: Vancomycin Trough 12.5 ug/mL (10.0-20.0)
--- NOTE | 2020-01-13 16:12 | WPDINFPN2 ---
Subjective Date/time seen: 01/13/20 16:12 Interval history: no complaints IMP 1. MRSA bacteremia with infection, probably R foot source. TMA 11/19 2. Chronic mendez with bacteriuria 3. DM REC Continue Vanc and Imipenem. F/U micro. Prolonged IV therapy with Vanc anticiapated. Exam Narrative: Exam Narrative: afebrile Const: General: no acute distress Neck: Neck: supple Resp: Effort & Inspection: normal respiratory effort Auscultation: clear to auscultation bilaterally Cardio: Rate: regular rate Rhythm: regular rhythm Heart sounds: no gallops and no murmurs Urinary Catheter: Urinary Catheter: patent and draining and urine clear Skin: General skin exam: normal color and no rashes or lesions noted Extrem: Other: r foot dressed, no calf erythema nor tenderness Objective Data Vital Signs Vital Signs: Vital Signs - 24 hr 01/12/20 22:00 01/13/20 06:00 01/13/20 14:00 Temperature 36.6 C 36.8 C 36.8 C Pulse Rate 72 71 73 Respiratory Rate 20 20 22 H Blood Pressure 144/63 H 145/43 H 144/45 H Pulse Oximetry 98 97 97 Intake/Output Intake/Output: Intake & Output 01/10/20 01/11/20 01/12/20 01/13/20 23:59 23:59 23:59 23:59 Intake Total 2920 2160 1350 1060 Output Total 950 1500 1075 425 Balance 1970 660 669 125 Meds/Results Medications: Active Medications Generic Name Dose Route Start Last Admin Trade Name Freq PRN Reason Stop Dose Admin Acetaminophen 650 mg 01/08/20 18:31 01/13/20 09:18 Tylenol Tablet PO 650 mg Q4H PRN Administration Mild Pain (1-3) or Fever Amlodipine Besylate 5 mg 01/09/20 18:00 01/12/20 17:53 Norvasc PO 5 mg QPM YISSEL Administration Bisacodyl 10 mg 01/12/20 07:00 Dulcolax Suppository RECTAL QAM PRN Constipation Dextrose 12.5 gm 01/09/20 02:17 Dextrose 50% Syringe IV PUSH PRN PRN Hypoglycemia Protocol Enoxaparin Sodium 85 mg 01/13/20 16:05 Lovenox 1 Mg/Kg SUB-Q Q12HR YISSEL Glucagon 1 mg 01/09/20 02:17 Glucagon For Inj IM PRN PRN Hypoglycemia Protocol Glucose 15 gm 01/09/20 02:17 Glutose 15 PO PRN PRN Hypoglycemia Protocol Hydralazine HCl 10 mg 01/09/20 09:45 Apresoline Hcl Inj IV PUSH Q8H PRN Blood Pressure - High Sodium Chloride 1,000 mls @ 30 mls/hr 01/08/20 18:35 01/13/20 04:51 Normal Saline Iv IV CONT 30 mls/hr .Q24H YISSEL Infusion Dextrose 1,000 mls @ 100 mls/hr 01/09/20 02:17 Dextrose 5% 1,000 Ml IVPB PRN PRN Hypoglycemia Protocol Ibuprofen 800 mg in 200 mls @ 400 mls/hr 01/09/20 09:48 01/09/20 22:23 Caldolor 800 Mg/200 Ml IVPB Infused Q6H PRN Infusion Fever Imipenem/Cilastatin Sodium 500 mg in 100 mls @ 300 mls/hr 01/10/20 15:00 01/13/20 09:05 Primaxin 500 Mg/D5w 100 Ml IVPB Infused Q6H YISSEL Infusion Vancomycin HCl 1,250 mg in 250 mls @ 200 mls/hr 01/11/20 09:00 01/13/20 00:40 Vancomycin 1,250 Mg/D5w 250 Ml IVPB Infused Q18H YISSEL Infusion Insulin Aspart 2 - 5 units 01/09/20 08:00 01/13/20 13:04 Novolog SUB-Q Not Given [facility] Protocol Magnesium Oxide 400 mg 01/11/20 09:00 01/13/20 08:35 Mag-Ox PO 400 mg QAM YISSEL Administration Ondansetron HCl 4 mg 01/08/20 18:31 01/13/20 09:17 Zofran Inj IV PUSH 4 mg Q4H PRN Administration Nausea Polyethylene Glycol 17 gm 01/11/20 13:50 01/13/20 08:35 Miralax PO 17 gm QAM YISSEL Administration Silver Nitrate 1 applic 01/09/20 09:00 01/13/20 08:36 Silvergel TOPICAL 1 applic DAILY YISSEL Administration Sodium Phosphate 250 mg 01/11/20 09:00 01/13/20 08:35 K-Phos Neutral PO 250 mg BID YISSEL Administration Tolnaftate 1 applic 01/09/20 09:00 01/13/20 08:36 Tolnaftate 1% Powder TOPICAL 1 applic BID YISSEL Administration Tramadol HCl 50 mg 01/09/20 01:56 01/13/20 10:40 Ultram PO 50 mg Q6H PRN Administration Pain Rated 4-6 Radiology Re
[2020-01-13] MEDS: POTASSIUM CHLORIDE 20 MEQ TABLET 40 MEQ PO (16:13)
[2020-01-13] MEDS: AMLODIPINE BESYLATE 5 MG TABLET PO (17:42)
[2020-01-13 17:47] LABS: Glucose Point of Care 169 (65-105)
[2020-01-13] MEDS: ENOXAPARIN 100 MG/ML SYRINGE 85 MG SUB-Q (21:16)
[2020-01-13 22:00] VITALS: BP 129/48; PULSE 82; RESP 20; TEMP 38.3; O2SAT 94
[2020-01-14] VITALS (12 sets, daily range): BP systolic 99–119; BP diastolic 28–64; PULSE 77–99; RESP 16–22; TEMP 35.9–38.2; O2SAT 90–100
[2020-01-14] MEDS: TRAMADOL HCL 50 MG TABLET PO ×2 (04:11→22:08)
[2020-01-14] MEDS: IBUPROFEN IV 800 MG/200 ML 800 MG/200 ML BAG 400 MG IVPB (05:19)
[2020-01-14 06:09] LABS: Basophils Percent Auto 0.3 % (0.2-1.2); Eosinophils Percent Auto 0.5 % (0-4.4); Hematocrit 25.1 % (37.0-47.0); Hemoglobin 8.1 g/dL (12.0-15.0); Immature Granulocyte Absolute 0.33 K/mm3 (0.00-0.031); Immature Granulocyte Percent A 4.4 % (0-0.5); Lymphocytes Absolute Auto 1.03 K/mm3 (0.9-3.2); Lymphocytes Percent Auto 13.8 % (18.3-44.2); Mean Corpuscular HGB Conc 32.3 g/dl (32-36); Mean Corpuscular Hemoglobin 27.8 pg (26-34); Mean Corpuscular Volume 86.3 fl (80-100); Mean Platelet Volume 9.6 fl (7.4-10.4); Monocytes Absolute Auto 0.5 K/mm3 (0.1-0.6); Monocytes Percent Auto 6.3 % (2.6-8.5); Neutrophils Absolute Auto 5.6 K/mm3 (1.3-6.7); Neutrophils Percent Auto 74.7 % (45.5-73.1); Platelet Count Result 149 k/mm3 (150-375); Red Blood Count 2.91 M/mm3 (4.2-5.4); Red Cell Distribution Width 17.3 % (11.5-14.5); White Blood Count 7.5 K/mm3 (4.5-10.0)
[2020-01-14 07:55] LABS: Blood Urea Nitrogen 21 mg/dL (7-17); Calcium 7.8 mg/dL (8.4-10.2); Carbon Dioxide 22 mmol/L (22-30); Chloride 109 mmol/L (98-107); Estimated CRCL calculation 59 ml/min; Estimated Glomerular Filt Rate > 60; Glucose 120 mg/dL (65-105); Magnesium 1.8 mg/dL (1.6-2.3); Phosphorus 2.5 mg/dL (2.5-4.5); Potassium 3.2 mmol/L (3.4-5.0); Sodium 135 mmol/L (137-145)
[2020-01-14] MEDS: SILVERGEL (ELTA) 45 ML 1 APPLIC TOPICAL (08:26)
[2020-01-14] MEDS: MAGNESIUM OXIDE 400 MG TABLET PO (08:26)
[2020-01-14] MEDS: TOLNAFTATE 1% POWDER 45 GM BTL 1 APPLIC TOPICAL (08:26)
[2020-01-14] MEDS: POTASSIUM PHOS/SODIUM PHOS 250 MG TABLET PO (08:26)
[2020-01-14] MEDS: ENOXAPARIN 100 MG/ML SYRINGE 85 MG SUB-Q (08:31)
[2020-01-14 08:59] LABS: Glucose Point of Care 142 (65-105)
[2020-01-14 09:46] LABS: Glucose Point of Care 120 (65-105)
--- NOTE | 2020-01-14 12:54 | PM.IMPN ---
Progress Note: A&P Assessment and Plan (1) UTI (urinary tract infection) due to urinary indwelling Rueda catheter: Qualifiers: Indwelling urinary catheter type: indwelling urethral catheter Encounter type: initial encounter Qualified Code(s): T83.511A - Infection and inflammatory reaction due to indwelling urethral catheter, initial encounter; N39.0 - Urinary tract infection, site not specified Code(s): T83.511A - Infection and inflammatory reaction due to indwelling urethral catheter, initial encounter; N39.0 - Urinary tract infection, site not specified Status: Acute Assessment and Plan: -----Continue IV imipenem (day 5) and vancomycin (day 5). Urine culture grew ESBL E coli. 1 of 2 blood culture bottles grew MRSA twice, 3rd set are pending. Appreciate ID consultation for further recommendations. Has had indwelling Rueda since November 2019 due to urinary retention. Catheter changed on arrival by nursing. (2) MRSA bacteremia: Code(s): R78.81 - Bacteremia; B95.62 - Methicillin resistant Staphylococcus aureus infection as the cause of diseases classified elsewhere Status: Acute Assessment and Plan: -----Blood cultures with 1 of 2 bottle growing MRSA. Etiology unclear likely due to recent severe cellulitis and surgery. Limited echo does not show any concern for vegetation. No murmurs heard on exam. Continue IV vancomycin (day 5 started 01/09). Repeat blood cultures pending. Will obtain x-ray of the right foot to ensure no concern for additional infection. (3) Sepsis: Onset Date: Unknown Qualifiers: Sepsis type: sepsis due to unspecified organism Sepsis acute organ dysfunction status: with acute organ dysfunction Severe sepsis acute organ dysfunction type: encephalopathy Severe sepsis shock status: without septic shock Qualified Code(s): A41.9 - Sepsis, unspecified organism; R65.20 - Severe sepsis without septic shock; G93.40 - Encephalopathy, unspecified Code(s): A41.9 - Sepsis, unspecified organism Status: Acute Assessment and Plan: -----Evident by fever and tachycardia. Likely due to MRSA bacteremia. See above. Lactic acid within normal limits. Patient is still having fevers (4) DVT (deep venous thrombosis): Qualifiers: DVT location: lower extremity Affected thrombotic vein of extremity: femoral Chronicity: acute Laterality: left Qualified Code(s): I82.412 - Acute embolism and thrombosis of left femoral vein Code(s): I82.409 - Acute embolism and thrombosis of unspecified deep veins of unspecified lower extremity Status: Acute Assessment and Plan: -----DVT likely provoked due to surgery. Will continue Lovenox at this time and await imaging. Likely transition to Eliquis tomorrow. Hemoglobin has been slowly trending down. Will continue to monitor that (5) Generalized weakness: Code(s): R53.1 - Weakness Status: Chronic Assessment and Plan: -----Patient recently stayed in [facility] following her amputation then discharged to SNF, reportedly discharged from SNF back home just prior to this admission. Decreased motivation and at times refusing therapy. Continue PT and OT. Patient will need placement (6) Acute metabolic encephalopathy: Code(s): G93.41 - Metabolic encephalopathy Status: Resolved Assessment and Plan: -------Resolved. [place] to be secondary to UTI, bacteremia and fever. CT brain shows no acute intracranial findings. (7) S/P transmetatarsal amputation of foot: Onset Date: 11/20/19 Qualifiers: Laterality: right Qualified Code(s): Z89.431 - Acquired absence of right foot Code(s): Z89.439 - Acquired absence of unspecified foot Status: Acute Assessment and Plan: -------S/p right transmetatarsal amputation on 11/20/[address] Martinez due to foot ulcer with necrotic 3rd, 4th, and 5th toes - no evidence of osteo
[2020-01-14 12:59] LABS: Glucose Point of Care 223 (65-105)
[2020-01-14] MEDS: INSULIN ASPART (*BKC) 100 UNITS/ML SUB-Q (13:11)
[2020-01-14] MEDS: POTASSIUM CHLORIDE 20 MEQ TABLET 40 MEQ PO (13:12)
--- NOTE | 2020-01-14 13:57 | WPDINFPN2 ---
Progress Note: A&P Assessment and Plan (1) MRSA bacteremia: Code(s): R78.81 - Bacteremia; B95.62 - Methicillin resistant Staphylococcus aureus infection as the cause of diseases classified elsewhere Status: Acute Assessment and Plan: 1. MRSA bacteremia with infection, r foot source 2. Chronic mendez and bacteriuria REC Continue Vanc and imipenem, stop the latter soon. Subjective Date/time seen: 01/14/20 13:57 Interval history: offers no specific complaints, uncomfortable while being weighed Exam Narrative: Exam Narrative: afebrile Extrem: Other: r foot dressed, no erythema no tenderness over leg Objective Data Vital Signs Vital Signs: Vital Signs - 24 hr 01/13/20 14:00 01/13/20 22:00 01/14/20 05:19 Temperature 36.8 C 38.3 C H 38.2 C H Pulse Rate 73 82 Respiratory Rate 22 H 20 Blood Pressure 144/45 H 129/48 L Pulse Oximetry 97 94 01/14/20 05:49 Temperature 36.3 C L Pulse Rate Respiratory Rate Blood Pressure Pulse Oximetry Intake/Output Intake/Output: Intake & Output 01/11/20 01/12/20 01/13/20 01/14/20 23:59 23:59 23:59 23:59 Intake Total 2160 1350 2000 520 Output Total 1500 1075 425 Balance 352 449 7977 520 Meds/Results Medications: Active Medications Generic Name Dose Route Start Last Admin Trade Name Freq PRN Reason Stop Dose Admin Acetaminophen 650 mg 01/08/20 18:31 01/13/20 21:17 Tylenol Tablet PO 650 mg Q4H PRN Administration Mild Pain (1-3) or Fever Amlodipine Besylate 5 mg 01/09/20 18:00 01/13/20 17:42 Norvasc PO 5 mg QPM YISSLE Administration Bisacodyl 10 mg 01/12/20 07:00 Dulcolax Suppository RECTAL QAM PRN Constipation Dextrose 12.5 gm 01/09/20 02:17 Dextrose 50% Syringe IV PUSH PRN PRN Hypoglycemia Protocol Enoxaparin Sodium 85 mg 01/14/20 09:00 01/14/20 08:31 Lovenox SUB-Q 85 mg Q12H YISSEL Administration Glucagon 1 mg 01/09/20 02:17 Glucagon For Inj IM PRN PRN Hypoglycemia Protocol Glucose 15 gm 01/09/20 02:17 Glutose 15 PO PRN PRN Hypoglycemia Protocol Hydralazine HCl 10 mg 01/09/20 09:45 Apresoline Hcl Inj IV PUSH Q8H PRN Blood Pressure - High Dextrose 1,000 mls @ 100 mls/hr 01/09/20 02:17 Dextrose 5% 1,000 Ml IVPB PRN PRN Hypoglycemia Protocol Ibuprofen 800 mg in 200 mls @ 400 mls/hr 01/09/20 09:48 01/14/20 05:49 Caldolor 800 Mg/200 Ml IVPB Infused Q6H PRN Infusion Fever Imipenem/Cilastatin Sodium 500 mg in 100 mls @ 300 mls/hr 01/10/20 15:00 01/14/20 08:47 Primaxin 500 Mg/D5w 100 Ml IVPB Infused Q6H YISSEL Infusion Vancomycin HCl 1,250 mg in 250 mls @ 200 mls/hr 01/11/20 09:00 01/14/20 10:23 Vancomycin 1,250 Mg/D5w 250 Ml IVPB 200 mls/hr Q18H YISSEL Administration Insulin Aspart 2 - 5 units 01/09/20 08:00 01/14/20 13:11 Novolog SUB-Q 2 units TIDWM YISSEL Administration Protocol Magnesium Oxide 400 mg 01/11/20 09:00 01/14/20 08:26 Mag-Ox PO 400 mg QAM YISSEL Administration Ondansetron HCl 4 mg 01/08/20 18:31 01/13/20 17:56 Zofran Inj IV PUSH 4 mg Q4H PRN Administration Nausea Pantoprazole Sodium 40 mg 01/14/20 09:00 Protonix PO QAM YISSEL Polyethylene Glycol 17 gm 01/11/20 13:50 01/13/20 08:35 Miralax PO 17 gm QAM YISSEL Administration Silver Nitrate 1 applic 01/09/20 09:00 01/14/20 08:26 Silvergel TOPICAL 1 applic DAILY YISSEL Administration Sodium Phosphate 250 mg 01/11/20 09:00 01/14/20 08:26 K-Phos Neutral PO 250 mg BID YISSEL Administration Tolnaftate 1 applic 01/09/20 09:00 01/14/20 08:26 Tolnaftate 1% Powder TOPICAL 1 applic BID YISSEL Administration Tramadol HCl 50 mg 01/09/20 01:56 01/14/20 04:11 Ultram PO 50 mg Q6H PRN Administration Pain Rated 4-6 Radiology Results: ITS Impressions Chest X-Ray 01/08/20 16:59 IMPRESSION: Linear
[2020-01-14] MEDS: PANTOPRAZOLE 40 MG TABLET PO (14:33)
[2020-01-14 18:21] LABS: Glucose Point of Care 176 (65-105)
[2020-01-14 18:23] LABS: Gastric Negative Control Negative; Gastric Positive Control Positive; Occult Blood Gastric Fluid Positive; pH Gastric Fluid 7 (1-8)
[2020-01-14 18:35] LABS: Hemoglobin 6.9 g/dL (12.0-15.0)
--- NOTE | 2020-01-14 18:43 | PC.NURSE ---
This patient, Tana Hutchins, was transferred to [ imu] on 01/14/20 at 1843. Personal belongings sent with patient. . Report given to [Viviana ]. Appropriate documentation sent with patient.
--- NOTE | 2020-01-14 19:00 | PC.NURSE ---
Patient arrived from 3 med/surg at 1835. Pt oriented x3, vs noted as bp 118/51, oxygen 100% room air, 84 heart rate, 20 respirations. Pt denies chest pain/shortness of breath at this time, dressing to right foot amputation site dry and intact. Pt has scant amount of mai red emesis in basin. Patient states she is nauseated. Will continue to monitor closely.
--- NOTE | 2020-01-14 19:54 | PC.NURSE ---
Called critical hemoglobin to Dr. Ambrocio at 1840, received order for 1 unit PRBC, H/H q6 hours. Dr Ambrocio request to be notified if hemoglobin less than 7. Called Dr. Schofield to advise, and Dr. Schofield agree with this plan of care.
--- NOTE | 2020-01-14 20:01 | PC.NURSE ---
This patient, Tana Hutchins, was received from [3 Med/Surg ] on 01/14/20 at 2000. Personal belongings list checked and signed. Patient/family oriented to unit policies and routines
[2020-01-14] MEDS: PANTOPRAZOLE SODIUM IV 40 MG VIAL IV PUSH (20:15)
[2020-01-14 21:03] LABS: Glucose Point of Care 182 (65-105)
[2020-01-14] MEDS: ONDANSETRON INJ 4 MG/2 ML VIAL IV PUSH (22:08)
[2020-01-15] VITALS: PULSE 83
[2020-01-15 00:13] VITALS: BP 115/97; PULSE 82; RESP 18; TEMP 35.6; O2SAT 90
[2020-01-15 01:23] LABS: Hematocrit 24.8 % (37.0-47.0); Hemoglobin 8.2 g/dL (12.0-15.0)
[2020-01-15 04:00] VITALS: BP 143/40; PULSE 78; PULSE 84; RESP 16; TEMP 35.6; O2SAT 90
[2020-01-15 06:24] LABS: Hematocrit 23.3 % (37.0-47.0); Hemoglobin 7.7 g/dL (12.0-15.0); Mean Corpuscular Hemoglobin 27.5 pg (26-34); Mean Corpuscular Volume 83.2 fl (80-100); Mean Platelet Volume 10.5 fl (7.4-10.4); Platelet Count Result 182 k/mm3 (150-375); Red Cell Distribution Width 17.2 % (11.5-14.5); White Blood Count 9.3 K/mm3 (4.5-10.0)
--- NOTE | 2020-01-15 06:35 | PC.NURSE ---
Spoke to POA, pt, and will change pt to DNR
[2020-01-15 06:44] LABS: Blood Urea Nitrogen 49 mg/dL (7-17); Calcium 7.4 mg/dL (8.4-10.2); Carbon Dioxide 21 mmol/L (22-30); Chloride 106 mmol/L (98-107); Estimated CRCL calculation 59 ml/min; Estimated Glomerular Filt Rate > 60; Glucose 184 mg/dL (65-105); Potassium 3.9 mmol/L (3.4-5.0); Sodium 131 mmol/L (137-145)
[2020-01-15 08:00] VITALS: BP 156/66; PULSE 76; PULSE 81; RESP 20; TEMP 36.7; O2SAT 99
[2020-01-15 08:41] LABS: Glucose Point of Care 164 (65-105)
--- NOTE | 2020-01-15 08:55 | PCPTNOTE ---
Spoke with Stefanie Bob PA-C in regards to pt being transferred to IMU, low hemoglobin, and increased c/o's pain per RN this date. Pt is not a candidate for PT at this time due to medical status. Will place pt on hold at this time.
--- NOTE | 2020-01-15 08:56 | PCOTNOTE ---
Per RN patient has increased pain and low hemoglobin at this time and is not appropriate for OT. Patient on hold for therapy at this time. Patient transferred to IMU and needs new Occupational Therapy Orders at this time to continue therapy when appropriate.
--- NOTE | 2020-01-15 09:02 | P.CDI_ITS ---
CDI Query Clarification Request - 01/12 Venous doppler impression: extensive left lower extremity DVT - DVT documented 01/12 Please clarify if DVT was: * present on arrival * not present on arrival * unable to determine
--- NOTE | 2020-01-15 09:02 | WPDCDIQUERY2 ---
CDI Query Clarification Request - 01/12 Venous doppler impression: extensive left lower extremity DVT - DVT documented 01/12 Please clarify if DVT was: present on arrival not present on arrival unable to determine
[2020-01-15] MEDS: PANTOPRAZOLE SODIUM IV 40 MG VIAL IV PUSH (09:42)
[2020-01-15] MEDS: SILVERGEL (ELTA) 45 ML 1 APPLIC TOPICAL (09:43)
[2020-01-15] MEDS: TOLNAFTATE 1% POWDER 45 GM BTL 1 APPLIC TOPICAL (09:43)
[2020-01-15 10:00] VITALS: PULSE 80
--- NOTE | 2020-01-15 10:54 | PM.PNORT ---
Progress Note: A&P Assessment and Plan (1) S/P transmetatarsal amputation of foot: Onset Date: 11/20/19 Qualifiers: Laterality: right Qualified Code(s): Z89.431 - Acquired absence of right foot Code(s): Z89.439 - Acquired absence of unspecified foot Status: Acute Assessment and Plan: Two months status post right transmetatarsal amputation followed by delayed closure. Wound dehiscence of the lateral aspect noted previously. Mild improvement in the interim. No signs of active infection or osteomyelitis right foot. Radiographs show postsurgical changes with no acute changes or evidence of osteomyelitis. On exam she has no erythema, no swelling and no drainage. She has mild wound dehiscence which has been persistent since her surgery. Recommendations for wound care given with silver gel and gauze dressings daily. No surgical indication for the foot at this time. We will continue to follow. Subjective Subjective Date/Time Seen: 01/15/20 08:54 Patient admitted for sepsis and urinary tract infection. Asked see patient for to right transmetatarsal amputation wound and for question of infectious etiology. Patient is awake. At times writhing in pain, other times appears comfortable. she does answer questions. She is disoriented to date. No complaints of right foot pain. She has been minimally ambulatory with transfers to a chair. Review of Systems Constitutional: Constitutional: Reports as per HPI and Reports fatigue Eyes: Eyes: Denies blurry vision ENT: Reports Normal hearing present Cardiovascular: Cardiovascular: Denies chest pain and Denies dyspnea Respiratory: Respiratory: Denies dyspnea and Denies wheezing Gastrointestinal: Gastrointestinal: Denies abdominal pain Genitourinary: Genitourinary: Denies urinary urgency Musculoskeletal: Musculoskeletal: Reports as per HPI Integumentary/Breasts: Skin/Breast: Reports changing lesions and Reports sores ( Buttocks) Neurologic: Reports Normal hearing present, Reports behavioral changes, Reports confusion and Denies convulsions Psychiatric: Psychiatric: Denies behavioral changes and Denies hallucinations Endocrine: Endocrine: Denies heat intolerance Hematologic/Lymphatic: Hematologic/Lymphatic: Denies easy bleeding Allergic/Immunologic: Allergic/Immunologic: Denies wheezing Exam Const: General: cooperative and acute distress mild; No healthy appearing, in distress or confusion Orientation/consciousness: oriented to person, oriented to place, No oriented to time and confusion HENMT: Head: normal to inspection, normocephalic and atraumatic Eyes: Conjunctivae: conjunctivae normal Sclera: sclerae normal Resp: Effort & Inspection: normal respiratory effort and no audible wheezes Neuro: General: confusion Extrem: Right upper extremity: Extremity exam: right hand swelling ( mild to moderate swelling dorsum of the hand and wrist. no erythema) Left upper extremity: normal to inspection Right lower extremity: foot Details: other ( transmetatarsal amputation with improved healing on the dorsal aspect. Stable appearing callus and eschar. Lateral aspect with 3.5 cm wound dehiscence, persistent. No swelling, erythema, drainage or signs of infection. Does not probe to bone. Plantar ulcer 6 mm diameter with 1 cm depth. No er) Left lower extremity: normal to inspection and foot Details: abrasion ( dorsum of the 2nd toe, superficial, no drainage or signs of infection) and vascular exam Details: abnormal capillary refill Location: of all toes; dorsalis pedis pulse absent Psych: Affect: normal affect Objective Data Vital Signs Vital Signs: Vital Signs - 24 hr 01/14/20 14:00 01/14/20 18:00 01/14/20 19:00 Temperature 97.8 F 98.7 F Pulse Rate 79 77 84 Respiratory Rate 16 18 20 Blood Pressure 110/53 L 114/56 L 118/51 L Pulse Oximetry 100 100 100 01/14/20 20:00 01/14/20 21:31 01/14/20 21:48 Temperature 98.0 F 97 F L 96.7
--- NOTE | 2020-01-15 11:27 | WPDGICN ---
Assessment and Plan Assessment and plan (1) Hematemesis: Code(s): K92.0 - Hematemesis Status: Acute Assessment and Plan: Hematemesis likely aggravated by anticoagulated status. Lovenox is on hold. Patient will be started on Protonix. An EGD was suggested. At the present time her son who is power of operator automated process feels best not to the proceed with invasive testing. He I understand he is to make her comfort measures. Will continue Protonix if this is allowed. (2) Anemia: Qualifiers: Anemia type: unspecified type Qualified Code(s): D64.9 - Anemia, unspecified Code(s): D64.9 - Anemia, unspecified Status: Acute Assessment and Plan: Anemia likely multifactorial. A certain great Sidhu this is from GI blood loss anemia. Last evening was patient was transfused. This will be limited as she is now comfort measures only. (3) Fecal impaction: Code(s): K56.41 - Fecal impaction Status: Resolved Assessment and Plan: Fecal impaction resolved. Continued stool softener should she continue to improve his advised. (4) UTI (urinary tract infection) due to urinary indwelling Rueda catheter: Qualifiers: Indwelling urinary catheter type: indwelling urethral catheter Encounter type: initial encounter Qualified Code(s): T83.511A - Infection and inflammatory reaction due to indwelling urethral catheter, initial encounter; N39.0 - Urinary tract infection, site not specified Code(s): T83.511A - Infection and inflammatory reaction due to indwelling urethral catheter, initial encounter; N39.0 - Urinary tract infection, site not specified Status: Acute (5) Acute metabolic encephalopathy: Code(s): G93.41 - Metabolic encephalopathy Status: Resolved (6) Diabetic foot: Onset Date: Unknown Code(s): E11.8 - Type 2 diabetes mellitus with unspecified complications Status: Acute Assessment and Plan: Patient is status post right foot amputation. In 5 infection likely aggravated by diabetes. (7) DVT (deep venous thrombosis): Qualifiers: DVT location: lower extremity Affected thrombotic vein of extremity: femoral Chronicity: acute Laterality: left Qualified Code(s): I82.412 - Acute embolism and thrombosis of left femoral vein Code(s): I82.409 - Acute embolism and thrombosis of unspecified deep veins of unspecified lower extremity Status: Acute Assessment and Plan: DVT and left lower extremity. Anticoagulation will be held because of ongoing bleeding. Additional Plan Given son's decision to make patient comfort measures only will cancel anticipated EGD. Further management per primary care service. GI Consult Note Consult date/time: 01/15/20 11:27 HPI: Tana Hutchins is a 74 year old female seen in evaluation at the request of the hospitalist service. Patient began to vomit bright red blood last evening. And this morning past maroonish stools. Patient initially admitted to the hospital with metabolic encephalopathy on 01/08/2020. She has osteomyelitis is status post amputation of the right foot. She subsequently developed a DVT in the left lower extremity. He has been maintained on Lovenox anticoagulation. She has been impacted until last evening when she had relief of this and subsequent bleed bleeding noted. She has chronic urinary retention has an indwelling Rueda catheter. Currently confused she is unable to give any useful history. It was anticipated may should patient repeat may require invasive testing such as an EGD to assess for bleeding. However on discussion with her son it was felt that limited intervention would be best way to proceed. Review of Systems Review of Systems: ROS unobtainable: Yes unobtainable due to mental status PMFSH Past Medical History Medical History Compression fracture of L1 lumbar vertebra Diabetes mellitus
[2020-01-15] MEDS: MORPHINE SULFATE 2 MG/ML INJ 1 MG IV PUSH (11:39)
--- NOTE | 2020-01-15 12:22 | PC.NURSE ---
This patient, Tana Hutchins, was transferred to [facility] on 01/15/20 at 1210. Personal belongings sent with patient. Belongings list checked. Report given to Jacy GUTHRIE. Appropriate documentation sent with patient.
--- NOTE | 2020-01-15 13:32 | PCDIET ---
Nutrition Follow-Up Complete: Nutrition Diagnosis: Inadequate oral intake related to UTI as evidenced by poor oral intake reported. Nutrition Goal: Intake of at least 75% of meals. Goal not met. Patient began having hematemesis last night, followed by maroon stools. GI consulted; however, POA has made decision for no intervention and is possibly meeting with hospice. Diet is NPO which is appropriate at this time. Last recorded weight is 85 kg. Recommend obtaining new weight. Bowel Motility: +BM, maroon color reported Labs Reviewed: Hgb (7.7), Hct (23.3), Glu (184), BUN (49), Na (131), Ca (7.4) Meds Noted: Protonix, Miralax and Dulcolax prn Additional Notes: No albumin available for calcium correction. Patient receiving blood transfusion today. Right foot surgical site with dressing. Sacral area macerated. If change in plan occurs and aggressive nutritional therapy is desired, consult RD for parenteral nutrition. Nutrition Monitoring and Evaluation: Will monitor every 3 days.
--- NOTE | 2020-01-15 13:39 | WPDINFPN2 ---
Progress Note: A&P Assessment and Plan (1) MRSA bacteremia: Code(s): R78.81 - Bacteremia; B95.62 - Methicillin resistant Staphylococcus aureus infection as the cause of diseases classified elsewhere Status: Acute Assessment and Plan: 1. MRSA bacteremia with infection, r foot source. BC repeat ng 2 days. 2. Chronic mendez and bacteriuria 3. Prior TMA, Dr. Martinez's interpretation of current plain films appreciated REC Continue Vanc # days, through 02/07/20. Target trough 15-20, PharmD dosing. Ok discharge planning. Stop imipenem. Subjective Date/time seen: 01/15/20 13:39 Interval history: no complaints Exam Narrative: Exam Narrative: afebrile Const: General: no acute distress Eyes: General: appearance normal, both eyes and all related structures Resp: Effort & Inspection: normal respiratory effort Auscultation: clear to auscultation bilaterally Cardio: Rate: regular rate Rhythm: regular rhythm Heart sounds: no murmurs GI: Inspection: non-distended GI Palp: Yes Soft to palpation and No Tenderness to palpation present (GI) Urinary Catheter: Urinary Catheter: patent and draining and urine clear Skin: General skin exam: no rashes or lesions noted Objective Data Vital Signs Vital Signs: Vital Signs - 24 hr 01/14/20 14:00 01/14/20 18:00 01/14/20 19:00 Temperature 36.6 C 37.1 C Pulse Rate 79 77 84 Respiratory Rate 16 18 20 Blood Pressure 110/53 L 114/56 L 118/51 L Pulse Oximetry 100 100 100 01/14/20 20:00 01/14/20 21:31 01/14/20 21:48 Temperature 36.7 C 36.1 C L 35.9 C L Pulse Rate 85 82 79 Respiratory Rate 20 22 H 18 Blood Pressure 109/49 L 119/51 L 113/28 L Pulse Oximetry 96 100 90 01/14/20 22:00 01/14/20 22:48 01/14/20 23:34 Temperature 36.6 C 36.6 C Pulse Rate 82 88 99 Respiratory Rate 18 20 Blood Pressure 114/64 99/64 L Pulse Oximetry 95 96 01/14/20 23:48 01/15/20 00:00 01/15/20 00:13 Temperature 36.6 C 35.6 C L Pulse Rate 88 83 82 Respiratory Rate 18 18 Blood Pressure 99/64 L 115/97 H Pulse Oximetry 97 90 01/15/20 04:00 01/15/20 08:00 01/15/20 10:00 Temperature 35.6 C L 36.7 C Pulse Rate 78 81 80 Respiratory Rate 16 20 Blood Pressure 143/40 H 156/66 H Pulse Oximetry 90 99 Intake/Output Intake/Output: Intake & Output 01/12/20 01/13/20 01/14/20 01/15/20 23:59 23:59 23:59 23:59 Intake Total 1350 2000 1790 959 Output Total 1075 425 400 650 Balance 275 1575 1390 309 Meds/Results Medications: Active Medications Generic Name Dose Route Start Last Admin Trade Name Freq PRN Reason Stop Dose Admin Acetaminophen 650 mg 01/08/20 18:31 01/13/20 21:17 Tylenol Tablet PO 650 mg Q4H PRN Administration Mild Pain (1-3) or Fever Bisacodyl 10 mg 01/12/20 07:00 Dulcolax Suppository RECTAL QAM PRN Constipation Acetaminophen 1,000 mg in 100 mls @ 400 mls/hr 01/15/20 08:40 01/15/20 09:15 Ofirmev 1,000 Mg Ivpb IVPB 01/16/20 08:41 Infused Q6H PRN Infusion pain while NPO Morphine Sulfate 1 mg 01/15/20 10:48 01/15/20 11:39 Morphine Sulfate Inj IV PUSH 1 mg Q3HR PRN Administration breakthrough pain Ondansetron HCl 4 mg 01/08/20 18:31 01/14/20 22:08 Zofran Inj IV PUSH 4 mg Q4H PRN Administration Nausea Pantoprazole Sodium 40 mg 01/14/20 21:00 01/15/20 09:42 Protonix Iv IV PUSH 40 mg Q12HR YISSEL Administration Polyethylene Glycol 17 gm 01/14/20 16:20 Miralax PO QAM PRN constipation Tolnaftate 1 applic 01/09/20 09:00 01/15/20 09:43 Tolnaftate 1% Powder TOPICAL 1 applic BID YISSEL Administration Tramadol HCl 50 mg 01/09/20 01:56 01/14/20 22:08 Ultram PO 50 mg Q6H PRN Administration Pain Rated 4-6 Radiology Results: ITS Impressions Chest X-Ray 01/08/20 16:59 IMPRESSION: Linear left basilar opacities most likely subsegmental atelectasis. Head CT 01/09/20 11:45 IMPRESSION: 1. No acute intracrani
[2020-01-15] MEDS: TRAMADOL HCL 50 MG TABLET PO (13:43)
--- NOTE | 2020-01-15 15:44 | PM.DS ---
DS: Diagnosis Admitting Diagnosis Admitting Diagnosis: Sepsis, unspecified organism Discharge Diagnosis (1) UTI (urinary tract infection) due to urinary indwelling Rueda catheter: Qualifiers: Indwelling urinary catheter type: indwelling urethral catheter Encounter type: initial encounter Qualified Code(s): T83.511A - Infection and inflammatory reaction due to indwelling urethral catheter, initial encounter; N39.0 - Urinary tract infection, site not specified Code(s): T83.511A - Infection and inflammatory reaction due to indwelling urethral catheter, initial encounter; N39.0 - Urinary tract infection, site not specified Status: Acute (2) MRSA bacteremia: Code(s): R78.81 - Bacteremia; B95.62 - Methicillin resistant Staphylococcus aureus infection as the cause of diseases classified elsewhere Status: Acute (3) Sepsis: Onset Date: Unknown Qualifiers: Sepsis type: sepsis due to unspecified organism Sepsis acute organ dysfunction status: with acute organ dysfunction Severe sepsis acute organ dysfunction type: encephalopathy Severe sepsis shock status: without septic shock Qualified Code(s): A41.9 - Sepsis, unspecified organism; R65.20 - Severe sepsis without septic shock; G93.40 - Encephalopathy, unspecified Code(s): A41.9 - Sepsis, unspecified organism Status: Acute (4) DVT (deep venous thrombosis): Qualifiers: DVT location: lower extremity Affected thrombotic vein of extremity: femoral Chronicity: acute Laterality: left Qualified Code(s): I82.412 - Acute embolism and thrombosis of left femoral vein Code(s): I82.409 - Acute embolism and thrombosis of unspecified deep veins of unspecified lower extremity Status: Acute (5) Generalized weakness: Code(s): R53.1 - Weakness Status: Chronic (6) Acute metabolic encephalopathy: Code(s): G93.41 - Metabolic encephalopathy Status: Resolved (7) S/P transmetatarsal amputation of foot: Onset Date: 11/20/19 Qualifiers: Laterality: right Qualified Code(s): Z89.431 - Acquired absence of right foot Code(s): Z89.439 - Acquired absence of unspecified foot Status: Acute (8) Anemia: Qualifiers: Anemia type: unspecified type Qualified Code(s): D64.9 - Anemia, unspecified Code(s): D64.9 - Anemia, unspecified Status: Acute DS: Summary Hospital Course Reason for hospitalization: [facility] Hospital Course: Patient is a 74-year-old female who presented emergency room on January 07 for altered mental status. Temperature was 99.1?, pulse 103, respiratory rate 24, blood pressure 163/58, pulse ox 97 on room air. Sodium 137, potassium 5.6, chloride 104, CO2 21, BUN 40, creatinine 1.2, glucose 144. White blood cell count 8.3, hemoglobin 11.1, hematocrit 35.5, platelets 256. UA suspicious for UTI. Patient was admitted to the hospitalist service and found to have a urinary tract infection as well as MRSA bacteremia. This was likely due to her cellulitis/surgery 2 months prior. Infectious Disease saw her and recommended long-term IV antibiotics. She was also found to have an extensive DVT in her left leg. She was placed on Lovenox and the plan was to transition to Eliquis. While on Lovenox she started having bloody emesis. At that time, the patient requested that she have no further intervention. I spoke with the patient and the son about the plan of care. I discussed options such as EGD and IVC filter. The patient was alert oriented x4 and making rational decisions. She requested that no further intervention be done and understood the risk of . She requested hospice and her sons agreed. The patient was discharged on hospice. Status at Discharge Functional status at discharge: bed bound Overall status at discharge: patient is not back to baseline Time Spent with Patient Time attestation: Total time spent providing and/or coordinating
[2020-01-15 16:45] LABS: Glucose Point of Care 143 (65-105)
== END 2020-01-15 15:53 | disposition hospice, inpatient (51) | DRG 698 ==
LOC: ANHED 18:32 → ANH3MEDSUR 19:42 → ANHIMU 01-15 07:29 → ANH3MED 01-15 12:39 → ANH3MEDSUR 01-17 12:22 → ANHIMU 01-17 12:22
PROVIDERS: Internal Medicine; Physician Assistant; Admitting Provider Internal Medicine; Emergency Provider Emergency Medicine; Visit Provider Physician Assistant
DX: T83.511A Infection and inflammatory reaction due to indwelling urethral catheter, initial encounter (principal); A41.02 Sepsis due to Methicillin resistant Staphylococcus aureus; R65.20 Severe sepsis without septic shock; G93.41 Metabolic encephalopathy; I82.412 Acute embolism and thrombosis of left femoral vein; N17.9 Acute kidney failure, unspecified; K92.0 Hematemesis; Z16.12 Extended spectrum beta lactamase (ESBL) resistance; N39.0 Urinary tract infection, site not specified; T87.81 Dehiscence of amputation stump; Z89.431 Acquired absence of right foot; B96.20 Unspecified Escherichia coli [E. coli] as the cause of diseases classified elsewhere; I11.9 Hypertensive heart disease without heart failure; D64.9 Anemia, unspecified; E86.0 Dehydration; E87.5 Hyperkalemia; K56.41 Fecal impaction; E11.9 Type 2 diabetes mellitus without complications; Z79.899 Other long term (current) drug therapy
CPT/HCPCS: 36415; 36430; 70450; 71045; 73630; 74019; 74176; 80048; 80053; 80202; 81001; 82271; 83036; 83605; 83735; 83986; 84100; 85014; 85018; 85025; 85027; 86850; 86900; 86901; 86923; 87040; 87077; 87086; 87088; 87186; 93005; 93308; 93970; 96361; 96365; 96367; 96372; 96375; 96376; 97110; 97162; 97166; 97530; 99285; A9270; C9113; G0378; J0131; J0696; J0743; J1650; J1741; J1815; J2270; J2405; J3370; J3475; J7030; P9016

== ENCOUNTER 2020-01-15 15:54 | HOS | payer OTHER, MEDICARE, SELFPAY ==
--- NOTE | 2020-01-15 16:13 | PC.NURSE ---
Patient transitioning to [facility]. Please see previous chart for assessment.
--- NOTE | 2020-01-15 18:01 | PM.IMHP ---
H&P: HPI History of Present Illness Chief complaint: metabolic encephalopathy Narrative: Tana Hutchins is a 74 year old female was admitted to acute care on January 07 for altered mental status. She had a right distal foot amputation about 2 months prior to this admission. During this admission she was found to have MRSA in her blood and ESBL E coli in her urine. She was treated with IV vancomycin and Primaxin. Vancomycin was to be continued for at least 2 more weeks. However she developed acute hematemesis with nausea vomiting. Because of her wish not have any more surgery including diagnostic procedures, as well as because of her declining functional status, she and her family opted for hospice care. Six months ago she was independent for all activities of daily living. Appetite was good. Palliative performance score was 60-70. She had multiple medical issues but was not going to doctor's appointments. Since her amputation on November 26, the patient's functional status has declined dramatically to her current palliative performance score of 30. She is currently NPO due to her gastrointestinal bleeding. She is extremely sensitive on the right foot stump. She complains of persistent aching pain in the left hip girdle region. Worse with movement. Moderate to severe. Review of Systems Review of Systems: All systems reviewed & are unremarkable except as noted in HPI and below [facility] Social History Social History Social History: Code status: Full code Smoking status: Unknown if ever smoked Second hand tobacco smoke exposure: No Alcohol intake: unknown Substance use: unknown Substance use type: does not use Additional living arrangements comments: The patient had been hospitalized in November. She was discharged to acute rehab in then to detention facility. She recently returned home. Gender identity (if verbalized by the patient): Female Spiritual care concerns: No Agree to blood products: Yes Meds Home Medications and Allergies Home Medications Medication Instructions Recorded Confirmed Type tramadol 50 mg PO Q6H PRN 30 Days #45 tablet 12/13/19 01/08/20 Rx Allergies Allergy/AdvReac Type Severity Reaction Status Date / Time No Known Allergies Allergy Verified 01/08/20 16:16 Exam Narrative: Exam Narrative: HEENT: EOMI, PERRL, sclerae nonicteric, pharyngeal mucosa pink and intact NECK: No JVD CHEST: Clear to auscultation. Normal effort. HEART: NL S1/S2, regular, no murmur ABDOMEN: BS+, soft, nontender, no mass, no bruits EXTREMITIES: No cyanosis, edema, or clubbing NEUROLOGIC: CN intact and symmetric to inspection. MUSCULOSKELETAL: Tone and strength symmetric. PSYCH: Alert. Oriented to person, place, and time. Assessment and Plan Assessment and plan (1) Palliative care by specialist: Code(s): Z51.5 - Encounter for palliative care Status: Acute Assessment and Plan: She requires general inpatient status due to uncontrolled pain, including neuropathic pain in her right foot, and inability to take ora analgesics Continuous IV morphine initiated 01/14 Other palliative medications as ordered Titrate to comfort (2) Hematemesis: Code(s): K92.0 - Hematemesis Status: Acute Assessment and Plan: IV pantoprazole (3) MRSA bacteremia: Code(s): R78.81 - Bacteremia; B95.62 - Methicillin resistant Staphylococcus aureus infection as the cause of diseases classified elsewhere Status: Acute Assessment and Plan: Comfort medications only (4) UTI (urinary tract infection) due to urinary indwelling Rueda catheter: Qualifiers: Encounter type: initial encounter Indwelling urinary catheter type: indwelling urethral catheter Qualified Code(s): T83.511A - Infection and inflammatory reaction due to indwelling urethral catheter, initial encounter; N39.0 - Urinary tract i
[2020-01-15] MEDS: MORPHINE SULFATE 2 MG/ML INJ 1 MG IV PUSH ×2 (20:44→23:16)
[2020-01-15 22:00] VITALS: BP 104/87; PULSE 81; RESP 21; TEMP 36.8; O2SAT 100
[2020-01-15] MEDS: LORAZEPAM INJ 2 MG/ML VIAL 1 MG IV PUSH (23:46)
[2020-01-16 06:00] VITALS: BP 115/65; PULSE 85; RESP 20; TEMP 36.5; O2SAT 98
--- NOTE | 2020-01-16 09:09 | PM.IMPN ---
Progress Note: A&P Assessment and Plan (1) Palliative care by specialist: Code(s): Z51.5 - Encounter for palliative care Status: Acute Assessment and Plan: She requires general inpatient status due to pain requiring continuous IV medication for control Continuous IV morphine initiated 01/14 Other palliative medications as ordered Titrate to comfort (2) Hematemesis: Code(s): K92.0 - Hematemesis Status: Acute Assessment and Plan: IV pantoprazole (3) MRSA bacteremia: Code(s): R78.81 - Bacteremia; B95.62 - Methicillin resistant Staphylococcus aureus infection as the cause of diseases classified elsewhere Status: Acute Assessment and Plan: Comfort medications only (4) UTI (urinary tract infection) due to urinary indwelling Rueda catheter: Qualifiers: Indwelling urinary catheter type: indwelling urethral catheter Encounter type: initial encounter Qualified Code(s): T83.511A - Infection and inflammatory reaction due to indwelling urethral catheter, initial encounter; N39.0 - Urinary tract infection, site not specified Code(s): T83.511A - Infection and inflammatory reaction due to indwelling urethral catheter, initial encounter; N39.0 - Urinary tract infection, site not specified Status: Acute Assessment and Plan: Comfort medications only (5) Acute metabolic encephalopathy: Code(s): G93.41 - Metabolic encephalopathy Status: Resolved (6) S/P transmetatarsal amputation of foot: Onset Date: 11/20/19 Qualifiers: Laterality: right Qualified Code(s): Z89.431 - Acquired absence of right foot Code(s): Z89.439 - Acquired absence of unspecified foot Status: Acute (7) PATRIC (acute kidney injury): Code(s): N17.9 - Acute kidney failure, unspecified Status: Resolved (8) Anemia: Qualifiers: Anemia type: unspecified type Qualified Code(s): D64.9 - Anemia, unspecified Code(s): D64.9 - Anemia, unspecified Status: Acute (9) DVT (deep venous thrombosis): Qualifiers: DVT location: lower extremity Affected thrombotic vein of extremity: femoral Chronicity: acute Laterality: left Qualified Code(s): I82.412 - Acute embolism and thrombosis of left femoral vein Code(s): I82.409 - Acute embolism and thrombosis of unspecified deep veins of unspecified lower extremity Status: Acute Subjective Date/time seen: 01/16/20 08:45 Interval history: Very drowsy this AM. No eating. Review of Systems Review of Systems: ROS unobtainable: Yes unobtainable due to medical condition Exam Narrative: Exam Narrative: HEENT: pharyngeal mucosa pink and intact NECK: No JVD CHEST: Clear to auscultation. Normal effort. HEART: NL S1/S2, regular, no murmur ABDOMEN: BS+, soft, nontender, no mass, no bruits EXTREMITIES: No cyanosis, edema, or clubbing NEUROLOGIC: CN intact and symmetric to inspection. MUSCULOSKELETAL: Tone and strength symmetric. PSYCH: Drowsy, difficult to arouse Objective Data Vital Signs Vital Signs: Vital Signs - 24 hr 01/15/20 22:00 01/16/20 06:00 Temperature 98.3 F 97.7 F Pulse Rate 81 85 Respiratory Rate 21 H 20 Blood Pressure 104/87 115/65 Pulse Oximetry 100 98 Intake/Output Intake/Output: Intake & Output 01/13/20 01/14/20 01/15/20 01/16/20 23:59 23:59 23:59 23:59 Intake Total 0 12 Output Total 200 1100 Balance -200 -1088 Meds/Results Medications: Active Medications Generic Name Dose Route Start Last Admin Trade Name Freq PRN Reason Stop Dose Admin Artificial Tears 1 drop 01/15/20 17:06 Artificial Tears EACH EYE Q12H PRN Dry Eye(s) Bisacodyl 10 mg 01/15/20 17:05 Dulcolax Suppository RECTAL QAM PRN Constipation Glycopyrrolate 0.1 mg 01/15/20 17:05 Robinul Inj IV PUSH Q4H PRN EXCESS SECRETIONS Morphine Sulfate 50 mg/ Sodium 100 mls @ 1 mls/hr 01/15/20
[2020-01-16] MEDS: MORPHINE SULFATE 2 MG/ML INJ 1 MG IV PUSH ×4 (10:42→18:38)
[2020-01-16] MEDS: PANTOPRAZOLE SODIUM IV 40 MG VIAL IV PUSH (10:43)
[2020-01-16] MEDS: LIDOCAINE HCL 2% JELLY 30 ML TUBE 1 APPLIC TOPICAL ×2 (10:44→20:10)
--- NOTE | 2020-01-16 12:13 | WPDANESPN ---
Anes - Prog Note Post-Op Date/Time: 01/16/20 12:13 Cardiovascular status: normal Respiratory status: normal Airway patency: baseline Mental status: baseline Post-Op hydration status: normal Vital Signs: Last Vital Signs Temp 36.5 C 01/16/20 06:00 Pulse 85 01/16/20 06:00 Resp 20 01/16/20 06:00 BP 115/65 01/16/20 06:00 Pulse Ox 98 01/16/20 06:00 I/O: Intake & Output 01/15/20 01/16/20 01/16/20 23:59 07:59 15:59 Intake Total 0 12 Output Total 200 1100 Balance -200 -1088 Post-procedural complaints: none Patient Feedback: Patient satisfied with anesthetic care.
[2020-01-16 14:35] VITALS: BP 147/50; PULSE 85; RESP 22; TEMP 35.9; O2SAT 99
[2020-01-16 19:30] VITALS: BP 131/64; PULSE 84; RESP 16; TEMP 36.7; O2SAT 96
[2020-01-17] MEDS: MORPHINE SULFATE 2 MG/ML INJ 1 MG IV PUSH ×4 (00:09→09:15)
[2020-01-17] MEDS: LORAZEPAM INJ 2 MG/ML VIAL 1 MG IV PUSH ×4 (04:42→23:42)
[2020-01-17 08:00] VITALS: BP 138/76; PULSE 117; RESP 24; TEMP 36.3; O2SAT 90
[2020-01-17 09:07] VITALS: RESP 22; O2SAT 91
[2020-01-17] MEDS: PANTOPRAZOLE SODIUM IV 40 MG VIAL IV PUSH (09:07)
[2020-01-17] MEDS: LIDOCAINE HCL 2% JELLY 30 ML TUBE 1 APPLIC TOPICAL ×2 (09:07→23:43)
--- NOTE | 2020-01-17 12:29 | PM.IMPN ---
Progress Note: A&P Assessment and Plan (1) Palliative care by specialist: Code(s): Z51.5 - Encounter for palliative care Status: Acute Assessment and Plan: She requires general inpatient status due to pain requiring continuous IV medication for control Continuous IV morphine initiated 01/14 and increased on 01/16 Other palliative medications as ordered Titrate to comfort (2) Hematemesis: Code(s): K92.0 - Hematemesis Status: Acute Assessment and Plan: IV pantoprazole (3) MRSA bacteremia: Code(s): R78.81 - Bacteremia; B95.62 - Methicillin resistant Staphylococcus aureus infection as the cause of diseases classified elsewhere Status: Acute Assessment and Plan: Comfort medications only (4) UTI (urinary tract infection) due to urinary indwelling Rueda catheter: Qualifiers: Indwelling urinary catheter type: indwelling urethral catheter Encounter type: initial encounter Qualified Code(s): T83.511A - Infection and inflammatory reaction due to indwelling urethral catheter, initial encounter; N39.0 - Urinary tract infection, site not specified Code(s): T83.511A - Infection and inflammatory reaction due to indwelling urethral catheter, initial encounter; N39.0 - Urinary tract infection, site not specified Status: Acute Assessment and Plan: Comfort medications only (5) Acute metabolic encephalopathy: Code(s): G93.41 - Metabolic encephalopathy Status: Resolved (6) S/P transmetatarsal amputation of foot: Onset Date: 11/20/19 Qualifiers: Laterality: right Qualified Code(s): Z89.431 - Acquired absence of right foot Code(s): Z89.439 - Acquired absence of unspecified foot Status: Acute (7) PATRIC (acute kidney injury): Code(s): N17.9 - Acute kidney failure, unspecified Status: Resolved (8) Anemia: Qualifiers: Anemia type: unspecified type Qualified Code(s): D64.9 - Anemia, unspecified Code(s): D64.9 - Anemia, unspecified Status: Acute (9) DVT (deep venous thrombosis): Qualifiers: DVT location: lower extremity Affected thrombotic vein of extremity: femoral Chronicity: acute Laterality: left Qualified Code(s): I82.412 - Acute embolism and thrombosis of left femoral vein Code(s): I82.409 - Acute embolism and thrombosis of unspecified deep veins of unspecified lower extremity Status: Acute Subjective Date/time seen: 01/17/20 12:29 Interval history: Restless and in pain earlier. Improved after increased morphine. Review of Systems Review of Systems: ROS unobtainable: Yes unobtainable due to medical condition Exam Narrative: Exam Narrative: HEENT: pharyngeal mucosa pink and intact NECK: No JVD CHEST: Clear to auscultation. Normal effort. HEART: NL S1/S2, regular, no murmur ABDOMEN: BS+, soft, nontender, no mass, no bruits EXTREMITIES: No cyanosis, edema, or clubbing NEUROLOGIC: CN intact and symmetric to inspection. MUSCULOSKELETAL: Tone and strength symmetric. PSYCH: Drowsy, difficult to arouse Objective Data Vital Signs Vital Signs: Vital Signs - 24 hr 01/16/20 14:35 01/16/20 19:30 01/17/20 08:00 Temperature 96.6 F L 98.0 F 97.4 F L Pulse Rate 85 84 117 H Respiratory Rate 22 H 16 24 H Blood Pressure 147/50 H 131/64 138/76 Pulse Oximetry 99 96 90 Intake/Output Intake/Output: Intake & Output 01/14/20 01/15/20 01/16/20 01/17/20 23:59 23:59 23:59 23:59 Intake Total 0 250 662 Output Total 200 1400 525 Balance -200 -1150 137 Meds/Results Medications: Active Medications Generic Name Dose Route Start Last Admin Trade Name Freq PRN Reason Stop Dose Admin Artificial Tears 1 drop 01/15/20 17:06 Artificial Tears EACH EYE Q12H PRN Dry Eye(s) Bisacodyl 10 mg 01/15/20 17:05 Dulcolax Suppository RECTAL QAM PRN Constipation Glycopyrrolate 0.1 mg 01/15/20 17:05 Rodriguez
[2020-01-17 20:00] VITALS: PULSE 65; RESP 20; TEMP 36.7; O2SAT 92
[2020-01-18] MEDS: LORAZEPAM INJ 2 MG/ML VIAL 1 MG IV PUSH (06:45)
[2020-01-18] MEDS: PANTOPRAZOLE SODIUM IV 40 MG VIAL IV PUSH (08:52)
[2020-01-18] MEDS: MORPHINE SULFATE 2 MG/ML INJ IV PUSH ×4 (09:05→22:41)
--- NOTE | 2020-01-18 10:35 | PM.IMPN ---
Progress Note: A&P Assessment and Plan (1) Palliative care by specialist: Code(s): Z51.5 - Encounter for palliative care Status: Acute Assessment and Plan: She requires general inpatient status due to pain requiring continuous IV medication for control Continuous IV morphine initiated 01/14 and increased on 01/16 Other palliative medications as ordered Titrate to comfort (2) Hematemesis: Code(s): K92.0 - Hematemesis Status: Acute Assessment and Plan: IV pantoprazole (3) MRSA bacteremia: Code(s): R78.81 - Bacteremia; B95.62 - Methicillin resistant Staphylococcus aureus infection as the cause of diseases classified elsewhere Status: Acute Assessment and Plan: Comfort medications only (4) UTI (urinary tract infection) due to urinary indwelling Rueda catheter: Qualifiers: Indwelling urinary catheter type: indwelling urethral catheter Encounter type: initial encounter Qualified Code(s): T83.511A - Infection and inflammatory reaction due to indwelling urethral catheter, initial encounter; N39.0 - Urinary tract infection, site not specified Code(s): T83.511A - Infection and inflammatory reaction due to indwelling urethral catheter, initial encounter; N39.0 - Urinary tract infection, site not specified Status: Acute Assessment and Plan: Comfort medications only (5) Acute metabolic encephalopathy: Code(s): G93.41 - Metabolic encephalopathy Status: Resolved (6) S/P transmetatarsal amputation of foot: Onset Date: 11/20/19 Qualifiers: Laterality: right Qualified Code(s): Z89.431 - Acquired absence of right foot Code(s): Z89.439 - Acquired absence of unspecified foot Status: Acute (7) PATRIC (acute kidney injury): Code(s): N17.9 - Acute kidney failure, unspecified Status: Resolved (8) Anemia: Qualifiers: Anemia type: unspecified type Qualified Code(s): D64.9 - Anemia, unspecified Code(s): D64.9 - Anemia, unspecified Status: Acute (9) DVT (deep venous thrombosis): Qualifiers: DVT location: lower extremity Affected thrombotic vein of extremity: femoral Chronicity: acute Laterality: left Qualified Code(s): I82.412 - Acute embolism and thrombosis of left femoral vein Code(s): I82.409 - Acute embolism and thrombosis of unspecified deep veins of unspecified lower extremity Status: Acute Subjective Date/time seen: 01/18/20 10:15 Interval history: Required breakthrough morphine earlier today. Review of Systems Review of Systems: ROS unobtainable: Yes unobtainable due to medical condition Exam Narrative: Exam Narrative: HEENT: pharyngeal mucosa pink and intact NECK: No JVD CHEST: Clear to auscultation. Normal effort. HEART: NL S1/S2, regular, no murmur ABDOMEN: BS+, soft, nontender, no mass, no bruits EXTREMITIES: No cyanosis, edema, or clubbing NEUROLOGIC: CN intact and symmetric to inspection. MUSCULOSKELETAL: Tone and strength symmetric. PSYCH: Drowsy, difficult to arouse Objective Data Vital Signs Vital Signs: Vital Signs - 24 hr 01/17/20 20:00 Temperature 98.0 F Pulse Rate 65 Respiratory Rate 20 Pulse Oximetry 92 Intake/Output Intake/Output: Intake & Output 01/15/20 01/16/20 01/17/20 01/18/20 23:59 23:59 23:59 23:59 Intake Total 0 250 1340 113.5 Output Total 200 1400 925 250 Balance -200 -1150 415 -136.5 Meds/Results Medications: Active Medications Generic Name Dose Route Start Last Admin Trade Name Freq PRN Reason Stop Dose Admin Artificial Tears 1 drop 01/15/20 17:06 Artificial Tears EACH EYE Q12H PRN Dry Eye(s) Bisacodyl 10 mg 01/15/20 17:05 Dulcolax Suppository RECTAL QAM PRN Constipation Glycopyrrolate 0.1 mg 01/15/20 17:05 Robinul Inj IV PUSH Q4H PRN EXCESS SECRETIONS Morphine Sulfate 50 mg/ Sodium 100 mls @ 2 mls/hr 01/15/20 17
[2020-01-18 14:00] VITALS: BP 148/73; PULSE 104; RESP 20; TEMP 36.9; O2SAT 95
[2020-01-18] MEDS: LIDOCAINE HCL 2% JELLY 30 ML TUBE 1 APPLIC TOPICAL ×2 (14:58→22:41)
[2020-01-19] MEDS: MORPHINE SULFATE 2 MG/ML INJ IV PUSH (08:22)
[2020-01-19] MEDS: PANTOPRAZOLE SODIUM IV 40 MG VIAL IV PUSH (08:23)
[2020-01-19] MEDS: LIDOCAINE HCL 2% JELLY 30 ML TUBE 1 APPLIC TOPICAL ×2 (08:23→20:17)
[2020-01-19] MEDS: LORAZEPAM INJ 2 MG/ML VIAL 1 MG IV PUSH (11:43)
[2020-01-19 14:00] VITALS: BP 143/55; PULSE 94; RESP 24; TEMP 36.3; O2SAT 94
[2020-01-19] MEDS: MORPHINE SULFATE 4 MG/ML INJ IV PUSH (14:12)
--- NOTE | 2020-01-19 16:45 | PM.IMPN ---
Progress Note: A&P Assessment and Plan (1) Palliative care by specialist: Code(s): Z51.5 - Encounter for palliative care Status: Acute Assessment and Plan: She requires general inpatient status due to pain requiring continuous IV medication for control Continuous IV morphine initiated 01/14 and increased on 01/16 and again to 4mg/hr on 01/18 Other palliative medications as ordered Titrate to comfort (2) Hematemesis: Code(s): K92.0 - Hematemesis Status: Acute Assessment and Plan: IV pantoprazole (3) MRSA bacteremia: Code(s): R78.81 - Bacteremia; B95.62 - Methicillin resistant Staphylococcus aureus infection as the cause of diseases classified elsewhere Status: Acute Assessment and Plan: Comfort medications only (4) UTI (urinary tract infection) due to urinary indwelling Rueda catheter: Qualifiers: Indwelling urinary catheter type: indwelling urethral catheter Encounter type: initial encounter Qualified Code(s): T83.511A - Infection and inflammatory reaction due to indwelling urethral catheter, initial encounter; N39.0 - Urinary tract infection, site not specified Code(s): T83.511A - Infection and inflammatory reaction due to indwelling urethral catheter, initial encounter; N39.0 - Urinary tract infection, site not specified Status: Acute Assessment and Plan: Comfort medications only (5) Acute metabolic encephalopathy: Code(s): G93.41 - Metabolic encephalopathy Status: Resolved (6) S/P transmetatarsal amputation of foot: Onset Date: 11/20/19 Qualifiers: Laterality: right Qualified Code(s): Z89.431 - Acquired absence of right foot Code(s): Z89.439 - Acquired absence of unspecified foot Status: Acute (7) PATRIC (acute kidney injury): Code(s): N17.9 - Acute kidney failure, unspecified Status: Resolved (8) Anemia: Qualifiers: Anemia type: unspecified type Qualified Code(s): D64.9 - Anemia, unspecified Code(s): D64.9 - Anemia, unspecified Status: Acute (9) DVT (deep venous thrombosis): Qualifiers: DVT location: lower extremity Affected thrombotic vein of extremity: femoral Chronicity: acute Laterality: left Qualified Code(s): I82.412 - Acute embolism and thrombosis of left femoral vein Code(s): I82.409 - Acute embolism and thrombosis of unspecified deep veins of unspecified lower extremity Status: Acute Subjective Date/time seen: 01/19/20 10:30 Interval history: 01/18 required multiple doses of breakthrough morphine last PM Review of Systems Review of Systems: ROS unobtainable: Yes unobtainable due to medical condition Exam Narrative: Exam Narrative: HEENT: pharyngeal mucosa pink and intact NECK: No JVD CHEST: Clear to auscultation. Normal effort. HEART: NL S1/S2, regular, no murmur ABDOMEN: BS+, soft, nontender, no mass, no bruits EXTREMITIES: No cyanosis, edema, or clubbing NEUROLOGIC: CN intact and symmetric to inspection. MUSCULOSKELETAL: Tone and strength symmetric. PSYCH: Resting Objective Data Vital Signs Vital Signs: Vital Signs - 24 hr 01/19/20 14:00 Temperature 97.3 F L Pulse Rate 94 Respiratory Rate 24 H Blood Pressure 143/55 H Pulse Oximetry 94 Intake/Output Intake/Output: Intake & Output 01/16/20 01/17/20 01/18/20 01/19/20 23:59 23:59 23:59 23:59 Intake Total 250 1340 350.5 387 Output Total 1400 925 500 Balance -1150 415 -149.5 387 Meds/Results Medications: Active Medications Generic Name Dose Route Start Last Admin Trade Name Freq PRN Reason Stop Dose Admin Artificial Tears 1 drop 01/15/20 17:06 Artificial Tears EACH EYE Q12H PRN Dry Eye(s) Bisacodyl 10 mg 01/15/20 17:05 Dulcolax Suppository RECTAL QAM PRN Constipation Glycopyrrolate 0.1 mg 01/15/20 17:05 Robinul Inj IV PUSH Q4H PRN EXCESS SECRETIONS Morphine Sulf
--- NOTE | 2020-01-20 00:45 | PC.NURSE ---
When this RN walked into the room patient was found to not be breathing and with no heartbeat. Verified with second RN and airplane flight attendant supervisor. Will contact family and other appropriate parties.
--- NOTE | 2020-01-24 09:42 | PM.DDS ---
Discharge Sum: Prov Provider Primary care physician: Elder Cano, Admitting provider: Fei Valera MD Discharge Sum: Diag Contributing Factors (1) MRSA bacteremia: (2) Sepsis: (3) Diabetic foot: (4) Hematemesis: (5) Acute metabolic encephalopathy: (6) UTI (urinary tract infection) due to urinary indwelling Rueda catheter: Discharge Sum: Summary Date and Time Date of admission: 01/15/20 15:54 Summary Details: Admitted to inpatient hospice service. Medications titrated to comfort. Patient peacefully. Additional Data Attending physician: Fei Valera MD
== END 2020-01-20 00:45 | disposition expired | DRG 871 ==
PROVIDERS: Admitting Provider Internal Medicine; Visit Provider Internal Medicine
DX: A41.02 Sepsis due to Methicillin resistant Staphylococcus aureus (principal); G93.41 Metabolic encephalopathy; T83.511A Infection and inflammatory reaction due to indwelling urethral catheter, initial encounter; N39.0 Urinary tract infection, site not specified; K92.0 Hematemesis; N17.9 Acute kidney failure, unspecified; I82.412 Acute embolism and thrombosis of left femoral vein; B96.20 Unspecified Escherichia coli [E. coli] as the cause of diseases classified elsewhere; Z51.5 Encounter for palliative care; D64.9 Anemia, unspecified; Z89.431 Acquired absence of right foot
CPT/HCPCS: A9270; C9113; J2060; J2270